=== PATIENT | female | born 1950 | race Caucasian/White ===

== ENCOUNTER → 2017-11-07 10:38 | Outpatient (CLI) | payer MEDICARE, OTHER, SELFPAY ==
--- NOTE | 2017-11-07 10:42 | BI_ITS ---
MAMMOGRAPHY - BILATERAL SCREENING REASON FOR EXAM: Female, 67 years old. Routine annual screening examination. PERTINENT HISTORY: Non-contributory. TECHNIQUE: Digital bilateral breast nikko (3D mammographic acquisition) in the CC and MLO projections. 2-D mediolateral oblique (MLO) and craniocaudad (CC) views of both breasts were obtained. CAD: Full Field Digital Mammography with Computer Added Detection was performed. COMPARISON: Comparison is made with prior study dated October 13, 2016 and November 01, 2016. FINDINGS: Breast Composition: There are scattered areas of fibroglandular density. There are no dominant masses or suspicious calcifications. No other significant abnormalities are identified. There has been no significant change since the prior study. BI/SCREENING MAMM (CAD), BILAT IMPRESSION: Stable bilateral screening mammogram. Yearly follow-up mammogram recommended. (A) ASSESSMENT CATEGORY: BIRADS Category 1: Negative. A letter regarding these results will be sent to the patient by the facility within 30 days. Approximately 10% of breast cancers are not detected by mammography. A normal mammogram should not delay biopsy of a clinically suspicious abnormality. [id number] Electronically Signed: Zay Allen MD at 9:36 EDT Tel [phone], Service support ,
--- NOTE | 2017-11-07 10:42 | BD_ITS ---
STUDY: DUAL ENERGY X-RAY ABSORPTIOMETRY / DXA REASON FOR EXAM: Female, 67 years old. The patient is postmenopausal. Loss of height. TECHNIQUE: Bone Mineral Density (BMD) measurements of forms were obtained. COMPARISON: None. FINDINGS: Right Forearm: g/cm2 (0.885) / T-score (0.0) / Z-score (1.6) Left Forearm: g/cm2 (0.839) / T-score (-0.4) / Z-score (1.1) The T-Scores on the most recent prior examination were: There has been improvement as compared to prior study. BD/Dexa Bone Density/Append Skel IMPRESSION: The patient is considered normal as outlined below according to World Phillip Organization (WHO) criteria with a low fracture risk. There has been improvement of bone density since the previous examination. Reference Information: The T-score is the number of standard deviations above or below the standard which is normal for young adults at their peak bone mineral density. The World Health Organization (WHO) interprets the T-scores as follows: Above -1 Normal bone density Between -1 and -2.5 Osteopenia Equal to / or below -2.5 Osteoporosis As a practical clinical guideline, osteopenia may be graded as follows: Mild -1 through -1.5 Moderate -1.6 through -2.0 Severe -2.1 through -2.4 The Z-score is the number of standard deviations above or below age-matched controls. A Z-score of less than -1.5 would be considered abnormal. References: 1. NIH Osteoporosis and Related Bone Diseases http://www.osteo.org 2. International Society for Clinical Densitometry http://www.iscd.org 3. National Osteoporosis Foundation http://www.nof.org Electronically Signed: Zay Allen MD at 15:47 EDT Tel [phone], Service support ,
== END ==
PROVIDERS: Family Provider Nurse Practitioner Family; PCP Nurse Practitioner Family; Visit Provider Nurse Practitioner Family
DX: Z12.31 Encounter for screening mammogram for malignant neoplasm of breast (principal); Z78.0 Asymptomatic menopausal state
CPT/HCPCS: 77063; 77067; 77081

== ENCOUNTER → 2018-11-09 | Outpatient (CLI) | payer MEDICARE, OTHER, SELFPAY ==
--- NOTE | 2018-11-09 10:54 | BI_ITS ---
MAMMOGRAPHY - BILATERAL SCREENING REASON FOR EXAM: Female, 68 years old. Routine annual screening examination. PERTINENT HISTORY: Sister with breast cancer. Prior right excisional breast biopsy. TECHNIQUE: Digital bilateral breast nikko (3D mammographic acquisition) in the CC and MLO projections. 2-D mediolateral oblique (MLO) and craniocaudad (CC) views of both breasts were obtained. CAD: Full Field Digital Mammography with Computer Added Detection was performed. COMPARISON: Comparison is made with prior study dated November 07, 2017 and November 01, 2016. FINDINGS: Breast Composition: There are scattered areas of fibroglandular density. There are no dominant masses or suspicious calcifications. No other significant abnormalities are identified. There has been no significant change since the prior study. BI/SCREENING MAMM (CAD), BILAT IMPRESSION: Stable bilateral screening mammogram. Yearly follow-up mammogram recommended. (A) ASSESSMENT CATEGORY: BIRADS Category 1: Negative. A letter regarding these results will be sent to the patient by the facility within 30 days. Approximately 10% of breast cancers are not detected by mammography. A normal mammogram should not delay biopsy of a clinically suspicious abnormality. [id number] Electronically Signed: Zay Allen, at 13:39 EDT , Service support ,
== END | disposition home or self-care (01) ==
LOC: OPBI 10:51
PROVIDERS: Family Provider Nurse Practitioner Family; PCP Nurse Practitioner Family; Referring Provider Nurse Practitioner Family; Visit Provider Nurse Practitioner Family
DX: Z12.31 Encounter for screening mammogram for malignant neoplasm of breast (principal)
CPT/HCPCS: 77063; 77067

== ENCOUNTER → 2020-04-06 10:33 | Outpatient (CLI) | payer MEDICARE, OTHER, SELFPAY ==
[2020-04-06 12:13] LABS: Hematocrit 38.8 % (37-47); Hemoglobin 12.2 g/dL (12.0-15.0); Mean Corp Hgb Conc 31.4 g/dL (32-36); Mean Corpuscular Hgb 29.1 pg (27.0-32.0); Mean Corpuscular Volume 92.6 fL (81-99); Mean Platelet Vol. 10.6 fl (6.2-12.0); Platelet Count 203 K/mm3 (150-450); RBC Distribution Width CV 13.9 % (11.6-14.6); RBC Distribution Width SD 47.1 fl (35.1-43.9); Red Blood Count 4.19 M/mm3 (4.2-5.4); White Blood Count 4.5 K/mm3 (4.4-11.0)
[2020-04-06 12:40] LABS: Vitamin D,25 Hydroxy 47.2 ng/mL
[2020-04-06 12:58] LABS: AST(SGOT) 15 U/L (15-37); Alanine Aminotransfer ALT/SGPT 18 U/L (13-56); Albumin, Serum 3.4 g/dL (3.2-5.0); Alkaline Phosphatase 79 U/L (45-117); Anion Gap 7 (5-15); BUN 25 mg/dL (7-18); BUN/Creat Ratio 40.5 RATIO (10-20); Calcium,Total 9.3 mg/dL (8.5-10.1); Chloride 108 mmol/L (98-107); Cholesterol 130 mg/dL (200); Creatinine, Serum 0.62 mg/dL (0.55-1.02); EST Glomerular Filtration Rate 102 mL/min (>60); Est Glom Filt Rate - Afr Amer 123 mL/min (>60); Globulin 3.3 g/dL (2.2-4.2); Glucose 104 mg/dL (74-106); High Density Lipoprotein 54 mg/dL; Potassium 3.6 mmol/L (3.5-5.1); Protein, Total 6.7 g/dL (6.4-8.2); Sodium Level 141 mmol/L (136-145); T4 Free Direct 1.53 ng/dL (0.76-1.46); Thyroid Stim Hormone (TSH) 0.85 uIU/mL (0.358-3.74); Triglycerides 78 mg/dL; Uric Acid 5.7 mg/dL (2.6-6.0); Very Low Density Lipoprotein 16 mg/dL (5-40)
== END ==
PROVIDERS: PCP Nurse Practitioner Family
DX: I10 Essential (primary) hypertension (principal); E78.5 Hyperlipidemia, unspecified; E03.9 Hypothyroidism, unspecified; R73.01 Impaired fasting glucose; M10.9 Gout, unspecified; E55.9 Vitamin D deficiency, unspecified
CPT/HCPCS: 36415; 80053; 80061; 82306; 83036; 84439; 84443; 84550; 85027

== ENCOUNTER → 2020-10-22 12:34 | Outpatient (CLI) | payer MEDICARE, OTHER, SELFPAY ==
--- NOTE | 2020-10-22 12:37 | BI_ITS ---
MAMMOGRAPHY - BILATERAL SCREENING REASON FOR EXAM: Female, 70 years old. Routine annual screening examination. PERTINENT HISTORY: Sister with breast cancer. Remote right stereotactic breast biopsy. TECHNIQUE: Digital bilateral breast christie (3D mammographic acquisition) in the CC and MLO projections. 2-D mediolateral oblique (MLO) and craniocaudad (CC) views of both breasts were obtained. CAD: Full Field Digital Mammography with Computer Added Detection was performed. COMPARISON: Comparison is made with prior study dated 11/09/2018 and 11/07/2017. FINDINGS: Breast Composition: There are scattered areas of fibroglandular density. There are no dominant masses or suspicious calcifications. Stable benign appearing bilateral axillary lymph nodes. No other significant abnormalities are identified. There has been no significant change since the prior study. BI/SCRN MAMM (CAD)W/CHRISTIE BILAT IMPRESSION: Stable bilateral screening mammogram. Yearly follow-up mammogram recommended. (A) ASSESSMENT CATEGORY: BIRADS Category 2: Benign. A letter regarding these results will be sent to the patient by the facility within 30 days. Approximately 10% of breast cancers are not detected by mammography. A normal mammogram should not delay biopsy of a clinically suspicious abnormality. [id number] Electronically Signed: Zay Allen MD at 14:04 EDT , Service support ,
--- NOTE | 2020-10-22 12:40 | BD_ITS ---
STUDY: DUAL ENERGY X-RAY ABSORPTIOMETRY / DXA REASON FOR EXAM: Female, 70 years old. Z780. Postmenopausal. Loss of height. TECHNIQUE: Bone Mineral Density (BMD) measurements of both forearms were obtained. COMPARISON: Comparison is made with prior study dated 11/07/2017. FINDINGS: Right Forearm: g/cm2 (0.874) / T-score (-0.2) / Z-score (1.8) Left Forearm: g/cm2 (0.821) / T-score (-0.7) / Z-score (1.2) BD/Dexa Bone Density/Append Skel IMPRESSION: The patient is considered normal as outlined below according to World Phillip Organization (WHO) criteria with a low fracture risk. Reference Information: The T-score is the number of standard deviations above or below the standard which is normal for young adults at their peak bone mineral density. The World Health Organization (WHO) interprets the T-scores as follows: Above -1 Normal bone density Between -1 and -2.5 Osteopenia Equal to / or below -2.5 Osteoporosis As a practical clinical guideline, osteopenia may be graded as follows: Mild -1 through -1.5 Moderate -1.6 through -2.0 Severe -2.1 through -2.4 The Z-score is the number of standard deviations above or below age-matched controls. A Z-score of less than -1.5 would be considered abnormal. References: 1. NIH Osteoporosis and Related Bone Diseases www osteo.org 2. International Society for Clinical Densitometry www iscd.org 3. National Osteoporosis Foundation www nof.org Electronically Signed: Zay Allen MD at 15:17 EDT , Service support ,
== END ==
PROVIDERS: PCP Nurse Practitioner Family; Referring Provider Nurse Practitioner Family; Visit Provider Nurse Practitioner Family
DX: Z12.31 Encounter for screening mammogram for malignant neoplasm of breast (principal); Z78.0 Asymptomatic menopausal state
CPT/HCPCS: 77063; 77067; 77080; 77081

== ENCOUNTER 2021-09-24 12:04 | Inpatient (IN) | payer MEDICARE, OTHER, SELFPAY ==
[2021-09-24] VITALS (13 sets, daily range): BP systolic 108–147; BP diastolic 69–102; PULSE 90–130; RESP 16–24; TEMP 36.3–36.8; O2SAT 91–95; BMI 59.9; BMI 66.2
--- NOTE | 2021-09-24 12:19 | EKG12_ITS ---
Test Reason : AFIB CHF Blood Pressure : / mmHG Vent. Rate : 118 BPM Atrial Rate : 095 BPM P-R Int : 000 ms QRS Dur : 088 ms QT Int : 322 ms P-R-T Axes : 000 001 013 degrees QTc Int : 451 ms Atrial fibrillation Abnormal ECG Confirmed by MELE LONG, LINDY ([id number]), make up editor PREETI VALVERDE ([id number]) on 09/27/2021 10:52:58 AM Referred By: Confirmed By:LINDY SHABAZZ MD
--- NOTE | 2021-09-24 12:24 | ED.RN ---
PRIOR TO PT ARRIVAL THERE WAS A GENTLEMAN THAT LET THE SCREENER KNOW SHE WAS COMING. PT ARRIVED VIA FAMILY VEHICLE AND THIS GENTLEMAN ASSIST GETTING HER OUT OF THE CAR AND BROUGHT HER IN. IT WAS THE GRANDSON DRIVING WHO THEN PARKED THE CAR AND CAME IN ALSO. THE SCREENER INFORMED BOTH MEN THAT ONLY 1 VISITOR WAS ALLOWED WITH THE PT IN THE ER. UPON BRING THE PT INTO THE TRIAGE ROOM TO GET HER CHECKED IN THIS NURSE ALSO INFORMED THEM THE RULE IS 1 VISITOR. THE OLDER GENTLEMAN EXPLAINED HE WAS CLERGY AND COULD GO BACK. EXPLAINED TO HIM THAT THAT IS NOT THE CASE UNLESS THE SITUATION DEEMS IT TO BE NECESSARY. HE CONTINUED TO ARGUE TO WHAT HE DOES ON THE FLOORS. EXPLAINED I WAS UNSURE WHAT THE FLOORS DO BUT I CAN ONLY KEEP THE ER RULES.
--- NOTE | 2021-09-24 12:35 | ED.RN ---
MAKENNA CONTINUED TO ARGUE AN STATED THAT HE SAW 2 PEOPLE WALK OUT OF THE ER SO THAT MEANS HE SHOULD BE ABLE TO GO IN WELL. AGAIN STATED THAT DEPENDS ON THE SITUATION AND I WAS NOT DISCUSSING ANOTHER PTS SITUATION WITH HIM. MEANWHILE WHILE TRIAGING THE PT SHE IS ALERT, ORIENTED, ABLE TO ANSWER ALL QUESTIONS WITH NO SIGNS OF DISTRESS AND VS WERE STABLE. EXPLAINED THOSE THING TO BOTH THE CLERGY AND THE PT. PT DID NOT SEEM TO BE BOTHERED BY THE FACT ONLY ONE OF THE MEN COULD STAY WITH HER. AT THE TIME OF TAKING THE PT BACK I TOLD BOTH MEN TO FIGURE OUT WHO WANTS TO GO BACK AND THAT THERE IS NO SWITCHING OF VISITORS ALLOWED. THE CLERGY THEN STATED HE WAS CALLING THE BOARD. HE THEN TRIED TO WALK BACK WITH THE PT AT WHICH TIME I TOLD HIM IF HE GOES BACK WITH THE PT THEN THE GRANDSON WILL NOT BE ALLOWED BACK. HE THEN STATED FINE AND TURNED TO MAKE A PHONE CALL. AFTER A FEW MINUTES THE MEN MUST HAVE DECIDED THAT THE GRANDSON WOULD BE THE ONE TO GO BACK. CHARGE NURSE AND PTS NURSE INFORMED OF THE SITUATION. SECURITY WAS ON HAND WELL AND TOLD THIS NURSE THAT HE RECOGNIZED THE GENTLEMAN CLAIMING TO BE CLERGY AND THEY HAVE HAD SIMILAR SITUATIONS WITH HIM IN OTHER AREAS OF THE HOSPITAL.
--- NOTE | 2021-09-24 13:05 | RAD_ITS ---
STUDY: X-RAY CHEST REASON FOR EXAM: Female, 71 years old. Dyspnea TECHNIQUE: Single AP portable view of the chest. COMPARISON: None. FINDINGS: EKG electrodes are seen. Patchy infiltrates in the lateral aspect of the left hemithorax with blunting of the left costophrenic angle suggestive of possible pneumonitis associated with Covid.Patchy right infrahilar infiltrate. Normal size heart. Normal mediastinum and kitty. Normal visualized pulmonary arteries. There is atherosclerotic calcification of the aortic arch with tortuosity. Normal visualized thoracic spine. Normal visualized ribs, clavicles, and shoulders. There is no demonstrated abnormality of the visualized soft tissue structures of the upper abdomen. RAD/Chest 1 View (Portable) IMPRESSION: Patchy infiltrates in the lateral aspect of the left lung as well as in the right infrahilar region. Covid pneumonitis should be Electronically Signed: Zay Allen MD at 14:17 EST ,
[2021-09-24 13:09] LABS: Absolute Lymphocyte Count 1.61 X10^3/uL (0.83-4.51); Absolute Neutrophil Count 6.4 X10^3/uL (2.0-7.7); Basophil# 0.01 X10^3/uL; Basophil% 0.1 % (0-1); Eosinophil# 0.02 X10^3/uL; Eosinophils% 0.2 % (0-5); Hemoglobin 11.8 g/dL (12.0-15.0); Lymphocyte # 1.61 X10^3/ul (0.83-4.51); Lymphocyte % 18.1 % (19-41); Mean Corp Hgb Conc 29.5 g/dL (32-36); Mean Corpuscular Hgb 29.2 pg (27.0-32.0); Mean Platelet Vol. 10.8 fl (6.2-12.0); NRBC Flagged by Analyzer 0 % (0-5); Neutrophil # 6.41 X10^3/uL (2.7-7.7); Neutrophil % 71.9 % (47-70); Platelet Count 141 K/mm3 (150-450); Red Blood Count 4.04 M/mm3 (4.2-5.4); White Blood Count 8.9 K/mm3 (4.4-11.0)
--- NOTE | 2021-09-24 13:23 | EDS_ITS ---
HPI History of Present Illness Chief Complaint: Shortness of Breath Narrative Narrative: 71-year-old female presenting with dyspnea and some chest tightness. This is worse with exertion. She states that in July she thought she had the flu and developed fevers and a cough. She tested negative for Covid twice. Since that time she has been short of breath. She was seen by her PCP who diagnosed her with atrial fibrillation and put her on carvedilol. Patient started developing leg swelling and he diagnosed her with congestive heart failure and put her on HCTZ 25 mg p.o. daily for the leg swelling. She states she is never had an echocardiogram. Patient also states that she is not anticoagulated patient denies history of DVT/PE. She does state her legs are more swollen and her abdomen feels bloated. She states that HCTZ is not getting the water off. She describes dyspnea on exertion but she does not describe orthopnea. She does however wear a CPAP mask at night and states that she sleeps pretty well with this on but when she is not wearing it during the day she has more shortness of breath [facility] Medical History Atrial fibrillation CPAP (continuous positive airway pressure) dependence High cholesterol HTN (hypertension) Hypothyroid Non-smoker Sleep apnea Home Medications hydrochlorothiazide 25 mg PO DAILY 09/17/14 [History Last Taken 09/24/21] multivitamin with folic acid [Thera] 1 tab PO DAILY 09/17/14 [History Last Taken 09/23/21] nabumetone 750 mg PO BID 09/17/14 [History Last Taken 09/24/21] simvastatin 10 mg PO QHS 09/17/14 [History Last Taken 09/23/21] allopurinol 300 mg PO DAILY 07/27/15 [History Last Taken 09/24/21] losartan 100 mg PO DAILY 07/27/15 [History Last Taken 09/24/21] Cbd Patches 1 ea TRANSDERMAL QODAY 09/24/21 [History Last Taken 09/20/21] [id number] [Excedrin Extra Strength] 1 tab PO DAILY 09/24/21 [History Last Taken 09/24/21] carvedilol phosphate 10 mg PO DAILY 09/24/21 [History Last Taken 09/24/21] cholecalciferol (vitamin D3) 1,250 mcg PO SWEET 09/24/21 [History Last Taken 09/19/21] levothyroxine 137 mcg PO DAILY 09/24/21 [History Last Taken 09/24/21] trospium 20 mg PO QHS 09/24/21 [History Last Taken 09/23/21] Allergy/AdvReac Type Severity Reaction Status Date / Time No Known Allergies Allergy Verified 07/27/15 16:55 Family History Mother CHF (congestive heart failure) Social History Smoking Status: Never smoker ROS ROS ED Constitutional Constitutional ED: Denies chills or fever(s) Eyes Eyes: Denies blurry vision or diplopia ENT ENT ED: Denies rhinorrhea or sore throat Cardiovascular Cardiovascular: Reports chest pain, palpitations and racing heartbeat Respiratory/Chest Respiratory/Chest: Reports dyspnea and dyspnea on exertion Gastrointestinal Gastrointestinal: Reports other Details: Abdominal bloating ; Denies nausea or vomiting Genitourinary Genitourinary ED: Denies dysuria or hematuria Musculoskeletal Musculoskeletal: Denies arthralgias or myalgias Integumentary Reports other Details: Lower extremity edema ; Denies rash Neurologic Neurologic: Denies headache(s) or weakness Psychiatric Psychiatric: Denies anxiety or depression EXAM Physical Exam Const Vital Signs: 09/24/21 12:05 09/24/21 12:27 09/24/21 12:40 Temperature 98.2 F 98.2 F Temperature Source Temporal Temporal Pulse Rate 100 100 Respiratory Rate 16 16 Respiratory Effort Respiratory Pattern Blood Pressure 147/84 H 147/84 H Blood Pressure Mean 105 105 Pulse Ox 95 95 94 Oxygen Delivery Method Room Air Room Air Room Air 09/24/21 13:03 09/24/21 13:23 09/24/21 13:57 Temperature 97.9 F Temperature Source Temporal Pulse Rate 118 H 101 H Respiratory Rate 22 H 23 H Respiratory Effort Short of Breath Respiratory Pattern Tachypnea Blood Pressure 123/102 H 134/101 H Blood Pressure Mean 109 112 Pulse Ox 94 94 Oxygen Delivery Method Room Air Room Air Positive obese General Appearance ED: NAD; Negative for pallor Nutritional Appearance: obese HEENT Reports moist mucous membranes atraumatic Eyes PERRL and EOMs intact bilaterally General Eye ED: Negative for pale conjunctiva or scleral icterus Resp normal respiratory effort and clear to auscultation bilaterally Cardio Rate: tachycardic Rhythm: abnormal rhythm irregularly irregular Extremity General Extremety ED: Yes edema; Negative for tenderness General Extremity: edema Neuro oriented x3, CN's II-XII intact bilaterally and no sensory deficits noted Sensorium / Orientation: alert Motor Exam: strength 5/5 throughout Psych mental status grossly normal Thought Process: normal thought process Skin General Skin Exam: Negative for jaundice or pallor MDM MDM MDM Narrative Medical decision making narrative: Patient presented with shortness of breath, chest tightness, lower extremity swelling. She is previously diagnosed with CHF without an echocardiogram. Her EKG on my interpretation shows atrial fibrillation at a rate of 118 bpm. Chest x-ray my interpretation shows bilateral infiltrates, radiologist agree. CBC shows no leukocytosis. Her hemoglobin is 11.8 which is stable. Platelets slightly low at 141. Renal function and electrolytes unremarkable. High-sensitivity troponin initially is 16. BNP is elevated at 182.1. Patient was given 10 mg of diltiazem because of heart rates only about 110-115. D-dimer came back elevated at 7.17 and I obtained a CTA of the chest which is positive for pleural effusions and PEs in the left lower lobe pulmonary artery are also infiltrates in the left lateral upper lobe abutting the major fissure of the left lung. I did order COVID test today because the radiologist had concern for COVID pneumonitis however the patient has not had a fever, chills, body aches since July. I do not believe she needs antibiotics currently. Patient was given Eliquis and 40 mg of Lasix IV. Discussed with hospitalist for admission. Impression: 1. CHF 2. A. fib with RVR 3. Left lower lobe PEs Lab Data Attestation: I reviewed the patient's lab results. Labs: Laboratory Results - last 24 hr 09/24/21 09/24/21 09/24/21 13:00 13:00 13:00 WBC 8.9 RBC 4.04 L Hgb 11.8 L Hct 40.0 MCV 99.0 MCH 29.2 MCHC 29.5 L RDW Std Deviation 59.0 H RDW Coeff of Yuri 16.0 H Plt Count 141 L MPV 10.8 Immature Gran % (Auto) 0.700 Neut % (Auto) 71.9 H Lymph % (Auto) 18.1 L [place] % (Auto) 9.0 Eos % (Auto) 0.2 Baso % (Auto) 0.1 Absolute Neuts (auto) 6.4 Absolute Lymphs (auto) 1.61 Nucleated RBC % 0 D-Dimer Quant (PE/DVT) 7.17 H* Sodium 138 Potassium 3.6 Chloride 109 H Carbon Dioxide 23.0 Anion Gap 6 BUN 17 Creatinine 0.93 Estim Creat Clear Calc 49.20 Est GFR (MDRD) Af Amer 76 Est GFR (MDRD) Non-Af 63 BUN/Creatinine Ratio 18.3 Glucose 141 H Calcium 9.7 Troponin I High Sens 16 B-Natriuretic Peptide 09/24/21 09/24/21 13:00 14:58 WBC RBC Hgb Hct MCV MCH MCHC RDW Std Deviation RDW Coeff of Yuri Plt Count MPV Immature Gran % (Auto) Neut % (Auto) Lymph % (Auto) [place] % (Auto) Eos % (Auto) Baso % (Auto) Absolute Neuts (auto) Absolute Lymphs (auto) Nucleated RBC % D-Dimer Quant (PE/DVT) Sodium Potassium Chloride Carbon Dioxide Anion Gap BUN Creatinine Estim Creat Clear Calc Est GFR (MDRD) Af Amer Est GFR (MDRD) Non-Af BUN/Creatinine Ratio Glucose Calcium Troponin I High Sens 19 B-Natriuretic Peptide 182.1 H Radiography Diagnostic Testing: Clinical Impression(s) from Imaging Studies Chest X-Ray 09/24/21 13:05 IMPRESSION: Patchy infiltrates in the lateral aspect of the left lung as well as in the right infrahilar region. Covid pneumonitis should be Electronically Signed: Zay Allen MD at 14:17 EST , Chest CTA 09/24/21 13:31 IMPRESSION: Pulmonary emboli in branches of the left lower lobe pulmonary artery. Small bilateral pleural effusions with bibasilar atelectasis. Airspace disease in the posterior aspect of the left upper lobe abutting the major fissure with infiltration along the lateral aspect of the left lung. Radiographic follow-up is recommended. Electronically Signed: Zay Allen MD at 14:38 EST , Discharge Plan Triage Chief Complaint: Shortness of Breath ED Provider: Timothy Lo Dx/Rx/DC Orders Prescriptions: No Action nabumetone 750 MG tablet 750 mg PO BID RF: 0 simvastatin 10 MG tablet 10 mg PO QHS RF: 0 hydrochlorothiazide 25 MG tablet 25 mg PO DAILY RF: 0 multivitamin with folic acid [Thera] 1 TABLET tablet 1 tab PO DAILY RF: 0 allopurinol 300 MG tablet 300 mg PO DAILY RF: 0 losartan 100 MG tablet 100 mg PO DAILY RF: 0 levothyroxine 137 mcg tablet 137 mcg PO DAILY RF: 0 Excedrin Extra Strength 250-250-65 mg Tablet 1 tab PO DAILY RF: 0 trospium 20 mg tablet 20 mg PO QHS RF: 0 carvedilol phosphate 10 mg capsule, ER multiphase 24 hr 10 mg PO DAILY RF: 0 cholecalciferol (vitamin D3) 1,250 mcg (50,000 unit) capsule 1,250 mcg PO SWEET RF: 0 Cbd Patches 1 ea transdermal QODAY RF: 0 Primary Care Provider: Gregg Plasencia NP
[2021-09-24 13:26] LABS: Anion Gap 6 (5-15); BUN 17 mg/dL (7-18); BUN/Creat Ratio 18.3 RATIO (10-20); Calcium,Total 9.7 mg/dL (8.5-10.1); Chloride 109 mmol/L (98-107); Creatinine, Serum 0.93 mg/dL (0.55-1.02); EST Glomerular Filtration Rate 63 mL/min (>60); Est Glom Filt Rate - Afr Amer 76 mL/min (>60); Glucose 141 mg/dL (74-106); Potassium 3.6 mmol/L (3.5-5.1); Sodium Level 138 mmol/L (136-145); Troponin-I HS 16 pg/mL (3.0-54.0)
[2021-09-24 13:27] LABS: BNP,B-Type NATRIURETIC PEPTIDE 182.1 pg/mL (0-100)
[2021-09-24 13:30] LABS: D-Dimer Quantitative (DVT/PE) 7.17 FEU/ug/m (0.27-0.49)
--- NOTE | 2021-09-24 13:31 | CT_ITS ---
STUDY: CTA CHEST REASON FOR EXAM: Female, 71 years old. Dyspnea. RADIATION DOSAGE (If Supplied By Facility): CTDIvol = ( 19.79 ) mGy, DLP = ( 574.29 ) mGycm TECHNIQUE: The examination was performed with the intravenous administration of IV 100mL Isovue-370. Post-processing of the angiographic images was performed, with multiplanar reformation and 3D reconstruction. Individualized dose optimization techniques were used for this CT. COMPARISON: Comparison is made with prior chest radiograph done earlier in the day. FINDINGS: Intraluminal filling defects in keeping with a pulmonary emboli are seen in branches of the left lower lobe pulmonary artery . Normal thoracic aorta and visualized great vessels. There is no demonstrated aortic dissection. Normal heart and pericardium. Normal mediastinum. Normal hilar regions. Normal visualized trachea and bronchi. The lungs are well expanded. Consolidation in the posterior aspect of the left upper lobe abutting the left major fissure. This extends into the pleural surface. Radiographic follow-up is recommended following treatment to make sure it is no underlying mass is present. Small bilateral pleural effusions. Normal chest wall structures. There are degenerative changes of thoracic spine. Normal visualized upper abdomen. CT/CTA Chest W/WO Contrast IMPRESSION: Pulmonary emboli in branches of the left lower lobe pulmonary artery. Small bilateral pleural effusions with bibasilar atelectasis. Airspace disease in the posterior aspect of the left upper lobe abutting the major fissure with infiltration along the lateral aspect of the left lung. Radiographic follow-up is recommended. Electronically Signed: Zay Allen MD at 14:38 EST ,
[2021-09-24] MEDS: dilTIAZem 25 MG/5 ML Vial 10 MG IV BOLUS (14:45)
[2021-09-24] MEDS: Furosemide 40 MG/4 ML Vial IV ×2 (15:19→17:57)
--- NOTE | 2021-09-24 15:25 | HP.PCM.HOS_ITS ---
HPI - General General Date of Admission: 09/24/21 Date of Service: 09/24/21 Chief Complaint: shortness of breath HPI Narrative CARMEN PYLE, is a 71 F who presents presents with shortness of breath. Patient was sick and July and was tested negative for Covid x2. She eventually got over that but then just started feeling short of breath and has not been able to keep up and her shortness of breath is steadily gotten worse. Because of this she presented to the emergency room today. In the emergency room, patient had a CAT scan that showed left lower lobe PE as well as bilateral pleural effusions. Patient does note that she has had an increased lower extremity edema as well as left-sided pannus wall edema. She denies any history of PE or heart failure previously. Patient thinks he may have had COVID-19 but was negative. She is unvaccinated for COVID-19. Patient did have a heart rate in the 100s 120s and did receive one-time dose of IV diltiazem 10 mg. [facility] Medical History Atrial fibrillation CPAP (continuous positive airway pressure) dependence High cholesterol HTN (hypertension) Hypothyroid Non-smoker Sleep apnea Home Medications hydrochlorothiazide 25 mg PO DAILY 09/17/14 [History Last Taken 09/24/21] multivitamin with folic acid [Thera] 1 tab PO DAILY 09/17/14 [History Last Taken 09/23/21] nabumetone 750 mg PO BID 09/17/14 [History Last Taken 09/24/21] simvastatin 10 mg PO QHS 09/17/14 [History Last Taken 09/23/21] allopurinol 300 mg PO DAILY 07/27/15 [History Last Taken 09/24/21] losartan 100 mg PO DAILY 07/27/15 [History Last Taken 09/24/21] Cbd Patches 1 ea TRANSDERMAL QODAY 09/24/21 [History Last Taken 09/20/21] vvkruea-wwdhdyqayaxwb-gomhflsi [Excedrin Extra Strength] 1 tab PO DAILY 09/24/21 [History Last Taken 09/24/21] carvedilol phosphate 10 mg PO DAILY 09/24/21 [History Last Taken 09/24/21] cholecalciferol (vitamin D3) 1,250 mcg PO SWEET 09/24/21 [History Last Taken 09/19/21] levothyroxine 137 mcg PO DAILY 09/24/21 [History Last Taken 09/24/21] trospium 20 mg PO QHS 09/24/21 [History Last Taken 09/23/21] Allergy/AdvReac Type Severity Reaction Status Date / Time No Known Allergies Allergy Verified 07/27/15 16:55 Family History Mother CHF (congestive heart failure) Social History Smoking Status: Never smoker YUKI MIRZA Narrative Said initially when she got sick in July she did not have any anosmia or nor dysgeusia but has had some alteration in taste as of late. All review of sy stems were negative except as mentioned above in the history of present illness and the other review of systems. Vital Signs Vital Signs Vital Signs: 09/24/21 12:05 09/24/21 12:27 09/24/21 12:40 Temperature 36.8 C 36.8 C Temperature Source Temporal Temporal Pulse Rate 100 100 Respiratory Rate 16 16 Respiratory Effort Respiratory Pattern Blood Pressure 147/84 H 147/84 H Blood Pressure Mean 105 105 Pulse Ox 95 95 94 Oxygen Delivery Method Room Air Room Air Room Air 09/24/21 13:03 09/24/21 13:23 09/24/21 13:57 Temperature 36.6 C Temperature Source Temporal Pulse Rate 118 H 101 H Respiratory Rate 22 H 23 H Respiratory Effort Short of Breath Respiratory Pattern Tachypnea Blood Pressure 123/102 H 134/101 H Blood Pressure Mean 109 112 Pulse Ox 94 94 Oxygen Delivery Method Room Air Room Air Weight Weight: 163.293 kg Body Mass Index (BMI) 59.9 Physical Exam Const alert and no apparent distress Constitutional Narrative: Morbidly obese General Appearance: cooperative HEENT normocephalic, head/scalp atraumatic, hearing grossly normal bilaterally and moist oral mucous membranes Neck no lymphadenopathy Neck Narrative: Positive JVD Resp normal respiratory effort, no retractions, no use of accessory muscles and clear to auscultation bilaterally Cardio regular rate, regular rhythm, S1 normal heart sound and S2 normal heart sound GI normal to inspection, nondistended, normoactive bowel sounds, soft to palpation, non-tender and non-distended GI Narrative: Abdomen was obese with very large pannus. Did not appreciate any fluid that she was describing. Extremity Extremity Narrative: Bilateral lower extremity edema Neuro oriented x3 Sensorium / Orientation: awake, alert and oriented to person Psych affect normal Results Lab / Micro Data Attestation: I reviewed the patient's lab results. Result Diagrams: 09/24/21 13:00 09/24/21 13:00 Labs: Laboratory Results - last 24 hr 09/24/21 13:00: WBC 8.9, RBC 4.04 L, Hgb 11.8 L, Hct 40.0, MCV 99.0, MCH 29.2, MCHC 29.5 L, RDW Std Deviation 59.0 H, RDW Coeff of Yuri 16.0 H, Plt Count 141 L, MPV 10.8, Immature Gran % (Auto) 0.700, Neut % (Auto) 71.9 H, Lymph % (Auto) 18.1 L, [place] % (Auto) 9.0, Eos % (Auto) 0.2, Baso % (Auto) 0.1, Absolute Neuts (auto) 6.4, Absolute Lymphs (auto) 1.61, Nucleated RBC % 0 09/24/21 13:00: D-Dimer Quant (PE/DVT) 7.17 H* 09/24/21 13:00: Sodium 138, Potassium 3.6, Chloride 109 H, Carbon Dioxide 23.0, Anion Gap 6, BUN 17, Creatinine 0.93, Estim Creat Clear Calc 49.20, Est GFR (MDRD) Af Amer 76, Est GFR (MDRD) Non-Af 63, BUN/Creatinine Ratio 18.3, Glucose 141 H, Calcium 9.7, Troponin I High Sens 16 09/24/21 13:00: B-Natriuretic Peptide 182.1 H EKG Initial EKG: Attestation: I personally reviewed and interpreted this EKG as follows: Prior EKG tracings: available for review EKG Rhythm Intrepretation: Atrial Fibrillation Radiology Impression Chest X-Ray 09/24/21 13:05 IMPRESSION: Patchy infiltrates in the lateral aspect of the left lung as well as in the right infrahilar region. Covid pneumonitis should be Electronically Signed: Zay Allen MD at 14:17 EST , Chest CTA 09/24/21 13:31 IMPRESSION: Pulmonary emboli in branches of the left lower lobe pulmonary artery. Small bilateral pleural effusions with bibasilar atelectasis. Airspace disease in the posterior aspect of the left upper lobe abutting the major fissure with infiltration along the lateral aspect of the left lung. Radiographic follow-up is recommended. Electronically Signed: Zay Allen MD at 14:38 EST , Assessment & Plan Assessment/Plan (1) Pulmonary emboli: QUALIFIERS: Pulmonary embolism type: multiple subsegmental (without acute cor pulmonale) Qualified Code(s): I26.94 - Multiple subsegmental pulmonary emboli without acute cor pulmonale (2) CHF exacerbation: QUALIFIERS: Heart failure type: unspecified Qualified Code(s): I50.9 - Heart failure, unspecified (3) Atrial fibrillation with RVR: PLAN: 1. Pulmonary emboli Patient will need to be anticoagulated and will initiate weight-based enoxaparin for now. Will check an echocardiogram given the patient's concomitant CHF It is unclear if the patient did have COVID-19 back in July but is highly concerning given that this was for the peak of the pandemic and she was sick for several weeks and she is unvaccinated. Therefore cannot determine if her pulmonary emboli or Covid related 2. Acute CHF exacerbation Unclear type at this time Check echocardiogram Continue with furosemide IV Patient does have some area in her left upper lobe. Concerned that is more likely related with CHF and fluid within her fissure. I do not feel that that is pneumonia so we will not treat that at this point in time 3. Atrial fibrillation with RVR Mild RVR Continue with her carvedilol the ER 4. Morbid obesity BMI 60 Complicates overall care and recovery 6. VTE prophylaxis: Not indicated as patient is already anticoagulated 7. COVID-19 vaccination status: Patient is unvaccinated for COVID-19. Though it is concerning the patient had COVID-19 back in July but still highly recommended that she get vaccinated given her multiple medical comorbidities. 8. CODE STATUS: Addressed with the patient. Patient has a living will and does have a DNR. She is DNR Comfort Care arrest. Charges/Coding Visit Charges Inpatient E&M: 47290 Init Hosp L3
[2021-09-24 15:34] LABS: Troponin-I HS 19 pg/mL (3.0-54.0)
[2021-09-24] MEDS: APIXABAN 5 MG TABLET 10 MG PO (16:26)
[2021-09-24] MEDS: 0.9% Saline Lock 10 ML Syringe IV (17:57)
[2021-09-24 18:49] LABS: Troponin-I HS 17 pg/mL (3.0-54.0)
[2021-09-24] MEDS: Carvedilol 3.125 MG TABLET PO (18:51)
[2021-09-24] MEDS: Etodolac 300 MG Capsule PO (21:45)
[2021-09-24] MEDS: Tolterodine Tartrate 2 MG CAP.SA PO (21:46)
[2021-09-24] MEDS: Atorvastatin Calcium 10 MG Tablet 5 MG PO (21:46)
[2021-09-24] MEDS: Enoxaparin 80 MG/0.8 ML Syringe 160 MG SC (21:48)
[2021-09-25] VITALS (34 sets, daily range): BP systolic 96–145; BP diastolic 43–89; PULSE 77–111; RESP 18–25; TEMP 36.3–36.9; O2SAT 90–95
--- NOTE | 2021-09-25 05:55 | ECHOD_ITS ---
Reason For Study: CHF Procedure This was a 2D Doppler, Color Flow transthoracic echocardiogram. Exam performed portable in patient room. Left Ventricle Normal LV size. Mild global left ventricular systolic dysfunction. The estimated ejection fraction is 45 %. There is mild global hypokinesis of the left ventricle. Right Ventricle Normal RV size. Mild global right ventricular systolic dysfunction. Atria The left atrium is mildly enlarged. Normal right atrium. Mitral Valve There is mild mitral annular calcification. Tricuspid Valve Normal tricuspid valve. Mild to moderate (1-2+) tricuspid valve insufficiency. Pulmonary artery systolic pressure is 36 mmHg. Aortic Valve Normal aortic valve. Trisinus/trileaflet aortic valve. Pulmonic Valve Normal pulmonic valve. Great Vessels Normal aortic root. The pulmonary artery is normal size. The inferior vena cava is dilated. Pericardium/Pleural No pericardial effusion. MMode/2D Measurements & Calculations LVIDd: 4.6 cm IVSd: 1.1 cm Ao root diam: 3.3 cm LVIDs: 3.5 cm LVPWd: 1.1 cm RVDd: 4.2 cm FS: 22.2 % LAV(MOD-bp): 76.2 ml LVAd ap4: 18.9 cm2 SV(MOD-sp4): 19.9 ml LAV(MOD-bp) Indexed: 28.7 ml/m2 LVLd ap4: 7.4 cm LAV(MOD-sp2): 77.8 ml EDV(MOD-sp4): 41.7 ml LAV(MOD-sp4): 65.6 ml EDV(sp4-el): 41.0 ml LVAs ap4: 12.2 cm2 LVLs ap4: 6.1 cm ESV(MOD-sp4): 21.8 ml ESV(sp4-el): 20.6 ml EF(MOD-sp4): 47.7 % EF(sp4-el): 49.7 % SV(sp4-el): 20.4 ml LA A4 area: 23.3 cm2 LA dimension(2D): 4.1 cm RA A4 area: 20.6 cm2 Doppler Measurements & Calculations MV E max stefan: 119.4 cm/sec Ao V2 max: 158.8 cm/sec LV V1 max: 112.1 cm/sec Ao max P.2 mmHg LV V1 max P.1 mmHg Ao V2 mean: 114.7 cm/sec Ao mean P.7 mmHg Ao V2 VTI: 28.5 cm PA V2 max: 95.2 cm/sec TR max stefan: 254.0 cm/sec TR max P.8 mmHg ECHO/Echo Complete Interpretation Summary Normal LV size. Mild global left ventricular systolic dysfunction. The estimated ejection fraction is 45 %. There is mild global hypokinesis of the left ventricle. The left atrium is mildly enlarged. There is mild mitral annular calcification. Pulmonary artery systolic pressure is 36 mmHg. Ordering Physician: Hector Traylor Referring Physician: Gregg Plasencia Performed By: Avelina See, JUSTIN, RVT
[2021-09-25] MEDS: Levothyroxine 137 MCG Tablet PO (05:56)
[2021-09-25 06:52] LABS: Anion Gap 6 (5-15); BUN 14 mg/dL (7-18); BUN/Creat Ratio 16.8 RATIO (10-20); Calcium,Total 9.1 mg/dL (8.5-10.1); Chloride 104 mmol/L (98-107); Creatinine, Serum 0.84 mg/dL (0.55-1.02); EST Glomerular Filtration Rate 71 mL/min (>60); Est Glom Filt Rate - Afr Amer 86 mL/min (>60); Estimated Creatinine Clearance 54.47 ml/min; Glucose 110 mg/dL (74-106); Potassium 2.9 mmol/L (3.5-5.1); Sodium Level 140 mmol/L (136-145); Thyroid Stim Hormone (TSH) 4.03 uIU/mL (0.358-3.74)
--- NOTE | 2021-09-25 09:32 | CASEMGMT ---
FAUZIA BAUER Assessment: Face to Face with pt for initial transition planning/care coordination assessment. RN JUANCARLOS introduced self and role at [facility], pt voices understanding and consents to assessment. Pt is A/O x4 and answers all questions appropriately at this time. Pt sitting up in bed on RA in no distress. Care providers, pharmacy, and demographics verified/updated. Admitting Dx: CHF, PE, Afib, RVR PCP: Maxim Plasencia [facility] Specialists: serena Gomez Preferred Pharmacy: [facility] Insurance: MCR, [employer] Prescription Benefit: yes LW/HPOA: Pt states she has a LW/DPOA and it is her dtr Yary Mueller. She is aware that it is not on file at [facility] and she may bring in to be scanned into the chart. LNOK: Yary Mueller, dtr Living Arrangements: Pt lives in the basement of her daughter and her daughter's family's home. Pt has no steps to enter. Pt reports she is I in ADL's and denies concerns at home. Transportation: Pt drives self and denies concerns with transportation. DME/HHC/SNF: Pt has a CPAP, cane, FWW and rollator at home. Pt denies hx of HHC or SNF stays. Pt states no concerns with going home at time of dc. Discussed HHC for her new diagnoses though pt reports she is not homebound. She reports she is a little weakn but states she will gain her strength back on her own. FAUZIA BAUER to follow for needs if this changes or if pt would qualify for HHC for being homebound with input from therapy notes. Discussed pt will likely be dc'on Eliquis after speaking with hospitalist. Provided eliquis card with explanation. Pt states no further concerns/needs. CM to follow. Advised pt to ask CM if any further question/concerns/needs arise, voices understanding. Pt Goal: Home Plan: Home, follow for need for HHC.
[2021-09-25] MEDS: Furosemide 40 MG/4 ML Vial IV ×2 (09:42→16:45)
[2021-09-25] MEDS: Enoxaparin 80 MG/0.8 ML Syringe 160 MG SC (09:42)
[2021-09-25] MEDS: Carvedilol 3.125 MG TABLET PO (09:43)
[2021-09-25] MEDS: Multivitamins,Ther W-Minerals Tablet 1 TABLET PO (09:43)
[2021-09-25] MEDS: Losartan Potassium 100 MG Tablet PO (09:43)
[2021-09-25] MEDS: Allopurinol 300 MG Tablet PO (09:43)
[2021-09-25] MEDS: 0.9% Saline Lock 10 ML Syringe IV ×3 (09:44→16:45)
[2021-09-25] MEDS: Etodolac 300 MG Capsule PO ×2 (09:44→21:39)
[2021-09-25] MEDS: Potassium Chloride Oral Tablet 20 MEQ 40 MEQ PO (11:07)
--- NOTE | 2021-09-25 12:19 | PN.HOSP_ITS ---
Subjective Subjective Breathing well. Objective Data Objective Data Vital Signs: Vital Signs Temp Pulse Resp BP Pulse Ox 36.8 C 103 H 20 H 106/57 L 91 09/25/21 10:00 09/25/21 11:21 09/25/21 10:00 09/25/21 10:00 09/25/21 10:00 Oxygen Flow Rate (L/min) 2 Oxygen Delivery Method Room Air Weight: 180.7 kg Body Mass Index (BMI) 66.2 Intake & Output: Intake and Output for Last 24 Hours 09/23/21 09/24/21 09/25/21 23:59 23:59 23:59 Intake Total 150 / 150.33 96.66 / 96.66 Output Total 1950 / 4000 2300 / 2300 Balance -1800 / -3849.67 -2203.34 / -2203.34 Lab / Micro Data Result Diagrams: 09/24/21 13:00 09/25/21 05:29 Labs: Laboratory Results - last 24 hr 09/24/21 13:00: WBC 8.9, RBC 4.04 L, Hgb 11.8 L, Hct 40.0, MCV 99.0, MCH 29.2, MCHC 29.5 L, RDW Std Deviation 59.0 H, RDW Coeff of Yuri 16.0 H, Plt Count 141 L, MPV 10.8, Immature Gran % (Auto) 0.700, Neut % (Auto) 71.9 H, Lymph % (Auto) 18.1 L, [place] % (Auto) 9.0, Eos % (Auto) 0.2, Baso % (Auto) 0.1, Absolute Neuts (auto) 6.4, Absolute Lymphs (auto) 1.61, Nucleated RBC % 0 09/24/21 13:00: D-Dimer Quant (PE/DVT) 7.17 H* 09/24/21 13:00: Sodium 138, Potassium 3.6, Chloride 109 H, Carbon Dioxide 23.0, Anion Gap 6, BUN 17, Creatinine 0.93, Estim Creat Clear Calc 49.20, Est GFR (M DRD) Af Amer 76, Est GFR (MDRD) Non-Af 63, BUN/Creatinine Ratio 18.3, Glucose 141 H, Calcium 9.7, Troponin I High Sens 16 09/24/21 13:00: B-Natriuretic Peptide 182.1 H 09/24/21 14:58: Troponin I High Sens 19 09/24/21 15:13: COVID-19 (MARLY) Not Detected 09/24/21 18:20: Troponin I High Sens 17 09/25/21 05:29: Sodium 140, Potassium 2.9 L, Chloride 104, Carbon Dioxide 30.0, Anion Gap 6, BUN 14, Creatinine 0.84, Estim Creat Clear Calc 54.47, Est GFR (MDRD) Af Amer 86, Est GFR (MDRD) Non-Af 71, BUN/Creatinine Ratio 16.8, Glucose 110 H, Calcium 9.1, TSH 4.03 H Radiography Diagnostic Testing: Radiology Impression Chest X-Ray 09/24/21 13:05 IMPRESSION: Patchy infiltrates in the lateral aspect of the left lung as well as in the right infrahilar region. Covid pneumonitis should be Electronically Signed: Zay Allen MD at 14:17 EST , Chest CTA 09/24/21 13:31 IMPRESSION: Pulmonary emboli in branches of the left lower lobe pulmonary artery. Small bilateral pleural effusions with bibasilar atelectasis. Airspace disease in the posterior aspect of the left upper lobe abutting the major fissure with infiltration along the lateral aspect of the left lung. Radiographic follow-up is recommended. Electronically Signed: Zay Allen MD at 14:38 EST , Physical Exam Const alert Resp normal respiratory effort, no retractions, no use of accessory muscles and clear to auscultation bilaterally Cardio regular rate, regular rhythm, S1 normal heart sound and S2 normal heart sound GI normal to inspection, nondistended, normoactive bowel sounds, soft to palpation, non-tender and non-distended Neuro oriented x3 Sensorium / Orientation: awake and alert Assessment & Plan Assessment/Plan (1) Pulmonary emboli: QUALIFIERS: Pulmonary embolism type: multiple subsegmental (without acute cor pulmonale) Qualified Code(s): I26.94 - Multiple subsegmental pulmonary emboli without acute cor pulmonale (2) CHF exacerbation: QUALIFIERS: Heart failure type: unspecified Qualified Code(s): I50.9 - Heart failure, unspecified (3) Atrial fibrillation with RVR: PLAN: 1. Pulmonary emboli Patient will need to be anticoagulated and will initiate weight-based enoxaparin for now. Will check an echocardiogram given the patient's concomitant CHF It is unclear if the patient did have COVID-19 back in July but is highly concerning given that this was for the peak of the pandemic and she was sick for several weeks and she is unvaccinated. Therefore cannot determine if her pulmonary emboli or Covid related change to apixaban 2. Acute CHF exacerbation Unclear type at this time Check echocardiogram Continue with furosemide IV Patient does have some area in her left upper lobe. Concerned that is more likely related with CHF and fluid within her fissure. I do not feel that that is pneumonia so we will not treat that at this point in time 3. Atrial fibrillation with RVR Mild RVR Change carvedilol to metoprolol. DC dilt gtt. 4. Morbid obesity BMI 60 Complicates overall care and recovery 6. VTE prophylaxis: Not indicated as patient is already anticoagulated 7. COVID-19 vaccination status: Patient is unvaccinated for COVID-19. Though it is concerning the patient had COVID-19 back in July but still highly recommended that she get vaccinated given her multiple medical comorbidities. 8. CODE STATUS: Addressed with the patient. Patient has a living will and does have a DNR. She is DNR Comfort Care arrest. Charges/Coding Visit Charges Inpatient E&M: 55047 Subs Hosp L2
[2021-09-25] MEDS: Metoprolol Tartrate 25 MG Tablet PO (13:01)
[2021-09-25] MEDS: Tolterodine Tartrate 2 MG CAP.SA PO (21:39)
[2021-09-25] MEDS: Atorvastatin Calcium 10 MG Tablet 5 MG PO (21:40)
[2021-09-25] MEDS: Metoprolol Tartrate 50 MG Tablet PO (21:40)
[2021-09-25] MEDS: APIXABAN 5 MG TABLET 10 MG PO (21:41)
[2021-09-26] VITALS (12 sets, daily range): BP systolic 106–119; BP diastolic 65–97; PULSE 79–107; RESP 16–20; TEMP 36.6–36.8; O2SAT 94–98
[2021-09-26 04:59] LABS: Absolute Lymphocyte Count 1.92 X10^3/uL (0.83-4.51); Absolute Neutrophil Count 3.9 X10^3/uL (2.0-7.7); Basophil# 0.01 X10^3/uL; Basophil% 0.1 % (0-1); Eosinophil# 0.03 X10^3/uL; Eosinophils% 0.4 % (0-5); Hematocrit 34.9 % (37-47); Hemoglobin 10.6 g/dL (12.0-15.0); Lymphocyte # 1.92 X10^3/ul (0.83-4.51); Lymphocyte % 28.7 % (19-41); Mean Corp Hgb Conc 30.4 g/dL (32-36); Mean Corpuscular Hgb 28.7 pg (27.0-32.0); Mean Corpuscular Volume 94.6 fL (81-99); Mean Platelet Vol. 10.6 fl (6.2-12.0); Monocyte# 0.84 X10^3/uL; Monocyte% 12.5 % (0-10); NRBC Flagged by Analyzer 0 % (0-5); Neutrophil # 3.86 X10^3/uL (2.7-7.7); Neutrophil % 57.7 % (47-70); Platelet Count 155 K/mm3 (150-450); RBC Distribution Width CV 16.1 % (11.6-14.6); RBC Distribution Width SD 55.5 fl (35.1-43.9); Red Blood Count 3.69 M/mm3 (4.2-5.4); White Blood Count 6.7 K/mm3 (4.4-11.0)
[2021-09-26] MEDS: Levothyroxine 137 MCG Tablet PO (05:10)
[2021-09-26 05:20] LABS: Anion Gap 7 (5-15); BUN 16 mg/dL (7-18); BUN/Creat Ratio 17.9 RATIO (10-20); Chloride 104 mmol/L (98-107); Creatinine, Serum 0.89 mg/dL (0.55-1.02); EST Glomerular Filtration Rate 66 mL/min (>60); Est Glom Filt Rate - Afr Amer 80 mL/min (>60); Estimated Creatinine Clearance 51.41 ml/min; Glucose 114 mg/dL (74-106); Potassium 2.9 mmol/L (3.5-5.1); Sodium Level 141 mmol/L (136-145)
[2021-09-26] MEDS: Potassium Chloride Oral Tablet 20 MEQ 60 MEQ PO (06:02)
[2021-09-26 06:29] LABS: Magnesium 1.4 mg/dL (1.6-2.6); Phosphorus 3.3 mg/dL (2.5-4.9)
[2021-09-26] MEDS: Losartan Potassium 100 MG Tablet PO (08:53)
[2021-09-26] MEDS: APIXABAN 5 MG TABLET 10 MG PO ×2 (08:53→21:07)
[2021-09-26] MEDS: Furosemide 40 MG/4 ML Vial IV ×2 (08:53→17:18)
[2021-09-26] MEDS: Multivitamins,Ther W-Minerals Tablet 1 TABLET PO (08:54)
[2021-09-26] MEDS: Metoprolol Tartrate 50 MG Tablet PO ×2 (08:54→21:06)
[2021-09-26] MEDS: Allopurinol 300 MG Tablet PO (08:54)
[2021-09-26] MEDS: Etodolac 300 MG Capsule PO ×2 (08:55→21:06)
[2021-09-26] MEDS: Magnesium Sulfate 4gm/100mL 4 GM/100 ML IV.SOLN. IV (09:30)
--- NOTE | 2021-09-26 10:25 | CON.PCM.CA_ITS ---
Assessment & Plan Assessment/Plan (1) Atrial fibrillation with RVR: PLAN: She does appear to have atrial fibrillation with a rapid ventricular response rate. Her ejection fraction demonstrates globally reduced left mckenna tricular systolic function estimated at 45%. * The plan will be for her to continue anticoagulation as well as the metoprolol 50 mg twice a day (2) CHF exacerbation: QUALIFIERS: Heart failure type: unspecified Qualified Code(s): I50.9 - Heart failure, unspecified PLAN: She does have evidence of global left ventricular systolic dysfunction. Her heart failure appears to be acute with reduced ejection fraction. Plan to be to continue the beta-vera Continue losartan Continue diuretics We will recommend replacing potassium and magnesium (3) Pulmonary emboli: QUALIFIERS: Pulmonary embolism type: multiple subsegmental (without acute cor pulmonale) Qualified Code(s): I26.94 - Multiple subsegmental pulmonary emboli without acute cor pulmonale PLAN: She does have evidence of pulmonary emboli. The etiology of which is unclear. It is likely secondary to her sedentary state as well as her obesity. We will continue to follow the above. Thank you for allowing me to participate in the care of your patient. Please don't hesitate to call if any issues arise. HPI Consult Data Date of Consult: 09/26/21 HPI Narrative HPI Narrative: CARMEN PYLE, is a 71 F who presents with progressive shortness of breath which has been going on for a few weeks. Patient does have a history of hypertension, obesity, and atrial fibrillation. On presentation as part of her evaluation it was thought that this may be Covid related but she was Covid negative. A CAT scan done of her chest demonstrated evidence of pulmonary embolism. She was also noted to be in atrial fibrillation and an echocardiogram performed demonstrated global left ventricular systolic dysfunction as well as mild right ventricular systolic dysfunction. [facility] Medical History Atrial fibrillation CPAP (continuous positive airway pressure) dependence High cholesterol HTN (hypertension) Hypothyroid Non-smoker Sleep apnea Home Medications hydrochlorothiazide 25 mg PO DAILY 09/17/14 [History Last Taken 09/24/21] multivitamin with folic acid [Thera] 1 tab PO DAILY 09/17/14 [History Last Taken 09/23/21] nabumetone 750 mg PO BID 09/17/14 [History Last Taken 09/24/21] simvastatin 10 mg PO QHS 09/17/14 [History Last Taken 09/23/21] allopurinol 300 mg PO DAILY 07/27/15 [History Last Taken 09/24/21] losartan 100 mg PO DAILY 07/27/15 [History Last Taken 09/24/21] Cbd Patches 1 ea TRANSDERMAL QODAY 09/24/21 [History Last Taken 09/20/21] [id number] [Excedrin Extra Strength] 1 tab PO DAILY 09/24/21 [History Last Taken 09/24/21] carvedilol phosphate 10 mg PO DAILY 09/24/21 [History Last Taken 09/24/21] cholecalciferol (vitamin D3) 1,250 mcg PO SWEET 09/24/21 [History Last Taken 09/19/21] levothyroxine 137 mcg PO DAILY 09/24/21 [History Last Taken 09/24/21] trospium 20 mg PO QHS 09/24/21 [History Last Taken 09/23/21] Allergy/AdvReac Type Severity Reaction Status Date / Time No Known Allergies Allergy Verified 07/27/15 16:55 Family History Mother CHF (congestive heart failure) Social History Smoking Status: Never smoker ROS Constitutional Constitutional: Denies fever(s) or weight loss Eyes Eyes: Reports systems reviewed and no addt'l complaints, except as documented ENT HEENT: Reports systems reviewed and no addt'l complaints, except as documented Cardiovascular Cardiovascular: Denies chest pain at rest, chest pain with activity, dyspnea at rest, dyspnea on exertion, edema, palpitations or paroxysmal nocturnal dyspnea Respiratory/Chest Respiratory/Chest: Reports dyspnea on exertion; Denies productive cough, shortness of breath at rest or shortness of breath with exertion Gastrointestinal Gastrointestinal: Denies change in bowel habits, nausea, vomiting or weight changes Genitourinary Genitourinary: Denies difficulty urinating Musculoskeletal Musculoskeletal: Denies joint stiffness or muscle weakness Integumentary Integumentary: Denies lesions Neurologic Neurologic: Denies dizziness or syncope Psychiatric Psychiatric: Denies anxiety Endocrine Endocrinology: Denies excessive sweating or fatigue Hematologic/Lymphatic Hematologic/Lymphatic: Denies anemia Allergic/Immunologic Allergic/Immunologic: Denies seasonal rhinorrhea Physical Exam Const alert, oriented x3 and no apparent distress General Appearance: cooperative HEENT hearing grossly normal bilaterally Head and Scalp: atraumatic Eyes EOMs intact bilaterally Neck General: normal visual inspection Chest inspection of chest normal and palpation of chest normal Resp normal respiratory effort Auscultation: clear to auscultation bilaterally Cardio regular rate, regular rhythm, S1 normal heart sound and S2 normal heart sound Jugular Venous Distention: JVD GI normal to inspection, nondistended, normoactive bowel sounds Extremity normal capillary refill and no pedal edema Peripheral Pulses: Yes pulses 2+ throughout and femoral pulses present Skin no rashes or lesions noted Neuro oriented x3 and CN's II-XII intact bilaterally Psych Appearance: grossly normal and appropriate Risk Stratification Risk Stratification Applicable: No Objective Data Vital Signs: Vital Signs Temp Pulse Resp BP Pulse Ox 98 F 100 17 113/72 97 09/26/21 08:50 09/26/21 08:54 09/26/21 08:50 09/26/21 08:54 09/26/21 08:50 Oxygen Flow Rate (L/min) 2 Oxygen Delivery Method Room Air Weight: 387 lb 2.107 oz Body Mass Index (BMI) 66.2 Intake & Output: Intake and Output for Last 24 Hours 09/24/21 09/25/21 09/26/21 23:59 23:59 23:59 Intake Total 150 / 150.33 1118.41 / 1118.41 Output Total 1950 / 4000 4275 / 4275 150 / 150 Balance -1800 / -3849.67 -3156.59 / -3156.59 -150 / -150 Lab / Micro Data Result Diagrams: 09/26/21 04:17 09/26/21 04:17 Labs: Laboratory Results - last 24 hr 09/26/21 04:17: WBC 6.7, RBC 3.69 L, Hgb 10.6 L, Hct 34.9 L, MCV 94.6, MCH 28.7, MCHC 30.4 L, RDW Std Deviation 55.5 H, RDW Coeff of Yuri 16.1 H, Plt Count 155, MPV 10.6, Immature Gran % (Auto) 0.600, Neut % (Auto) 57.7, Lymph % (Auto) 28.7, [place]ackelford % (Auto) 12.5 H, Eos % (Auto) 0.4, Baso % (Auto) 0.1, Absolute Neuts (auto) 3.9, Absolute Lymphs (auto) 1.92, Nucleated RBC % 0 09/26/21 04:17: Sodium 141, Potassium 2.9 L, Chloride 104, Carbon Dioxide 30.0, Anion Gap 7, BUN 16, Creatinine 0.89, Estim Creat Clear Calc 51.41, Est GFR (MDRD) Af Amer 80, Est GFR (MDRD) Non-Af 66, BUN/Creatinine Ratio 17.9, Glucose 114 H, Calcium 9.0 09/26/21 04:17: Phosphorus 3.3, Magnesium 1.4 L Cardiology Labs/Tests 09/26/21 04:17: WBC 6.7, RBC 3.69 L, Hgb 10.6 L, Hct 34.9 L, MCV 94.6, MCH 28.7, MCHC 30.4 L, Plt Count 155, MPV 10.6, Immature Gran % (Auto) 0.600, Neut % (Auto ) 57.7, Lymph % (Auto) 28.7, [place]ackelford % (Auto) 12.5 H, Eos % (Auto) 0.4, Baso % ( Auto) 0.1, Absolute Neuts (auto) 3.9, Nucleated RBC % 0 09/26/21 04:17: Sodium 141, Potassium 2.9 L, Chloride 104, Carbon Dioxide 30.0, Anion Gap 7, BUN 16, Creatinine 0.89, Est GFR (MDRD) Af Amer 80, Est GFR (MDRD) Non-Af 66, BUN/Creatinine Ratio 17.9, Glucose 114 H, Calcium 9.0 09/26/21 04:17: Phosphorus 3.3, Magnesium 1.4 L Rhythm: EKG: ECHO: Stress Test: Cardiac Cath: PCI: CT Surgery: Holter monitor: EPS: PPM: CXR: Chest CT Scan: Radiography Diagnostic Testing: Radiology Impression Echocardiogram 09/25/21 05:55 Interpretation Summary Normal LV size. Mild global left ventricular systolic dysfunction. The estimated ejection fraction is 45 %. There is mild global hypokinesis of the left ventricle. The left atrium is mildly enlarged. There is mild mitral annular calcification. Pulmonary artery systolic pressure is 36 mmHg. Ordering Physician: Hector Traylor Referring Physician: Gregg Plasencia Performed By: Avelina See RDCS, RVT
[2021-09-26] MEDS: Potassium Chloride 10mEq/100mL 10 MEQ/100 ML IV.SOLN. 100 MEQ IV BOLUS ×4 (11:55→16:01)
--- NOTE | 2021-09-26 12:23 | PN.HOSP_ITS ---
Subjective Subjective Feels better. Objective Data Objective Data Vital Signs: Vital Signs Temp Pulse Resp BP Pulse Ox 36.6 C 86 17 113/72 97 09/26/21 08:50 09/26/21 11:10 09/26/21 08:50 09/26/21 08:54 09/26/21 08:50 Oxygen Flow Rate (L/min) 2 Oxygen Delivery Method Room Air Weight: 175.6 kg Body Mass Index (BMI) 66.2 Intake & Output: Intake and Output for Last 24 Hours 09/24/21 09/25/21 09/26/21 23:59 23:59 23:59 Intake Total 150 / 150.33 1118.41 / 1118.41 550 / 550 Output Total 1950 / 4000 4275 / 4275 950 / 950 Balance -1800 / -3849.67 -3156.59 / -3156.59 -400 / -400 Lab / Micro Data Result Diagrams: 09/26/21 04:17 09/26/21 04:17 Labs: Laboratory Results - last 24 hr 09/26/21 04:17: WBC 6.7, RBC 3.69 L, Hgb 10.6 L, Hct 34.9 L, MCV 94.6, MCH 28.7, MCHC 30.4 L, RDW Std Deviation 55.5 H, RDW Coeff of Yuri 16.1 H, Plt Count 155, MPV 10.6, Immature Gran % (Auto) 0.600, Neut % (Auto) 57.7, Lymph % (Auto) 28.7, [place] % (Auto) 12.5 H, Eos % (Auto) 0.4, Baso % (Auto) 0.1, Absolute Neuts (auto) 3.9, Absolute Lymphs (auto) 1.92, Nucleated RBC % 0 09/26/21 04:17: Sodium 141, Potassium 2.9 L, Chloride 104, Carbon Dioxide 30.0, Anion Gap 7, BUN 16, Creatinine 0.89, Estim Creat Clear Calc 51.41, Est GFR (MDRD) Af Amer 80, Est GFR (MDRD) Non-Af 66, BUN/Creatinine Ratio 17.9, Glucose 114 H, Calcium 9.0 09/26/21 04:17: Phosphorus 3.3, Magnesium 1.4 L Radiography Diagnostic Testing: Radiology Impression Echocardiogram 09/25/21 05:55 Interpretation Summary Normal LV size. Mild global left ventricular systolic dysfunction. The estimated ejection fraction is 45 %. There is mild global hypokinesis of the left ventricle. The left atrium is mildly enlarged. There is mild mitral annular calcification. Pulmonary artery systolic pressure is 36 mmHg. Ordering Physician: Hector Traylor Referring Physician: Gregg Plasencia Performed By: Avelina See, JUSTIN, RVT Physical Exam Resp normal respiratory effort, no retractions, no use of accessory muscles and clear to auscultation bilaterally Cardio regular rate, regular rhythm, S1 normal heart sound and S2 normal heart sound GI normal to inspection, nondistended, normoactive bowel sounds, soft to palpation, non-tender and non-distended Extremity General Extremity: edema Skin no rashes or lesions noted Assessment & Plan Assessment/Plan (1) Pulmonary emboli: QUALIFIERS: Pulmonary embolism type: multiple subsegmental (without acute cor pulmonale) Qualified Code(s): I26.94 - Multiple subsegmental pulmonary emboli without acute cor pulmonale (2) CHF exacerbation: QUALIFIERS: Heart failure type: unspecified Qualified Code(s): I50.9 - Heart failure, unspecified (3) Atrial fibrillation with RVR: PLAN: 1. Pulmonary emboli Patient will need to be anticoagulated and will initiate weight-based enoxaparin for now. Will check an echocardiogram given the patient's concomitant CHF It is unclear if the patient did have COVID-19 back in July but is highly concerning given that this was for the peak of the pandemic and she was sick for several weeks and she is unvaccinated. Therefore cannot determine if her pulmonary emboli or Covid related change to apixaban 2. Acute CHF exacerbation Unclear type at this time Check echocardiogram Continue with furosemide IV Patient does have some area in her left upper lobe. Concerned that is more likely related with CHF and fluid within her fissure. I do not feel that that is pneumonia so we will not treat that at this point in time 3. Atrial fibrillation with RVR Mild RVR Change carvedilol to metoprolol. DC dilt gtt. 4. Morbid obesity BMI 60 Complicates overall care and recovery 6. VTE prophylaxis: Not indicated as patient is already anticoagulated 7. COVID-19 vaccination status: Patient is unvaccinated for COVID-19. Though it is concerning the patient had COVID-19 back in July but still highly recommended that she get vaccinated given her multiple medical comorbidities. 8. CODE STATUS: Addressed with the patient. Patient has a living will and does have a DNR. She is DNR Comfort Care arrest. 9. Disposition anticipate discharge next 1- 2 days. Charges/Coding Visit Charges Inpatient E&M: 96696 Subs Hosp L2
[2021-09-26] MEDS: 0.9% Saline Lock 10 ML Syringe IV (17:21)
[2021-09-26] MEDS: Potassium Chloride Oral Tablet 20 MEQ PO (17:21)
[2021-09-26] MEDS: Atorvastatin Calcium 10 MG Tablet 5 MG PO (21:04)
[2021-09-26] MEDS: Tolterodine Tartrate 2 MG CAP.SA PO (21:06)
[2021-09-27] VITALS (9 sets, daily range): BP systolic 111–120; BP diastolic 77–79; PULSE 82–98; RESP 16–20; TEMP 36.4–37.1; O2SAT 90–96
[2021-09-27] MEDS: Levothyroxine 137 MCG Tablet PO (05:14)
[2021-09-27 06:22] LABS: Anion Gap 5 (5-15); BUN 16 mg/dL (7-18); BUN/Creat Ratio 21.5 RATIO (10-20); Chloride 105 mmol/L (98-107); Creatinine, Serum 0.74 mg/dL (0.55-1.02); EST Glomerular Filtration Rate 82 mL/min (>60); Est Glom Filt Rate - Afr Amer 99 mL/min (>60); Estimated Creatinine Clearance 45.76 ml/min; Glucose 126 mg/dL (74-106); Potassium 3.8 mmol/L (3.5-5.1); Sodium Level 137 mmol/L (136-145)
--- NOTE | 2021-09-27 07:32 | PN.CARD_ITS ---
Subjective Subjective Patient seen and evaluated. Appears to be doing better at this time. Objective Data Vital Signs: Vital Signs Temp Pulse Resp BP Pulse Ox 97.6 F L 90 18 116/79 94 09/27/21 02:50 09/27/21 02:59 09/27/21 02:50 09/27/21 02:50 09/27/21 02:50 Oxygen Flow Rate (L/min) 2 Oxygen Delivery Method CPAP Weight: 386 lb 3.998 oz Body Mass Index (BMI) 66.2 Intake & Output: Intake and Output for Last 24 Hours 09/25/21 09/26/21 09/27/21 23:59 23:59 23:59 Intake Total 1118.41 / 1118.41 1290 / 1290 Output Total 4275 / 4275 1650 / 2350 700 / 700 Balance -3156.59 / -3156.59 -360 / -1060 -700 / -700 Lab / Micro Data Result Diagrams: 09/26/21 04:17 09/27/21 05:34 Labs: Laboratory Results - last 24 hr 09/27/21 05:34: Sodium 137, Potassium 3.8, Chloride 105, Carbon Dioxide 27.0, Anion Gap 5, BUN 16, Creatinine 0.74, Estim Creat Clear Calc 45.76, Est GFR (MDRD) Af Amer 99, Est GFR (MDRD) Non-Af 82, BUN/Creatinine Ratio 21.5 H, Glucose 126 H, Calcium 9.0, Magnesium 2.0 Cardiology Labs/Tests 09/27/21 05:34: Sodium 137, Potassium 3.8, Chloride 105, Carbon Dioxide 27.0, Anion Gap 5, BUN 16, Creatinine 0.74, Est GFR (MDRD) Af Amer 99, Est GFR (MDRD) Non-Af 82, BUN/Creatinine Ratio 21.5 H, Glucose 126 H, Calcium 9.0, Magnesium 2.0 Rhythm: EKG: ECHO: Stress Test: Cardiac Cath: PCI: CT Surgery: Holter monitor: EPS: PPM: CXR: Chest CT Scan: Assessment & Plan Assessment/Plan (1) Atrial fibrillation with RVR: PLAN: She does appear to have atrial fibrillation with a rapid ventricular response rate. Her ventricular response rate appears to be better at this particular time. Her ejection fraction demonstrates globally reduced left ventricular systolic function estimated at 45%. * The plan will be for her to continue anticoagulation as well as the metoprolol 50 mg twice a day (2) CHF exacerbation: QUALIFIERS: Heart failure type: unspecified Qualified Code(s): I50.9 - Heart failure, unspecified PLAN: She does have evidence of global left ventricular systolic dysfunction. Her heart failure appears to be acute with reduced ejection fraction. Plan to be to continue the beta-vera Continue losartan Continue diuretics (3) Pulmonary emboli: QUALIFIERS: Pulmonary embolism type: multiple subsegmental (without acute cor pulmonale) Qualified Code(s): I26.94 - Multiple subsegmental pulmonary emboli without acute cor pulmonale PLAN: She does have evidence of pulmonary emboli. The etiology of which is unclear. It is likely secondary to her sedentary state as well as her obesity. We will continue to follow the above. From the cardiovascular standpoint appears to be stable for outpatient care. Can follow-up in my office in 4 to 6 weeks. Thank you for allowing me to participate in the care of your patient. Please don't hesitate to call if any issues arise.
--- NOTE | 2021-09-27 07:35 | PCM.PN.HOSP ---
Objective Data Objective Data Vital Signs: Vital Signs Temp Pulse Resp BP Pulse Ox 97.6 F L 90 18 116/79 94 09/27/21 02:50 09/27/21 02:59 09/27/21 02:50 09/27/21 02:50 09/27/21 02:50 Oxygen Flow Rate (L/min) 2 Oxygen Delivery Method CPAP Weight: 175.2 kg Body Mass Index (BMI) 66.2 Intake & Output: Intake and Output for Last 24 Hours 09/25/21 09/26/21 09/27/21 23:59 23:59 23:59 Intake Total 1118.41 / 1118.41 1290 / 1290 Output Total 4275 / 4275 1650 / 2350 700 / 700 Balance -3156.59 / -3156.59 -360 / -1060 -700 / -700 Lab / Micro Data Result Diagrams: 09/26/21 04:17 09/27/21 05:34 Labs: Laboratory Results - last 24 hr 09/27/21 05:34: Sodium 137, Potassium 3.8, Chloride 105, Carbon Dioxide 27.0, Anion Gap 5, BUN 16, Creatinine 0.74, Estim Creat Clear Calc 45.76, Est GFR (MDRD) Af Amer 99, Est GFR (MDRD) Non-Af 82, BUN/Creatinine Ratio 21.5 H, Glucose 126 H, Calcium 9.0, Magnesium 2.0 Assessment & Plan Assessment/Plan (1) Pulmonary emboli: QUALIFIERS: Pulmonary embolism type: multiple subsegmental (without acute cor pulmonale) Qualified Code(s): I26.94 - Multiple subsegmental pulmonary emboli without acute cor pulmonale (2) CHF exacerbation: QUALIFIERS: Heart failure type: unspecified Qualified Code(s): I50.9 - Heart failure, unspecified (3) Atrial fibrillation with RVR: PLAN: 1. Pulmonary emboli Patient will need to be anticoagulated and will initiate weight-based enoxaparin for now. Will check an echocardiogram given the patient's concomitant CHF It is unclear if the patient did have COVID-19 back in July but is highly concerning given that this was for the peak of the pandemic and she was sick for several weeks and she is unvaccinated. Therefore cannot determine if her pulmonary emboli or Covid related change to apixaban 2. Acute CHF exacerbation Unclear type at this time Check echocardiogram Continue with furosemide IV Patient does have some area in her left upper lobe. Concerned that is more likely related with CHF and fluid within her fissure. I do not feel that that is pneumonia so we will not treat that at this point in time 3. Atrial fibrillation with RVR Mild RVR Change carvedilol to metoprolol. DC dilt gtt. 4. Morbid obesity BMI 60 Complicates overall care and recovery 6. VTE prophylaxis: Not indicated as patient is already anticoagulated 7. COVID-19 vaccination status: Patient is unvaccinated for COVID-19. Though it is concerning the patient had COVID-19 back in July but still highly recommended that she get vaccinated given her multiple medical comorbidities. 8. CODE STATUS: Addressed with the patient. Patient has a living will and does have a DNR. She is DNR Comfort Care arrest. 9. Disposition anticipate discharge next 1- 2 days.
[2021-09-27] MEDS: Allopurinol 300 MG Tablet PO (08:23)
[2021-09-27] MEDS: Metoprolol Tartrate 50 MG Tablet PO (08:23)
[2021-09-27] MEDS: Etodolac 300 MG Capsule PO (08:23)
[2021-09-27] MEDS: Multivitamins,Ther W-Minerals Tablet 1 TABLET PO (08:23)
[2021-09-27] MEDS: APIXABAN 5 MG TABLET 10 MG PO (08:24)
[2021-09-27] MEDS: Furosemide 40 MG/4 ML Vial IV (08:24)
[2021-09-27] MEDS: Potassium Chloride Oral Tablet 20 MEQ PO (08:24)
[2021-09-27] MEDS: Losartan Potassium 100 MG Tablet PO (08:24)
--- NOTE | 2021-09-27 10:38 | TREXTCAR_ITS ---
Diet 09/24/21 17:27 Diet: Cardiac - Heart Healthy Is pt able to select menu?: Yes Fluid restriction:: 1500 mL Therapies Physical Therapy: Eval and Treat Occupational Therapy: Eval and Treat Problem/Diagnosis (1) Pulmonary emboli: Status: Acute (2) CHF exacerbation: Status: Chronic (3) Atrial fibrillation with RVR: Status: Acute Allergies/Procedures Done in Hospital Allergies No Known Allergies Allergy (Verified 07/27/15 16:55) Type of Care/Length of Stay Estimated LOS: Convalescent Care Less Than 30 days Type of Care Needed: Skilled Rehab Potential: Good Prognosis: Good Additional Orders/Day of Discharge Day of Discharge: 09/27/21 Dietary and Speech Recommendations Dietitian Recommendations/Changes: Will provide Cardiac diet w/ addition of 1500 ml FR/day Available if further diet education desired Discharge Plan Admission Admit Date/Time: 09/24/21 15:17 Attending Provider: Clem Santos Primary Care Provider: Gregg Plasencia [employer]URSING Consulting Providers: Kervin Connolly Discharge Orders/Prescriptions Prescriptions: New furosemide 40 mg Tablet 40 mg PO BIDLX Qty: 0 RF: 0 potassium chloride [Klor-Con M20] 20 mEq Tablet,Er Particles/Crystals 20 meq PO BIDCM Qty: 0 RF: 0 metoprolol tartrate 50 mg Tablet 50 mg PO BID Qty: 0 RF: 0 Eliquis 5 mg Tablet 5 mg PO BID Qty: 0 RF: 0 acetaminophen [Tylenol] 325 mg Tablet 650 mg PO Q6H PRN PRN (Reason: Pain Score 1-10/Temp > 100.7 F) Qty: 0 RF: 0 Continued nabumetone 750 MG tablet 750 mg PO BID RF: 0 simvastatin 10 MG tablet 10 mg PO QHS RF: 0 multivitamin with folic acid [Thera] 1 TABLET tablet 1 tab PO DAILY RF: 0 allopurinol 300 MG tablet 300 mg PO DAILY RF: 0 losartan 100 MG tablet 100 mg PO DAILY RF: 0 levothyroxine 137 mcg tablet 137 mcg PO DAILY RF: 0 trospium 20 mg tablet 20 mg PO QHS RF: 0 cholecalciferol (vitamin D3) 1,250 mcg (50,000 unit) capsule 1,250 mcg PO SWEET RF: 0 Discontinued hydrochlorothiazide 25 MG tablet 25 mg PO DAILY RF: 0 Excedrin Extra Strength 250-250-65 mg Tablet 1 tab PO DAILY RF: 0 carvedilol phosphate 10 mg capsule, ER multiphase 24 hr 10 mg PO DAILY RF: 0 Cbd Patches 1 ea transdermal QODAY RF: 0 Referrals / Follow Up: Gregg Plasencia [employer] IN NURSING, [employer] [facility] [Primary Care Provider] - Within 2 Weeks Disposition Disposition (needs filled in before D/C Order can be placed): [facility]
--- NOTE | 2021-09-27 10:49 | CASEMGMT ---
SW was informed by therapy that patient should go to a detention facility for rehab. Patient told therapist that she wants her daughter to help with these decisions. Patient's daughter will not be in until around 330p. SW met with patient and she confirmed this information. She wants SW to come back at 330. SW did call patient's daughter Yary as patient is ready for discharge. Yary did not understand how [facility] was never mentioned before, but now it is being recommended. MADISON went over a therapy note with Yary, but she still wants to talk to someone else about how it got to this point. MADISON asked if she would like to talk with the nurse and she would. She is in a meeting and will call in and talk with the nurse. MADISON gave Yary the nurse's name and the number to [facility]. MADISON updated RN. Regina Pereira ARMORER TECHNICIAN REGINALDO
--- NOTE | 2021-09-27 10:53 | PCM.DC.SUM ---
Providers Date of Admission: 09/24/21 Primary Care Physician: Gregg Plasencia, CANDIEC Consultations 09/26/21 08:08 Consult: Cardiology Routine Consulting Provider: Kervin Connolly Reason for Consult: CHF EMERGENT Consult: No MD Notified: Yes Date Notified: 09/26/21 Time Notified: 08:09 Method of Notification: Text Reason For Visit: CHF, PE, AFIB RVR Diagnosis Discharge Diagnosis (1) Pulmonary emboli: Status: Acute Code(s): I26.99 - Other pulmonary embolism without acute cor pulmonale Qualifiers: Pulmonary embolism type: multiple subsegmental (without acute cor pulmonale) Qualified Code(s): I26.94 - Multiple subsegmental pulmonary emboli without acute cor pulmonale (2) CHF exacerbation: Status: Chronic Code(s): I50.9 - Heart failure, unspecified Qualifiers: Heart failure type: unspecified Qualified Code(s): I50.9 - Heart failure, unspecified (3) Atrial fibrillation with RVR: Status: Acute Code(s): I48.91 - Unspecified atrial fibrillation Medications at Discharge Home Medications multivitamin with folic acid [Thera] 1 tab PO DAILY 09/17/14 nabumetone 750 mg PO BID 09/17/14 simvastatin 10 mg PO QHS 09/17/14 allopurinol 300 mg PO DAILY 07/27/15 losartan 100 mg PO DAILY 07/27/15 cholecalciferol (vitamin D3) 1,250 mcg PO SWEET 09/24/21 levothyroxine 137 mcg PO DAILY 09/24/21 trospium 20 mg PO QHS 09/24/21 acetaminophen [Tylenol] 650 mg PO Q6H PRN PRN #0 tab 09/27/21 apixaban [Eliquis] 5 mg PO BID #0 tab 09/27/21 furosemide 40 mg PO BIDLX #0 tab 09/27/21 metoprolol tartrate 50 mg PO BID #0 tab 09/27/21 potassium chloride [Klor-Con M20] 20 meq PO BIDCM #0 tab 09/27/21 Hospital Course Summary of Care Provided Minutes Spent on Discharge: 35 Hospital Course: Patient is a 71-year-old lady who presented with increasing shortness of breath since August 07. CT obtained demonstrated pulmonary emboli in branches of the left lower lobe pulmonary artery 1. Acute pulmonary emboli ?Etiology not readily discernible. Patient was started on enoxaparin later switched to Eliquis. 2. Acute congestive heart failure with reduced ejection fraction ?Echo obtained demonstrated EF of 45% patient was on furosemide was also seen in consultation by cardiology 3. A. fib with RVR ?Patient was on carvedilol this was discontinued placed on Cardizem drip later started on metoprolol 4. Hypertension - Blood pressure controlled, home medications continued with dose adjustment as needed 5. Class III obesity with BMI of 64 ?Weight loss advised 6. Physical deconditioning - Requested for PT OT eval and social media assistant to assist with discharge planning 7. Hypothyroidism - Patient is on levothyroxine home dose continued 8. Gout ?Patient is on allopurinol did continue Physical Exam Narrative GENERAL: cooperative HEENT: Atraumatic; EYES; Anicteric, Normal Conjunctiva NECK; supple, normal thyroid, RESPIRATORY: Diminished to auscultation CARDIOVASCULAR: Regular S1 S2, GI: soft, normoactive bowel sounds, NEURO: Awake; no lateralizing signs. SKIN: No Rash PSYCH; Flat affect Weight / BMI Weight Weight: 175.2 kg Body Mass Index (BMI) 66.2 ABG / Lab / Microbiology Data Result Diagrams: 09/26/21 04:17 09/27/21 05:34 Laboratory: Laboratory Results - last 24 hr 09/27/21 05:34: Sodium 137, Potassium 3.8, Chloride 105, Carbon Dioxide 27.0, Anion Gap 5, BUN 16, Creatinine 0.74, Estim Creat Clear Calc 45.76, Est GFR (MDRD) Af Amer 99, Est GFR (MDRD) Non-Af 82, BUN/Creatinine Ratio 21.5 H, Glucose 126 H, Calcium 9.0, Magnesium 2.0 D/C Instructions Discharge Diet: 8 Cup Fluid Restriction and 2000 mg Sodium Diet Discharge Activity: Return to Normal Activity Call your doctor if you observe: Fever of 101 or Higher, Shortness of breath, Fainting spells and Chest pain Meaningful Use Info Meaningful Use Diagnoses (Choose all that apply): CHF CHF ARSALAN/ARB ordered at discharge?: Yes Documented LVEF (%): 45 Discharge Plan Admission Admit Date/Time: 09/24/21 15:17 Attending Provider: Clem Santos Primary Care Provider: Gregg Plasencia CRIMPING MACHINE OPERATOR [employer] Consulting Providers: Kervin Connolly Discharge Orders/Prescriptions Prescriptions: New furosemide 40 mg Tablet 40 mg PO BIDLX Qty: 0 RF: 0 potassium chloride [Klor-Con M20] 20 mEq Tablet,Er Particles/Crystals 20 meq PO BIDCM Qty: 0 RF: 0 metoprolol tartrate 50 mg Tablet 50 mg PO BID Qty: 0 RF: 0 Eliquis 5 mg Tablet 5 mg PO BID Qty: 0 RF: 0 acetaminophen [Tylenol] 325 mg Tablet 650 mg PO Q6H PRN PRN (Reason: Pain Score 1-10/Temp > 100.7 F) Qty: 0 RF: 0 Continued nabumetone 750 MG tablet 750 mg PO BID RF: 0 simvastatin 10 MG tablet 10 mg PO QHS RF: 0 multivitamin with folic acid [Thera] 1 TABLET tablet 1 tab PO DAILY RF: 0 allopurinol 300 MG tablet 300 mg PO DAILY RF: 0 losartan 100 MG tablet 100 mg PO DAILY RF: 0 levothyroxine 137 mcg tablet 137 mcg PO DAILY RF: 0 trospium 20 mg tablet 20 mg PO QHS RF: 0 cholecalciferol (vitamin D3) 1,250 mcg (50,000 unit) capsule 1,250 mcg PO SWEET RF: 0 Discontinued hydrochlorothiazide 25 MG tablet 25 mg PO DAILY RF: 0 Excedrin Extra Strength 250-250-65 mg Tablet 1 tab PO DAILY RF: 0 carvedilol phosphate 10 mg capsule, ER multiphase 24 hr 10 mg PO DAILY RF: 0 Cbd Patches 1 ea transdermal QODAY RF: 0 Referrals / Follow Up: Gregg Plasencia NP, CRIMPING MACHINE OPERATOR [employer]-C [Primary Care Provider] - Within 2 Weeks Disposition Disposition (needs filled in before D/C Order can be placed): Shelter Facility Charges/Coding Visit Charges Inpatient E&M: 60019 Disch Hosp
--- NOTE | 2021-09-27 14:00 | CASEMGMT ---
Addendum entered by Mally Santiago 09/27/21 15:36: Adrian Becerra RN, pt's daughter is here and wants pt d/c'd and declines for this RN CM to speak with her at this time. Daughter states she will just set everything up with pt's PCP, if needed. Perry CAGE CM Original Note: Per Mariam CAGE, daughter states they may consider HHC vs OP therapy for pt at discharge but daughter states no SNF. This RN CM to room and pt declines HHC or OP therapy at this time, stating I will discuss with my daughter once and we will make a decision together at another time.' Advised pt that if she changes her mind on HHC or OP therapy once home, then she can contact PCP, voices understanding. Pt does not qualify for home oxygen at this time per Mariam CAGE. Pt voices no further questions/concerns/needs. Perry CAGE CM
--- NOTE | 2021-09-27 16:00 | CASEMGMT ---
Pt to be sent home on [employer] and pt already provided with Eliquis 30 day free trial card. Call to [employer] [employer] to check coverage/co-pay and per rep, pt's co-pay is $94. Perry CAGE CM
--- NOTE | 2021-09-27 16:17 | CASEMGMT ---
Per Mariam CAGE, it took 3 staff members to assist pt into car at discharge. Perry CAGE CM
== END 2021-09-27 16:02 | disposition home health service (06) | DRG 291 ==
LOC: ED 15:35 → PCU 16:20
PROVIDERS: Family Medicine; Emergency Provider Student in an Organized Health Care Education/Training Program; PCP Nurse Practitioner Family; Visit Provider Internal Medicine
DX: I11.0 Hypertensive heart disease with heart failure (principal); I26.94 Multiple subsegmental thrombotic pulmonary emboli without acute cor pulmonale; I50.21 Acute systolic (congestive) heart failure; Z68.44 Body mass index [BMI] 60.0-69.9, adult; I48.91 Unspecified atrial fibrillation; E66.01 Morbid (severe) obesity due to excess calories; E78.00 Pure hypercholesterolemia, unspecified; M10.9 Gout, unspecified; E03.9 Hypothyroidism, unspecified; G47.30 Sleep apnea, unspecified; Z66 Do not resuscitate; Z79.82 Long term (current) use of aspirin; Z79.01 Long term (current) use of anticoagulants; Z79.899 Other long term (current) drug therapy
CPT/HCPCS: 36415; 71045; 71275; 80048; 83735; 83880; 84100; 84443; 84484; 85025; 85379; 87635; 93005; 93306; 97116; 97163; 97166; 97530; 97802; 99285; Q9957; Q9967; A4216; J1940; U0003; U0005

== ENCOUNTER 2021-11-10 04:45 | Inpatient (IN) | payer MEDICARE, OTHER, SELFPAY ==
[2021-11-10] VITALS (14 sets, daily range): BP systolic 96–132; BP diastolic 68–96; PULSE 59–127; RESP 16–34; TEMP 36.6–37.5; O2SAT 89–98; BMI 56.5; BMI 57.2
--- NOTE | 2021-11-10 04:52 | EKG12_ITS ---
Test Reason : DYSRHYTHMIA Blood Pressure : / mmHG Vent. Rate : 121 BPM Atrial Rate : 108 BPM P-R Int : 000 ms QRS Dur : 086 ms QT Int : 320 ms P-R-T Axes : 000 -10 251 degrees QTc Int : 454 ms Atrial fibrillation Nonspecific ST and T wave abnormality Abnormal ECG Confirmed by PORFIRIO LONG, ALLI ([id number]), editor continuity and script PREETI VALVERDE ([id number]) on 11/11/2021 12:48:20 P M Referred By: KATE Confirmed By:OMAR MONROY MD
--- NOTE | 2021-11-10 04:52 | RAD_ITS ---
STUDY: X-RAY CHEST REASON FOR EXAM: Female, 71 years old. Cough and shortness of breath TECHNIQUE: AP portable. 5:10 AM. COMPARISON: Chest x-ray and CT chest 09/24/2021. FINDINGS: LUNGS: Infiltrates in the left upper to mid lung laterally not significantly changed compared to the prior chest x-ray. Minimal opacities in both lung bases may be atelectasis or infiltrates. No pneumothorax. MEDIASTINUM: Aorta atherosclerotic. CARDIAC SILHOUETTE: Not enlarged. BONES AND SOFT TISSUES: No acute abnormalities. RAD/Chest 1 View (Portable) IMPRESSION: Infiltrates in the left lung and bibasilar infiltrate or atelectasis similar to prior study. Findings may represent residual or recurrent pneumonia, or other process. Electronically Signed: Hannah Sim MD at 5:34 EDT ,
--- NOTE | 2021-11-10 04:55 | ED.VIS.DYS ---
HPI History of Present Illness Chief Complaint: Shortness of Breath Informant: patient Onset/Context/Timing Onset: Yesterday Context: sudden Timing: Continuous Quality: Negative for Orthopnea, PND and Wheezing Current Severity: Mild Maximum Severity: Moderate Worsened by: Exertion and Coughing Relieved by: Nothing Associated Symptoms cough, post nasal drip, clear sputum and white sputum; Negative for rhinorrhea, ear pain, fever, sore throat, subjective, chills or sweats Chest Pain: Positive for None Narrative Narrative: Pain patient is a 72-year-old woman who arrived by ambulance from nursing facility because of shortness of breath that started yesterday. She states she has a cough of white clear thick sputum. She denies fever or chills. She denies ocular, visual or auditory symptoms. She does endorse postnasal drainage. She denies sore throat. She does have a cough. She denies chest discomfort. She reports compliance with her meds. She denies black or maroon-colored stool. She denies leg pain, swelling discoloration. She does have history of congestive heart failure, hypertension, hyperlipidemia, atrial fibrillation and obstructive sleep apnea. On 24 September she was diagnosed with pulmonary embolus. PE Risk Factors: Positive for Prior DVT or PE and Recent immobilization; Negative for Cancer, OCP + Smoking + > 35, Recent surgery and Recent travel Prior similar symptoms: Yes Recent Illness/Hospitalization: Yes (Proximally 1 month ago patient was diagnosed with pulmonary embolus) [facility] Medical History Chronic combined systolic and diastolic CHF (congestive heart failure) CPAP (continuous positive airway pressure) dependence Essential hypertension Hyperlipidemia Hypothyroid Non-smoker Persistent atrial fibrillation Sleep apnea Home Medications multivitamin with folic acid [Thera] 1 tab PO DAILY 09/17/14 [History Last Taken 09/23/21] allopurinol 300 mg PO DAILY 07/27/15 [History Last Taken 09/24/21] losartan 100 mg PO DAILY 07/27/15 [History Last Taken 09/24/21] cholecalciferol (vitamin D3) 1,250 mcg PO SWEET 09/24/21 [History Last Taken 09/19/21] levothyroxine 137 mcg PO DAILY 09/24/21 [History Last Taken 09/24/21] trospium 20 mg PO QHS 09/24/21 [History Last Taken 09/23/21] potassium chloride [Klor-Con M20] 20 meq PO BIDCM #0 tab 09/27/21 [Rx Last Taken Unknown] apixaban 5 mg tablet 5 mg PO BID #180 tab 11/08/21 [Rx Last Taken Unknown] metoprolol tartrate 50 mg tablet 50 mg PO BID #180 tab 11/08/21 [Rx Last Taken Unknown] acetaminophen [Tylenol Ex Str Arthritis Pain] 1,000 mg PO TID 11/10/21 [History Last Taken Unknown] albuterol sulfate 2 puff INHALATION Q6H PRN 11/10/21 [History Last Taken Unknown] doxycycline monohydrate 100 mg PO BID #10 capsule 11/10/21 [Rx Last Taken Unknown] furosemide [Lasix] 40 mg PO DAILY 11/10/21 [History Last Taken Unknown] tramadol 50 mg PO Q6H PRN 11/10/21 [History Last Taken Unknown] Allergy/AdvReac Type Severity Reaction Status Date / Time No Known Allergies Allergy Verified 11/10/21 04:50 Family History Mother CHF (congestive heart failure) Social History (Updated 11/10/21 @ 04:[address] Luca Scott MD) housing: custodial Smoking Status: Never smoker substance use type: does not use ROS ROS ED Constitutional Constitutional ED: Denies chills, fever(s), sweats or weight loss Eyes Eyes: Denies blurry vision, change in vision or diplopia ENT ENT ED: Denies ear pain, rhinorrhea or sore throat Cardiovascular Cardiovascular: Denies chest pain, orthopnea, palpitations, paroxysmal nocturnal dyspnea or racing heartbeat Respiratory/Chest Respiratory/Chest: Reports cough, dyspnea, dyspnea on exertion and sputum; Denies orthopnea or paroxysmal nocturnal dyspnea Gastrointestinal Gastrointestinal: Denies abdominal pain, diarrhea, melena, nausea or vomiting Genitourinary Genitourinary ED: Denies dysuria, hematuria or urinary frequency Musculoskeletal Musculoskeletal: Denies arthralgias, back pain or myalgias Neurologic Neurologic: Reports weakness; Denies headache(s) or paresthesias Endocrine Endocrinology: Denies polydipsia, polyphagia or polyuria Hematologic/Lymphatic Hematologic/Lymphatic: Denies anemia, easy bleeding or easy bruising EXAM Physical Exam Const Vital Signs: 11/10/21 04:46 11/10/21 05:05 11/10/21 05:09 Temperature 98.7 F Temperature Source Oral Pulse Rate 110 H 127 H Respiratory Rate 23 H 23 H Respiratory Effort Short of Breath Respiratory Depth Shallow Respiratory Pattern Tachypnea Blood Pressure 119/85 H 119/85 H Blood Pressure Mean 96 96 Pulse Ox 97 97 Oxygen Delivery Method Room Air Room Air Room Air 11/10/21 05:49 Temperature Temperature Source Pulse Rate 118 H Respiratory Rate 21 H Respiratory Effort Respiratory Depth Respiratory Pattern Blood Pressure 119/85 H Blood Pressure Mean 96 Pulse Ox 89 Oxygen Delivery Method Room Air Positive well nourished, well developed and obese General Appearance ED: well developed and other Patient does appear slightly tachypneic and monitor reveals a sinus tachycardia. ; Negative for NAD or pallor Nutritional Appearance: obese HEENT Reports TM's clear and moist mucous membranes HEENT Narrative: Uvula midline. atraumatic; Negative for trauma or tenderness Tympanic Membrane ED: Yes TM's clear Eyes PERRL and EOMs intact bilaterally General Eye ED: Negative for pale conjunctiva or scleral icterus Neck no lymphadenopathy, supple, no meningeal signs and no JVD Resp normal respiratory effort and clear to auscultation bilaterally Resp Narrative: Breath sounds are diminished most likely due to body habitus. Cardio regular rhythm, S1 normal heart sound, S2 normal heart sound and no murmurs Rate: bradycardia GI non-tender, non-distended and no masses Auscultation: normoactive bowel sounds Palpation: soft Back/Spine no CVA tenderness and normal to inspection Extremity Extremity Narrative: There is no asymmetry, swelling, discoloration, leg vein distention, palpable cords or tenderness along the distribution of the deep venous system. Patient has varicosities noted. General Extremety ED: Negative for tenderness Neuro oriented x3 and CN's II-XII intact bilaterally Sensorium / Orientation: alert Psych mental status grossly normal Thought Process: normal thought process Skin no wounds General Skin Exam: Negative for jaundice or pallor Lesions: no lesions Rashes: no rashes MDM MDM MDM Narrative Medical decision making narrative: Differential diagnosis would include pneumonia due to, congestive heart failure, cardiac ischemia and anemia. Will obtain EKG to rule out acute ST elevation VT. Chest x-ray to rule out pneumonia and congestive heart failure. Basic metabolic panel was obtained to assess renal function.. Troponin to evaluate for cardiac ischemia Patient's heart rate did improve with metoprolol. Since she has a productive cough elevated white count will place on short course of antibiotics. Since she is not hemodynamically unstable or she hypoxic or febrile will discharge to nursing facility Lab Data Attestation: I reviewed the patient's lab results. Lab results narrative: White count is elevated with slight shift. Electrolyte panel is unremarkable. Troponin is normal with 24 hours of symptoms. BNP is slightly elevated. This may represent mild heart failure or heart strain due to recent pulmonary embolus. Labs: Laboratory Results - last 24 hr 11/10/21 11/10/21 11/10/21 05:10 05:10 05:10 WBC 15.5 H RBC 4.79 Hgb 13.7 Hct 44.3 MCV 92.5 MCH 28.6 MCHC 30.9 L RDW Std Deviation 50.5 H RDW Coeff of Yuri 14.9 H Plt Count 259 MPV 10.1 Immature Gran % (Auto) 0.800 Neut % (Auto) 85.2 H Lymph % (Auto) 6.6 L Gem % (Auto) 7.3 Eos % (Auto) 0.0 Baso % (Auto) 0.1 Absolute Neuts (auto) 13.2 H Absolute Lymphs (auto) 1.02 Nucleated RBC % 0 Sodium 137 Potassium 4.3 Chloride 105 Carbon Dioxide 25.0 Anion Gap 7 BUN 18 Creatinine 0.92 Estim Creat Clear Calc 51.74 Est GFR (MDRD) Af Amer 77 Est GFR (MDRD) Non-Af 64 BUN/Creatinine Ratio 19.5 Glucose 152 H Calcium 10.0 Troponin I High Sens 15 B-Natriuretic Peptide 382.2 H Radiography Chest X-Ray - ED: 1 View (The x-ray is unchanged from September 24.) and Read by ED Physician (Interpreted by me at 0522. Cardiac silhouette size unremarkable. Perihilar region is slightly prominent. Osseous structures unremarkable. There is increased interstitial markings right lower lobe. There is evidence of atelectasis left base. Attempt to compare to x-ray obtained September 24 was unsu) Diagnostic Testing: Clinical Impression(s) from Imaging Studies Chest X-Ray 11/10/21 04:52 IMPRESSION: Infiltrates in the left lung and bibasilar infiltrate or atelectasis similar to prior study. Findings may represent residual or recurrent pneumonia, or other process. Electronically Signed: Hannah Sim MD at 5:34 EDT , EKG Initial EKG: Attestation: I personally reviewed and interpreted this EKG as follows: Interpretation: Atrial Fibrillation (Rate is 121. QRS duration 86 ms. QT duration 320 ms. [place] is normal. There is nonseptic changes noted. The EKG is unchanged from September 24, 2021) Prior: Unchanged (September 24, 2021. Rate at that time was 118.) Discharge Plan Triage Chief Complaint: Shortness of Breath ED Provider: Luca Scott Dx/Rx/DC Orders Clinical Impression: Acute dyspnea, Chronic combined systolic and diastolic CHF (congestive heart failure), Persistent atrial fibrillation, Essential hypertension Instructions: ED AFIB, ED Heart Failure, Congestive (CHF), ED Dyspnea Prescriptions: New doxycycline monohydrate 100 MG capsule 100 mg PO BID Qty: 10 RF: 0 No Action metoprolol tartrate 50 mg tablet 50 mg PO BID Qty: 180 RF: 3 Eliquis 5 mg tablet 5 mg PO BID Qty: 180 RF: 3 multivitamin with folic acid [Thera] 1 TABLET tablet 1 tab PO DAILY RF: 0 allopurinol 300 MG tablet 300 mg PO DAILY RF: 0 losartan 100 MG tablet 100 mg PO DAILY RF: 0 levothyroxine 137 mcg tablet 137 mcg PO DAILY RF: 0 trospium 20 mg tablet 20 mg PO QHS RF: 0 cholecalciferol (vitamin D3) 1,250 mcg (50,000 unit) capsule 1,250 mcg PO SWEET RF: 0 potassium chloride [Klor-Con M20] 20 mEq Tablet,Er Particles/Crystals 20 meq PO BIDCM Qty: 0 RF: 0 furosemide [Lasix] 40 mg tablet 40 mg PO DAILY RF: 0 tramadol 50 mg Tablet 50 mg PO Q6H PRN (Reason: Pain) RF: 0 albuterol sulfate 90 mcg/actuation Hfa Aerosol Inhaler 2 puff INHALATION Q6H PRN (Reason: Wheezing) RF: 0 acetaminophen [Tylenol Ex Str Arthritis Pain] 500 mg Tablet 1,000 mg PO TID RF: 0 Primary Care Provider: Gregg Plasencia NP Referrals: Gregg Plasencia SCIENTIFIC PROGRAMMER, SCIENTIFIC PROGRAMMER-C [Primary Care Provider] - 3-5 Days Disposition Disposition: Home, Self Care
[2021-11-10] MEDS: Ondansetron 4 MG/2 ML Vial IV ×2 (05:18→19:26)
[2021-11-10 05:19] LABS: Absolute Lymphocyte Count 1.02 X10^3/uL (0.83-4.51); Absolute Neutrophil Count 13.2 X10^3/uL (2.0-7.7); Basophil# 0.01 X10^3/uL; Basophil% 0.1 % (0-1); Hematocrit 44.3 % (37-47); Hemoglobin 13.7 g/dL (12.0-15.0); Lymphocyte # 1.02 X10^3/ul (0.83-4.51); Lymphocyte % 6.6 % (19-41); Mean Corp Hgb Conc 30.9 g/dL (32-36); Mean Corpuscular Hgb 28.6 pg (27.0-32.0); Mean Corpuscular Volume 92.5 fL (81-99); Mean Platelet Vol. 10.1 fl (6.2-12.0); Monocyte# 1.14 X10^3/uL; Monocyte% 7.3 % (0-10); NRBC Flagged by Analyzer 0 % (0-5); Neutrophil # 13.22 X10^3/uL (2.7-7.7); Neutrophil % 85.2 % (47-70); Platelet Count 259 K/mm3 (150-450); RBC Distribution Width CV 14.9 % (11.6-14.6); RBC Distribution Width SD 50.5 fl (35.1-43.9); Red Blood Count 4.79 M/mm3 (4.2-5.4); White Blood Count 15.5 K/mm3 (4.4-11.0)
[2021-11-10 05:39] LABS: Anion Gap 7 (5-15); BUN 18 mg/dL (7-18); BUN/Creat Ratio 19.5 RATIO (10-20); Chloride 105 mmol/L (98-107); Creatinine, Serum 0.92 mg/dL (0.55-1.02); EST Glomerular Filtration Rate 64 mL/min (>60); Est Glom Filt Rate - Afr Amer 77 mL/min (>60); Estimated Creatinine Clearance 51.74 ml/min; Glucose 152 mg/dL (74-106); Potassium 4.3 mmol/L (3.5-5.1); Sodium Level 137 mmol/L (136-145); Troponin-I HS 15 pg/mL (3.0-54.0)
[2021-11-10] MEDS: Metoprolol Tartrate 5 MG/5 ML Vial IV (05:41)
[2021-11-10 05:52] LABS: BNP,B-Type NATRIURETIC PEPTIDE 382.2 pg/mL (0-100)
[2021-11-10] MEDS: Doxycycline 100 MG CAPSULE PO (06:34)
[2021-11-10] MEDS: Furosemide 40 MG/4 ML Vial IV (06:34)
--- NOTE | 2021-11-10 06:43 | HP.PCM.HOS_ITS ---
HPI - General HPI Narrative CARMEN PYLE, is a 71 F who presents to the hospital with shortness of breath for the last 24 to 36 hours. She states that she has had some difficulty wearing her CPAP at night secondary to stuffed up nose and she is also been having a cough with thick white sputum that has occasionally caused her to have a gag reflex and vomit. She did recently discover that she had a PE and was also had new onset A. fib so she was started on Eliquis which she has been taking religiously at home. She also has a history of heart failure and has been taking her Lasix at home and states that her swelling is much improved than it has been despite the fact that her BNP is a little bit elevated compared to last month. She has been feeling a little bit more chilled at home but denies any fevers or sick contacts [facility] Medical History (Updated 11/10/21 @ 06:[address] Jacky Hardy MD) Chronic combined systolic and diastolic CHF (congestive heart failure) CPAP (continuous positive airway pressure) dependence Essential hypertension Hyperlipidemia Hypothyroid Non-smoker Persistent atrial fibrillation Sleep apnea Home Medications multivitamin with folic acid [Thera] 1 tab PO DAILY 09/17/14 [History Last Taken 09/23/21] allopurinol 300 mg PO DAILY 07/27/15 [History Last Taken 09/24/21] losartan 100 mg PO DAILY 07/27/15 [History Last Taken 09/24/21] cholecalciferol (vitamin D3) 1,250 mcg PO SWEET 09/24/21 [History Last Taken 09/19/21] levothyroxine 137 mcg PO DAILY 09/24/21 [History Last Taken 09/24/21] trospium 20 mg PO QHS 09/24/21 [History Last Taken 09/23/21] potassium chloride [Klor-Con M20] 20 meq PO BIDCM #0 tab 09/27/21 [Rx Last Taken Unknown] apixaban 5 mg tablet 5 mg PO BID #180 tab 11/08/21 [Rx Last Taken Unknown] metoprolol tartrate 50 mg tablet 50 mg PO BID #180 tab 11/08/21 [Rx Last Taken Unknown] acetaminophen [Tylenol Ex Str Arthritis Pain] 1,000 mg PO TID 11/10/21 [History Last Taken Unknown] albuterol sulfate 2 puff INHALATION Q6H PRN 11/10/21 [History Last Taken Unknown] doxycycline monohydrate 100 mg PO BID #10 capsule 11/10/21 [Rx Last Taken Unknown] furosemide [Lasix] 40 mg PO DAILY 11/10/21 [History Last Taken Unknown] tramadol 50 mg PO Q6H PRN 11/10/21 [History Last Taken Unknown] Allergy/AdvReac Type Severity Reaction Status Date / Time No Known Allergies Allergy Verified 11/10/21 04:50 Family History (Updated 11/10/21 @ 06:[address] Jacky Hardy MD) Mother CHF (congestive heart failure) Other Diabetes Hypertension Surgical History (Updated 11/10/21 @ 06:[address] Jacky Hardy MD) Status post total right knee replacement Social History (Updated 11/10/21 @ 04:[address] Luca Scott MD) housing: shelter Smoking Status: Never smoker substance use type: does not use ROS Constitutional Constitutional: Reports chills; Denies fatigue, fever(s) or malaise Eyes Eyes: Denies blurry vision ENT HEENT: Denies headache(s) or nasal discharge Cardiovascular Cardiovascular: Denies chest pain, dyspnea on exertion or syncope Respiratory/Chest Respiratory/Chest: Reports cough and shortness of breath at rest; Denies shortness of breath with exertion Gastrointestinal Gastrointestinal: Reports vomiting; Denies constipation, diarrhea or nausea Genitourinary Genitourinary: Denies dysuria Neurologic Neurologic: Denies focal weakness, numbness or tremor(s) Psychiatric Psychiatric: Denies anxiety or depression Vital Signs Vital Signs Vital Signs: 11/10/21 04:46 11/10/21 05:05 11/10/21 05:09 Temperature 98.7 F Temperature Source Oral Pulse Rate 110 H 127 H Respiratory Rate 23 H 23 H Respiratory Effort Short of Breath Respiratory Depth Shallow Respiratory Pattern Tachypnea Blood Pressure 119/85 H 119/85 H Blood Pressure Mean 96 96 Pulse Ox 97 97 Oxygen Delivery Method Room Air Room Air Room Air 11/10/21 05:49 11/10/21 06:31 Temperature Temperature Source Pulse Rate 118 H 108 H Respiratory Rate 21 H 24 H Respiratory Effort Respiratory Depth Respiratory Pattern Blood Pressure 119/85 H 132/96 H Blood Pressure Mean 96 108 Pulse Ox 89 92 Oxygen Delivery Method Room Air Room Air Weight Weight: 350 lb 1.505 oz Body Mass Index (BMI) 56.5 Physical Exam Const alert, oriented x3 and no apparent distress General Appearance: cooperative HEENT normocephalic Mouth: dry mucous membranes Eyes PERRL, EOMs intact bilaterally and conjunctivae normal Neck supple and no JVD Resp normal respiratory effort, no retractions and no use of accessory muscles Auscultation: diminished lung sounds; Negative for crackles, rales, rhonchi or wheezes Cardio S1 normal heart sound, S2 normal heart sound and no murmurs Rate: tachycardic Rhythm: abnormal rhythm GI soft to palpation, non-tender and non-distended; Negative for hepatosplenomegaly Extremity no clubbing, cyanosis or edema Skin no rashes or lesions noted Neuro no focal motor deficits and no sensory deficits noted Psych affect normal Appearance: appropriate Results Lab / Micro Data Result Diagrams: 11/10/21 05:10 11/10/21 05:10 Labs: Laboratory Results - last 24 hr 11/10/21 05:10: WBC 15.5 H, RBC 4.79, Hgb 13.7, Hct 44.3, MCV 92.5, MCH 28.6, MCHC 30.9 L, RDW Std Deviation 50.5 H, RDW Coeff of Yuri 14.9 H, Plt Count 259, MPV 10.1, Immature Gran % (Auto) 0.800, Neut % (Auto) 85.2 H, Lymph % (Auto) 6.6 L, [place] % (Auto) 7.3, Eos % (Auto) 0.0, Baso % (Auto) 0.1, Absolute Neuts (auto) 13.2 H, Absolute Lymphs (auto) 1.02, Nucleated RBC % 0 11/10/21 05:10: Sodium 137, Potassium 4.3, Chloride 105, Carbon Dioxide 25.0, Anion Gap 7, BUN 18, Creatinine 0.92, Estim Creat Clear Calc 51.74, Est GFR (MDRD) Af Amer 77, Est GFR (MDRD) Non-Af 64, BUN/Creatinine Ratio 19.5, Glucose 152 H, Calcium 10.0, Troponin I High Sens 15 11/10/21 05:10: B-Natriuretic Peptide 382.2 H Radiology Impression Chest X-Ray 11/10/21 04:52 IMPRESSION: Infiltrates in the left lung and bibasilar infiltrate or atelectasis similar to prior study. Findings may represent residual or recurrent pneumonia, or other process. Electronically Signed: Hannah Sim MD at 5:34 EDT , Assessment & Plan Assessment/Plan (1) Acute respiratory failure with hypoxia: (2) Pneumonia: PLAN: 1. Acute hypoxic respiratory failure secondary to pneumonia ? She does have a leukocytosis to 15 and chest x-ray demonstrates infiltrate in the left lung but this is similar to the findings on her previous imaging about a month ago when she discovered to have a PE ? Continue with Eliquis and antibiotics ? Continue with incentive spirometry ? Can use oxygen when necessary however she is also supposed be wearing CPAP which she has not been wearing because of a stuffed nose ? She did drop to 87-88% on room air during my interview ? We will continue with the CPAP when she sleeps and will have to have her bring it in from home 2. Combined systolic and diastolic CHF/pulmonary hypertension/A. fib/HTN/HLD/morbid obesity ? Continue with her home blood pressure medications ? Blood pressure does appear to be stable heart rate though does intermittently climb into the low 100s ? Continue with Eliquis ? BMI is 56.5, displaced, patient 3. Hypothyroidism ? Stable ? Continue with Synthroid 4. THOMAS ? Stable ? Continue with CPAP when she sleeps at night. DVT: Eliquis Charges/Coding Visit Charges Inpatient E&M: 86514 Init Hosp L2
--- NOTE | 2021-11-10 07:21 | PCM.PN.HOSP ---
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 She usually wears CPAP at night. Cystopathy. She recently had discography with new onset A. fib was seen on [facility]. She has intermittent feeling of chest heaviness/tightness since July after she was diagnosed with heart failure and takes Lasix. Not related with activity. Troponin normal. Objective Data Objective Data Vital Signs: Vital Signs Temp Pulse Resp BP Pulse Ox 98.9 F 109 H 22 H 132/96 H 92 11/10/21 06:59 11/10/21 06:59 11/10/21 06:59 11/10/21 06:59 11/10/21 06:59 Oxygen Delivery Method Room Air Weight: 350 lb 1.505 oz Body Mass Index (BMI) 56.5 Lab / Micro Data Result Diagrams: 11/10/21 05:10 11/10/21 05:10 Labs: Laboratory Results - last 24 hr 11/10/21 05:10: WBC 15.5 H, RBC 4.79, Hgb 13.7, Hct 44.3, MCV 92.5, MCH 28.6, MCHC 30.9 L, RDW Std Deviation 50.5 H, RDW Coeff of Yuri 14.9 H, Plt Count 259, MPV 10.1, Immature Gran % (Auto) 0.800, Neut % (Auto) 85.2 H, Lymph % (Auto) 6.6 L, [place] % (Auto) 7.3, Eos % (Auto) 0.0, Baso % (Auto) 0.1, Absolute Neuts (auto) 13.2 H, Absolute Lymphs (auto) 1.02, Nucleated RBC % 0 11/10/21 05:10: Sodium 137, Potassium 4.3, Chloride 105, Carbon Dioxide 25.0, Anion Gap 7, BUN 18, Creatinine 0.92, Estim Creat Clear Calc 51.74, Est GFR (MDRD) Af Amer 77, Est GFR (MDRD) Non-Af 64, BUN/Creatinine Ratio 19.5, Glucose 152 H, Calcium 10.0, Troponin I High Sens 15 11/10/21 05:10: B-Natriuretic Peptide 382.2 H Radiography Diagnostic Testing: Radiology Impression Chest X-Ray 11/10/21 04:52 IMPRESSION: Infiltrates in the left lung and bibasilar infiltrate or atelectasis similar to prior study. Findings may represent residual or recurrent pneumonia, or other process. Physical Exam Narrative General: Alert, Oriented x3, Cooperative, morbid obesity 47.3 kg/min risk HEENT: Atraumatic, PERRLA, EOMI, Normocephalic Oral: No Gingival or Mucosal Lesions/ Ulcerations Neck: Supple, No JVD, Negative Carotid Bruits Lungs: Air entry diminished in bilateral lung bases. No crepitation/rhonchi Cardiovascular: Regular rate, Regular Rhythm, Normal S1, Normal S2, No murmurs Abdomen: Bowel Sounds Present, Soft, Non Tender, Non-Distended : No renal angle tenderness. No suprapubic tenderness. Extremities: Mild bilateral ankle edema, Capillary Refill Less than 3 Seconds Skin: No rashes, No breakdown Musculoskeletal: No Tenderness to Palpation of Joints or Extremities Neurological: Cranial nerves II-XII grossly intact, DTR 2+/4 and Symmetrical, Neuro grossly intact Psych/Mental Status: Normal Affect, Appropriate Assessment & Plan Assessment/Plan (1) Acute respiratory failure with hypoxia: (2) Pneumonia: PLAN: 71-year-old female admitted with shortness of breath for 24 to 36 hours along with cough, thick whitish sputum with occasional gagging and vomiting. Nonweightbearing to CPAP. 1. Left-sided pneumonia : She has mild symptoms of shortness of breath for last 36 hours prior to admission along with productive cough. Leukocytosis and chest x-ray shows left lung pneumonia. Continue IV antibiotic. Bronchopulmonary hygiene and incentive decerebrate repair. She has transient hypoxia, 89% on room while conversation which she recovered. Throughout her pulse ox 96 to 97% on room air. 2. Recent segmental PE: On Eliquis continued. She had transient drop of pulse ox 87 to 88% on room air but she recovered. 3. Chronic systolic and diastolic heart failure, pulmonary hypertension, A. fib on Eliquis, obstructive sleep apnea: Home medications continued. BNP 382. Continue CPAP. 4. Hypertension, dyslipidemia and morbid obesity continue home medications ? BMI 57.3 kg/m?. 5 hypothyroidism ? Continue with Synthroid
[2021-11-10] MEDS: Potassium Chloride Oral Tablet 20 MEQ PO ×2 (09:07→17:39)
--- NOTE | 2021-11-10 10:41 | CASEMGMT ---
Addendum entered by Lourdes Dinero 11/10/21 10:55: Received tc back from Maryann at [facility], they dc'd on 11/05/21. They are able to accept pt back for services. Original Note: FAUZIA BAUER Assessment: Face to Face with pt for initial transition planning/care coordination assessment. FAUZIA BAUER introduced self and role at [facility], pt voices understanding and consents to assessment. Pt is A/O x4 and answers all questions appropriately at this time. Pt sitting up in bed on RA in no distress. Care providers, pharmacy, and demographics verified/updated. Admitting Dx: hypoxia with pna PCP: Maxim Plasencia BRUSH MACHINE SETTER Specialists: Jason, serena, AMADA Preferred Pharmacy: [facility] Insurance: [employer] Prescription Benefit: yes LW/HPOA: Pt states she has a LW/DPOA. Her DPOA is Yarypaddy Williamser and it is on file at [facility]. LNOK: Yary Mueller, dtr Living Arrangements: Pt lives in the basement of her daughter and her daughter's family's home. Pt has no steps to enter. Pt reports she is I in ADL's and denies concerns at home. Transportation: Pt drives self and denies concerns with transportation. DME/HHC/SNF: Pt has a CPAP, cane, FWW and rollator at home. Pt has had [facility] recently, states she was just dc'd from them. Pt denies SNF stays. Pt states no concerns with going home at time of dc. Discussed [facility] restarting for her for resp assessment and education. Pt agreeable to this and would like [facility] again. She does not feel at this time that she needs therapy as she has the exercise handouts already. Pt states no further concerns/needs. CM to follow. Advised pt to ask CM if any further question/concerns/needs arise, voices understanding. Pt Goal: Home with [facility] SN Plan: Home with [facility] SN, will follow for therapy and O2 needs. TC to Maryann at [facility], left message with referral, awaiting acceptance.
[2021-11-10] MEDS: Ceftriaxone 1 GM/50 ML BAG IV (10:54)
[2021-11-10] MEDS: Losartan Potassium 100 MG Tablet PO (10:55)
[2021-11-10] MEDS: Levothyroxine 137 MCG Tablet PO (10:56)
[2021-11-10] MEDS: Furosemide 40 MG Tablet PO (10:56)
[2021-11-10] MEDS: Metoprolol Tartrate 50 MG Tablet PO ×2 (10:56→20:22)
[2021-11-10] MEDS: APIXABAN 5 MG TABLET PO ×2 (10:56→20:23)
[2021-11-10] MEDS: Allopurinol 300 MG Tablet PO (10:57)
--- NOTE | 2021-11-10 11:47 | CASEMGMT ---
Social Work Note Per director health questions, pt has completed HCPOA and LW and provided documents to [facility]. SW reviewed chart. Both HCPOA and LW are on file. SW printed off documents and placed on pt's chart. Mally Rivers DIRECTOR OF MARKETING, RAILROAD TRACK INSPECTOR
--- NOTE | 2021-11-10 13:30 | PN.HOSP_ITS ---
Objective Data Objective Data Vital Signs: Vital Signs Temp Pulse Resp BP Pulse Ox 97.8 F 59 L 20 H 108/78 98 11/10/21 07:40 11/10/21 10:56 11/10/21 07:40 11/10/21 07:40 11/10/21 10:54 Oxygen Flow Rate (L/min) 2 Oxygen Delivery Method Nasal Cannula Weight: 344 lb 2.265 oz Body Mass Index (BMI) 57.2 Intake & Output: Intake and Output for Last 24 Hours 11/08/21 11/09/21 11/10/21 23:59 23:59 23:59 Intake Total 305 / 305 Output Total 750 / 750 Balance -445 / -445 Lab / Micro Data Result Diagrams: 11/10/21 05:10 11/10/21 05:10 Labs: Laboratory Results - last 24 hr 11/10/21 05:10: WBC 15.5 H, RBC 4.79, Hgb 13.7, Hct 44.3, MCV 92.5, MCH 28.6, MCHC 30.9 L, RDW Std Deviation 50.5 H, RDW Coeff of Yuri 14.9 H, Plt Count 259, MPV 10.1, Immature Gran % (Auto) 0.800, Neut % (Auto) 85.2 H, Lymph % (Auto) 6.6 L, [place] % (Auto) 7.3, Eos % (Auto) 0.0, Baso % (Auto) 0.1, Absolute Neuts (auto) 13.2 H, Absolute Lymphs (auto) 1.02, Nucleated RBC % 0 11/10/21 05:10: Sodium 137, Potassium 4.3, Chloride 105, Carbon Dioxide 25.0, Anion Gap 7, BUN 18, Creatinine 0.92, Estim Creat Clear Calc 51.74, Est GFR (MDRD) Af Amer 77, Est GFR (MDRD) Non-Af 64, BUN/Creatinine Ratio 19.5, Glucose 152 H, Calcium 10.0, Troponin I High Sens 15 11/10/21 05:10: B-Natriuretic Peptide 382.2 H Radiography Diagnostic Testing: Radiology Impression Chest X-Ray 11/10/21 04:52 IMPRESSION: Infiltrates in the left lung and bibasilar infiltrate or atelectasis similar to prior study. Findings may represent residual or recurrent pneumonia, or other process. Electronically Signed: Hannah Sim MD at 5:34 EDT , Assessment & Plan Assessment/Plan (1) Pneumonia: PLAN: 71-year-old female admitted with shortness of breath for 24 to 36 hours along with cough, thick whitish sputum with occasional gagging and vomiting. Nonweightbearing to CPAP. 1. Left-sided pneumonia : She has mild symptoms of shortness of breath for last 36 hours prior to admission along with productive cough. Leukocytosis and chest x-ray shows left lung pneumonia. Continue IV antibiotic. Bronchopulmonary hygiene and incentive decerebrate repair. She has transient hypoxia, 89% on room while conversation which she recovered. Throughout her pulse ox 96 to 97% on room air. 2. Recent segmental PE: On Eliquis continued. She had transient drop of pulse ox 87 to 88% on room air but she recovered. 3. Chronic systolic and diastolic heart failure, pulmonary hypertension, A. fib on Eliquis, obstructive sleep apnea: Home medications continued. BNP 382. Continue CPAP. 4. Hypertension, dyslipidemia and morbid obesity continue home medications ? BMI 57.3 kg/m?. 5 hypothyroidism ? Continue with Synthroid
[2021-11-10] MEDS: Acetaminophen 500 MG Tablet 1000 MG PO ×2 (14:03→20:23)
[2021-11-10] MEDS: 0.9% Saline Lock 10 ML Syringe IV (19:26)
[2021-11-11] VITALS (13 sets, daily range): BP systolic 94–121; BP diastolic 55–84; PULSE 76–105; RESP 18–25; TEMP 36.6–37.3; O2SAT 89–98
[2021-11-11 05:22] LABS: Absolute Lymphocyte Count 1.39 X10^3/uL (0.83-4.51); Basophil# 0.02 X10^3/uL; Basophil% 0.1 % (0-1); Hematocrit 41.6 % (37-47); Hemoglobin 12.5 g/dL (12.0-15.0); Lymphocyte # 1.39 X10^3/ul (0.83-4.51); Lymphocyte % 9.4 % (19-41); Mean Corpuscular Hgb 28.2 pg (27.0-32.0); Mean Corpuscular Volume 93.9 fL (81-99); Mean Platelet Vol. 10.5 fl (6.2-12.0); Monocyte# 1.29 X10^3/uL; Monocyte% 8.7 % (0-10); NRBC Flagged by Analyzer 0 % (0-5); Neutrophil # 11.96 X10^3/uL (2.7-7.7); Neutrophil % 81.2 % (47-70); Platelet Count 197 K/mm3 (150-450); RBC Distribution Width SD 52.6 fl (35.1-43.9); Red Blood Count 4.43 M/mm3 (4.2-5.4); White Blood Count 14.8 K/mm3 (4.4-11.0)
[2021-11-11 05:35] LABS: Anion Gap 5 (5-15); BUN 21 mg/dL (7-18); BUN/Creat Ratio 25.7 RATIO (10-20); Calcium,Total 9.5 mg/dL (8.5-10.1); Chloride 106 mmol/L (98-107); Creatinine, Serum 0.82 mg/dL (0.55-1.02); EST Glomerular Filtration Rate 73 mL/min (>60); Est Glom Filt Rate - Afr Amer 88 mL/min (>60); Glucose 134 mg/dL (74-106); Potassium 3.7 mmol/L (3.5-5.1); Sodium Level 140 mmol/L (136-145)
[2021-11-11] MEDS: Acetaminophen 500 MG Tablet 1000 MG PO ×2 (05:55→14:19)
[2021-11-11] MEDS: Levothyroxine 137 MCG Tablet PO (05:55)
--- NOTE | 2021-11-11 08:36 | PCM.PN.HOSP ---
Objective Data Objective Data Vital Signs: Vital Signs Temp Pulse Resp BP Pulse Ox 97.9 F 105 H 20 H 107/64 95 11/11/21 07:59 11/11/21 07:59 11/11/21 07:59 11/11/21 07:59 11/11/21 07:59 Oxygen Flow Rate (L/min) 2 Oxygen Delivery Method Room Air Weight: 344 lb 2.265 oz Body Mass Index (BMI) 57.2 Intake & Output: Intake and Output for Last 24 Hours 11/09/21 11/10/21 11/11/21 23:59 23:59 23:59 Intake Total 305 / 430 425 / 425 Output Total 3650 / 3850 450 / 450 Balance -3345 / -3420 -25 / -25 Lab / Micro Data Result Diagrams: 11/11/21 04:50 11/11/21 04:50 Labs: Laboratory Results - last 24 hr 11/11/21 04:50: WBC 14.8 H, RBC 4.43, Hgb 12.5, Hct 41.6, MCV 93.9, MCH 28.2, MCHC 30.0 L, RDW Std Deviation 52.6 H, RDW Coeff of Yuri 15.0 H, Plt Count 197, MPV 10.5, Immature Gran % (Auto) 0.600, Neut % (Auto) 81.2 H, Lymph % (Auto) 9.4 L, [place] % (Auto) 8.7, Eos % (Auto) 0.0, Baso % (Auto) 0.1, Absolute Neuts (auto) 12.0 H, Absolute Lymphs (auto) 1.39, Nucleated RBC % 0 11/11/21 04:50: Sodium 140, Potassium 3.7, Chloride 106, Carbon Dioxide 29.0, Anion Gap 5, BUN 21 H, Creatinine 0.82, Estim Creat Clear Calc 55.80, Est GFR (MDRD) Af Amer 88, Est GFR (MDRD) Non-Af 73, BUN/Creatinine Ratio 25.7 H, Glucose 134 H, Calcium 9.5 Physical Exam Narrative General: Alert, Oriented x3, Cooperative, morbid obesity 47.3 kg/min risk HEENT: Atraumatic, PERRLA, EOMI, Normocephalic Oral: No Gingival or Mucosal Lesions/ Ulcerations Neck: Supple, No JVD, Negative Carotid Bruits Lungs: Air entry diminished in bilateral lung bases. No crepitation/rhonchi Cardiovascular: Regular rate, Regular Rhythm, Normal S1, Normal S2, No murmurs Abdomen: Bowel Sounds Present, Soft, Non Tender, Non-Distended : No renal angle tenderness. No suprapubic tenderness. Extremities: Mild bilateral ankle edema, Capillary Refill Less than 3 Seconds Skin: No rashes, No breakdown Musculoskeletal: No Tenderness to Palpation of Joints or Extremities Neurological: Cranial nerves II-XII grossly intact, DTR 2+/4 and Symmetrical, Neuro grossly intact Psych/Mental Status: Normal Affect, Appropriate Assessment & Plan Assessment/Plan (1) Pneumonia: PLAN: 71-year-old female admitted with shortness of breath for 24 to 36 hours along with cough, thick whitish sputum with occasional gagging and vomiting. Nonweightbearing to CPAP. 1. Left-sided pneumonia : She has mild symptoms of shortness of breath for last 36 hours prior to admission along with productive cough. Leukocytosis and chest x-ray shows left lung pneumonia. Continue IV antibiotic. Bronchopulmonary hygiene and incentive decerebrate repair. She has transient hypoxia, 89% on room while conversation which she recovered. Throughout her pulse ox 96 to 97% on room air. Acute hypoxic respiratory failure ruled out 2. Recent segmental PE: On Eliquis continued. She had transient drop of pulse ox 87 to 88% on room air but she recovered. 3. Chronic systolic and diastolic heart failure, pulmonary hypertension, A. fib on Eliquis, obstructive sleep apnea: Home medications continued. BNP 382. Continue CPAP. 4. Hypertension, dyslipidemia and morbid obesity continue home medications ? BMI 57.3 kg/m?. 5 hypothyroidism ? Continue with Synthroid
[2021-11-11] MEDS: Ceftriaxone 1 GM/50 ML BAG IV (09:14)
[2021-11-11] MEDS: Furosemide 40 MG Tablet PO (09:22)
[2021-11-11] MEDS: Metoprolol Tartrate 50 MG Tablet PO (09:22)
[2021-11-11] MEDS: Losartan Potassium 100 MG Tablet PO (09:23)
[2021-11-11] MEDS: Potassium Chloride Oral Tablet 20 MEQ PO (09:23)
[2021-11-11] MEDS: APIXABAN 5 MG TABLET PO (09:23)
[2021-11-11] MEDS: Allopurinol 300 MG Tablet PO (09:23)
--- NOTE | 2021-11-11 10:20 | DCINST_ITS ---
Discharge Instructions Diet Discharge Diet: Low fat / Low cholesterol and 2000 mg Sodium Diet Activity Discharge Activity: May Not Drive Dressing / Incision Call your doctor if you observe: Fever of 101 or Higher, Coldness, Increased Pain, Numbness or Tingling, Change in Color, Inability to urinate, Inability to have a bowel movement, Using more than 1 pad per hour, Shortness of breath, Dizziness, Fainting spells, Swelling in the ankles, Chest pain, Prolonged hiccupping, Increased palpitations (irregular heartbeat), Calf discomfort and Uncontrolled pain Follow Up Care Test Results: Test results from this visit will be discussed in further detail at your follow-up appointment, if applicable. Discharge Plan Admission Admit Date/Time: 11/10/21 06:37 Primary Reason for Your Visit: Left lower lobe pneumonia Attending Provider: Ghulam Raymond Primary Care Provider: Gregg Plasencia INTENSIVE CARE ANAESTHETIST Instructions Patient Instructions: ED AFIB, ED Heart Failure, Congestive (CHF), ED Dyspnea Discharge Orders/Prescriptions Prescriptions: New cefdinir 300 mg capsule 300 mg PO BID Qty: 5 RF: 0 azithromycin [Zithromax] 500 mg tablet 500 mg PO DAILY Qty: 3 RF: 0 Continued metoprolol tartrate 50 mg tablet 50 mg PO BID Qty: 180 RF: 3 Eliquis 5 mg tablet 5 mg PO BID Qty: 180 RF: 3 multivitamin with folic acid [Thera] 1 TABLET tablet 1 tab PO DAILY RF: 0 allopurinol 300 MG tablet 300 mg PO DAILY RF: 0 losartan 100 MG tablet 100 mg PO DAILY RF: 0 levothyroxine 137 mcg tablet 137 mcg PO DAILY RF: 0 trospium 20 mg tablet 20 mg PO QHS RF: 0 cholecalciferol (vitamin D3) 1,250 mcg (50,000 unit) capsule 1,250 mcg PO SWEET RF: 0 potassium chloride [Klor-Con M20] 20 mEq Tablet,Er Particles/Crystals 20 meq PO BIDCM Qty: 0 RF: 0 furosemide [Lasix] 40 mg tablet 40 mg PO DAILY RF: 0 tramadol 50 mg Tablet 50 mg PO Q6H PRN (Reason: Pain) RF: 0 albuterol sulfate 90 mcg/actuation Hfa Aerosol Inhaler 2 puff INHALATION Q6H PRN (Reason: Wheezing) RF: 0 acetaminophen 500 mg Tablet 1,000 mg PO TID RF: 0 Referrals / Follow Up: Gregg Plasencia INTENSIVE CARE ANAESTHETIST, INTENSIVE CARE ANAESTHETIST-C [Primary Care Provider] - In 1 Week Scott Menard DO [STAFF PHYSICIAN] - Within 1 Month (For PFT. THOMAS on CPAP. Morbidly obese possible CPAP titration.) Disposition Disposition (needs filled in before D/C Order can be placed): Home Health Service
--- NOTE | 2021-11-11 10:27 | DS.PCM_ITS ---
Providers Date of Admission: 11/10/21 Date of Discharge: 11/11/21 Primary Care Physician: Gregg Plasencia, ACCOUNT SERVICES REPRESENTATIVE-C Reason For Visit: HYPOXIA WITH PNEUMONIA Diagnosis Discharge Diagnosis (1) Pneumonia: Status: Acute Code(s): J18.9 - Pneumonia, unspecified organism Medications at Discharge Home Medications multivitamin with folic acid [Thera] 1 tab PO DAILY 09/17/14 allopurinol 300 mg PO DAILY 07/27/15 losartan 100 mg PO DAILY 07/27/15 cholecalciferol (vitamin D3) 1,250 mcg PO SWEET 09/24/21 levothyroxine 137 mcg PO DAILY 09/24/21 trospium 20 mg PO QHS 09/24/21 potassium chloride [Klor-Con M20] 20 meq PO BIDCM #0 tab 09/27/21 apixaban 5 mg tablet 5 mg PO BID #180 tab 11/08/21 metoprolol tartrate 50 mg tablet 50 mg PO BID #180 tab 11/08/21 acetaminophen 1,000 mg PO TID 11/10/21 albuterol sulfate 2 puff INHALATION Q6H PRN 11/10/21 furosemide [Lasix] 40 mg PO DAILY 11/10/21 tramadol 50 mg PO Q6H PRN 11/10/21 azithromycin [Zithromax] 500 mg PO DAILY #3 tab 11/11/21 cefdinir 300 mg PO BID #5 cap 11/11/21 Hospital Course Summary of Care Provided Hospital Course: This is 71-year-old female admitted with shortness of breath for 24 to 36 hours along with cough, thick whitish sputum with occasional gagging and vomiting. Nonweightbearing to CPAP. 1. Left-sided pneumonia : She has mild symptoms of shortness of breath for last 36 hours prior to admission along with productive cough. Leukocytosis and chest x-ray shows left lung pneumonia. Continue IV antibiotic. Bronch opulmonary hygiene and incentive decerebrate repair. She has transient hypoxia, 89% on room while conversation which she recovered. Throughout her pulse ox 96 to 97% on room air. Acute hypoxic respiratory failure ruled out Patient is discharged on cefdinir and Zithromax to complete a total of 7 days of antibiotic. 2. Recent segmental PE: On Eliquis continued. She had transient drop of pulse ox 87 to 88% on room air but she recovered. 3. Chronic systolic and diastolic heart failure, pulmonary hypertension, A. fib on Eliquis, obstructive sleep apnea: Home medications continued. BNP 382. Continue CPAP. Continue Lasix 40 mg daily 4. Hypertension, dyslipidemia and morbid obesity continue home medications ? BMI 57.3 kg/m?. 5 hypothyroidism Continue with Synthroid Discharge medication reconciliation done. Discharge follow-up instructions completed. Discharge process discussed with the patient and all questions were answered to patient's satisfaction. Follow-up in pulmonary clinic in 1 week for sleep titration study and PFT. Total time spent, exact 35 minutes on discharge meds reconciliation, examination, coordination of care with nurses and ancillary staff, review of imaging and blood test and discussion with the patient on follow-up instructions. Physical Exam Narrative Seen and examined. Patient feels good. Shortness of breath resolved. She has walked in the hallway without dyspnea. Mild cough getting better. Obstructive sleep apnea on CPAP. General: Alert, Oriented x3, Cooperative, morbid obesity 47.3 kg/min risk HEENT: Atraumatic, PERRLA, EOMI, Normocephalic Oral: No Gingival or Mucosal Lesions/ Ulcerations Neck: Supple, No JVD, Negative Carotid Bruits Lungs: Air entry diminished in bilateral lung bases. No crepitation/rhonchi Cardiovascular: Regular rate, Regular Rhythm, Normal S1, Normal S2, No murmurs Abdomen: Bowel Sounds Present, Soft, Non Tender, Non-Distended : No renal angle tenderness. No suprapubic tenderness. Extremities: Mild bilateral ankle edema, improved. capillary Refill Less than 3 Seconds Skin: No rashes, No breakdown Musculoskeletal: No Tenderness to Palpation of Joints or Extremities Neurological: Cranial nerves II-XII grossly intact, DTR 2+/4 and Symmetrical, Neuro grossly intact Psych/Mental Status: Normal Affect, Appropriate Weight / BMI Weight Weight: 344 lb 2.265 oz Body Mass Index (BMI) 57.2 ABG / Lab / Microbiology Data Result Diagrams: 11/11/21 04:50 11/11/21 04:50 Laboratory: Laboratory Results - last 24 hr 11/11/21 04:50: WBC 14.8 H, RBC 4.43, Hgb 12.5, Hct 41.6, MCV 93.9, MCH 28.2, MCHC 30.0 L, RDW Std Deviation 52.6 H, RDW Coeff of Yuri 15.0 H, Plt Count 197, MPV 10.5, Immature Gran % (Auto) 0.600, Neut % (Auto) 81.2 H, Lymph % (Auto) 9.4 L, Hyde % (Auto) 8.7, Eos % (Auto) 0.0, Baso % (Auto) 0.1, Absolute Neuts (auto) 12.0 H, Absolute Lymphs (auto) 1.39, Nucleated RBC % 0 11/11/21 04:50: Sodium 140, Potassium 3.7, Chloride 106, Carbon Dioxide 29.0, Anion Gap 5, BUN 21 H, Creatinine 0.82, Estim Creat Clear Calc 55.80, Est GFR (MDRD) Af Amer 88, Est GFR (MDRD) Non-Af 73, BUN/Creatinine Ratio 25.7 H, Glucose 134 H, Calcium 9.5 D/C Instructions Discharge Diet: Low fat / Low cholesterol and 2000 mg Sodium Diet Call your doctor if you observe: Fever of 101 or Higher, Coldness, Increased Pain, Numbness or Tingling, Change in Color, Inability to urinate, Inability to have a bowel movement, Using more than 1 pad per hour, Shortness of breath, Dizziness, Fainting spells, Swelling in the ankles, Chest pain, Prolonged hiccupping, Increased palpitations (irregular heartbeat), Calf discomfort and Uncontrolled pain Meaningful Use Info Meaningful Use Diagnoses (Choose all that apply): None applicable Discharge Plan Admission Admit Date/Time: 11/10/21 06:37 Primary Reason for Your Visit: Left lower lobe pneumonia Attending Provider: Ghulam Raymond Primary Care Provider: Gregg Plasencia ACCOUNT SERVICES REPRESENTATIVE Instructions Patient Instructions: ED AFIB, ED Heart Failure, Congestive (CHF), ED Dyspnea Discharge Orders/Prescriptions Prescriptions: New cefdinir 300 mg capsule 300 mg PO BID Qty: 5 RF: 0 azithromycin [Zithromax] 500 mg tablet 500 mg PO DAILY Qty: 3 RF: 0 Continued metoprolol tartrate 50 mg tablet 50 mg PO BID Qty: 180 RF: 3 Eliquis 5 mg tablet 5 mg PO BID Qty: 180 RF: 3 multivitamin with folic acid [Thera] 1 TABLET tablet 1 tab PO DAILY RF: 0 allopurinol 300 MG tablet 300 mg PO DAILY RF: 0 losartan 100 MG tablet 100 mg PO DAILY RF: 0 levothyroxine 137 mcg tablet 137 mcg PO DAILY RF: 0 trospium 20 mg tablet 20 mg PO QHS RF: 0 cholecalciferol (vitamin D3) 1,250 mcg (50,000 unit) capsule 1,250 mcg PO SWEET RF: 0 potassium chloride [Klor-Con M20] 20 mEq Tablet,Er Particles/Crystals 20 meq PO BIDCM Qty: 0 RF: 0 furosemide [Lasix] 40 mg tablet 40 mg PO DAILY RF: 0 tramadol 50 mg Tablet 50 mg PO Q6H PRN (Reason: Pain) RF: 0 albuterol sulfate 90 mcg/actuation Hfa Aerosol Inhaler 2 puff INHALATION Q6H PRN (Reason: Wheezing) RF: 0 acetaminophen 500 mg Tablet 1,000 mg PO TID RF: 0 Referrals / Follow Up: Scott Menard DO [STAFF PHYSICIAN] - Within 1 Month (For PFT. THOMAS on CPAP. Morbidly obese possible CPAP titration.) Gregg Plasencia ACCOUNT SERVICES REPRESENTATIVE, ACCOUNT SERVICES REPRESENTATIVE-C [Primary Care Provider] - In 1 Week Disposition Disposition (needs filled in before D/C Order can be placed): Home Health Service Charges/Coding Visit Charges Inpatient E&M: 89577 Disch Hosp
== END 2021-11-11 15:20 | disposition home health service (06) | DRG 194 ==
LOC: ED 06:36 → MS3 06:56
PROVIDERS: Admitting Provider Family Medicine; Emergency Provider Emergency Medicine; PCP Nurse Practitioner Family; Visit Provider Internal Medicine
DX: J18.9 Pneumonia, unspecified organism (principal); I50.42 Chronic combined systolic (congestive) and diastolic (congestive) heart failure; I48.19 Other persistent atrial fibrillation; Z68.43 Body mass index [BMI] 50.0-59.9, adult; I11.0 Hypertensive heart disease with heart failure; E66.01 Morbid (severe) obesity due to excess calories; E78.5 Hyperlipidemia, unspecified; E03.9 Hypothyroidism, unspecified; G47.33 Obstructive sleep apnea (adult) (pediatric); Z86.711 Personal history of pulmonary embolism; Z79.899 Other long term (current) drug therapy; Z79.01 Long term (current) use of anticoagulants; R09.02 Hypoxemia
CPT/HCPCS: 36415; 71045; 80048; 83880; 84484; 85025; 93005; 94002; 97162; 97166; 97530; 97535; 99285; A4216; J1940; J2405

== ENCOUNTER → 2021-12-07 | Outpatient (CLI) | payer MEDICARE, OTHER, SELFPAY ==
--- NOTE | 2021-12-07 14:20 | RAD_ITS ---
STUDY: X-RAY CHEST REASON FOR EXAM: Female, 71 years old. LFT SIDED PNEUMONIA WITH PREVIOUS PE TECHNIQUE: PA and lateral views of the chest. COMPARISON: 11/10/2021 FINDINGS: The lungs are clear and expanded. There is no demonstrated pleural abnormality. Normal size heart. Normal mediastinum and kitty. Normal visualized pulmonary arteries. Normal visualized aortic arch and descending thoracic aorta. Normal visualized thoracic spine. Normal visualized ribs, clavicles, and shoulders. There is no demonstrated abnormality of the visualized soft tissue structures of the upper abdomen. RAD/Chest PA and Lateral IMPRESSION: Normal x-ray examination of the chest. Electronically Signed: Gregg Langston MD at 17:18 EDT ,
[2021-12-07 14:39] LABS: Hemoglobin 12.2 g/dL (12.0-15.0); Mean Corp Hgb Conc 31.3 g/dL (32-36); Mean Corpuscular Hgb 28.5 pg (27.0-32.0); Mean Corpuscular Volume 91.1 fL (81-99); Mean Platelet Vol. 10.3 fl (6.2-12.0); Platelet Count 204 K/mm3 (150-450); RBC Distribution Width CV 15.9 % (11.6-14.6); RBC Distribution Width SD 52.2 fl (35.1-43.9); Red Blood Count 4.28 M/mm3 (4.2-5.4); White Blood Count 5.7 K/mm3 (4.4-11.0)
[2021-12-07 15:05] LABS: ALB/GLOB Ratio 0.8 RATIO (0.9-2.4); AST(SGOT) 13 U/L (15-37); Alanine Aminotransfer ALT/SGPT 16 U/L (13-56); Albumin, Serum 3.1 g/dL (3.2-5.0); Alkaline Phosphatase 78 U/L (45-117); Anion Gap 7 (5-15); BUN 21 mg/dL (7-18); BUN/Creat Ratio 26.8 RATIO (10-20); Chloride 109 mmol/L (98-107); Creatinine, Serum 0.78 mg/dL (0.55-1.02); EST Glomerular Filtration Rate 77 mL/min (>60); Est Glom Filt Rate - Afr Amer 93 mL/min (>60); Globulin 3.8 g/dL (2.2-4.2); Glucose 109 mg/dL (74-106); Potassium 3.4 mmol/L (3.5-5.1); Protein, Total 6.9 g/dL (6.4-8.2); Sodium Level 142 mmol/L (136-145)
[2021-12-07 15:11] LABS: BNP,B-Type NATRIURETIC PEPTIDE 266.5 pg/mL (0-100)
== END | disposition home or self-care (01) ==
LOC: LAB 13:37
PROVIDERS: PCP Nurse Practitioner Family; Referring Provider Nurse Practitioner Family; Visit Provider Nurse Practitioner Family
DX: I11.0 Hypertensive heart disease with heart failure (principal); I50.9 Heart failure, unspecified; D72.829 Elevated white blood cell count, unspecified; J18.9 Pneumonia, unspecified organism
CPT/HCPCS: 36415; 71046; 80053; 83880; 85027

== ENCOUNTER → 2021-12-25 | Outpatient (CLI) | payer MEDICARE, OTHER, SELFPAY ==
[2021-12-25 08:56] LABS: Hematocrit 38.8 % (37-47); Hemoglobin 11.7 g/dL (12.0-15.0); Mean Corp Hgb Conc 30.2 g/dL (32-36); Mean Corpuscular Hgb 27.9 pg (27.0-32.0); Mean Corpuscular Volume 92.4 fL (81-99); Platelet Count 160 K/mm3 (150-450); RBC Distribution Width CV 16.7 % (11.6-14.6); RBC Distribution Width SD 56.4 fl (35.1-43.9); White Blood Count 6.9 K/mm3 (4.4-11.0)
[2021-12-25 09:08] LABS: BNP,B-Type NATRIURETIC PEPTIDE 262.5 pg/mL (0-100)
--- NOTE | 2021-12-25 09:08 | RAD_ITS ---
STUDY: X-RAY - LEFT KNEE REASON FOR EXAM: Female, 71 years old. Nonweightbearing TECHNIQUE: 6 view(s) of the knee. COMPARISON: None. FINDINGS: There is demineralization of the visualized distal femur. There is demineralization of the tibia and fibula. Normal proximal tibiofibular articulation. Medial tibial plateau has been replaced with a synthetic device. There is severe degenerative arthrosis of the medial femorotibial compartment with severe joint space narrowing. There is severe degenerative arthrosis of the lateral femorotibial compartment with severe joint space narrowing. There is severe degenerative arthrosis of the patellofemoral articulation. The soft tissue structures are unremarkable. RAD/Knee 4 or More Views IMPRESSION: Postsurgical changes in the medial tibial plateau, hardware is free of abnormality Severe tricompartmental arthrosis Osteopenia Electronically Signed: Darius Poon MD at 9:40 EDT ,
--- NOTE | 2021-12-25 09:10 | RAD_ITS ---
STUDY: X-RAY CHEST REASON FOR EXAM: Female, 71 years old. Chest pain and cough TECHNIQUE: PA and lateral views of the chest. COMPARISON: 12/07/2021 FINDINGS: The lungs are hyperexpanded with chronic interstitial changes, no superimposed acute pulmonary process. There is no demonstrated pleural abnormality. Normal size heart. Normal mediastinum and kitty. Normal visualized pulmonary arteries. There is atherosclerotic calcification of the aortic arch with tortuosity. There are diffuse degenerative changes of the visualized thoracic spine. Normal visualized ribs, clavicles, and shoulders. There is no demonstrated abnormality of the visualized soft tissue structures of the upper abdomen. RAD/Chest PA and Lateral IMPRESSION: Hyperexpanded lungs with chronic interstitial changes, no superimposed acute pulmonary process Electronically Signed: Darius Poon MD at 9:40 EDT ,
[2021-12-25 09:11] LABS: ALB/GLOB Ratio 0.8 RATIO (0.9-2.4); AST(SGOT) 11 U/L (15-37); Alanine Aminotransfer ALT/SGPT 13 U/L (13-56); Alkaline Phosphatase 72 U/L (45-117); Anion Gap 5 (5-15); BUN 16 mg/dL (7-18); BUN/Creat Ratio 20.3 RATIO (10-20); Calcium,Total 9.6 mg/dL (8.5-10.1); Chloride 110 mmol/L (98-107); Creatinine, Serum 0.79 mg/dL (0.55-1.02); EST Glomerular Filtration Rate 76 mL/min (>60); Est Glom Filt Rate - Afr Amer 92 mL/min (>60); Globulin 3.8 g/dL (2.2-4.2); Glucose 150 mg/dL (74-106); Potassium 3.4 mmol/L (3.5-5.1); Protein, Total 6.8 g/dL (6.4-8.2); Sodium Level 139 mmol/L (136-145)
== END | disposition home or self-care (01) ==
LOC: RAD 08:36
PROVIDERS: PCP Nurse Practitioner Family; Referring Provider Nurse Practitioner Family; Visit Provider Nurse Practitioner Family
DX: I50.9 Heart failure, unspecified (principal); M25.562 Pain in left knee
CPT/HCPCS: 36415; 71046; 73564; 80053; 83880; 85027

== ENCOUNTER 2022-02-22 02:55 | Inpatient (IN) | payer MEDICARE, OTHER, SELFPAY ==
[2022-02-22] VITALS (17 sets, daily range): BP systolic 111–129; BP diastolic 70–108; PULSE 62–111; RESP 16–22; TEMP 36.4–36.7; O2SAT 95–98; BMI 56.9; BMI 53.7
--- NOTE | 2022-02-22 03:01 | EKG12_ITS ---
Test Reason : DYSRHYTHMIA Blood Pressure : / mmHG Vent. Rate : 091 BPM Atrial Rate : 097 BPM P-R Int : 000 ms QRS Dur : 090 ms QT Int : 362 ms P-R-T Axes : 000 -21 -18 degrees QTc Int : 445 ms Atrial fibrillation Abnormal ECG Confirmed by MELE LONG, LINDY ([id number]), video news editor PREETI VALVERDE ([id number]) on 02/22/2022 1:14:29 PM Referred By: AYDIN Confirmed By:LINDY SHABAZZ MD
--- NOTE | 2022-02-22 03:01 | CT_ITS ---
STUDY: CT HEAD STROKE PROTOCOL W/O CONTRAST INJECTION REASON FOR EXAM: Female, 71 years old. Neuro deficit, acute, stroke suspected RADIATION DOSAGE (If Supplied By Facility): CTDIvol = ( 44.99 ) mGy, DLP = ( 829.85 ) mGycm TECHNIQUE: Transaxial CT imaging of the brain was performed without administration of intravenous contrast material. Individualized dose optimization techniques were used for this CT. COMPARISON: No relevant priors. FINDINGS: Normal soft tissue structures. Normal calvarium. There is mild cerebral atrophy with widening of the extra-axial spaces and ventricular dilatation. There are areas of decreased attenuation within the white matter tracts of the supratentorial brain, consistent with microvascular disease changes. Normal basal ganglia and thalami. Normal brainstem. There is mild cerebellar atrophy. There is no intracranial hemorrhage. There are no findings of an acute ischemic infarction. Normal visualized paranasal sinuses. CT/STROKE Brain/Head without Cont IMPRESSION: Chronic involutional changes of the brain. N.B. : The above Results were Read Back by Siddharth Cutler DO to Dr. David MD, and understanding confirmed on 02/22/2022 03:19:23 (ET). Electronically Signed: Siddharth Cutler DO at 3:20 EDT ,
--- NOTE | 2022-02-22 03:01 | RAD_ITS ---
STUDY: X-RAY CHEST REASON FOR EXAM: Female, 71 years old. Neuro deficit, acute, stroke suspected TECHNIQUE: Single AP portable view of the chest. COMPARISON: 11/10/2021 FINDINGS: There is hyperinflation of the lungs consistent with chronic obstructive lung disease (COPD). Lungs are clear. There is no demonstrated pleural abnormality. There is mild cardiac enlargement. Normal mediastinum and kitty. Normal visualized pulmonary arteries. Normal visualized aortic arch and descending thoracic aorta. Normal visualized thoracic spine. Normal visualized ribs, clavicles, and shoulders. There is no demonstrated abnormality of the visualized soft tissue structures of the upper abdomen. RAD/Chest 1 View IMPRESSION: COPD. Lungs are clear. Electronically Signed: Siddharth Cutler DO at 4:32 EDT ,
--- NOTE | 2022-02-22 03:03 | CT_ITS ---
STUDY: CTA HEAD AND NECK WITH CONTRAST REASON FOR EXAM: Female, 71 years old. Neuro deficit, acute, stroke suspected RADIATION DOSAGE (If Supplied By Facility): CTDIvol = ( 35.61 ) mGy, DLP = ( 854.37 ) mGycm TECHNIQUE: CT angiography was performed with a multi-detector CT scanner. Data acquisition was obtained from the skull base through the vertex following intravenous administration of IV 100mL [id number]. MIP images were reconstructed from the axial data set. Post-processing of the angiographic images was performed, with multiplanar reformation and 3D reconstruction. Individualized dose optimization techniques were used for this CT. COMPARISON: No relevant priors. FINDINGS: Mild thyromegaly. Normal bilateral petrous carotid arteries. There is calcified plaque formation of the right cavernous carotid artery, without a cross-sectional luminal stenosis. There is calcified plaque formation of the left cavernous carotid artery, without a cross-sectional luminal stenosis. Normal right A1 segments of the anterior cerebral artery. Normal left A1 segments of the anterior cerebral artery. Normal intact anterior communicating artery (ACOM). Normal bilateral A2 segments of the anterior cerebral arteries. Normal right M1 and M2 segments of the middle cerebral arteries, with a normal M1 bifurcation. Normal left M1 and M2 segments of the middle cerebral arteries, with a normal M1 bifurcation. Normal right posterior communicating artery (PCOM). Normal left posterior communicating artery (PCOM). Normal bilateral vertebral arteries. Normal basilar artery with a normal basilar bifurcation. The visualized bilateral superior cerebellar (SCA) arteries are normal. Normal bilateral P1, P2 and visualized P3 segments of the posterior cerebral arteries. There is no demonstrated aneurysm of the [place]. There is no demonstrated abnormality of the visualized brain. AORTIC ARCH: Normal visualized aortic arch. Normal origins of the brachiocephalic, left common carotid, and left subclavian arteries. RIGHT CAROTID ARTERIES: Normal right common carotid artery (CCA). Normal right common carotid bulb. Normal origin of the right internal carotid (ICA) artery without a hemodynamically significant stenosis. Normal visualized cervical portion of the right internal carotid artery. Normal origin of the right external carotid artery (ECA). LEFT CAROTID ARTERIES: Normal left common carotid artery (CCA). There is mild atherosclerotic plaque formation with minimal narrowing of the left carotid bulb. Normal origin of the left internal carotid (ICA) artery without a hemodynamically significant stenosis. Normal visualized cervical portion of the left internal carotid artery. Normal origin of the left external carotid artery (ECA). VERTEBRAL ARTERIES: Normal bilateral vertebral arteries. CT/STROKE CTA Head AND Neck W/Con IMPRESSION: Normal CTA Head and neck with contrast. N.B. : The above Results were Read Back by Siddharth Cutler DO to Kyle Hernandez MD, and understanding confirmed on 02/22/2022 03:39:51 (ET). Electronically Signed: Siddharth Cutler DO at 3:41 EDT ,
--- NOTE | 2022-02-22 03:04 | EDS_ITS ---
HPI History of Present Illness Chief Complaint: Neuro S/Sx Informant: patient Onset/Context/Timing Onset: Today Context: - (Unknown because she woke up with the symptoms. Last known well was 11:30 PM. She woke up around 1 AM with the symptoms.) Timing: Intermittent Quality and Location: Positive for Right Face Paresthesia and Slurred Speech Current Severity: Gone Maximum Severity: Mild Associated Symptoms Associated Symptoms: Negative for Headache, Nausea, Vomiting or Chest Pain Narrative Narrative: 71-year-old female history of A. fib on Eliquis and CHF and uses CPAP at night. She went to bed around 1130 said she was feeling fine. She woke up around 1 AM because she thought her CPAP felt funny on her face. She noticed she had right sided facial numbness and trouble with her speech when she called her daughter. Alesha was called and they brought her in and initiated stroke protocol prior to arrival. Patient's symptoms have continued to improve and now are currently resolved. Prior similar symptoms: No Recent Illness/Hospitalization: No PFSH PFSH Medical History Chronic combined systolic and diastolic CHF (congestive heart failure) CPAP (continuous positive airway pressure) dependence Essential hypertension Hyperlipidemia Hypothyroid Non-smoker Persistent atrial fibrillation Pneumonia Sleep apnea Home Medications multivitamin with folic acid 400 mcg tablet (Thera) 1 tab PO DAILY SUPPLEMENT 09/17/14 [History Last Taken 09/23/21] allopurinol 300 mg tablet 300 mg PO DAILY 07/27/15 [History Last Taken 09/24/21] cholecalciferol (vitamin D3) 1,250 mcg (50,000 unit) capsule 1,250 mcg PO SWEET S UPPLEMENT 09/24/21 [History Last Taken 09/19/21] levothyroxine 137 mcg tablet 137 mcg PO DAILY THYROID 09/24/21 [History Last Taken 09/24/21] trospium 20 mg tablet 20 mg PO QHS BLADDER 09/24/21 [History Last Taken 09/23/21] potassium chloride 20 mEq tablet,extended release(part/cryst) (Klor-Con M) 20 meq PO BIDCM #0 tabs 09/27/21 [Rx Last Taken Unknown] apixaban 5 mg tablet (Eliquis) 5 mg PO BID #180 tabs 11/08/21 [Rx Last Taken Unknown] metoprolol tartrate 50 mg tablet 50 mg PO BID #180 tabs 11/08/21 [Rx Last Taken Unknown] acetaminophen 500 mg tablet 1,000 mg PO TID 11/10/21 [History Last Taken Unknown] albuterol sulfate 90 mcg/actuation aerosol inhaler 2 puff inhalation Q6H PRN Wheezing 11/10/21 [History Last Taken Unknown] tramadol 50 mg tablet 50 mg PO Q6H PRN Pain 11/10/21 [History Last Taken Unknown] spironolactone 25 mg-hydrochlorothiazide 25 mg tablet 1 tab PO DAILY 02/15/22 [History Last Taken Unknown] Allergy/AdvReac Type Severity Reaction Status Date / Time No Known Allergies Allergy Verified 02/22/22 03:28 Family History Mother CHF (congestive heart failure) Other Diabetes Hypertension Surgical History Status post total right knee replacement Social History housing: correction Smoking Status: Never smoker substance use type: does not use ROS ROS ED ROS Narrative Denies recent illness. Review of Systems ROS Unobtainable: Denies due to encephalopathy Constitutional Constitutional ED: Denies chills Eyes Eyes: Denies blurry vision or change in vision ENT ENT ED: Denies ear pain Cardiovascular Cardiovascular: Denies chest pain Respiratory/Chest Respiratory/Chest: Denies cough Gastrointestinal Gastrointestinal: Denies abdominal pain, nausea or vomiting Genitourinary Genitourinary ED: Denies dysuria Musculoskeletal Musculoskeletal: Denies arthralgias Integumentary Denies abscess Neurologic Neurologic: Reports paresthesias and other Details: Right facial numbness resolved. ; Denies headache(s) Psychiatric Psychiatric: Denies anxiety Endocrine Endocrinology: Denies polydipsia Hematologic/Lymphatic Hematologic/Lymphatic: Denies easy bleeding Allergic/Immunologic Allergic/Immunologic ED: Denies mouth swelling or urticaria EXAM Physical Exam Narrative Exam Narrative: 69-year-old female vital signs stable afebrile. H EENT exam unremarkable. Pupils are reactive light. No facial droop. Normal speech. Neck nontender. Lungs clear to auscultation. Heart A. fib with regular rate about 70 no murmur. Abdomen soft and nontender. No peritoneal signs. Moving all 4 extremities. Neurologically she is awake and alert. Answering questions and following commands. NIH score is 0. No facial droop. Normal speech. Speech is not slurred. He easily understood. No dysarthria. 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 Dorsi plantarflexion are intact. No drift. Const Vital Signs: 02/22/22 02:56 02/22/22 02:55 02/22/22 03:31 Temperature 97.8 F Temperature Source Temporal Pulse Rate 69 62 90 Respiratory Rate 18 18 20 H Blood Pressure 125/105 H 115/105 H 122/87 H Blood Pressure Mean 111 108 98 Pulse Ox 96 96 95 Oxygen Delivery Method Room Air Room Air Room Air 02/22/22 04:01 Temperature Temperature Source Pulse Rate 83 Respiratory Rate 22 H Blood Pressure 126/87 H Blood Pressure Mean 100 Pulse Ox 98 Oxygen Delivery Method Room Air Positive well nourished, well developed and obese; Negative for cachectic, contractures or unkempt General Appearance ED: well developed and NAD; Negative for unkempt, cachectic or contractures Nutritional Appearance: obese; Negative for cachectic HEENT Reports moist mucous membranes atraumatic; Negative for trauma Eyes PERRL and EOMs intact bilaterally General Eye ED: Negative for pale conjunctiva or scleral icterus Neck no lymphadenopathy, supple and no JVD General: Negative for tenderness Thyroid: Negative for other Chest Wall inspection of chest normal and palpation of chest normal Chest: Negative for other Resp normal respiratory effort and clear to auscultation bilaterally Effort and Inspection: Negative for retractions Auscultation: Negative for rales, rhonchi or wheezes Cardio no murmurs Rate: regular rate Rhythm: abnormal rhythm irregularly irregular GI normal to inspection, nondistended, normoactive bowel sounds, soft to palpation, non-tender, non-distended and no masses Inspection: Negative for abdominal distention Auscultation: normoactive bowel sounds Palpation: Negative for tender Extremity normal to inspection General Extremety ED: Negative for deformity or edema General Extremity: Negative for deformity or edema Neuro oriented x3 and CN's II-XII intact bilaterally Sensorium / Orientation: alert, oriented to person, oriented to place and oriented to time; Negative for orientation impaired, confused, lethargic or stuporous Speech: speech normal Motor Exam: strength 5/5 throughout Psych mental status grossly normal Appearance: Negative for unkempt Attitude: No agitated Mood & Affect: Negative for depressed, anxious or tearful Skin no wounds General Skin Exam: Negative for jaundice Lesions: no lesions Rashes: no rashes Trauma: Negative for abrasion STROKE Vital Signs/Narrative: Vital Signs Temp Pulse Resp BP Pulse Ox O2 Del Method 02/22/22 04:01 83 22 H 126/87 H 98 Room Air 02/22/22 03:31 90 20 H 122/87 H 95 Room Air 02/22/22 02:55 97.8 F 62 18 115/105 H 96 Room Air 02/22/22 02:56 69 18 125/105 H 96 Room Air Inital Vital Signs reviewed: Yes NIHSS Initial: 1a Level of Consciousness: 0 1b LOC Questions (Score 2 if aphasic/stupor): 0 1c LOC Commands (Only score 1st attempt): 0 2 Best Gaze (If aphasic, use reflexive mvmts.): 0 3 Visual: 0 4 Facial Palsy: 0 5 Motor Arm Right (UN = amputation/fusion): 0 5 Motor Arm Left: 0 6 Motor Leg Right: 0 6 Motor Leg Left: 0 7 Limb ataxia (Only + if out of proportion): 0 8 Sensory (Aphasia/stupor=0 or 1, coma=2): 0 9 Best Language: 0 10 Dysarthria (mute, coma=2, intubated=UN): 0 11 Extinction and Inattention (only scored if +): 0 Total Score: 0 MDM MDM MDM Narrative Medical decision making narrative: 71-year-old female wake up strokelike symptoms with slurred speech and right facial numbness. Symptoms have since resolved. Currently she has a normal neurologic exam. She has an NIH score of 0. She be placed in the stroke prot ocol including a CTA of her head and neck. Treated with IV fluids. Plan will be admit for further evaluation and work-up. Repeat exam patient is doing well at 3:30 AM. Discussed initial test results with her and her daughter at bedside. Patient's NIH score remains 0. She has subjective right facial numbness. Repeat exam patient is doing well at 4:15 AM. The only thing she has at this time is subjective right cheek numbness. She has no facial droop. Normal speech. Normal motor strength in both upper and lower extremities. She will be admitted. I have the hospitalist on page. Lab Data Attestation: I reviewed the patient's lab results. Lab results narrative: CBC normal. White count of 7. H&H of 13 and 45. CAT scan of the brain and CTA of her head neck showed no acute process per the radiologist. Electrolytes unremarkable. Troponin normal. Labs: Laboratory Results - last 24 hr 02/22/22 02/22/22 03:25 03:40 WBC 7.3 RBC 4.64 Hgb 13.6 Hct 45.1 MCV 97.2 MCH 29.3 MCHC 30.2 L RDW Std Deviation 54.9 H RDW Coeff of Yuri 15.5 H Plt Count 189 MPV 11.3 Immature Gran % (Auto) 0.800 Neut % (Auto) 61.5 Lymph % (Auto) 25.0 Ralls % (Auto) 11.0 H Eos % (Auto) 1.4 Baso % (Auto) 0.3 Absolute Neuts (auto) 4.5 Absolute Lymphs (auto) 1.82 Nucleated RBC % 0 Differential Comment SCANNED Platelet Estimate ADEQUATE PT 16.2 H INR 1.3 APTT 33.8 Radiography Diagnostic Testing: Clinical Impression(s) from Imaging Studies Brain CT 02/22/22 03:01 IMPRESSION: Chronic involutional changes of the brain. N.B. : The above Results were Read Back by Siddharth Cutler DO to Dr. David MD, and understanding confirmed on 02/22/2022 03:19:23 (ET). Electronically Signed: Siddharth Cutler DO at 3:20 EDT Reading Location ID and State: [address] [place] [address] Tel , Service support , ADDENDUM: 02/22/22 0327 IMPRESSION: Chronic involutional changes of the brain. N.B. : The above Results were Read Back by Siddharth Cutler DO to Dr. David MD, and understanding confirmed on 02/22/2022 03:19:23 (ET). Electronically Signed: Siddharth Cutler DO at 3:20 EDT Reading Location ID and State: [address] [place] [address] Tel , Service support , Head/Neck CTA 02/22/22 03:03 IMPRESSION: Normal CTA Head and neck with contrast. N.B. : The above Results were Read Back by Siddharth Cutler DO to Kyle Hernandez MD, and understanding confirmed on 02/22/2022 03:39:51 (ET). Electronically Signed: Siddharth Cutler DO at 3:41 EDT Reading Location ID and State: [facility] / [place] Tel , Service support , ADDENDUM: 02/22/22 0348 IMPRESSION: Normal CTA Head and neck with contrast. N.B. : The above Results were Read Back by Siddharth Cutler DO to Kyle Hernandez MD, and understanding confirmed on 02/22/2022 03:39:51 (ET). Electronically Signed: Siddharth Cutler DO at 3:41 EDT , Discharge Plan Dx/Rx/DC Orders Clinical Impression: Transient ischemic attack, History of atrial fibrillation, Chronic anticoagulation Disposition Disposition: Acute Care Hospital [facility]
--- NOTE | 2022-02-22 03:05 | ED.RN ---
Call made to [facility] stroke transfer line. Explained to them that pt had stroke like symptoms however NIH now is zero. I asked if they needed to still give them the information, they said that was up to our doctor. Per Dr. Hernandez, he did not need to speak with neurologist at this time.
[2022-02-22 03:32] LABS: Absolute Lymphocyte Count 1.82 X10^3/uL (0.83-4.51); Absolute Neutrophil Count 4.5 X10^3/uL (2.0-7.7); Basophil# 0.02 X10^3/uL; Basophil% 0.3 % (0-1); Eosinophils% 1.4 % (0-5); Hematocrit 45.1 % (37-47); Hemoglobin 13.6 g/dL (12.0-15.0); Lymphocyte # 1.82 X10^3/ul (0.83-4.51); Mean Corp Hgb Conc 30.2 g/dL (32-36); Mean Corpuscular Hgb 29.3 pg (27.0-32.0); Mean Corpuscular Volume 97.2 fL (81-99); Mean Platelet Vol. 11.3 fl (6.2-12.0); NRBC Flagged by Analyzer 0 % (0-5); Neutrophil # 4.48 X10^3/uL (2.7-7.7); Neutrophil % 61.5 % (47-70); POSITIVE COUNT YES; Platelet Count 189 K/mm3 (150-450); RBC Distribution Width CV 15.5 % (11.6-14.6); RBC Distribution Width SD 54.9 fl (35.1-43.9); Red Blood Count 4.64 M/mm3 (4.2-5.4); White Blood Count 7.3 K/mm3 (4.4-11.0)
[2022-02-22 03:34] LABS: Differential Indicated SCAN CRITERIA MET
[2022-02-22 03:50] LABS: Differential Comment SCANNED; Platelet Estimate ADEQUATE (ADEQ)
[2022-02-22 03:57] LABS: International Normalized Ratio 1.3; Prothrombin Time (Protime)PT. 16.2 SECONDS (11.7-14.9)
[2022-02-22 03:58] LABS: Partial Thromboplast Time 33.8 Seconds (24.1-36.2)
[2022-02-22 04:08] LABS: Anion Gap 5 (5-15); BUN 29 mg/dL (7-18); BUN/Creat Ratio 35.7 RATIO (10-20); Calcium,Total 10.2 mg/dL (8.5-10.1); Chloride 105 mmol/L (98-107); Creatinine, Serum 0.81 mg/dL (0.55-1.02); EST Glomerular Filtration Rate 73 mL/min (>60); Est Glom Filt Rate - Afr Amer 89 mL/min (>60); Estimated Creatinine Clearance 54.21 ml/min; Glucose 123 mg/dL (74-106); Potassium 4.7 mmol/L (3.5-5.1); Sodium Level 135 mmol/L (136-145); Troponin-I HS 10 pg/mL (3.0-54.0)
--- NOTE | 2022-02-22 04:15 | ED.RN ---
per stacy de la cruz to [facility]
--- NOTE | 2022-02-22 04:44 | PCM.HP.STD ---
[facility] - General General Date of Admission: 02/22/22 Date of Service: 02/22/22 Chief Complaint: right facial numbness and right facial droop HPI Narrative CARMEN PYLE, is a 71 F who presents to the emergency room after waking up at approximately 1:00 this morning with right-sided facial numbness and droop. Patient has been recently diagnosed with atrial fibrillation for the past months and has been anticoagulated on Eliquis and rate controlled with metoprolol. She has been discussing with cardioversion with her interventional physician but has not had that performed as of yet. Patient has no history of stroke prior to this. She denies any chest pain, shortness of breath, fever or chills, and/or nausea and vomiting. Since her arrival sees had a CT scan of the head and CT angiogram of the head and neck which were both negative for acute findings. Laboratory studies are unremarkable and symptoms have nearly completely resolved with only of some residual right facial numbness. She does states she wears CPAP and she did have her mask on tightly as her seal was leaking and this may well have contributed to some of her facial symptoms. [facility] Medical History Chronic combined systolic and diastolic CHF (congestive heart failure) CPAP (continuous positive airway pressure) dependence Essential hypertension Hyperlipidemia Hypothyroid Non-smoker Persistent atrial fibrillation Pneumonia Sleep apnea Home Medications multivitamin with folic acid 400 mcg tablet (Thera) 1 tab PO DAILY SUPPLEMENT 09/17/14 [History Last Taken 09/23/21] allopurinol 300 mg tablet 300 mg PO DAILY 07/27/15 [History Last Taken 09/24/21] cholecalciferol (vitamin D3) 1,250 mcg (50,000 unit) capsule 1,250 mcg PO SWEET SUPPLEMENT 09/24/21 [History Last Taken 09/19/21] levothyroxine 137 mcg tablet 137 mcg PO DAILY THYROID 09/24/21 [History Last Taken 09/24/21] trospium 20 mg tablet 20 mg PO QHS BLADDER 09/24/21 [History Last Taken 09/23/21] potassium chloride 20 mEq tablet,extended release(part/cryst) (Klor-Con M) 20 meq PO BIDCM #0 tabs 09/27/21 [Rx Last Taken Unknown] apixaban 5 mg tablet (Eliquis) 5 mg PO BID #180 tabs 11/08/21 [Rx Last Taken Unknown] metoprolol tartrate 50 mg tablet 50 mg PO BID #180 tabs 11/08/21 [Rx Last Taken Unknown] acetaminophen 500 mg tablet 1,000 mg PO TID 11/10/21 [History Last Taken Unknown] albuterol sulfate 90 mcg/actuation aerosol inhaler 2 puff inhalation Q6H PRN Wheezing 11/10/21 [History Last Taken Unknown] tramadol 50 mg tablet 50 mg PO Q6H PRN Pain 11/10/21 [History Last Taken Unknown] spironolactone 25 mg-hydrochlorothiazide 25 mg tablet 1 tab PO DAILY 02/15/22 [History Last Taken Unknown] Allergy/AdvReac Type Severity Reaction Status Date / Time No Known Allergies Allergy Verified 02/22/22 03:28 Family History Mother CHF (congestive heart failure) Other Diabetes Hypertension Surgical History Status post total right knee replacement Social History housing: [facility] Smoking Status: Never smoker substance use type: does not use ROS Constitutional Constitutional: Denies chills or fever(s) Eyes Eyes: Denies blurry vision ENT HEENT: Denies abnormal hearing Cardiovascular Cardiovascular: Reports palpitations; Denies chest pain Respiratory/Chest Respiratory/Chest: Denies shortness of breath at rest Gastrointestinal Gastrointestinal: Denies abdominal pain Genitourinary Genitourinary: Denies dysuria Musculoskeletal Musculoskeletal: Denies back pain Integumentary Integumentary: Denies dry skin Neurologic Neurologic: Denies abnormal gait Psychiatric Psychiatric: Denies anxiety Endocrine Endocrinology: Denies change in body appearance Vital Signs Vital Signs Vital Signs: 02/22/22 02:56 02/22/22 02:55 02/22/22 03:31 Temperature 97.8 F Temperature Source Temporal Pulse Rate 69 62 90 Respiratory Rate 18 18 20 H Blood Pressure 125/105 H 115/105 H 122/87 H Blood Pressure Mean 111 108 98 Pulse Ox 96 96 95 Oxygen Delivery Method Room Air Room Air Room Air 02/22/22 04:01 02/22/22 04:17 Temperature 97.8 F Temperature Source Temporal Pulse Rate 83 83 Respiratory Rate 22 H 22 H Blood Pressure 126/87 H 126/87 H Blood Pressure Mean 100 Pulse Ox 98 98 Oxygen Delivery Method Room Air Room Air Weight Weight: 332 lb 0.258 oz Body Mass Index (BMI) 56.9 Physical Exam Const oriented x3 General Appearance: cooperative HEENT normocephalic and head/scalp atraumatic Eyes PERRL and EOMs intact bilaterally Neck no lymphadenopathy Lymph Lymphatic: no lymphadenopathy noted Resp normal respiratory effort, normal air movement and clear to auscultation bilaterally Cardio S1 normal heart sound, S2 normal heart sound, no murmurs, no rub and no gallops Rhythm: abnormal rhythm irregularly irregular GI normal to inspection, nondistended, normoactive bowel sounds Extremity normal capillary refill Skin General Skin Exam: no breakdown Neuro CN's II-XII intact bilaterally, no focal motor deficits and no sensory deficits noted Coordination / Balance: [id number] test normal Speech: speech normal Motor Exam: strength 5/5 throughout Psych thought process normal, cooperative and affect normal Appearance: appropriate Results Lab / Micro Data Result Diagrams: 02/22/22 03:25 02/22/22 03:25 Labs: Laboratory Results - last 24 hr 02/22/22 03:25: WBC 7.3, RBC 4.64, Hgb 13.6, Hct 45.1, MCV 97.2, MCH 29.3, MCHC 30.2 L, RDW Std Deviation 54.9 H, RDW Coeff of Yuri 15.5 H, Plt Count 189, MPV 11.3, Immature Gran % (Auto) 0.800, Neut % (Auto) 61.5, Lymph % (Auto) 25.0, [place] % (Auto) 11.0 H, Eos % (Auto) 1.4, Baso % (Auto) 0.3, Absolute Neuts (auto) 4.5, Absolute Lymphs (auto) 1.82, Nucleated RBC % 0, Differential Comment SCANNED, Platelet Estimate ADEQUATE 02/22/22 03:25: Sodium 135 L, Potassium 4.7, Chloride 105, Carbon Dioxide 25.0, Anion Gap 5, BUN 29 H, Creatinine 0.81, Estim Creat Clear Calc 54.21, Est GFR (MDRD) Af Amer 89, Est GFR (MDRD) Non-Af 73, BUN/Creatinine Ratio 35.7 H, Glucose 123 H, Calcium 10.2 H, Troponin I High Sens 10 02/22/22 03:40: PT 16.2 H, INR 1.3, APTT 33.[address] 02/22/22 03:01 IMPRESSION: Chronic involutional changes of the brain. N.B. : The above Results were Read Back by Siddharth Cutler DO to Dr. David MD, and understanding confirmed on 02/22/2022 03:19:23 (ET). Electronically Signed: Siddharth Cutler DO at 3:20 EDT , ADDENDUM: 02/22/22 0327 IMPRESSION: Chronic involutional changes of the brain. N.B. : The above Results were Read Back by Siddharth Cutler DO to Dr. David MD, and understanding confirmed on 02/22/2022 03:19:23 (ET). Electronically Signed: Siddharth Cutler DO at 3:20 EDT , Chest X-Ray 02/22/22 03:01 IMPRESSION: COPD. Lungs are clear. Electronically Signed: Siddharth Cutler DO at 4:32 EDT Reading Location ID and State: [facility] / [place] Tel , Service support , Head/Neck CTA 02/22/22 03:03 IMPRESSION: Normal CTA Head and neck with contrast. N.B. : The above Results were Read Back by Siddharth Cutler DO to Kyle Hernandez MD, and understanding confirmed on 02/22/2022 03:39:51 (ET). Electronically Signed: Siddharth Cutler DO at 3:41 EDT Reading Location ID and State: [facility] / [place] Tel , Service support , ADDENDUM: 02/22/22 0348 IMPRESSION: Normal CTA Head and neck with contrast. N.B. : The above Results were Read Back by Siddharth Culter DO to Kyle Hernandez MD, and understanding confirmed on 02/22/2022 03:39:51 (ET). Electronically Signed: Siddharth uCtler DO at 3:41 EDT , Assessment & Plan Assessment/Plan (1) Transient ischemic attack: (2) History of atrial fibrillation: (3) Chronic anticoagulation: (4) THOMAS (obstructive sleep apnea): (5) Hyperlipidemia: PLAN: Plan 1 transient ischemic attack?admit patient to progressive care unit for observation?start neurochecks every 4 hours, order MRI of brain to rule out CVA. Patient is on anticoagulation therapy and will therefore not add aspirin. 2. Atrial fibrillation?rate is controlled on beta-vera and patient is anticoagulated on Eliquis. She would prefer to have the cardioversion in the near future but I explained that this would be done as an outpatient after her discharge for work-up of TIA as above. 3. Obstructive sleep apnea?continue CPAP machine 4. Hyperlipidemia?continue statin therapy 5. DVT prophylaxis?patient is already anticoagulated Charges/Coding Visit Charges OBSV E&M: 74259 Initial observation care L2
--- NOTE | 2022-02-22 04:54 | MRI_ITS ---
We are attempting to reach an attending provider to discuss findings. An addendum with communication details will be sent when the communication is complete. EXAM: MR HEAD WITHOUT INTRAVENOUS CONTRAST CLINICAL INDICATION: tia -- had metal (unknown type) in knee from trauma related reconstruction remote TECHNIQUE: Multiplanar and multisequence MR images of the brain were obtained without intravenous contrast. This report was created using [employer] report generation technology. COMPARISON: CT brain 02/22/2022 FINDINGS: BRAIN AND EXTRA-AXIAL SPACES: Small foci of restricted diffusion noted along the right operculum and along the posterior portion of the left sylvian cistern and jansen radiata consistent with acute ischemic change. Increased T2 signal intensity within the cerebral white matter suggestive of chronic microvascular change. No intra- or extra-axial hemorrhage. No intracranial mass or mass effect. Posterior fossa structures are unremarkable. Ventricles are appropriate for age. No hydrocephalus. SELLA: Normal. Normal sella turcica, pituitary gland, infundibular stalk, optic chiasm and hypothalamus. AUDITORY SYSTEM: Normal. The internal auditory canals are patent. BONES/JOINTS: Intact calvarium. SINUSES: Unremarkable as visualized. Clear. MASTOID AIR CELLS: Unremarkable as visualized. Clear. ORBITS: Unremarkable as visualized. Both globes, extraocular muscles, optic nerves and retrobulbar fat appear unremarkable. VASCULATURE: Unremarkable as visualized. Normal flow voids in the major intracranial circulation. MRI/Brain without Contrast IMPRESSION: 1. Small foci of acute ischemia involving the right operculum and posterior portion of the left sylvian cistern and jansen radiata. 2. Bilateral chronic microvascular changes. Electronically Signed: Michael Lopez MD at 8:00 EDT ,
[2022-02-22 05:27] LABS: Thyroid Stim Hormone (TSH) 1.48 uIU/mL (0.358-3.74)
[2022-02-22 05:29] LABS: Cholesterol 122 mg/dL (200); High Density Lipoprotein 38 mg/dL; Triglycerides 148 mg/dL; Very Low Density Lipoprotein 30 mg/dL (5-40)
[2022-02-22] MEDS: Acetaminophen 500 MG Tablet 1000 MG PO ×3 (05:29→21:40)
--- NOTE | 2022-02-22 08:22 | PCM.PN.HOSP ---
Subjective Subjective Still with numbness on right side of face and arm. Objective Data Objective Data Vital Signs: Vital Signs Temp Pulse Resp BP Pulse Ox O2 Del Method 36.4 C L 96 18 129/108 H 98 Room Air 02/22/22 05:20 02/22/22 06:49 02/22/22 05:20 02/22/22 05:20 02/22/22 05:20 02/22/22 05:30 Oxygen Delivery Method Room Air Weight: 146.5 kg Body Mass Index (BMI) 53.7 Intake & Output: Intake and Output for Last 24 Hours 02/20/22 02/21/22 02/22/22 23:59 23:59 23:59 Intake Total 500 / 500 Output Total 200 / 200 Balance 300 / 300 Lab / Micro Data Result Diagrams: 02/22/22 03:25 02/22/22 03:25 Labs: Laboratory Results - last 24 hr 02/22/22 03:25: WBC 7.3, RBC 4.64, Hgb 13.6, Hct 45.1, MCV 97.2, MCH 29.3, MCHC 30.2 L, RDW Std Deviation 54.9 H, RDW Coeff of Yuri 15.5 H, Plt Count 189, MPV 11.3, Immature Gran % (Auto) 0.800, Neut % (Auto) 61.5, Lymph % (Auto) 25.0, [place]yth % (Auto) 11.0 H, Eos % (Auto) 1.4, Baso % (Auto) 0.3, Absolute Neuts (auto) 4.5, Absolute Lymphs (auto) 1.82, Nucleated RBC % 0, Differential Comment SCANNED, Platelet Estimate ADEQUATE 02/22/22 03:25: Sodium 135 L, Potassium 4.7, Chloride 105, Carbon Dioxide 25.0, Anion Gap 5, BUN 29 H, Creatinine 0.81, Estim Creat Clear Calc 54.21, Est GFR (MDRD) Af Amer 89, Est GFR (MDRD) Non-Af 73, BUN/Creatinine Ratio 35.7 H, Glucose 123 H, Calcium 10.2 H, Troponin I High Sens 10 02/22/22 03:25: TSH 1.48 02/22/22 03:25: Triglycerides 148, Cholesterol 122, LDL Cholesterol 54, VLDL Cholesterol 30, HDL Cholesterol 38 L 02/22/22 03:40: PT 16.2 H, INR 1.3, APTT 33.8 Radiography Diagnostic Testing: Radiology Impression Brain CT 02/22/22 03:01 IMPRESSION: Chronic involutional changes of the brain. N.B. : The above Results were Read Back by Siddharth Cutler DO to Dr. David MD, and understanding confirmed on 02/22/2022 03:19:23 (ET). Electronically Signed: Siddharth Cutler DO at 3:20 EDT Reading Location ID and State: [address] [place] [address] Tel , Service support , ADDENDUM: 02/22/22 0327 IMPRESSION: Chronic involutional changes of the brain. N.B. : The above Results were Read Back by Siddharth Cutler DO to Dr. David MD, and understanding confirmed on 02/22/2022 03:19:23 (ET). Electronically Signed: Siddharth Cutler DO at 3:20 EDT Reading Location ID and State: [address] [place] [address] Tel , Service support , Chest X-Ray 02/22/22 03:01 IMPRESSION: COPD. Lungs are clear. Electronically Signed: Siddharth Cutler DO at 4:32 EDT Reading Location ID and State: [address] [place] [address] Tel , Service support , Head/Neck CTA 02/22/22 03:03 IMPRESSION: Normal CTA Head and neck with contrast. N.B. : The above Results were Read Back by Siddharth Cutler DO to Kyle Hernandez MD, and understanding confirmed on 02/22/2022 03:39:51 (ET). Electronically Signed: Siddharth Cutler DO at 3:41 EDT Reading Location ID and State: [address] [place] [address] Tel , Service support , ADDENDUM: 02/22/22 0348 IMPRESSION: Normal CTA Head and neck with contrast. N.B. : The above Results were Read Back by Siddharth Cutler DO to Kyle Hernandez MD, and understanding confirmed on 02/22/2022 03:39:51 (ET). Electronically Signed: Siddharth Cutler DO at 3:41 EDT , Brain MRI 02/22/22 04:54 IMPRESSION: 1. Small foci of acute ischemia involving the right operculum and posterior portion of the left sylvian cistern and jansen radiata. 2. Bilateral chronic microvascular changes. Electronically Signed: Michael Lopez MD at 8:00 EDT , ADDENDUM: 02/22/22 0813 IMPRESSION: 1. Small foci of acute ischemia involving the right operculum and posterior portion of the left sylvian cistern and jansen radiata. 2. Bilateral chronic microvascular changes. N.B. : The above Results were Read Back by Michael Lopez MD to Shilo Abbott RN, and understanding confirmed on 02/22/2022 08:06:40 (ET). Electronically Signed: Michael Lopez MD at 8:00 EDT , Physical Exam Const alert and no apparent distress Resp normal respiratory effort, no retractions, no use of accessory muscles and clear to auscultation bilaterally Cardio regular rate, regular rhythm, S1 normal heart sound and S2 normal heart sound GI normal to inspection, nondistended, normoactive bowel sounds Neuro Neuro Narrative: diminished sensation on right face and arm. Assessment & Plan Assessment/Plan (1) CVA (cerebral vascular accident): PLAN: MRI brain showed small foci of acute ischemia of right operculum and posterior portion of the left sylvian cistern and jansen radiata Head/Neck CTA was unremarkable. Echo shows EF 45% consult SOC neurology suspect due to her known afib despite being anticoagulated. Patient insists that she has been compliant with her apixaban. (2) History of atrial fibrillation: PLAN: anticoagulated on apixaban continue metoprolol Charges/Coding Procedures Hospitalists Procedures: Other Procedure - See Report (Nonbillable rounding as patient was admitted after midnight.)
--- NOTE | 2022-02-22 08:27 | TELEMED_ITS ---
SOC Telemed has confirmed receipt of a request for visit. This document confirms receipt of the order initiating the consult. To find the results of the consultation, please view the patient's reports for the scanned Telemed Consult.
--- NOTE | 2022-02-22 08:27 | ECHOD_ITS ---
Reason For Study: CVA Procedure This was a 2D Doppler, Color Flow transthoracic echocardiogram. Exam performed portable in patient room. Left Ventricle Normal LV size. The estimated ejection fraction is 45 %. There is mild global hypokinesis of the left ventricle. Right Ventricle Normal RV size. Normal systolic function. Atria The left atrium is mildly enlarged. Normal right atrium. Mitral Valve Normal mitral valve. Mild (1+) eccentric mitral valve insufficiency. Tricuspid Valve Normal tricuspid valve. Mild (1+) tricuspid valve insufficiency. Pulmonary artery systolic pressure is 30 mmHg. Aortic Valve Normal aortic valve. Trisinus/trileaflet aortic valve. Pulmonic Valve Normal pulmonic valve. Great Vessels Normal aortic root. The pulmonary artery is normal size. Inferior vena cava collapse with respiration. Pericardium/Pleural No pericardial effusion. MMode/2D Measurements & Calculations LVIDd: 5.6 cm IVSd: 0.93 cm Ao root diam: 3.1 cm LVIDs: 3.8 cm LVPWd: 0.98 cm RVDd: 3.7 cm FS: 32.0 % LAV(MOD-bp): 88.8 ml LA A4 area: 27.9 cm2 LA dimension(2D): 4.5 cm LAV(MOD-bp) Indexed: 36.7 ml/m2 LAV(MOD-sp2): 86.0 ml LAV(MOD-sp4): 88.9 ml RA A4 area: 21.0 cm2 Doppler Measurements & Calculations MV E max lei: 114.7 cm/sec Lat Peak E' Lei: 8.0 cm/sec Med Peak E' Lei: 6.4 cm/sec E/E' lat: 14.3 E/E' med: 17.9 Ao V2 max: 111.0 cm/sec LV V1 max: 99.6 cm/sec MR max lei: 441.0 cm/sec Ao max P.0 mmHg LV V1 max P.0 mmHg MR max P.8 mmHg Ao V2 mean: 84.2 cm/sec LV V1 mean P.1 mmHg Ao mean P.2 mmHg LV V1 mean: 66.6 cm/sec Ao V2 VTI: 21.2 cm LV V1 VTI: 20.9 cm PA V2 max: 76.0 cm/sec TR max lei: 259.1 cm/sec TR max P.0 mmHg ECHO/Echo Complete Interpretation Summary Normal LV size. The estimated ejection fraction is 45 %. There is mild global hypokinesis of the left ventricle. The left atrium is mildly enlarged. Mild (1+) eccentric mitral valve insufficiency. Pulmonary artery systolic pressure is 30 mmHg. Compared to previous study, the left ventricular systolic function is the same. . Ordering Physician: Hector Traylor Referring Physician: Clem Plasencia Performed By: Carmenza Catalan, JUSTIN, RVT
[2022-02-22] MEDS: Multivitamins,Therapeutic Tablet 1 TABLET PO (09:04)
[2022-02-22] MEDS: Allopurinol 300 MG Tablet PO (09:04)
[2022-02-22] MEDS: APIXABAN 5 MG TABLET PO ×2 (09:04→21:40)
[2022-02-22] MEDS: Levothyroxine 137 MCG Tablet PO (09:04)
[2022-02-22] MEDS: Potassium Chloride Oral Tablet 20 MEQ PO (09:05)
--- NOTE | 2022-02-22 10:05 | CASEMGMT ---
RN CM Face to Face with patient for initial transition planning/care coordination assessment. RN CM introduced self and role at [facility]. Patient lying in bed, alert and oriented, son and DIL at bedside. Patient willing to participate in assessment and is able to answer all questions appropriately. Care providers, pharmacy, and demographics verified. Patient wishes to discharge home. Will monitor progress with therapy for possible HHC at discharge. Patient states she has no further needs or concerns at this time. CM to follow for discharge planning needs that may arise. PCP: SAMARA Plasencia Specialists: Mohsen, helicopter dispatcher; Jason international manager Preferred Pharmacy: [facility] Insurance: [employer] [facility] Prescription Benefit: yes Living Will/HPOA: yes, daughter Yary Baker, HPOA LNOK: son, daughter Living Arrangements: Patient lives with daughter in a basement apartment with no steps to enter. Patient states he is independent at home. Transportation: self, daughter DME/HHC: Patient states she has shower chair, raised toilet, cane, walker, rollator, wheelchair, grab bars, lift chair, cpap, and bed railing. Patient states she has had [facility] HHC in the past. Patient denies previous SNF. Disposition Plan: Patient to discharge home with family support and follow-up plans in place. Will monitor therapy for possible HHC. Mally AGUILAR, RN, CM
--- NOTE | 2022-02-22 13:05 | CASEMGMT ---
MADISON Note SW met with patient to complete the PHQ9. Present in the room was patient's son and daughter in law. Patient gave verbal consent to meet with patient while her visitors were present. 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 Patient said that she feels that God is on my side. Patient said that she does not want to be a bother to her family and voiced that her family does not make her feel that she is a bother. Patient denied any SI. Patient's in 2019 and patient said that he had some depression however, their daughter who is a high school social studies tutor declined medication for the depression. Patient said that her daughter will let her know if she needs medication for depression. Patient talked about the information that she had a stroke was difficult this morning and she is going to need a few days to wrap my mind about that. Patient said that her daughter fixes her healthy foods that are low in sodium and watches the water restrictions so patient is eating healthy. Patient voiced her daughter fixed her the best meal of my life recently. Patient's grandson has been watching a tv series with patient (grandson is 13) and that makes her feel good. Patient said that her alex is a very important part of her life. SW provided handout on counseling agencies. No SI voiced. MADISON updated Mally Rhoades high school social studies tutor coverage for PCU Plan: Resources Provided Acacia LACEY
--- NOTE | 2022-02-22 15:46 | CASEMGMT ---
Pt is unsure of plan for discharge, awaiting therapy evals. CM to follow. Perry CAGE CM
[2022-02-22] MEDS: Atorvastatin Calcium 40 MG Tablet PO (21:40)
[2022-02-22] MEDS: Metoprolol Tartrate 50 MG Tablet PO (21:40)
[2022-02-22] MEDS: Tolterodine Tartrate 2 MG CAP.SA PO (21:40)
[2022-02-23] VITALS (16 sets, daily range): BP systolic 97–129; BP diastolic 72–92; PULSE 69–107; RESP 12–22; TEMP 36.6–37; O2SAT 95–98; BMI 53.7
[2022-02-23] MEDS: Levothyroxine 137 MCG Tablet PO (06:14)
[2022-02-23] MEDS: Acetaminophen 500 MG Tablet 1000 MG PO ×3 (06:14→22:08)
--- NOTE | 2022-02-23 07:58 | PN.HOSP_ITS ---
Subjective Subjective Partesthesias resolved. Objective Data Objective Data Vital Signs: Vital Signs Temp Pulse Resp BP Pulse Ox O2 Del Method FiO2 36.8 C 99 16 106/73 97 Room Air 21 02/23/22 06:00 02/23/22 06:42 02/23/22 06:00 02/23/22 06:00 02/23/22 06:00 02/23/22 07:43 02/23/22 02:32 Oxygen Delivery Method Room Air Weight: 146.5 kg Body Mass Index (BMI) 53.7 Intake & Output: Intake and Output for Last 24 Hours 02/21/22 02/22/22 02/23/22 23:59 23:59 23:59 Intake Total 1430 / 1430 Output Total 875 / 1175 550 / 550 Balance 555 / 255 -550 / -550 Lab / Micro Data Result Diagrams: 02/22/22 03:25 02/22/22 03:25 Radiography Diagnostic Testing: Radiology Impression Brain MRI 02/22/22 04:54 IMPRESSION: 1. Small foci of acute ischemia involving the right operculum and posterior portion of the left sylvian cistern and jansen radiata. 2. Bilateral chronic microvascular changes. Electronically Signed: Michael Lopez MD at 8:00 EDT , ADDENDUM: 02/22/22 0813 IMPRESSION: 1. Small foci of acute ischemia involving the right operculum and posterior portion of the left sylvian cistern and jansen radiata. 2. Bilateral chronic microvascular changes. N.B. : The above Results were Read Back by Michael Lopez MD to Shilo Abbott RN, and understanding confirmed on 02/22/2022 08:06:40 (ET). Electronically Signed: Michael Lopez MD at 8:00 EDT , Echocardiogram 02/22/22 08:27 Interpretation Summary Normal LV size. The estimated ejection fraction is 45 %. There is mild global hypokinesis of the left ventricle. The left atrium is mildly enlarged. Mild (1+) eccentric mitral valve insufficiency. Pulmonary artery systolic pressure is 30 mmHg. Compared to previous study, the left ventricular systolic function is the same.. Ordering Physician: Hector Traylor Referring Physician: Clem Plasencia Performed By: Carmenza Catalan, JUSTIN, RVT Physical Exam Const alert and no apparent distress Resp normal respiratory effort, no retractions, no use of accessory muscles and clear to auscultation bilaterally Cardio regular rate, regular rhythm, S1 normal heart sound and S2 normal heart sound GI normal to inspection, nondistended, normoactive bowel sounds, soft to palpation and non-tender Neuro no sensory deficits noted Assessment & Plan Assessment/Plan (1) CVA (cerebral vascular accident): PLAN: MRI brain showed small foci of acute ischemia of right operculum and posterior portion of the left sylvian cistern and jansen radiata Head/Neck CTA was unremarkable. Echo shows EF 45% suspect due to her known afib despite being anticoagulated. Patient insists that she has been compliant with her apixaban. SOC consult: recommends continuing apixaban, no change to other OAC at this time. Risk factor modification. Continue atorvastatin. (2) History of atrial fibrillation: PLAN: anticoagulated on apixaban continue metoprolol (3) Debility: PLAN: Seen by therapy and requires 2 assists w walker to ambulate 12 feet. Further therapy recommended. Plan for TCU on the fourth PLAN: Plan VTE prophylaxis: not indicated as she is anticoagulated. Charges/Coding Visit Charges Inpatient E&M: 34343 Subs Hosp L2
[2022-02-23] MEDS: Potassium Chloride Oral Tablet 20 MEQ PO ×2 (09:12→17:03)
[2022-02-23] MEDS: Multivitamins,Therapeutic Tablet 1 TABLET PO (09:12)
[2022-02-23] MEDS: APIXABAN 5 MG TABLET PO ×2 (09:12→22:04)
[2022-02-23] MEDS: Allopurinol 300 MG Tablet PO (09:12)
--- NOTE | 2022-02-23 10:03 | CASEMGMT ---
Addendum entered by Mally Santiago 02/23/22 11:47: Per Ruby in TCU, they can accept pt tomorrow in TCU. Dr. Traylor aware and agreeable to d/c tomorrow. Pt updated, voices understanding. Perry CAGE CM Original Note: Per therapy notes, pt would benefit from rehab at discharge and pt is agreeable. Pt provided a list of SNF providers including quality and resource use data and consistent w/ the pt's preferred geographic region, medical needs, and insurance network. Pt states 1st preference would be TCU and she will look at rest of list. Ruby in TCU aware of pt request and will let CM know if any beds available. CM to follow. Perry CAGE CM
--- NOTE | 2022-02-23 10:08 | CASEMGMT ---
Social Work Note Per paper inserter questions, pt has completed HCPOA and LW and provided documents to [facility]. SW reviewed chart, both HCPOA and LW are on file. Pt's daughter Yary is HCPOA. Mally Rivers WELLNESS PROGRAM MANAGER, MANAGER MARKETING SALES
[2022-02-23] MEDS: hydroCHLOROthiazide 25 MG Tablet PO (13:11)
[2022-02-23] MEDS: Metoprolol Tartrate 50 MG Tablet PO ×2 (13:11→22:07)
[2022-02-23] MEDS: Spironolactone 25 MG Tablet PO (13:12)
[2022-02-23] MEDS: Tolterodine Tartrate 2 MG CAP.SA PO (22:04)
[2022-02-23] MEDS: Atorvastatin Calcium 40 MG Tablet PO (22:05)
[2022-02-24] VITALS (11 sets, daily range): BP systolic 100–120; BP diastolic 61–89; PULSE 72–92; RESP 12–21; TEMP 36.2–36.6; O2SAT 94–98
[2022-02-24] MEDS: Levothyroxine 137 MCG Tablet PO (05:59)
[2022-02-24] MEDS: Acetaminophen 500 MG Tablet 1000 MG PO ×2 (05:59→13:44)
--- NOTE | 2022-02-24 07:27 | PCM.PN.HOSP ---
Subjective Subjective No further events. Objective Data Objective Data Vital Signs: Vital Signs Temp Pulse Resp BP Pulse Ox O2 Del Method FiO2 36.2 C L 84 16 120/89 H 94 Room Air 21 02/24/22 06:10 02/24/22 06:10 02/24/22 06:10 02/24/22 06:10 02/24/22 06:10 02/24/22 06:10 02/24/22 03:09 Oxygen Delivery Method Room Air Weight: 146.5 kg Body Mass Index (BMI) 53.7 Intake & Output: Intake and Output for Last 24 Hours 02/22/22 02/23/22 02/24/22 23:59 23:59 23:59 Intake Total 1430 / 1430 580 / 580 Output Total 875 / 1175 1500 / 1500 500 / 500 Balance 555 / 255 -920 / -920 -500 / -500 Lab / Micro Data Result Diagrams: 02/22/22 03:25 02/22/22 03:25 Physical Exam Const alert and no apparent distress Eyes EOMs intact bilaterally Cardio regular rate, regular rhythm, S1 normal heart sound and S2 normal heart sound GI normal to inspection, nondistended, normoactive bowel sounds, soft to palpation, non-tender and non-distended Neuro oriented x3, CN's II-XII intact bilaterally and no sensory deficits noted Assessment & Plan Assessment/Plan (1) CVA (cerebral vascular accident): PLAN: MRI brain showed small foci of acute ischemia of right operculum and posterior portion of the left sylvian cistern and jansen radiata Head/Neck CTA was unremarkable. Echo shows EF 45% suspect due to her known afib despite being anticoagulated. Patient insists that she has been compliant with her apixaban. SOC consult: recommends continuing apixaban, no change to other OAC at this time. Risk factor modification. Continue atorvastatin. (2) History of atrial fibrillation: PLAN: anticoagulated on apixaban continue metoprolol (3) Debility: PLAN: Seen by therapy and requires 2 assists w walker to ambulate 12 feet. Further therapy recommended. Plan for TCU on the fourth PLAN: Plan VTE prophylaxis: not indicated as she is anticoagulated. Disposition: plan for TCU today. DW patient's dtr at bedside.
[2022-02-24] MEDS: Metoprolol Tartrate 50 MG Tablet PO (09:53)
[2022-02-24] MEDS: Potassium Chloride Oral Tablet 20 MEQ PO (09:53)
[2022-02-24] MEDS: hydroCHLOROthiazide 25 MG Tablet PO (09:53)
[2022-02-24] MEDS: Multivitamins,Therapeutic Tablet 1 TABLET PO (09:53)
[2022-02-24] MEDS: Allopurinol 300 MG Tablet PO (09:54)
[2022-02-24] MEDS: APIXABAN 5 MG TABLET PO (09:54)
[2022-02-24] MEDS: Spironolactone 25 MG Tablet PO (09:54)
--- NOTE | 2022-02-24 10:45 | CASEMGMT ---
Addendum entered by Mally Rivers 02/24/22 12:13: SW in to speak with pt. Pt's son on the phone. Son states he is aware pt will discharge to TCU today. SW confirmed with pt that she will discharge to TCU today. Pt states understanding. Plan: TCU skilled today Original Note: Social Work Note Pt to discharge to TCU today. SW updated Ruby with TCU. Plan: TCU today Mally Rivers SUBSTANCE ABUSE PREVENTION COORDINATOR, DUCK OPERATOR
--- NOTE | 2022-02-24 10:54 | TREXTCAR_ITS ---
Diet Diet Order/Speech Therapy: 02/22/22 15:01 Diet: Cardiac - Heart Healthy Is pt able to select menu?: No Routine Orders/Code Status Code Status: Full Code Therapies Weight Bearing: Full weight bearing Physical Therapy: Eval and Treat Occupational Therapy: Eval and Treat Problem/Diagnosis (1) CVA (cerebral vascular accident): Status: Acute Code(s): I63.9 - Cerebral infarction, unspecified Plan: MRI brain showed small foci of acute ischemia of right operculum and posterior portion of the left sylvian cistern and jansen radiata Head/Neck CTA was unremarkable. Echo shows EF 45% suspect due to her known afib despite being anticoagulated. Patient insists that she has been compliant with her apixaban. SOC consult: recommends continuing apixaban, no change to other OAC at this time. Risk factor modification. Continue atorvastatin. (2) History of atrial fibrillation: Status: Acute Code(s): Z86.79 - Personal history of other diseases of the circulatory system Plan: anticoagulated on apixaban continue metoprolol (3) Debility: Status: Acute Code(s): R53.81 - Other malaise Plan: Seen by therapy and requires 2 assists w walker to ambulate 12 feet. Further therapy recommended. Plan for TCU on the fourth Plan VTE prophylaxis: not indicated as she is anticoagulated. Disposition: plan for TCU today. DW patient's dtr at bedside. Allergies/Procedures Done in Hospital Allergies No Known Allergies Allergy (Verified 02/22/22 03:28) Procedures: 2-D Echocardiogram Type of Care/Length of Stay Estimated LOS: Convalescent Care Less Than 30 days Type of Care Needed: Skilled Rehab Potential: Good Prognosis: Good Additional Orders/Day of Discharge Day of Discharge: 02/24/22 Dietary and Speech Recommendations Dietitian Recommendations/Changes: will adjust diet to cardiac Discharge Plan Admission Admit Date/Time: 02/22/22 04:50 Primary Reason for Your Visit: CVA Attending Provider: Hector Traylor Primary Care Provider: Gregg Plasencia DIGITAL MARKETING PROGRAM MANAGER Consulting Providers: Damián Harrell Discharge Orders/Prescriptions Prescriptions: New atorvastatin 40 mg Tablet 40 mg PO QHS Qty: 0 0RF Continued metoprolol tartrate 50 mg tablet 50 mg PO BID Qty: 180 3RF Eliquis 5 mg tablet 5 mg PO BID Qty: 180 3RF spironolacton-hydrochlorothiaz 25-25 mg tablet 1 tab PO DAILY multivitamin with folic acid [Thera] 1 TABLET tablet 1 tab PO DAILY allopurinol 300 MG tablet 300 mg PO DAILY levothyroxine 137 mcg tablet 137 mcg PO DAILY Label Comments: TAKE 1 TABLET DAILY trospium 20 mg tablet 20 mg PO QHS Label Comments: TAKE 1 TABLET BY MOUTH EVERY DAY cholecalciferol (vitamin D3) 1,250 mcg (50,000 unit) capsule 1,250 mcg PO SWEET Label Comments: TAKE 1 CAPSULE BY MOUTH EVERY WEEK potassium chloride [Klor-Con M20] 20 mEq Tablet,Er Particles/Crystals 20 meq PO BIDCM Qty: 0 0RF albuterol sulfate 90 mcg/actuation Hfa Aerosol Inhaler 2 puff INHALATION Q6H PRN (Reason: Wheezing) acetaminophen 500 mg Tablet 1,000 mg PO TID tramadol 50 mg Tablet 50 mg PO Q6H PRN (Reason: Pain) 3 Days Qty: 12 0RF Referrals / Follow Up: Luke Meier MD [NON-STAFF] - Within 1 Month Gregg Plasencia NP, DIGITAL MARKETING PROGRAM MANAGER-C [Primary Care Provider] - Within 2 Weeks Disposition Disposition (needs filled in before D/C Order can be placed): Nursing Home Facility
--- NOTE | 2022-02-24 10:58 | PCM.DC.SUM ---
Providers Date of Admission: 02/22/22 Primary Care Physician: Gregg Plasencia, AUTOMOTIVE HARDWARE ENGINEER-C Reason For Visit: TRANSIENT ISCHEMIC ATTACK Diagnosis Discharge Diagnosis (1) CVA (cerebral vascular accident): Status: Acute Code(s): I63.9 - Cerebral infarction, unspecified Plan: MRI brain showed small foci of acute ischemia of right operculum and posterior portion of the left sylvian cistern and jansen radiata Head/Neck CTA was unremarkable. Echo shows EF 45% suspect due to her known afib despite being anticoagulated. Patient insists that she has been compliant with her apixaban. SOC consult: recommends continuing apixaban, no change to other OAC at this time. Risk factor modification. Continue atorvastatin. (2) History of atrial fibrillation: Status: Acute Code(s): Z86.79 - Personal history of other diseases of the circulatory system Plan: anticoagulated on apixaban continue metoprolol (3) Debility: Status: Acute Code(s): R53.81 - Other malaise Plan: Seen by therapy and requires 2 assists w walker to ambulate 12 feet. Further therapy recommended. Plan for TCU on the fourth Plan VTE prophylaxis: not indicated as she is anticoagulated. Disposition: plan for TCU today. DW patient's dtr at bedside. Medications at Discharge Home Medications multivitamin with folic acid 400 mcg tablet (Thera) 1 tab PO DAILY SUPPLEMENT 09/17/14 allopurinol 300 mg tablet 300 mg PO DAILY 07/27/15 cholecalciferol (vitamin D3) 1,250 mcg (50,000 unit) capsule 1,250 mcg PO SWEET SUPPLEMENT 09/24/21 levothyroxine 137 mcg tablet 137 mcg PO DAILY THYROID 09/24/21 trospium 20 mg tablet 20 mg PO QHS BLADDER 09/24/21 potassium chloride 20 mEq tablet,extended release(part/cryst) (Klor-Con M) 20 meq PO BIDCM #0 tabs 09/27/21 apixaban 5 mg tablet (Eliquis) 5 mg PO BID #180 tabs 11/08/21 metoprolol tartrate 50 mg tablet 50 mg PO BID #180 tabs 11/08/21 acetaminophen 500 mg tablet 1,000 mg PO TID 11/10/21 albuterol sulfate 90 mcg/actuation aerosol inhaler 2 puff inhalation Q6H PRN Wheezing 11/10/21 spironolactone 25 mg-hydrochlorothiazide 25 mg tablet 1 tab PO DAILY 02/15/22 atorvastatin 40 mg tablet 40 mg PO QHS #0 tabs 02/24/22 tramadol 50 mg tablet 50 mg PO Q6H PRN Pain 3 days #12 tabs 02/24/22 Hospital Course Operations None Procedures 2-D Echocardiogram Summary of Care Provided Minutes Spent on Discharge: 33 Weight / BMI Weight Weight: 146.5 kg Body Mass Index (BMI) 53.7 ABG / Lab / Microbiology Data Result Diagrams: 02/22/22 03:25 02/22/22 03:25 Meaningful Use Info Meaningful Use Diagnoses (Choose all that apply): Ischemic CVA CVA Therapy Assessed for PT,OT and/or ST?: Yes Ischemic Stroke Antithrombotic order at d/c?: No Reason antithrombotic not ordered: Medical Contraindication Dx of Atrial fib/flutter?: Yes Anticoagulant at discharge?: Yes Statins at discharge?: Yes Primary Dx Acute Ischemic CVA?: Yes IV tPA ordered during stay?: No Reason IV t-PA not ordered: Medical Contraindication Discharge Plan Admission Admit Date/Time: 02/22/22 04:50 Primary Reason for Your Visit: CVA Attending Provider: Hector Traylor Primary Care Provider: Gregg Plasencia AUTOMOTIVE HARDWARE ENGINEER Consulting Providers: Damián Harrell Discharge Orders/Prescriptions Prescriptions: New atorvastatin 40 mg Tablet 40 mg PO QHS Qty: 0 0RF Continued metoprolol tartrate 50 mg tablet 50 mg PO BID Qty: 180 3RF Eliquis 5 mg tablet 5 mg PO BID Qty: 180 3RF spironolacton-hydrochlorothiaz 25-25 mg tablet 1 tab PO DAILY multivitamin with folic acid [Thera] 1 TABLET tablet 1 tab PO DAILY allopurinol 300 MG tablet 300 mg PO DAILY levothyroxine 137 mcg tablet 137 mcg PO DAILY Label Comments: TAKE 1 TABLET DAILY trospium 20 mg tablet 20 mg PO QHS Label Comments: TAKE 1 TABLET BY MOUTH EVERY DAY cholecalciferol (vitamin D3) 1,250 mcg (50,000 unit) capsule 1,250 mcg PO SWEET Label Comments: TAKE 1 CAPSULE BY MOUTH EVERY WEEK potassium chloride [Klor-Con M20] 20 mEq Tablet,Er Particles/Crystals 20 meq PO BIDCM Qty: 0 0RF albuterol sulfate 90 mcg/actuation Hfa Aerosol Inhaler 2 puff INHALATION Q6H PRN (Reason: Wheezing) acetaminophen 500 mg Tablet 1,000 mg PO TID tramadol 50 mg Tablet 50 mg PO Q6H PRN (Reason: Pain) 3 Days Qty: 12 0RF Referrals / Follow Up: Luke Meier MD [NON-STAFF] - Within 1 Month Gregg Plasencia AUTOMOTIVE HARDWARE ENGINEER, AUTOMOTIVE HARDWARE ENGINEER-C [Primary Care Provider] - Within 2 Weeks Kervin Connolly MD [Med Staff - Active Staff] - Within 1 Month Disposition Disposition (needs filled in before D/C Order can be placed): Half-Way Facility Charges/Coding Visit Charges Inpatient E&M: 42657 Disch Hosp
--- NOTE | 2022-02-24 13:25 | NURSING ---
Report called to TCU FAUZIA Reyes. Patient ready for discharge to TCU room 5.
[2022-02-24] MEDS: 0.9% Saline Lock 10 ML Syringe IV (13:44)
== END 2022-02-24 14:27 | DRG 65 ==
LOC: ED 03:57 → PCU 05:08
PROVIDERS: Admitting Provider Family Medicine; Emergency Provider Emergency Medicine; PCP Nurse Practitioner Family
DX: I63.89 Other cerebral infarction (principal); I50.42 Chronic combined systolic (congestive) and diastolic (congestive) heart failure; I48.19 Other persistent atrial fibrillation; Z68.43 Body mass index [BMI] 50.0-59.9, adult; I11.0 Hypertensive heart disease with heart failure; E66.01 Morbid (severe) obesity due to excess calories; E03.9 Hypothyroidism, unspecified; E78.5 Hyperlipidemia, unspecified; G47.33 Obstructive sleep apnea (adult) (pediatric); Z79.01 Long term (current) use of anticoagulants; Z79.899 Other long term (current) drug therapy; R53.81 Other malaise
CPT/HCPCS: 70450; 70496; 70498; 70551; 71045; 80048; 80061; 84443; 84484; 85025; 85610; 85730; 87426; 92610; 93005; 93306; 94660; 94762; 97162; 97166; 97530; 99285; J7040; Q9967; A4216; C8929

== ENCOUNTER 2022-02-24 14:32 | Inpatient (IN) | payer MEDICARE, OTHER, SELFPAY ==
[2022-02-24 14:40] VITALS: BP 116/66; PULSE 94; RESP 18; TEMP 36.3; O2SAT 100; BMI 54.2
--- NOTE | 2022-02-24 16:19 | HP.PCM_ITS ---
[facility] - General General Date of Admission: 02/24/22 Date of Service: 02/24/22 Chief Complaint: Post stroke debility HPI Narrative CARMEN PYLE, is a 71 YO F with a past medical history of combined systolic and diastolic congestive heart failure, CPAP dependence due to obstructive sleep apnea, hypertension, hyperlipidemia, hypothyroidism persistent atrial fibrillation and chronic anticoagulation with Eliquis who presented to the emergency department at [facility] on 09/14 complaining of awakening that morning with right side facial numbness and facial droop. She has persistent atrial fibrillation and is on Eliquis for anticoagulation. A noncontrast CT brain showed chronic involutional changes only. CTA of the head and neck was normal. She was admitted to the hospitalist service for persistent numbness of the right face and facial droop. MRI of the brain showed small foci of acute ischemia involving the right operculum and the posterior portion of the left sylvian cistern and jansen radiata. There were bilateral chronic microvascular changes. An echocardiogram showed an EF of 45% with mild global left ventricular hypokinesis, mildly enlarged left atrium and mild mitral valve insufficiency. SOC teleneurology was consulted. NIH was 0. The neurologist stressed that data published over the past 2 years has shown that recurrent stroke on NOAC is less than Coumadin and there is no evidence that switching to a different NOAC leads to better outcomes. Adding an antiplatelet agent also does not improve outcome. Continuing Eliquis was recommended and follow-up with cardiology regarding possible cardioversion. She was seen by therapy while in the hospital and required assist of 2 people with a walker to ambulate just 12 feet. She was admitted to the transitional care unit on 02/24/2022 for therapy to strengthen her. All hospital notes, images and labs were reviewed. Calcium corrected for hyp oalbuminemia is high at 11.0. LDL is good at 54 and the HDL is low at 38. Triglycerides are within normal limit. The TSH was normal at 1.48. [facility] Medical History Chronic combined systolic and diastolic CHF (congestive heart failure) CPAP (continuous positive airway pressure) dependence Essential hypertension Hyperlipidemia Hypothyroid Non-smoker Persistent atrial fibrillation Pneumonia Sleep apnea Home Medications multivitamin with folic acid 400 mcg tablet (Thera) 1 tab PO DAILY SUPPLEMENT 09/17/14 [History Last Taken 09/23/21] allopurinol 300 mg tablet 300 mg PO DAILY Gout 07/27/15 [History Last Taken 09/24/21] cholecalciferol (vitamin D3) 1,250 mcg (50,000 unit) capsule 1,250 mcg PO SWEET SUPPLEMENT 09/24/21 [History Last Taken 09/19/21] levothyroxine 137 mcg tablet 137 mcg PO DAILY THYROID 09/24/21 [History Last Stuart en 09/24/21] trospium 20 mg tablet 20 mg PO QHS BLADDER 09/24/21 [History Last Taken 09/23/21] acetaminophen 500 mg tablet 1,000 mg PO TID Pain 1-10 11/10/21 [History Last Taken Unknown] albuterol sulfate 90 mcg/actuation aerosol inhaler 2 puff inhalation Q6H PRN Wheezing 11/10/21 [History Last Taken Unknown] spironolactone 25 mg-hydrochlorothiazide 25 mg tablet 1 tab PO DAILY Fluid retention 02/15/22 [History Last Taken Unknown] apixaban 5 mg tablet (Eliquis) 5 mg PO BID Blood thinner 02/24/22 [History Last Taken Unknown] atorvastatin 40 mg tablet 40 mg PO QHS Cholestrol 02/24/22 [History Last Taken Unknown] metoprolol tartrate 50 mg tablet 50 mg PO BID BP 02/24/22 [History Last Taken Unknown] potassium chloride 20 mEq tablet,extended release(part/cryst) (Klor-Con M) 20 meq PO BIDCM Supplement 02/24/22 [History Last Taken Unknown] tramadol 50 mg tablet 50 mg PO Q6H PRN Pain 3 days #12 tabs 02/24/22 [Rx Last Taken Unknown] Allergy/AdvReac Type Severity Reaction Status Date / Time No Known Allergies Allergy Verified 02/22/22 03:28 Family History Mother CHF (congestive heart failure) Other Diabetes Hypertension Surgical History Status post total right knee replacement Social History housing: halfway Smoking Status: Never smoker substance use type: does not use ROS Constitutional Constitutional: Reports fatigue and weakness; Denies anorexia, change in weight, chills, fever(s) or night sweats Eyes Eyes: Denies blurry vision, change in vision, eye pain or loss of vision ENT HEENT: Denies abnormal hearing, dysphagia, headache(s), hearing loss, nasal congestion or sore throat Cardiovascular Cardiovascular: Reports dyspnea on exertion and edema; Denies chest pain, lightheadedness, orthopnea, palpitations, paroxysmal nocturnal dyspnea or syncope Respiratory/Chest Respiratory/Chest: Reports shortness of breath with exertion; Denies cough, dyspnea, shortness of breath at rest or wheezing Gastrointestinal Gastrointestinal: Denies abdominal pain, constipation, diarrhea, dyspepsia, hematemesis, hematochezia, nausea or vomiting Genitourinary Genitourinary: Denies dysuria, hematuria, nocturia, urinary frequency, urinary hesitancy, urinary incontinence or urinary urgency Musculoskeletal Musculoskeletal: Denies back pain, joint pain, joint swelling or neck pain Integumentary Integumentary: Denies changing lesions, jaundice or wounds Neurologic Neurologic: Reports paresthesias; Denies confusion, disequilibrium, dizziness, focal weakness, headache(s), seizures or tremor(s) Psychiatric Psychiatric: Denies anxiety, depression, homicidal ideation or suicidal ideation Endocrine Endocrinology: Denies change in body appearance, polydipsia or polyuria Hematologic/Lymphatic Hematologic/Lymphatic: Reports easy bleeding; Denies easy bruising or lymphadenopathy Allergic/Immunologic Allergic/Immunologic: Denies rhinitis, eczemia or asthma Vital Signs Vital Signs Vital Signs: 02/24/22 14:40 Temperature 97.3 F L Temperature Source Temporal Pulse Rate 94 Respiratory Rate 18 Blood Pressure 116/66 Blood Pressure Mean 82 Blood Pressure Source Monitor Blood Pressure Position Supine Blood Pressure Location Left Forearm Pulse Ox 100 Oxygen Delivery Method Room Air Weight Weight: 325 lb 13.491 oz Body Mass Index (BMI) 54.2 Physical Exam Const alert, oriented x3 and no apparent distress Constitutional Narrative: Lying in bed and appears comfortable. General Appearance: cooperative HEENT moist oral mucous membranes Eyes PERRL, EOMs intact bilaterally and conjunctivae normal General Eye: normal appearance of both eyes Neck supple Chest Chest: symmetrical chest wall rise Resp normal respiratory effort, normal air movement, no retractions, no use of accessory muscles and clear to auscultation bilaterally Effort and Inspection: able to speak in complete sentences Cardio no rub and no gallops Cardio Narrative: irreg irreg with controlled VR 2/6 SE MM at the 2nd RICS GI normal to inspection, nondistended, normoactive bowel sounds, soft to palpation and non-tender GI Narrative: No guarding with palpation Extremity no calf tenderness Extremity Narrative: No pitting edema of the legs. Has varicosities of both LE's Skin Rashes: no rashes Neuro oriented x3, moves all extremities and no focal motor deficits Neuro Narrative: She has a mild facial droop on the R and decreased sensation of the R face when compared to the left. No neglect. Speech is normal. Thought process is normal. No ataxia and no visual field cuts. Psych mental status grossly normal, thought process normal, cooperative, affect normal, speech normal, activity/motor behavior normal, denies hallucinations, denies homicidal ideation and denies suicidal ideation Attitude: calm and engaged Activity / Motor Behavior: appropriate eye contact Speech: normal speech Results Lab / Micro Data Result Diagrams: 02/25/22 05:17 02/25/22 05:17 Assessment & Plan Assessment/Plan (1) CVA (cerebral vascular accident): PLAN: Since she was on 5 mg BID of Apixaban and was compliant I feel it is necessary to check a Factor XI activity level since some patients do not absorb this medication well. (2) Debility: (3) History of atrial fibrillation: (4) Chronic anticoagulation: (5) THOMAS (obstructive sleep apnea): PLAN: Plan PLAN PT for gait stability OT for ADL's ST for evaluation Analgesics as needed Bowel protocol Fall precautions Assess for Anxiety/Depression GI prophylaxis -not necessary at this time. She denies nausea, reflux, epigastric pain. She denies history of peptic ulcer disease. DVT prophylaxis-prophylaxis is not necessary because the patient is on full dose Eliquis, 5 mg twice daily, for atrial fibrillation. Follow up with neurology and PCP following DC from IP Rehab Will check a Factor XI activity level to make sure she is absorbing the medication and is in the therapeutic range. Charges/Coding Visit Charges Inpatient E&M: [address] [facility] Init L2
[2022-02-24] MEDS: Potassium Chloride Oral Tablet 20 MEQ PO (18:45)
[2022-02-24 18:46] VITALS: BP 116/66; PULSE 94
[2022-02-24] MEDS: Metoprolol Tartrate 50 MG Tablet PO (18:46)
[2022-02-24] MEDS: APIXABAN 5 MG TABLET PO (18:46)
[2022-02-24] MEDS: 0.9% Saline Lock 10 ML Syringe IV (18:50)
[2022-02-24] MEDS: Nystatin Powder 15gm Bottle 1 APPLIC TOPICAL (21:36)
[2022-02-24] MEDS: Tolterodine Tartrate 2 MG CAP.SA PO (21:37)
[2022-02-24] MEDS: Acetaminophen 500 MG Tablet 1000 MG PO (21:37)
[2022-02-24] MEDS: Atorvastatin Calcium 40 MG Tablet PO (21:37)
[2022-02-25 05:38] LABS: Absolute Lymphocyte Count 1.97 X10^3/uL (0.83-4.51); Absolute Neutrophil Count 4.5 X10^3/uL (2.0-7.7); Basophil# 0.04 X10^3/uL; Basophil% 0.5 % (0-1); Eosinophil# 0.12 X10^3/uL; Eosinophils% 1.6 % (0-5); Hematocrit 43.1 % (37-47); Hemoglobin 13.5 g/dL (12.0-15.0); Lymphocyte # 1.97 X10^3/ul (0.83-4.51); Lymphocyte % 26.5 % (19-41); Mean Corp Hgb Conc 31.3 g/dL (32-36); Mean Corpuscular Hgb 29.9 pg (27.0-32.0); Mean Corpuscular Volume 95.6 fL (81-99); Mean Platelet Vol. 9.8 fl (6.2-12.0); Monocyte% 10.8 % (0-10); NRBC Flagged by Analyzer 0 % (0-5); Neutrophil # 4.46 X10^3/uL (2.7-7.7); Neutrophil % 60.1 % (47-70); Platelet Count 209 K/mm3 (150-450); RBC Distribution Width CV 15.1 % (11.6-14.6); RBC Distribution Width SD 53.4 fl (35.1-43.9); Red Blood Count 4.51 M/mm3 (4.2-5.4); White Blood Count 7.4 K/mm3 (4.4-11.0)
[2022-02-25 06:02] LABS: Anion Gap 5 (5-15); BUN 21 mg/dL (7-18); BUN/Creat Ratio 24.2 RATIO (10-20); Calcium,Total 10.1 mg/dL (8.5-10.1); Chloride 105 mmol/L (98-107); Creatinine, Serum 0.87 mg/dL (0.55-1.02); EST Glomerular Filtration Rate 68 mL/min (>60); Est Glom Filt Rate - Afr Amer 83 mL/min (>60); Glucose 119 mg/dL (74-106); Potassium 4.2 mmol/L (3.5-5.1); Sodium Level 137 mmol/L (136-145)
[2022-02-25] MEDS: Spironolactone 25 MG Tablet PO (06:19)
[2022-02-25] MEDS: APIXABAN 5 MG TABLET PO ×2 (06:19→17:17)
[2022-02-25] MEDS: Acetaminophen 500 MG Tablet 1000 MG PO ×3 (06:19→20:11)
[2022-02-25 06:20] VITALS: PULSE 88
[2022-02-25] MEDS: Levothyroxine 137 MCG Tablet PO (06:20)
[2022-02-25] MEDS: Multivitamins,Therapeutic Tablet 1 TABLET PO (06:20)
[2022-02-25] MEDS: hydroCHLOROthiazide 25 MG Tablet PO (06:20)
[2022-02-25] MEDS: Metoprolol Tartrate 50 MG Tablet PO ×2 (06:20→17:16)
[2022-02-25] MEDS: Allopurinol 300 MG Tablet PO (06:20)
[2022-02-25] MEDS: Potassium Chloride Oral Tablet 20 MEQ PO ×2 (08:53→17:17)
[2022-02-25] MEDS: Tuberculin,Purif.prot.deriv. 50 TU/ML Vial 0.1 ML ID (09:29)
--- NOTE | 2022-02-25 09:30 | NURSING ---
patient TB test would not scan. Verified with other nurse and test was given. Pharmacy notified.
--- NOTE | 2022-02-25 13:31 | CASEMGMT ---
Social Work Met with patient to complete initial assessment. Introduced self and role. Verified contacts. Discussed code status and MOLST form. Pt confirms full code. MOLST completed, communication to , placed in chart. Explained Medicare benefits. Encouraged to contact secondary insurance to ensure copay coverage. The goal is for pt to return home alone in basement apartment of dtr/JESUS home. SW to continue to follow for DC planning. Aster Marquez, DIE CUTTER APPRENTICE CRADLE SLIDE MAKER
[2022-02-25 14:50] VITALS: BP 126/82; PULSE 84; RESP 14; TEMP 36.8; O2SAT 97
[2022-02-25 17:16] VITALS: PULSE 82
[2022-02-25] MEDS: Nystatin Powder 15gm Bottle 1 APPLIC TOPICAL (17:17)
[2022-02-25] MEDS: Tolterodine Tartrate 2 MG CAP.SA PO (20:11)
[2022-02-25] MEDS: Atorvastatin Calcium 40 MG Tablet PO (20:12)
[2022-02-25 20:29] VITALS: PULSE 88; RESP 18; O2SAT 97
[2022-02-26] MEDS: Acetaminophen 500 MG Tablet 1000 MG PO ×3 (05:32→21:05)
[2022-02-26] MEDS: Spironolactone 25 MG Tablet PO (05:32)
[2022-02-26] MEDS: Levothyroxine 137 MCG Tablet PO (05:32)
[2022-02-26] MEDS: Allopurinol 300 MG Tablet PO (05:32)
[2022-02-26] MEDS: APIXABAN 5 MG TABLET PO ×2 (05:32→17:20)
[2022-02-26 05:33] VITALS: BP 136/76; PULSE 80
[2022-02-26] MEDS: Multivitamins,Therapeutic Tablet 1 TABLET PO (05:33)
[2022-02-26] MEDS: Metoprolol Tartrate 50 MG Tablet PO ×2 (05:33→17:20)
[2022-02-26] MEDS: hydroCHLOROthiazide 25 MG Tablet PO (05:33)
[2022-02-26] MEDS: Nystatin Powder 15gm Bottle 1 APPLIC TOPICAL ×2 (05:33→17:21)
--- NOTE | 2022-02-26 06:21 | NURSING ---
SL in R hand noted to be leaking during saline flush this AM. Pt expressed she kept bumping site and it was painful. SL discontinued; no bleeding, redness, or edema noted. Catheter intact. Pt tolerated well. RN aware.
[2022-02-26] MEDS: Potassium Chloride Oral Tablet 20 MEQ PO ×2 (08:14→17:20)
[2022-02-26 13:57] VITALS: BP 139/77; PULSE 105; RESP 16; TEMP 36.9; O2SAT 96
[2022-02-26] MEDS: Albuterol Sulfate 8 gm Inhaler (60 puffs) 2 PUFF INHALATION (14:53)
[2022-02-26 17:20] VITALS: PULSE 105
[2022-02-26] MEDS: Tolterodine Tartrate 2 MG CAP.SA PO (21:04)
[2022-02-26] MEDS: traMADol 50 MG Tablet PO (21:04)
[2022-02-26] MEDS: Atorvastatin Calcium 40 MG Tablet PO (21:05)
[2022-02-27] MEDS: Acetaminophen 500 MG Tablet 1000 MG PO ×3 (05:35→21:29)
[2022-02-27] MEDS: Multivitamins,Therapeutic Tablet 1 TABLET PO (05:36)
[2022-02-27] MEDS: APIXABAN 5 MG TABLET PO ×2 (05:36→15:45)
[2022-02-27 05:37] VITALS: BP 133/86; PULSE 78
[2022-02-27] MEDS: Allopurinol 300 MG Tablet PO (05:37)
[2022-02-27] MEDS: Spironolactone 25 MG Tablet PO (05:37)
[2022-02-27] MEDS: Levothyroxine 137 MCG Tablet PO (05:37)
[2022-02-27] MEDS: Metoprolol Tartrate 50 MG Tablet PO ×2 (05:37→15:44)
[2022-02-27] MEDS: hydroCHLOROthiazide 25 MG Tablet PO (05:37)
[2022-02-27] MEDS: Nystatin Powder 15gm Bottle 1 APPLIC TOPICAL ×2 (05:38→15:45)
[2022-02-27] MEDS: Potassium Chloride Oral Tablet 20 MEQ PO ×2 (08:29→15:45)
[2022-02-27] MEDS: Ergocalciferol 1.25 MG (50, 000 UNIT) Capsule PO (08:29)
[2022-02-27] MEDS: traMADol 50 MG Tablet PO ×2 (13:30→21:41)
[2022-02-27 15:06] VITALS: BP 114/54; PULSE 89; RESP 16; TEMP 36.5; O2SAT 98
[2022-02-27 15:44] VITALS: PULSE 82
[2022-02-27] MEDS: Atorvastatin Calcium 40 MG Tablet PO (21:29)
[2022-02-27] MEDS: Tolterodine Tartrate 2 MG CAP.SA PO (21:41)
[2022-02-28] MEDS: Acetaminophen 500 MG Tablet 1000 MG PO ×3 (05:43→21:07)
[2022-02-28 05:44] VITALS: BP 123/64; PULSE 83
[2022-02-28] MEDS: hydroCHLOROthiazide 25 MG Tablet PO (05:44)
[2022-02-28] MEDS: Spironolactone 25 MG Tablet PO (05:44)
[2022-02-28] MEDS: APIXABAN 5 MG TABLET PO ×2 (05:44→17:43)
[2022-02-28] MEDS: Metoprolol Tartrate 50 MG Tablet PO ×2 (05:44→17:43)
[2022-02-28] MEDS: Multivitamins,Therapeutic Tablet 1 TABLET PO (05:44)
[2022-02-28] MEDS: Allopurinol 300 MG Tablet PO (05:44)
[2022-02-28] MEDS: Levothyroxine 137 MCG Tablet PO (05:44)
[2022-02-28] MEDS: Nystatin Powder 15gm Bottle 1 APPLIC TOPICAL ×2 (05:46→17:42)
[2022-02-28] MEDS: Potassium Chloride Oral Tablet 20 MEQ PO ×2 (08:12→17:43)
[2022-02-28] MEDS: traMADol 50 MG Tablet PO (08:15)
[2022-02-28 10:00] VITALS: RESP 16
--- NOTE | 2022-02-28 14:49 | NURSING ---
Resident educated on the COVID 19 Vaccine and does not want to receive it.
[2022-02-28 15:08] VITALS: BP 109/72; PULSE 85; RESP 16; TEMP 36.4; O2SAT 93
[2022-02-28 16:54] LABS: Factor XI Activity 124 % (60-150)
[2022-02-28 17:43] VITALS: PULSE 84
[2022-02-28] MEDS: Tolterodine Tartrate 2 MG CAP.SA PO (21:08)
[2022-02-28] MEDS: Atorvastatin Calcium 40 MG Tablet PO (21:08)
[2022-03-01 05:40] VITALS: BP 124/76; PULSE 73
[2022-03-01] MEDS: Multivitamins,Therapeutic Tablet 1 TABLET PO (05:40)
[2022-03-01] MEDS: Allopurinol 300 MG Tablet PO (05:40)
[2022-03-01] MEDS: Metoprolol Tartrate 50 MG Tablet PO ×2 (05:40→17:10)
[2022-03-01] MEDS: Acetaminophen 500 MG Tablet 1000 MG PO ×3 (05:41→21:24)
[2022-03-01] MEDS: traMADol 50 MG Tablet PO ×3 (05:41→21:27)
[2022-03-01] MEDS: Spironolactone 25 MG Tablet PO (05:42)
[2022-03-01] MEDS: APIXABAN 5 MG TABLET PO ×2 (05:42→17:10)
[2022-03-01] MEDS: hydroCHLOROthiazide 25 MG Tablet PO (05:42)
[2022-03-01] MEDS: Levothyroxine 137 MCG Tablet PO (05:42)
[2022-03-01] MEDS: Nystatin Powder 15gm Bottle 1 APPLIC TOPICAL ×2 (05:47→17:09)
[2022-03-01] MEDS: Potassium Chloride Oral Tablet 20 MEQ PO ×2 (08:02→17:10)
[2022-03-01 16:00] VITALS: BP 112/68; PULSE 85; RESP 18; TEMP 35.9; O2SAT 96
[2022-03-01 17:10] VITALS: BP 112/68; PULSE 85
[2022-03-01 21:00] VITALS: PULSE 91; RESP 16; O2SAT 99
[2022-03-01] MEDS: Tolterodine Tartrate 2 MG CAP.SA PO (21:24)
[2022-03-01] MEDS: Atorvastatin Calcium 40 MG Tablet PO (21:24)
[2022-03-02 06:31] VITALS: BP 122/66; PULSE 90
[2022-03-02] MEDS: Acetaminophen 500 MG Tablet 1000 MG PO ×3 (06:31→21:44)
[2022-03-02] MEDS: APIXABAN 5 MG TABLET PO ×2 (06:31→17:49)
[2022-03-02] MEDS: Allopurinol 300 MG Tablet PO (06:31)
[2022-03-02] MEDS: Levothyroxine 137 MCG Tablet PO (06:31)
[2022-03-02] MEDS: Multivitamins,Therapeutic Tablet 1 TABLET PO (06:31)
[2022-03-02] MEDS: Metoprolol Tartrate 50 MG Tablet PO ×2 (06:31→17:49)
[2022-03-02] MEDS: hydroCHLOROthiazide 25 MG Tablet PO (06:31)
[2022-03-02] MEDS: Spironolactone 25 MG Tablet PO (06:31)
[2022-03-02] MEDS: Potassium Chloride Oral Tablet 20 MEQ PO ×2 (07:58→17:49)
--- NOTE | 2022-03-02 09:46 | CASEMGMT ---
Social Work IDT met with patient for care plan meeting. SW to contact dtr after meeting to provide update, per dtr request. Discussed patient's progress in PT/OT/SN and dietary. Explained Medicare benefit. Encouraged to contact secondary insurance to ensure copay coverage. The goal is for pt to return home living in dtr's walk-out basement. Dtr does work time piece repairer. Pt requested resources for [employer] - SW provided. SW to continue to follow for DC planning. Aster Marquez MSW GROCERY MANAGER
[2022-03-02 10:00] VITALS: PULSE 87; RESP 18; O2SAT 98
[2022-03-02] MEDS: traMADol 50 MG Tablet PO (13:35)
--- NOTE | 2022-03-02 14:56 | PHA.CONS_ITS ---
TCU RX Drug Regimen Review Subjective: TCU Admission. Resident presented to ER with right sided facial numbness and droop. Admitted to hospital and managed for TIA. Admitted to TCU with debility for strengthening and rehabilitation. Objective: Allergies No Known Allergies Allergy (Verified 02/22/22 03:28) Current Medications Generic Name Dose Route Start Last Admin Trade Name Freq PRN Reason Stop Dose Admin Acetaminophen 1,000 mg 02/24/22 22:00 03/02/22 13:32 Acetaminophen 500 Mg Tablet PO 1,000 mg TID CHANA Administration Albuterol Sulfate 2 puff 02/24/22 14:51 02/26/22 14:53 Albuterol Sulfate 8 Gm Inhaler (60 Puffs) INHALATION 2 puff Q6H PRN Administration Wheezing Allopurinol 300 mg 02/25/22 06:00 03/02/22 06:31 Allopurinol 300 Mg Tablet PO 300 mg DAILY CHANA Administration Apixaban 5 mg 02/24/22 18:00 03/02/22 06:31 Apixaban 5 Mg Tablet PO 05/25/22 06:01 5 mg BID CHANA Administration Atorvastatin Calcium 40 mg 02/24/22 22:00 03/01/22 21:24 Atorvastatin Calcium 40 Mg Tablet PO 40 mg QHS CHAAN Administration Calamine/Phenol 1 applic 03/02/22 18:00 Menthol/Lanolin/Calamine/Znox 113 Gm Tube TOPICAL BID CHANA Protocol Ergocalciferol 1.25 mg 02/27/22 14:51 02/27/22 08:29 Ergocalciferol 1.25 Mg (50, 000 Unit) Capsule PO 1.25 mg SWEET CHANA Administration Hydrochlorothiazide 25 mg 02/25/22 06:00 03/02/22 06:31 Hydrochlorothiazide 25 Mg Tablet PO 25 mg DAILY CHANA Administration Levothyroxine Sodium 137 mcg 02/25/22 06:00 03/02/22 06:31 Levothyroxine 137 Mcg Tablet PO 137 mcg DAILY CHANA Administration Metoprolol Tartrate 50 mg 02/24/22 18:00 03/02/22 06:31 Metoprolol Tartrate 50 Mg Tablet PO 05/25/22 06:01 50 mg BID CHANA Administration Multivitamins 1 tablet 02/25/22 06:00 03/02/22 06:31 Multivitamins,Therapeutic Tablet PO 1 tablet DAILY CHANA Administration Nystatin 1 applic 02/24/22 20:05 03/02/22 09:56 Nystatin Powder 15gm Bottle TOPICAL Not Given BID [facility] Protocol Potassium Chloride 20 meq 02/24/22 17:00 03/02/22 07:58 Potassium Chloride Oral Tablet 20 Meq PO 20 meq BIDCM CHANA Administration Sodium Chloride 10 - 40 ml 02/24/22 15:05 02/24/22 18:50 0.9% Saline Lock 10 Ml Syringe IV 10 ml UD PRN Administration SALINE FLUSH Spironolactone 25 mg 02/25/22 06:00 03/02/22 06:31 Spironolactone 25 Mg Tablet PO 25 mg DAILY CHANA Administration Tolterodine Tartrate 2 mg 02/24/22 22:00 03/01/22 21:24 Tolterodine Tartrate 2 Mg Cap.Sa PO 2 mg QHS CHANA Administration Tramadol HCl 50 mg 02/24/22 14:51 03/02/22 13:35 Tramadol 50 Mg Tablet PO 50 mg Q6H PRN Administration Pain SCALE 4-10 Tuberculin PPD 0.1 ml 03/04/22 10:00 Tuberculin,Purif.Prot.Deriv. 50 Tu/Ml Vial ID 03/04/22 10:01 X1 ONE Problem List (Last Reviewed 03/01/22 @ 11:[address] Felicia Argueta, DO) Debility (Acute) CVA (cerebral vascular accident) (Acute) History of atrial fibrillation (Acute) Chronic anticoagulation (Acute) TOHMAS (obstructive sleep apnea) (Acute) Vital Signs Temp Pulse Resp BP Pulse Ox O2 Del Method 96.7 F L 87 18 122/66 H 98 Room Air 03/01/22 16:00 03/02/22 10:00 03/02/22 10:00 03/02/22 06:31 03/02/22 10:00 03/02/22 10:00 Oxygen Delivery Method Room Air Weight: 147.8 kg Body Mass Index (BMI) 54.2 Sodium 137 mmol/L (136-145) 02/25/22 05:17 Potassium 4.2 mmol/L (3.5-5.1) 02/25/22 05:17 Chloride 105 mmol/L (98-107) 02/25/22 05:17 Carbon Dioxide 27.0 mmol/L (21.0-32.0) 02/25/22 05:17 Anion Gap 5 (5-15) 02/25/22 05:17 BUN 21 mg/dL (7-18) H 02/25/22 05:17 Creatinine 0.87 mg/dL (0.55-1.02) 02/25/22 05:17 Est GFR (MDRD) Af Amer 83 mL/min (>60) 02/25/22 05:17 Est GFR (MDRD) Non-Af 68 mL/min (>60) 02/25/22 05:17 BUN/Creatinine Ratio 24.2 RATIO (10-20) H 02/25/22 05:17 Glucose 119 mg/dL (74-106) H 02/25/22 05:17 Assessment/Plan: 1. Pain: acetaminophen 1000mg PO TID and tramadol 50mg PO Q6H PRN pain 4-10. Resident has received 8 doses of tramadol for pain scales of 4-6 and 10 in the ankle/foot/legs. Please continue to monitor for increased pain, PRN usage, renal function, constipation (no documented bowel movement) and respiratory depression. 2. Atrial fibrillation/CVA/hypertension/CHF: apixaban 5mg PO BID, metoprolol tartrate 50mg PO BID, hydrochlorothiazide 25mg PO daily and spironolactone 25mg PO daily. Please continue to monitor for S/S of bleeding, hemoglobin (last 13.5g/dL), HR (last 87), BP (last 122/66), sodium (last 137mmol/L), potassium (last 4.2mmol/L) and renal function. Factor XI level was drawn to assess absorption for apixaban and was WNL. 3. Hypothyroidism: levothyroxine 137mcg PO daily. Please continue to monitor for S/S hypo/hyperthyroidism and TSH (last 02/22/22). 4. Hyperlipidemia: atorvastatin 40mg PO QHS. Please continue to monitor lipid panel (last 02/22/22), AST/ALT (last 12/25/21) and muscle pain. 5. Hypokalemia (level 3.4 12/25/21): potassium chloride 20mEq PO BIDCM. Please continue to monitor potassium levels. 6. Overall nutrition: multivitamin 1T PO daily. Please continue to monitor. Assessment/Plan for indications treated with psychotropic medications: None Medical chart and medication regimen reviewed. The following medication irregularities or issues were identified: *1. I did not see indications for the below medications, please consider adding the indications or stopping if not indicated. Thanks. -Allopurinol 300mg PO daily. Please continue to monitor renal function. - Ergocalciferol 1.25mg PO daily. Please consider ordering a vitamin D level. Last level from 04/06/20. Thanks. - Tolterodine 2mg PO QHS. Please continue to monitor for delirium (BEERs criteria medication) and dry mouth. - Albuterol inhaler 2puff Q6H PRN wheezing. Please continue to monitor for PRN usage. Resident has required 1 dose so far. Date of Note:: 03/02/22
[2022-03-02 15:19] VITALS: BP 100/67; PULSE 84; RESP 18; TEMP 35.8; O2SAT 93
--- NOTE | 2022-03-02 16:34 | CHAPLAIN ---
Type of Pastoral Visit _x__ Initial Visit ___ Follow-up Visit ___ On-call Visit ___ General Patient Visit ___ Spiritual Assessment ___ Family Conference ___ Bereavement ___ Rapid Response ___ Code Blue ___ Other (describe below) Pastoral Care Referral From _x__ Patient ___ Family ___ Nurse ___ Physician ___ Coating Machine Feeder ___ Tongue Stitcher ___ Other (describe below) Sacrament/Intervention _x__ Active listening ___ Anointing ___ Jew ___ Bereavement ___ Communion _x__ Rebecca exploration ___ _x__ Life review _x__ Prayer ___ Reconciliation ___ Sacrament of Sick _x__ Supportive presence ___ Wedding ___ Other (describe below) Pastoral Comments patient is very welcoming of spiritual care; pt talks about her health and home situation; pt has great support from daughter and her living arrangement; son-in-law is also her mill and coal transport operator; pt has sisters and friends that reach out to her as well; pt expresses hope about returning home; pt admits that 2021 has presented itself with new challenges and she hopes for improving conditions; prayer and presence is welcomed
[2022-03-02 17:49] VITALS: BP 100/67; PULSE 84
[2022-03-02] MEDS: Nystatin Powder 15gm Bottle 1 APPLIC TOPICAL (17:50)
[2022-03-02] MEDS: Atorvastatin Calcium 40 MG Tablet PO (21:44)
[2022-03-02] MEDS: Tolterodine Tartrate 2 MG CAP.SA PO (21:44)
[2022-03-02] MEDS: Menthol/Lanolin/Calamine/Znox 113 GM Tube 1 APPLIC TOPICAL (21:45)
[2022-03-03] MEDS: traMADol 50 MG Tablet PO ×2 (05:09→21:20)
[2022-03-03] MEDS: Spironolactone 25 MG Tablet PO (05:10)
[2022-03-03 05:11] VITALS: BP 128/79; PULSE 84
[2022-03-03] MEDS: Metoprolol Tartrate 50 MG Tablet PO (05:11)
[2022-03-03] MEDS: APIXABAN 5 MG TABLET PO ×2 (05:11→17:29)
[2022-03-03] MEDS: Multivitamins,Therapeutic Tablet 1 TABLET PO (05:11)
[2022-03-03] MEDS: hydroCHLOROthiazide 25 MG Tablet PO (05:11)
[2022-03-03] MEDS: Acetaminophen 500 MG Tablet 1000 MG PO ×3 (05:12→20:00)
[2022-03-03] MEDS: Levothyroxine 137 MCG Tablet PO (05:12)
[2022-03-03] MEDS: Allopurinol 300 MG Tablet PO (05:12)
[2022-03-03] MEDS: Nystatin Powder 15gm Bottle 1 APPLIC TOPICAL ×2 (05:13→17:30)
[2022-03-03] MEDS: Menthol/Lanolin/Calamine/Znox 113 GM Tube 1 APPLIC TOPICAL ×2 (05:13→17:29)
[2022-03-03] MEDS: Potassium Chloride Oral Tablet 20 MEQ PO ×2 (08:35→17:29)
[2022-03-03 14:37] VITALS: BP 108/62; PULSE 77; RESP 14; TEMP 36.4; O2SAT 99
--- NOTE | 2022-03-03 16:34 | CASEMGMT ---
Social Work BIMS () and PHQ-9 (01/17) completed for MDS assessment. Score indicates mild depression. Aster Marquez, GOVERNMENT AFFAIRS FELLOW PAPER TUBE MACHINE OPERATOR
[2022-03-03 17:32] VITALS: BP 99/69; PULSE 79
[2022-03-03] MEDS: Atorvastatin Calcium 40 MG Tablet PO (20:00)
[2022-03-03] MEDS: Tolterodine Tartrate 2 MG CAP.SA PO (20:00)
[2022-03-04 05:01] VITALS: BP 121/85; PULSE 88
[2022-03-04] MEDS: Metoprolol Tartrate 50 MG Tablet PO ×2 (05:01→17:38)
[2022-03-04] MEDS: Acetaminophen 500 MG Tablet 1000 MG PO ×3 (05:01→20:45)
[2022-03-04] MEDS: Levothyroxine 137 MCG Tablet PO (05:01)
[2022-03-04] MEDS: hydroCHLOROthiazide 25 MG Tablet PO (05:01)
[2022-03-04] MEDS: Spironolactone 25 MG Tablet PO (05:02)
[2022-03-04] MEDS: APIXABAN 5 MG TABLET PO ×2 (05:02→17:38)
[2022-03-04 05:40] LABS: Absolute Lymphocyte Count 1.72 X10^3/uL (0.83-4.51); Absolute Neutrophil Count 4.2 X10^3/uL (2.0-7.7); Basophil# 0.02 X10^3/uL; Basophil% 0.3 % (0-1); Eosinophil# 0.07 X10^3/uL; Hematocrit 42.8 % (37-47); Hemoglobin 13.1 g/dL (12.0-15.0); Lymphocyte # 1.72 X10^3/ul (0.83-4.51); Lymphocyte % 25.4 % (19-41); Mean Corp Hgb Conc 30.6 g/dL (32-36); Mean Corpuscular Hgb 28.8 pg (27.0-32.0); Mean Corpuscular Volume 94.1 fL (81-99); Mean Platelet Vol. 10.4 fl (6.2-12.0); Monocyte# 0.67 X10^3/uL; Monocyte% 9.9 % (0-10); NRBC Flagged by Analyzer 0 % (0-5); Neutrophil # 4.23 X10^3/uL (2.7-7.7); Neutrophil % 62.7 % (47-70); Platelet Count 259 K/mm3 (150-450); RBC Distribution Width CV 14.4 % (11.6-14.6); Red Blood Count 4.55 M/mm3 (4.2-5.4); White Blood Count 6.8 K/mm3 (4.4-11.0)
[2022-03-04 06:04] LABS: Anion Gap 6 (5-15); BUN 22 mg/dL (7-18); BUN/Creat Ratio 30.3 RATIO (10-20); Calcium,Total 10.1 mg/dL (8.5-10.1); Chloride 104 mmol/L (98-107); Creatinine, Serum 0.73 mg/dL (0.55-1.02); EST Glomerular Filtration Rate 84 mL/min (>60); Est Glom Filt Rate - Afr Amer 101 mL/min (>60); Estimated Creatinine Clearance 45.76 ml/min; Glucose 125 mg/dL (74-106); Potassium 4.2 mmol/L (3.5-5.1); Sodium Level 136 mmol/L (136-145)
[2022-03-04] MEDS: Multivitamins,Therapeutic Tablet 1 TABLET PO (08:34)
[2022-03-04] MEDS: Potassium Chloride Oral Tablet 20 MEQ PO ×2 (08:34→17:38)
[2022-03-04] MEDS: Allopurinol 300 MG Tablet PO (08:34)
[2022-03-04] MEDS: Tuberculin,Purif.prot.deriv. 50 TU/ML Vial 0.1 ML ID (11:44)
[2022-03-04] MEDS: Menthol/Lanolin/Calamine/Znox 113 GM Tube 1 APPLIC TOPICAL ×2 (11:52→20:42)
[2022-03-04] MEDS: Nystatin Powder 15gm Bottle 1 APPLIC TOPICAL ×2 (11:52→20:44)
[2022-03-04 14:45] VITALS: BP 104/64; PULSE 82; RESP 18; TEMP 36.3; O2SAT 93
[2022-03-04 17:38] VITALS: BP 125/75; PULSE 70
[2022-03-04] MEDS: Atorvastatin Calcium 40 MG Tablet PO (20:44)
[2022-03-04] MEDS: Tolterodine Tartrate 2 MG CAP.SA PO (20:44)
[2022-03-04 22:14] VITALS: PULSE 65; RESP 16; O2SAT 98
[2022-03-05 05:13] VITALS: BP 127/75; PULSE 85
[2022-03-05] MEDS: hydroCHLOROthiazide 25 MG Tablet PO (05:13)
[2022-03-05] MEDS: APIXABAN 5 MG TABLET PO ×2 (05:13→17:13)
[2022-03-05] MEDS: Spironolactone 25 MG Tablet PO (05:13)
[2022-03-05] MEDS: Metoprolol Tartrate 50 MG Tablet PO (05:13)
[2022-03-05] MEDS: Levothyroxine 137 MCG Tablet PO (05:15)
[2022-03-05] MEDS: Acetaminophen 500 MG Tablet 1000 MG PO ×3 (05:17→21:05)
[2022-03-05] MEDS: Potassium Chloride Oral Tablet 20 MEQ PO ×2 (08:13→17:12)
[2022-03-05] MEDS: Multivitamins,Therapeutic Tablet 1 TABLET PO (08:13)
[2022-03-05] MEDS: Allopurinol 300 MG Tablet PO (08:15)
[2022-03-05] MEDS: Nystatin Powder 15gm Bottle 1 APPLIC TOPICAL ×2 (10:07→21:03)
[2022-03-05] MEDS: Menthol/Lanolin/Calamine/Znox 113 GM Tube 1 APPLIC TOPICAL ×2 (10:07→21:04)
[2022-03-05 10:18] VITALS: PULSE 79; RESP 18; O2SAT 96
[2022-03-05 14:40] VITALS: BP 109/69; PULSE 79; RESP 20; TEMP 36.6; O2SAT 93
[2022-03-05 17:16] VITALS: BP 107/56; PULSE 78
[2022-03-05 17:18] VITALS: BP 107/56; PULSE 78
[2022-03-05] MEDS: traMADol 50 MG Tablet PO (21:04)
[2022-03-05] MEDS: Tolterodine Tartrate 2 MG CAP.SA PO (21:05)
[2022-03-05] MEDS: Atorvastatin Calcium 40 MG Tablet PO (21:06)
[2022-03-06 05:57] VITALS: BP 105/63; PULSE 85
[2022-03-06] MEDS: Metoprolol Tartrate 50 MG Tablet PO ×2 (05:57→21:33)
[2022-03-06] MEDS: Levothyroxine 137 MCG Tablet PO (05:57)
[2022-03-06] MEDS: Acetaminophen 500 MG Tablet 1000 MG PO ×3 (05:57→21:32)
[2022-03-06] MEDS: Spironolactone 25 MG Tablet PO (05:57)
[2022-03-06] MEDS: APIXABAN 5 MG TABLET PO ×2 (05:57→17:44)
[2022-03-06] MEDS: hydroCHLOROthiazide 25 MG Tablet PO (05:57)
[2022-03-06] MEDS: Potassium Chloride Oral Tablet 20 MEQ PO ×2 (08:03→17:43)
[2022-03-06] MEDS: Multivitamins,Therapeutic Tablet 1 TABLET PO (08:04)
[2022-03-06] MEDS: Allopurinol 300 MG Tablet PO (08:04)
[2022-03-06] MEDS: Menthol/Lanolin/Calamine/Znox 113 GM Tube 1 APPLIC TOPICAL ×2 (10:44→21:31)
[2022-03-06] MEDS: Nystatin Powder 15gm Bottle 1 APPLIC TOPICAL ×2 (10:44→21:32)
[2022-03-06] MEDS: Ergocalciferol 1.25 MG (50, 000 UNIT) Capsule PO (14:03)
[2022-03-06 15:32] VITALS: BP 96/65; PULSE 79; RESP 17; TEMP 36.6; O2SAT 95
[2022-03-06 17:49] VITALS: BP 101/68; PULSE 84
[2022-03-06] MEDS: Tolterodine Tartrate 2 MG CAP.SA PO (21:32)
[2022-03-06] MEDS: Atorvastatin Calcium 40 MG Tablet PO (21:32)
[2022-03-06 21:33] VITALS: BP 126/64; PULSE 93
[2022-03-07 06:15] VITALS: BP 115/66; PULSE 78
[2022-03-07] MEDS: Levothyroxine 137 MCG Tablet PO (06:15)
[2022-03-07] MEDS: Acetaminophen 500 MG Tablet 1000 MG PO ×3 (06:15→20:29)
[2022-03-07] MEDS: hydroCHLOROthiazide 25 MG Tablet PO (06:15)
[2022-03-07] MEDS: Metoprolol Tartrate 50 MG Tablet PO (06:15)
[2022-03-07] MEDS: Spironolactone 25 MG Tablet PO (06:15)
[2022-03-07] MEDS: APIXABAN 5 MG TABLET PO ×2 (06:15→17:24)
[2022-03-07] MEDS: Potassium Chloride Oral Tablet 20 MEQ PO ×2 (08:20→17:24)
[2022-03-07] MEDS: Multivitamins,Therapeutic Tablet 1 TABLET PO (08:20)
[2022-03-07] MEDS: Allopurinol 300 MG Tablet PO (08:20)
[2022-03-07] MEDS: Nystatin Powder 15gm Bottle 1 APPLIC TOPICAL ×2 (10:25→20:28)
[2022-03-07] MEDS: Menthol/Lanolin/Calamine/Znox 113 GM Tube 1 APPLIC TOPICAL ×2 (10:25→20:32)
--- NOTE | 2022-03-07 10:39 | NURSING ---
Civil Transportation Engineer Note: Interview and Section F of MDS complete and entered.
[2022-03-07 16:00] VITALS: BP 100/62; PULSE 79; RESP 18; TEMP 36.2; O2SAT 95
[2022-03-07] MEDS: Tolterodine Tartrate 2 MG CAP.SA PO (20:28)
[2022-03-07] MEDS: Atorvastatin Calcium 40 MG Tablet PO (20:29)
[2022-03-08] MEDS: Spironolactone 25 MG Tablet PO (05:45)
[2022-03-08] MEDS: Levothyroxine 137 MCG Tablet PO (05:46)
[2022-03-08 05:47] VITALS: BP 113/65; PULSE 70
[2022-03-08] MEDS: hydroCHLOROthiazide 25 MG Tablet PO (05:47)
[2022-03-08] MEDS: APIXABAN 5 MG TABLET PO ×2 (05:47→18:04)
[2022-03-08] MEDS: Acetaminophen 500 MG Tablet 1000 MG PO ×3 (05:47→20:24)
[2022-03-08] MEDS: Metoprolol Tartrate 50 MG Tablet PO ×2 (05:47→18:05)
[2022-03-08] MEDS: Multivitamins,Therapeutic Tablet 1 TABLET PO (08:04)
[2022-03-08] MEDS: Allopurinol 300 MG Tablet PO (08:04)
[2022-03-08] MEDS: Potassium Chloride Oral Tablet 20 MEQ PO ×2 (08:04→18:04)
[2022-03-08] MEDS: Nystatin Powder 15gm Bottle 1 APPLIC TOPICAL ×2 (09:32→20:26)
[2022-03-08] MEDS: Menthol/Lanolin/Calamine/Znox 113 GM Tube 1 APPLIC TOPICAL ×2 (09:33→20:25)
[2022-03-08] MEDS: Electrolyte Solution/Peg's 4000 ML PO (09:38)
--- NOTE | 2022-03-08 11:17 | NURSING ---
PT AND FAMILY UPDATED ON STAFF MEMBER TESTED POSITIVE FOR COVID.
--- NOTE | 2022-03-08 11:52 | NURSING ---
PT DRINKING NULYTELY WITH POSITIVE RESULTS.
--- NOTE | 2022-03-08 13:38 | NURSING ---
PT STATED SHE WOULD ONLY DRINK 2 PITCHERS FULL OF NULYTELY DUE TO HER HEART DOCTOR ONLY WANTED HER TO ONLY DRINK SO MUCH A DAY.
[2022-03-08 15:03] VITALS: BP 110/54; PULSE 89; RESP 18; TEMP 35.9; O2SAT 93
[2022-03-08 18:05] VITALS: BP 110/54; PULSE 89
[2022-03-08] MEDS: Atorvastatin Calcium 40 MG Tablet PO (20:23)
[2022-03-08] MEDS: Tolterodine Tartrate 2 MG CAP.SA PO (20:23)
[2022-03-08] MEDS: traMADol 50 MG Tablet PO (20:24)
[2022-03-09 05:10] VITALS: BP 112/77; PULSE 101
[2022-03-09] MEDS: hydroCHLOROthiazide 25 MG Tablet PO (05:10)
[2022-03-09] MEDS: Metoprolol Tartrate 50 MG Tablet PO ×2 (05:10→17:37)
[2022-03-09] MEDS: Levothyroxine 137 MCG Tablet PO (05:10)
[2022-03-09] MEDS: Acetaminophen 500 MG Tablet 1000 MG PO ×3 (05:10→20:33)
[2022-03-09] MEDS: APIXABAN 5 MG TABLET PO ×2 (05:11→17:37)
[2022-03-09] MEDS: Spironolactone 25 MG Tablet PO (05:11)
[2022-03-09] MEDS: Potassium Chloride Oral Tablet 20 MEQ PO ×2 (08:33→17:37)
[2022-03-09] MEDS: Allopurinol 300 MG Tablet PO (08:34)
[2022-03-09] MEDS: Multivitamins,Therapeutic Tablet 1 TABLET PO (08:34)
[2022-03-09] MEDS: Menthol/Lanolin/Calamine/Znox 113 GM Tube 1 APPLIC TOPICAL ×2 (08:34→20:32)
[2022-03-09] MEDS: Nystatin Powder 15gm Bottle 1 APPLIC TOPICAL ×2 (08:35→20:32)
--- NOTE | 2022-03-09 14:30 | MDS.RN ---
Information for the mds was obtained from review of the clinical record, interview of resident, staff, and direct observation of resident's care.
[2022-03-09 16:00] VITALS: BP 107/63; PULSE 82; RESP 16; TEMP 36.6; O2SAT 94
[2022-03-09 17:37] VITALS: PULSE 82
[2022-03-09] MEDS: Tolterodine Tartrate 2 MG CAP.SA PO (20:33)
[2022-03-09] MEDS: Atorvastatin Calcium 40 MG Tablet PO (20:33)
[2022-03-10] MEDS: Acetaminophen 500 MG Tablet 1000 MG PO ×3 (06:18→21:35)
[2022-03-10 06:19] VITALS: BP 138/73; PULSE 83
[2022-03-10] MEDS: Levothyroxine 137 MCG Tablet PO (06:19)
[2022-03-10] MEDS: Metoprolol Tartrate 50 MG Tablet PO (06:19)
[2022-03-10] MEDS: hydroCHLOROthiazide 25 MG Tablet PO (06:19)
[2022-03-10] MEDS: APIXABAN 5 MG TABLET PO ×2 (06:19→17:46)
[2022-03-10] MEDS: Spironolactone 25 MG Tablet PO (06:19)
[2022-03-10] MEDS: Potassium Chloride Oral Tablet 20 MEQ PO ×2 (08:02→17:45)
[2022-03-10] MEDS: Multivitamins,Therapeutic Tablet 1 TABLET PO (08:02)
[2022-03-10] MEDS: Allopurinol 300 MG Tablet PO (08:03)
[2022-03-10] MEDS: Nystatin Powder 15gm Bottle 1 APPLIC TOPICAL ×2 (10:02→21:38)
[2022-03-10] MEDS: Menthol/Lanolin/Calamine/Znox 113 GM Tube 1 APPLIC TOPICAL ×2 (10:03→21:39)
--- NOTE | 2022-03-10 13:30 | NURSING ---
PT AND FAMILY UPDATED ON POSITIVE COVID PT.
[2022-03-10 15:00] VITALS: BP 102/56; PULSE 65; RESP 14; TEMP 36.9; O2SAT 94
[2022-03-10 17:46] VITALS: BP 105/66; PULSE 77
[2022-03-10 17:49] VITALS: BP 105/66; PULSE 77
[2022-03-10] MEDS: Atorvastatin Calcium 40 MG Tablet PO (21:35)
[2022-03-10] MEDS: Tolterodine Tartrate 2 MG CAP.SA PO (21:35)
[2022-03-11 05:44] LABS: Basophil# 0.02 X10^3/uL; Basophil% 0.3 % (0-1); Eosinophil# 0.12 X10^3/uL; Eosinophils% 1.7 % (0-5); Hematocrit 42.2 % (37-47); Hemoglobin 12.7 g/dL (12.0-15.0); Lymphocyte % 30.7 % (19-41); Mean Corp Hgb Conc 30.1 g/dL (32-36); Mean Corpuscular Hgb 28.6 pg (27.0-32.0); Mean Platelet Vol. 10.1 fl (6.2-12.0); Monocyte# 0.75 X10^3/uL; Monocyte% 10.5 % (0-10); NRBC Flagged by Analyzer 0 % (0-5); Neutrophil # 4.04 X10^3/uL (2.7-7.7); Neutrophil % 56.4 % (47-70); Platelet Count 234 K/mm3 (150-450); RBC Distribution Width CV 14.3 % (11.6-14.6); RBC Distribution Width SD 50.1 fl (35.1-43.9); Red Blood Count 4.44 M/mm3 (4.2-5.4); White Blood Count 7.2 K/mm3 (4.4-11.0)
[2022-03-11 06:09] LABS: Anion Gap 2 (5-15); BUN 22 mg/dL (7-18); BUN/Creat Ratio 26.4 RATIO (10-20); Calcium,Total 10.5 mg/dL (8.5-10.1); Chloride 106 mmol/L (98-107); Creatinine, Serum 0.83 mg/dL (0.55-1.02); EST Glomerular Filtration Rate 71 mL/min (>60); Est Glom Filt Rate - Afr Amer 86 mL/min (>60); Estimated Creatinine Clearance 55.13 ml/min; Glucose 113 mg/dL (74-106); Potassium 4.2 mmol/L (3.5-5.1); Sodium Level 138 mmol/L (136-145)
[2022-03-11] MEDS: hydroCHLOROthiazide 25 MG Tablet PO (07:01)
[2022-03-11] MEDS: Levothyroxine 137 MCG Tablet PO (07:01)
[2022-03-11] MEDS: Acetaminophen 500 MG Tablet 1000 MG PO ×3 (07:02→21:08)
[2022-03-11] MEDS: APIXABAN 5 MG TABLET PO ×2 (07:03→18:19)
[2022-03-11] MEDS: Spironolactone 25 MG Tablet PO (07:03)
[2022-03-11 07:04] VITALS: BP 107/76; PULSE 88
[2022-03-11] MEDS: Metoprolol Tartrate 50 MG Tablet PO (07:04)
[2022-03-11] MEDS: Allopurinol 300 MG Tablet PO (10:08)
[2022-03-11] MEDS: Nystatin Powder 15gm Bottle 1 APPLIC TOPICAL ×2 (10:09→21:09)
[2022-03-11] MEDS: Multivitamins,Therapeutic Tablet 1 TABLET PO (10:09)
[2022-03-11] MEDS: Potassium Chloride Oral Tablet 20 MEQ PO ×2 (10:09→18:19)
[2022-03-11] MEDS: Menthol/Lanolin/Calamine/Znox 113 GM Tube 1 APPLIC TOPICAL ×2 (10:10→21:09)
[2022-03-11 15:55] VITALS: BP 98/70; PULSE 86; RESP 18; TEMP 36.3; O2SAT 91
[2022-03-11 18:17] VITALS: BP 96/55; PULSE 82
[2022-03-11] MEDS: Atorvastatin Calcium 40 MG Tablet PO (21:08)
[2022-03-11] MEDS: Tolterodine Tartrate 2 MG CAP.SA PO (21:08)
[2022-03-12] MEDS: Acetaminophen 500 MG Tablet 1000 MG PO ×3 (06:32→20:59)
[2022-03-12] MEDS: Spironolactone 25 MG Tablet PO (06:32)
[2022-03-12] MEDS: APIXABAN 5 MG TABLET PO ×2 (06:32→17:17)
[2022-03-12] MEDS: hydroCHLOROthiazide 25 MG Tablet PO (06:32)
[2022-03-12] MEDS: Levothyroxine 137 MCG Tablet PO (06:32)
[2022-03-12 06:33] VITALS: BP 109/68; PULSE 89
[2022-03-12] MEDS: Metoprolol Tartrate 50 MG Tablet PO ×2 (06:33→17:16)
[2022-03-12] MEDS: Multivitamins,Therapeutic Tablet 1 TABLET PO (07:48)
[2022-03-12] MEDS: Potassium Chloride Oral Tablet 20 MEQ PO ×2 (07:48→17:16)
[2022-03-12] MEDS: Allopurinol 300 MG Tablet PO (07:48)
[2022-03-12 10:00] VITALS: O2SAT 96
[2022-03-12] MEDS: Menthol/Lanolin/Calamine/Znox 113 GM Tube 1 APPLIC TOPICAL ×2 (11:59→20:58)
[2022-03-12] MEDS: Nystatin Powder 15gm Bottle 1 APPLIC TOPICAL ×2 (11:59→21:02)
[2022-03-12 16:00] VITALS: BP 111/66; PULSE 80; RESP 18; TEMP 36.5; O2SAT 94
[2022-03-12 17:16] VITALS: PULSE 84
[2022-03-12] MEDS: Tolterodine Tartrate 2 MG CAP.SA PO (20:59)
[2022-03-12] MEDS: Atorvastatin Calcium 40 MG Tablet PO (20:59)
[2022-03-13] MEDS: APIXABAN 5 MG TABLET PO ×2 (05:41→17:23)
[2022-03-13] MEDS: Levothyroxine 137 MCG Tablet PO (05:41)
[2022-03-13] MEDS: Acetaminophen 500 MG Tablet 1000 MG PO ×3 (05:41→22:08)
[2022-03-13] MEDS: hydroCHLOROthiazide 25 MG Tablet PO (05:41)
[2022-03-13 05:42] VITALS: BP 114/62; PULSE 82
[2022-03-13] MEDS: Metoprolol Tartrate 50 MG Tablet PO (05:42)
[2022-03-13] MEDS: Spironolactone 25 MG Tablet PO (05:42)
[2022-03-13] MEDS: Potassium Chloride Oral Tablet 20 MEQ PO ×2 (08:19→17:23)
[2022-03-13] MEDS: Allopurinol 300 MG Tablet PO (08:19)
[2022-03-13] MEDS: Multivitamins,Therapeutic Tablet 1 TABLET PO (08:19)
[2022-03-13] MEDS: Nystatin Powder 15gm Bottle 1 APPLIC TOPICAL ×2 (10:46→22:10)
[2022-03-13] MEDS: Menthol/Lanolin/Calamine/Znox 113 GM Tube 1 APPLIC TOPICAL ×2 (10:46→22:12)
[2022-03-13] MEDS: Ergocalciferol 1.25 MG (50, 000 UNIT) Capsule PO (14:05)
[2022-03-13 16:00] VITALS: BP 99/61; PULSE 73; RESP 24; TEMP 36.6; O2SAT 96
[2022-03-13] MEDS: Atorvastatin Calcium 40 MG Tablet PO (22:08)
[2022-03-13] MEDS: Tolterodine Tartrate 2 MG CAP.SA PO (22:08)
[2022-03-14] MEDS: Acetaminophen 500 MG Tablet 1000 MG PO ×3 (05:32→21:18)
[2022-03-14] MEDS: hydroCHLOROthiazide 25 MG Tablet PO (05:32)
[2022-03-14] MEDS: APIXABAN 5 MG TABLET PO ×2 (05:32→17:21)
[2022-03-14] MEDS: Spironolactone 25 MG Tablet PO (05:32)
[2022-03-14] MEDS: Levothyroxine 137 MCG Tablet PO (05:32)
[2022-03-14 05:33] VITALS: BP 96/51; PULSE 96
[2022-03-14] MEDS: Potassium Chloride Oral Tablet 20 MEQ PO ×2 (09:07→17:20)
[2022-03-14] MEDS: Allopurinol 300 MG Tablet PO (09:07)
[2022-03-14] MEDS: Multivitamins,Therapeutic Tablet 1 TABLET PO (09:07)
[2022-03-14] MEDS: Nystatin Powder 15gm Bottle 1 APPLIC TOPICAL ×2 (09:58→21:19)
[2022-03-14] MEDS: Menthol/Lanolin/Calamine/Znox 113 GM Tube 1 APPLIC TOPICAL ×2 (09:59→21:19)
[2022-03-14] MEDS: Albuterol Sulfate 8 gm Inhaler (60 puffs) 2 PUFF INHALATION (14:14)
[2022-03-14] MEDS: traMADol 50 MG Tablet PO ×2 (14:22→21:16)
[2022-03-14 14:24] VITALS: BP 109/68; PULSE 94; RESP 16; TEMP 36.2; O2SAT 99
--- NOTE | 2022-03-14 14:24 | NURSING ---
PT STATED SHE WAS NOT FEELING WELL KIND OF LIGHT HEADED AND ACHY AND REALLY THIRSTY TODAY. VITALS DONE,PRN INHALER AND PRN PAIN MED GIVEN,ENCOURAGED PT TO DRINK MORE WATER. WILL CONTINUE TO MONITOR. RN AWARE
[2022-03-14 14:28] VITALS: BP 106/79; PULSE 88; O2SAT 97
[2022-03-14 17:20] VITALS: BP 107/67; PULSE 98
[2022-03-14 17:21] VITALS: BP 107/67; PULSE 98
[2022-03-14] MEDS: Metoprolol Tartrate 50 MG Tablet PO (17:21)
[2022-03-14] MEDS: Atorvastatin Calcium 40 MG Tablet PO (21:18)
[2022-03-14] MEDS: Tolterodine Tartrate 2 MG CAP.SA PO (21:18)
[2022-03-14 22:00] VITALS: O2SAT 94
[2022-03-15 06:17] VITALS: BP 104/66; PULSE 79
[2022-03-15] MEDS: Metoprolol Tartrate 50 MG Tablet PO ×2 (06:17→17:42)
[2022-03-15] MEDS: hydroCHLOROthiazide 25 MG Tablet PO (06:17)
[2022-03-15] MEDS: Acetaminophen 500 MG Tablet 1000 MG PO ×3 (06:17→20:46)
[2022-03-15] MEDS: Levothyroxine 137 MCG Tablet PO (06:18)
[2022-03-15] MEDS: Spironolactone 25 MG Tablet PO (06:18)
[2022-03-15] MEDS: APIXABAN 5 MG TABLET PO ×2 (06:18→17:42)
--- NOTE | 2022-03-15 07:39 | RAD_ITS ---
STUDY: X-RAY CHEST REASON FOR EXAM: Female, 71 years old. Shortness of breath, congestion. TECHNIQUE: PA and lateral views of the chest. COMPARISON: Comparison is made with prior study dated 02/22/2022. FINDINGS: Hyperinflation. Mild increased linear markings at the lung bases suggesting mild scarring. There has been no change. There is no demonstrated pleural abnormality. Normal size heart. Normal mediastinum and kitty. Normal visualized pulmonary arteries. There is atherosclerotic calcification of the aortic arch with tortuosity. There are diffuse degenerative changes of the visualized thoracic spine. There is degenerative osteoarthritis of the bilateral shoulders. There is no demonstrated abnormality of the visualized soft tissue structures of the upper abdomen. RAD/Chest PA and Lateral IMPRESSION: Hyperinflation. Mild degree of increased markings at the lung bases suggestive of mild linear scarring. Electronically Signed: Zay Allen MD at 14:01 EDT ,
[2022-03-15] MEDS: Potassium Chloride Oral Tablet 20 MEQ PO ×2 (07:51→17:41)
[2022-03-15] MEDS: Multivitamins,Therapeutic Tablet 1 TABLET PO (07:51)
[2022-03-15] MEDS: Allopurinol 300 MG Tablet PO (07:52)
--- NOTE | 2022-03-15 08:50 | CASEMGMT ---
Social Work Spoke with dtr to discuss DC plans. IDT recommending DC this weekend. Dtr prefers 03/18 and can transport at 1700. SW to order rollator and HHC. Dtr agreeable. SW spoke with pt to inform of DC 03/18. Pt agreeable. SW to order rollator but has $60 fee OOP. Pt agreeable to pay prior to getting device. SW offered [facility] list of providers that includes quality and resource use data and consistent with the patient?s preferred geographic region, medical needs, and insurance network. Pt denied stating [facility] used [facility] prior and would prefer to use at DC. [place] [facility] referral to [facility] for PT/OT/SN/ALCALA. Plan: DC home with dtr 03/18, [facility] PT/OT/SN/ALCALA, rollator CED MontañoW
[2022-03-15] MEDS: Nystatin Powder 15gm Bottle 1 APPLIC TOPICAL ×2 (10:09→20:51)
[2022-03-15] MEDS: Menthol/Lanolin/Calamine/Znox 113 GM Tube 1 APPLIC TOPICAL ×2 (10:10→20:52)
[2022-03-15 10:40] VITALS: PULSE 81; RESP 18; O2SAT 96
--- NOTE | 2022-03-15 13:26 | NURSING ---
PT AND FAMILY UPDATED ON STAFF MEMBER TESTING POSITIVE FOR COVID.
[2022-03-15 13:41] VITALS: BP 97/66; PULSE 71; RESP 18; TEMP 36.2; O2SAT 98
[2022-03-15 17:42] VITALS: BP 109/63; PULSE 90
[2022-03-15 17:44] VITALS: BP 109/63; PULSE 90
--- NOTE | 2022-03-15 20:43 | DS.PCM_ITS ---
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 of anticoagulants (5) THOMAS (obstructive sleep apnea): Status: Inactive Code(s): G47.33 - Obstructive sleep apnea (adult) (pediatric) Medications at Discharge Home Medications multivitamin with folic acid 400 mcg tablet (Thera) 1 tab PO DAILY SUPPLEMENT 09/17/14 allopurinol 300 mg tablet 300 mg PO DAILY Gout 07/27/15 cholecalciferol (vitamin D3) 1,250 mcg (50,000 unit) capsule 1,250 mcg PO SWEET SUPPLEMENT 09/24/21 levothyroxine 137 mcg tablet 137 mcg PO DAILY THYROID 09/24/21 trospium 20 mg tablet 20 mg PO QHS BLADDER 09/24/21 acetaminophen 500 mg tablet 1,000 mg PO TID Pain 1-10 11/10/21 albuterol sulfate 90 mcg/actuation aerosol inhaler 2 puff inhalation Q6H PRN Wheezing 11/10/21 spironolactone 25 mg-hydrochlorothiazide 25 mg tablet 1 tab PO DAILY Fluid retention 02/15/22 apixaban 5 mg tablet (Eliquis) 5 mg PO BID Blood thinner 02/24/22 metoprolol tartrate 50 mg tablet 50 mg PO BID BP 02/24/22 potassium chloride 20 mEq tablet,extended release(part/cryst) (Klor-Con M) 20 meq PO BIDCM Supplement 02/24/22 atorvastatin 40 mg tablet 40 mg PO QHS Cholestrol 30 days #30 tabs 03/15/22 Hospital Course Operations None Procedures None Summary of Care Provided Minutes Spent on Discharge: 35 Hospital Course: 71 year old female with below past medical history hospitalized for stroke, admitted to TCU with debility, here for rehabilitation, strengthening, prior to discharge home. Discharge home with daughter 03/18/2022, [facility] Care PT/OT/SN/ALCALA, Rollator. Physical Exam Const alert General Appearance: cooperative HEENT normocephalic Eyes PERRL and EOMs intact bilaterally Neck supple, no JVD and no carotid bruits Resp normal respiratory effort, normal air movement and clear to auscultation bilaterally Cardio regular rate and regular rhythm GI normal to inspection, nondistended, normoactive bowel sounds, non-tender and non-distended Extremity normal capillary refill General Extremity: Negative for edema Skin no rashes or lesions noted General Skin Exam: no breakdown Psych affect normal Appearance: appropriate Weight / BMI Weight Weight: 142.541 kg Body Mass Index (BMI) 54.2 ABG / Lab / Microbiology Data Result Diagrams: 03/11/22 05:14 03/11/22 05:14 Microbiology: Microbiology 03/15/22 07:45 Nasal Secretion SARS-CoV-2 Antigen (Rapid) - Final 03/10/22 Unknown Nasal Secretion SARS-CoV-2 Antigen (Rapid) - Final 03/01/22 07:00 Nasal Secretion SARS-CoV-2 Antigen (Rapid) - Final Radiography Diagnostic Testing: Radiology Impression Chest X-Ray 03/15/22 07:39 IMPRESSION: Hyperinflation. Mild degree of increased markings at the lung bases suggestive of mild linear scarring. Electronically Signed: Zay Allen MD at 14:01 EDT Reading Location ID and State: [address] [place] [address] , Service support , D/C Instructions Discharge Diet: No restrictions Discharge Activity: Return to Normal Activity, May Shower and Use Walker Weight Bearing Status: Weight bearing as tolerated Call your doctor if you observe: Fever of 101 or Higher, Inability to urinate, Inability to have a bowel movement, Shortness of breath, Dizziness, Fainting sp ells, Swelling in the ankles, Chest pain and Uncontrolled pain Additional Instructions: Discharge home with daughter 03/18/2022, [facility] Care PT/OT/SN/ALCALA, Rollator. Please Follow Up With: Luke Meier MD When: 4 weeks. Meaningful Use Info Meaningful Use Diagnoses (Choose all that apply): None applicable Discharge Plan Admission Admit Date/Time: 02/24/22 14:32 Primary Reason for Your Visit: Debility. Attending Provider: Felicia Argueta Primary Care Provider: Gregg Plasencia NP Instructions Additional Instructions / Restrictions: Discharge home with daughter 03/18/2022, [facility] PT/OT/SN/ALCALA, Joanneamanda. Discharge Orders/Prescriptions Prescriptions: Continued spironolacton-hydrochlorothiaz 25-25 mg tablet 1 tab PO DAILY multivitamin with folic acid [Thera] 1 TABLET tablet 1 tab PO DAILY allopurinol 300 MG tablet 300 mg PO DAILY levothyroxine 137 mcg tablet 137 mcg PO DAILY Label Comments: TAKE 1 TABLET DAILY trospium 20 mg tablet 20 mg PO QHS Label Comments: TAKE 1 TABLET BY MOUTH EVERY DAY cholecalciferol (vitamin D3) 1,250 mcg (50,000 unit) capsule 1,250 mcg PO SWEET Label Comments: TAKE 1 CAPSULE BY MOUTH EVERY WEEK albuterol sulfate 90 mcg/actuation Hfa Aerosol Inhaler 2 puff INHALATION Q6H PRN (Reason: Wheezing) acetaminophen 500 mg Tablet 1,000 mg PO TID potassium chloride [Klor-Con M20] 20 mEq tablet,ER particles/crystals 20 meq PO BIDCM metoprolol tartrate 50 mg tablet 50 mg PO BID Eliquis 5 mg tablet 5 mg PO BID atorvastatin 40 mg tablet 40 mg PO QHS 30 Days Qty: 30 0RF Discontinued tramadol 50 mg Tablet 50 mg PO Q6H PRN (Reason: Pain) 3 Days Qty: 12 0RF Referrals / Follow Up: Gregg Plasencia NP, VACUUM EXTRACTOR OPERATOR-C [Primary Care Provider] - 03/25/22 11:00 am (will call if they have anything sooner than this) Disposition Disposition (needs filled in before D/C Order can be placed): Home Health Service
[2022-03-15] MEDS: traMADol 50 MG Tablet PO (20:44)
[2022-03-15] MEDS: Tolterodine Tartrate 2 MG CAP.SA PO (20:45)
[2022-03-15] MEDS: Atorvastatin Calcium 40 MG Tablet PO (20:46)
[2022-03-16] MEDS: Spironolactone 25 MG Tablet PO (05:39)
[2022-03-16] MEDS: APIXABAN 5 MG TABLET PO ×2 (05:39→18:09)
[2022-03-16 05:40] VITALS: BP 92/60; PULSE 77
[2022-03-16] MEDS: Metoprolol Tartrate 50 MG Tablet PO ×2 (05:40→18:11)
[2022-03-16] MEDS: Acetaminophen 500 MG Tablet 1000 MG PO ×3 (05:40→21:04)
[2022-03-16] MEDS: Levothyroxine 137 MCG Tablet PO (05:40)
[2022-03-16] MEDS: hydroCHLOROthiazide 25 MG Tablet PO (05:40)
[2022-03-16] MEDS: Allopurinol 300 MG Tablet PO (07:54)
[2022-03-16] MEDS: Multivitamins,Therapeutic Tablet 1 TABLET PO (07:54)
[2022-03-16] MEDS: Potassium Chloride Oral Tablet 20 MEQ PO ×2 (07:54→18:09)
[2022-03-16] MEDS: Menthol/Lanolin/Calamine/Znox 113 GM Tube 1 APPLIC TOPICAL ×2 (09:01→21:04)
[2022-03-16] MEDS: Nystatin Powder 15gm Bottle 1 APPLIC TOPICAL ×2 (09:02→21:04)
--- NOTE | 2022-03-16 11:23 | CASEMGMT ---
Social Work BIMS () and PHQ-9 (11/17) completed for MDS assessment. Aster Marquez MSW MEASUREMENT SUPERVISOR
[2022-03-16] MEDS: Albuterol Sulfate 8 gm Inhaler (60 puffs) 2 PUFF INHALATION (14:12)
[2022-03-16 14:45] VITALS: BP 111/75; PULSE 85; RESP 20; TEMP 36.2; O2SAT 100
[2022-03-16 18:11] VITALS: PULSE 84
--- NOTE | 2022-03-16 19:52 | NURSING ---
left voicemail for daughter and stated to call back for a non emergent update.
--- NOTE | 2022-03-16 19:53 | NURSING ---
edda called back and notified of patient on unit testing positive for Covid
[2022-03-16] MEDS: Atorvastatin Calcium 40 MG Tablet PO (21:04)
[2022-03-16] MEDS: Tolterodine Tartrate 2 MG CAP.SA PO (21:04)
[2022-03-17 06:53] VITALS: BP 103/58; PULSE 83
[2022-03-17 06:57] VITALS: PULSE 83
[2022-03-17] MEDS: Spironolactone 25 MG Tablet PO (06:57)
[2022-03-17] MEDS: Acetaminophen 500 MG Tablet 1000 MG PO ×3 (06:57→21:05)
[2022-03-17] MEDS: Levothyroxine 137 MCG Tablet PO (06:57)
[2022-03-17] MEDS: APIXABAN 5 MG TABLET PO ×2 (06:57→17:56)
[2022-03-17] MEDS: Metoprolol Tartrate 50 MG Tablet PO ×2 (06:57→17:57)
[2022-03-17] MEDS: hydroCHLOROthiazide 25 MG Tablet PO (06:57)
[2022-03-17] MEDS: Potassium Chloride Oral Tablet 20 MEQ PO ×2 (08:16→17:56)
[2022-03-17] MEDS: Multivitamins,Therapeutic Tablet 1 TABLET PO (08:16)
[2022-03-17] MEDS: Allopurinol 300 MG Tablet PO (08:17)
[2022-03-17] MEDS: Menthol/Lanolin/Calamine/Znox 113 GM Tube 1 APPLIC TOPICAL ×2 (08:17→21:03)
[2022-03-17] MEDS: Nystatin Powder 15gm Bottle 1 APPLIC TOPICAL ×2 (08:17→21:03)
[2022-03-17 15:41] VITALS: BP 107/63; PULSE 85; RESP 20; TEMP 36.4; O2SAT 96
[2022-03-17 17:57] VITALS: BP 107/63; PULSE 85
[2022-03-17] MEDS: Atorvastatin Calcium 40 MG Tablet PO (21:05)
[2022-03-17] MEDS: Tolterodine Tartrate 2 MG CAP.SA PO (21:05)
[2022-03-18 05:46] LABS: Absolute Lymphocyte Count 2.13 X10^3/uL (0.83-4.51); Absolute Neutrophil Count 4.2 X10^3/uL (2.0-7.7); Basophil# 0.01 X10^3/uL; Basophil% 0.1 % (0-1); Eosinophils% 1.4 % (0-5); Hematocrit 42.2 % (37-47); Hemoglobin 12.9 g/dL (12.0-15.0); Lymphocyte # 2.13 X10^3/ul (0.83-4.51); Lymphocyte % 29.1 % (19-41); Mean Corp Hgb Conc 30.6 g/dL (32-36); Mean Corpuscular Hgb 28.9 pg (27.0-32.0); Mean Corpuscular Volume 94.4 fL (81-99); Mean Platelet Vol. 10.1 fl (6.2-12.0); Monocyte# 0.89 X10^3/uL; Monocyte% 12.2 % (0-10); NRBC Flagged by Analyzer 0 % (0-5); Neutrophil # 4.15 X10^3/uL (2.7-7.7); Neutrophil % 56.7 % (47-70); Platelet Count 223 K/mm3 (150-450); RBC Distribution Width SD 48.5 fl (35.1-43.9); Red Blood Count 4.47 M/mm3 (4.2-5.4); White Blood Count 7.3 K/mm3 (4.4-11.0)
[2022-03-18 05:58] VITALS: BP 107/72; PULSE 83
[2022-03-18 05:59] VITALS: PULSE 83
[2022-03-18] MEDS: Metoprolol Tartrate 50 MG Tablet PO (05:59)
[2022-03-18] MEDS: APIXABAN 5 MG TABLET PO (05:59)
[2022-03-18] MEDS: hydroCHLOROthiazide 25 MG Tablet PO (05:59)
[2022-03-18] MEDS: Spironolactone 25 MG Tablet PO (05:59)
[2022-03-18] MEDS: Acetaminophen 500 MG Tablet 1000 MG PO ×2 (05:59→13:31)
[2022-03-18] MEDS: Levothyroxine 137 MCG Tablet PO (05:59)
[2022-03-18 06:16] LABS: Anion Gap 4 (5-15); BUN 20 mg/dL (7-18); Calcium,Total 10.4 mg/dL (8.5-10.1); Chloride 104 mmol/L (98-107); Creatinine, Serum 0.87 mg/dL (0.55-1.02); EST Glomerular Filtration Rate 68 mL/min (>60); Est Glom Filt Rate - Afr Amer 82 mL/min (>60); Glucose 113 mg/dL (74-106); Potassium 3.9 mmol/L (3.5-5.1); Sodium Level 136 mmol/L (136-145)
[2022-03-18] MEDS: Potassium Chloride Oral Tablet 20 MEQ PO (07:55)
[2022-03-18] MEDS: Multivitamins,Therapeutic Tablet 1 TABLET PO (07:55)
[2022-03-18] MEDS: Allopurinol 300 MG Tablet PO (07:55)
[2022-03-18] MEDS: Nystatin Powder 15gm Bottle 1 APPLIC TOPICAL (11:06)
[2022-03-18] MEDS: Menthol/Lanolin/Calamine/Znox 113 GM Tube 1 APPLIC TOPICAL (11:06)
[2022-03-18 14:56] VITALS: BP 108/62; PULSE 87; RESP 19; TEMP 35.8; O2SAT 98
== END 2022-03-18 16:54 | disposition home health service (06) | DRG 292 ==
PROVIDERS: Admitting Provider Internal Medicine; PCP Nurse Practitioner Family; Visit Provider Internal Medicine
DX: I11.0 Hypertensive heart disease with heart failure (principal); I48.19 Other persistent atrial fibrillation; Z79.01 Long term (current) use of anticoagulants; I50.42 Chronic combined systolic (congestive) and diastolic (congestive) heart failure; E03.9 Hypothyroidism, unspecified; E78.5 Hyperlipidemia, unspecified; G47.33 Obstructive sleep apnea (adult) (pediatric); E87.6 Hypokalemia; Z79.899 Other long term (current) drug therapy; Z79.890 Hormone replacement therapy
CPT/HCPCS: 36415; 71046; 80048; 85025; 85270; 87426; 87811; 92523; 92610; 97110; 97116; 97162; 97166; 97530; 97535; 97802; A4216

== ENCOUNTER 2022-03-30 15:13 | Outpatient (RCR) | payer MEDICARE, OTHER, SELFPAY ==
[2022-03-30 15:55] LABS: Hematocrit 42.2 % (37-47); Hemoglobin 12.8 g/dL (12.0-15.0); Mean Corp Hgb Conc 30.3 g/dL (32-36); Mean Corpuscular Volume 95.5 fL (81-99); Mean Platelet Vol. 11.1 fl (6.2-12.0); Platelet Count 209 K/mm3 (150-450); RBC Distribution Width CV 14.5 % (11.6-14.6); RBC Distribution Width SD 50.6 fl (35.1-43.9); Red Blood Count 4.42 M/mm3 (4.2-5.4)
[2022-03-30 16:05] LABS: BNP,B-Type NATRIURETIC PEPTIDE 195.3 pg/mL (0-100)
[2022-03-30 17:34] LABS: Vitamin D,25 Hydroxy 77.5 ng/mL
[2022-03-30 17:41] LABS: ALB/GLOB Ratio 0.7 RATIO (0.9-2.4); AST(SGOT) 24 U/L (15-37); Alanine Aminotransfer ALT/SGPT 44 U/L (13-56); Albumin, Serum 3.1 g/dL (3.2-5.0); Alkaline Phosphatase 127 U/L (45-117); Anion Gap 8 (5-15); BUN 22 mg/dL (7-18); BUN/Creat Ratio 24.3 RATIO (10-20); Calcium,Total 10.7 mg/dL (8.5-10.1); Chloride 106 mmol/L (98-107); Creatinine, Serum 0.91 mg/dL (0.55-1.02); EST Glomerular Filtration Rate 65 mL/min (>60); Est Glom Filt Rate - Afr Amer 78 mL/min (>60); Globulin 4.3 g/dL (2.2-4.2); Glucose 109 mg/dL (74-106); Potassium 4.4 mmol/L (3.5-5.1); Protein, Total 7.4 g/dL (6.4-8.2); Sodium Level 139 mmol/L (136-145); Thyroid Stim Hormone (TSH) 1.42 uIU/mL (0.358-3.74)
== END 2022-03-30 18:00 | disposition home or self-care (01) ==
LOC: HHLAB 15:13
PROVIDERS: PCP Nurse Practitioner Family; Visit Provider Nurse Practitioner Family
DX: I48.91 Unspecified atrial fibrillation (principal); Z86.73 Personal history of transient ischemic attack (TIA), and cerebral infarction without residual deficits; I50.9 Heart failure, unspecified; N18.30 Chronic kidney disease, stage 3 unspecified
CPT/HCPCS: 80053; 82306; 83880; 84443; 85027

== ENCOUNTER → 2022-04-20 | Outpatient (CLI) | payer MEDICARE, OTHER, SELFPAY ==
--- NOTE | 2022-04-20 18:04 | STRESSREP ---
Stress Test Report Pharmacologic myocardial perfusion stress test. 71-year-old lady with a history of atrial fibrillation. Stress protocol: Resting KG demonstrates atrial fibrillation with a rate of 84 bpm normal intervals are noted resting blood pressure is 106/68 mmHg. 0.4 mg of regadenoson was infused per usual protocol followed by wrap intravenous saline flush injection continuous EKG monitoring was performed. The maximum heart rate attained was 104 bpm which was 70% of max impacted heart rate the maximum workload was 1 metabolic equivalent. At rest there were no ST or T wave changes noted to suggest abnormal flow reserve and at peak infusion nonspecific ST changes were noted we did not meet the criteria for ischemia. No clinical angina was noted the final blood pressure was 94/62 mmHg. Myocardial perfusion protocol. Left 14.6 mCi of technetium 99m sestamibi was injected at rest. 0.4 mg of regadenoson was infused per usual protocol. At peak infusion 44.9 mCi of technetium 99m sestamibi was injected stress images were obtained stress and rest images were reconstructed in comparing the short axis vertical and horizontal long axis. Gated images were also obtained Perfusion SPECT analysis: Review of the stress images demonstrate mildly reduced perfusion noted in the mid anterior wall the resting images similar demonstrate mild reduction in the mid anterior wall. The above is likely suggestive of anterior breast wall attenuation. Previous mild infarct cannot be excluded. No significant reversibility is noted suggest ischemia. Gated SPECT analysis: The gated ejection fraction is 49%. Conclusion: Pharmacologic myocardial perfusion stress test with no obvious ischemia noted. Mild anterior breast attenuation or previous infarct is noted. Mild cardiomyopathy present.
== END | disposition home or self-care (01) ==
LOC: CVS 06:07
PROVIDERS: PCP Nurse Practitioner Family; Visit Provider Physician Assistant Medical
DX: R07.9 Chest pain, unspecified (principal)
CPT/HCPCS: 78452; 93017; A9500; A4216; J2785

== ENCOUNTER → 2022-09-15 | Outpatient (CLI) | payer MEDICARE, OTHER, SELFPAY ==
--- NOTE | 2022-09-15 12:50 | ECHOD_ITS ---
Reason For Study: SOB Procedure This was a 2D Doppler, Color Flow transthoracic echocardiogram. Exam performed in department. Left Ventricle Normal size and thickness. The left ventricular ejection fraction is 40 %. Diastolic function is indeterminate. Right Ventricle Normal right ventricle. Atria The left atrium is severely enlarged. The right atrium is moderately enlarged. Mitral Valve Mild focal mitral valve calcification of the posterior leaflet. Mild (1+) mitral valve insufficiency. Tricuspid Valve Moderate (2+) tricuspid valve insufficiency. Right ventricular systolic pressure estimated to be 38 mmHg. Mild pulmonary hypertension. Aortic Valve Aortic sclerosis, no stenosis. Pulmonic Valve The pulmonic valve is not well visualized. Great Vessels Normal sized aortic root. Pericardium/Pleural No pericardial effusion. MMode/2D Measurements & Calculations LVIDd: 5.4 cm IVSd: 1.1 cm Ao root diam: 3.2 cm LVIDs: 3.9 cm LVPWd: 0.88 cm FS: 28.0 % LAV(MOD-bp): 88.9 ml LVAd ap4: 28.0 cm2 LVAd ap2: 28.5 cm2 LAV(MOD-bp) Indexed: 37.1 ml/m2 LVLd ap4: 8.1 cm LVLd ap2: 7.7 cm LAV(MOD-sp2): 75.7 ml EDV(MOD-sp4): 81.9 ml EDV(MOD-sp2): 88.4 ml LAV(MOD-sp4): 92.8 ml EDV(sp4-el): 82.3 ml EDV(sp2-el): 89.5 ml LVAs ap4: 20.1 cm2 LVAs ap2: 20.2 cm2 LVLs ap4: 7.3 cm LVLs ap2: 6.6 cm ESV(MOD-sp4): 50.4 ml ESV(MOD-sp2): 50.9 ml ESV(sp4-el): 47.4 ml ESV(sp2-el): 52.4 ml EF(MOD-sp4): 38.4 % EF(MOD-sp2): 42.5 % EF(sp4-el): 42.5 % SV(MOD-sp4): 31.4 ml SV(MOD-sp2): 37.5 ml SV(sp4-el): 35.0 ml LA dimension(2D): 4.8 cm LA A4 area: 29.5 cm2 RA A4 area: 24.9 cm2 Doppler Measurements & Calculations MV E max stefan: 86.1 cm/sec MV V2 max: 91.2 cm/sec Ao V2 max: 128.1 cm/sec MV max P.3 mmHg Ao max P.6 mmHg MV V2 mean: 50.4 cm/sec Ao V2 mean: 99.2 cm/sec MV mean P.3 mmHg Ao mean P.3 mmHg MV V2 VTI: 22.5 cm Ao V2 VTI: 25.8 cm AV (velocity ratio): 0.67 LV V1 max: 90.5 cm/sec TR max stefan: 286.2 cm/sec LV V1 max P.3 mmHg TR max P.8 mmHg LV V1 mean P.1 mmHg LV V1 mean: 68.2 cm/sec LV V1 VTI: 17.3 cm ECHO/Echo Complete Interpretation Summary The left ventricular ejection fraction is 40 %. Diastolic function is indeterminate. The left atrium is severely enlarged. Mild (1+) mitral valve insufficiency. Moderate (2+) tricuspid valve insufficiency. Mild pulmonary hypertension. Aortic sclerosis, no stenosis. The right atrium is moderately enlarged. Ordering Physician: David Gomez V Referring Physician: BRIGIDO LATIF Performed By: Magy Dunn RCS
== END | disposition home or self-care (01) ==
PROVIDERS: PCP Nurse Practitioner Family; Visit Provider Internal Medicine Pulmonary Disease
DX: R06.02 Shortness of breath (principal)
CPT/HCPCS: 93306

== ENCOUNTER → 2023-08-28 | Outpatient (CLI) | payer MEDICARE, OTHER, SELFPAY ==
--- NOTE | 2023-08-28 12:20 | US_ITS ---
STUDY: RENAL ULTRASOUND - COMPLETE REASON FOR EXAM: Female, 73 years old. CHRONIC KIDNEY DISEASE TECHNIQUE: Ultrasound evaluation of the kidneys was performed with real-time and static raymond-scale imaging. COMPARISON: None. FINDINGS: RIGHT KIDNEY: Normal location of the right kidney, which is normal in size. The right kidney measures 11.8 cm x 4.4 cm x 4.6 cm. There is diffuse thinning of the renal cortex. The renal cortex measures 2.6 cm. There is no right renal mass or cyst. There are no right renal calculi. There is moderate hydronephrosis of the right kidney. DISTAL RIGHT URETER: There is non-visualization of the distal right ureter. There is no demonstrated right ureterovesical junction calculus. There is a visualized right ureteral jet. LEFT KIDNEY: Normal location of the left kidney, which is normal in size. The left kidney measures 12.7 cm x 4.87 x 5.4 cm. There is a normal cortex of the left kidney. The renal cortex measures 0.9 cm. There is no left renal mass or cyst. There are no left renal calculi. There is no left hydronephrosis. DISTAL LEFT URETER: There is non-visualization of the distal left ureter. There is no demonstrated left ureterovesical junction calculus. There is a visualized left ureteral jet. BLADDER: The distended urinary bladder has a volume of 172 ml. There is a normal wall thickness of the distended urinary bladder. There is no demonstrated mass within the urinary bladder. There are no demonstrated bladder calculi. US/Kidney and Bladder IMPRESSION: Right renal cortical thinning. Moderate degree of right hydronephrosis. Electronically Signed: Zay Allen MD at 15:06 EST ,
--- OUTSIDE RECORDS SUMMARY | 2023-08-28 12:50 | XMS RPT_ITS | CCD ---
Author Name Unknown Address [address] [facility], [address] [place] [address] Organization [facility] Care Team Providers Care Venetian Blind Tape Cutter Name Role Phone Emile Jensen MD Unavailable BHAVYA CONING MACHINE OPERATOR - GREGG WILLIAMSON [facility] Gre[facility] Plasencia CNP Primary Care Provider SHYANN, SIDDHARTH Admitting Unavailable BHAVYA, GREGG Primary Care Unavailable SHYANN, SIDDHARTH Attending Unavailable BHAVYA, GREGG Primary Care Unavailable SHYANN, SIDDHARTH Admitting Unavailable SHYANN, SIDDHARTH Attending Unavailable SHYANN, SIDDHARTH Referring Unavailable BHAVYA, GREGG Primary Care Unavailable SHYANN, SIDDHARTH Admitting Unavailable SHYANN, SIDDHARTH Attending Unavailable SHYANN, SIDDHARTH Attending Unavailable YAYA FREITAS Referring Unavailable BHAVYA, GREGG Primary Care Unavailable BHAVYA CONING MACHINE OPERATOR - TERI, GREGG Boyle Primary Care U navailable BHAVYA CONING MACHINE OPERATOR - TERI, GREGG Boyle Attending U navailable BHAVYA CONING MACHINE OPERATOR - [place] HCM DEVELOPER, GRGEG Boyle Primary Care U navailable BHAVYA CONING MACHINE OPERATOR - [place] HCM DEVELOPER, GREGG Boyle Attending U navailable BHAVYA CONING MACHINE OPERATOR - [place] HCM DEVELOPER, GREGG Boyle Primary Care U navailable BHAVYA CONING MACHINE OPERATOR - [place] HCM DEVELOPER, GREGG Boyle Attending U navailable BHAVYA CONING MACHINE OPERATOR - [place] HCM DEVELOPER, GREGG Boyle Primary Care U navailable BHAVYA CONING MACHINE OPERATOR - [place] HCM DEVELOPER, GREGG Boyle Attending U navailable Allergies Allergy Classification Reported Allergen(s) Allergy Type Date of Onset Reaction(s) Facility (1 source) Penicillin Drug Allergy 09-02-2019 [facility] Work Phone: Medications Current Medications Medication Drug Class(es) Dates Sig (Normalized) Sig (Original) allopurinol 100 mg oral tablet (9 sources) Xanthine Oxidase Inhibitor Start: 06-09-2023 allopurinol 100 mg oral tablet Dose : 100 mg = 1 tab(s), Oral, qDay, # 90 tab(s), 1 Refill(s), Pharmacy: [facility], Gout, 162, cm, 06/09/23 10:46:00 EST, Height, kg, 06/09/23 10:46:00 EST, Dosing Weight Start Date: 06/09/23 Status: Ordered Completed/Discontinued Medications Medication Drug Class(es) Dates Sig (Normalized) Sig (Original) acetaminophen 500 mg oral tablet (3 sources) Start: 05-15-2023 End: 05-15-2023 take 500-1000 mg by mouth every six hours as needed 500-1,000 mg, Oral, EVERY 6 HOURS NEEDED, Starting on Mon05/15/23 at 1030, Until Mon05/15/23 at 1340, Pain, Post-op/Post-Proc Problems Active Problems Problem Classification Problem Date Documented Da te Episodic/Chronic Acute cerebrovascular disease (8 sources) Cerebral infarction; Translations: [Cerebrovascular accident] 03-25-2022 Chronic Administrative/social admission (5 sources) Impaired mobility 10-05-2021 Episodic Allergic reactions (6 sources) Eczema 04-01-2019 Episodic Cardiac dysrhythmias (6 sources) Atrial fibrillation 09-20-2021 Chronic Past or Other Problems Problem Classification Problem Date Documented Da te Episodic/Chronic Unclassified (1 source) Problem Results Test Name Value Interpretation Reference Range Facil ity Vital Signs Date Time Vital Sign Value Performing Clinician Facility 05-15-2023 11:05-0400 Diastolic blood pressure 76 mm[Hg] Siddharth Rizvi MD Work Phone: [facility] 05-15-2023 11:05-0400 Heart rate 80 /min Siddharth Rizvi MD Work Phone: [facility] 05-15-2023 11:05-0400 Respiratory rate 17 /min Siddharth Rizvi MD Work Phone: [facility] 05-15-2023 11:05-0400 SaO2% (BldA) [Mass fraction] 98 % Siddharth Rizvi MD Work Phone: [facility] 05-15-2023 11:05-0400 Systolic blood pressure 104 mm[Hg] Siddharth Rizvi MD Work Phone: [facility] 05-15-2023 10:42-0400 Body temperature 97.11 [degF] Siddharth Rizvi MD Work Phone: [facility] 05-15-2023 09:24-0400 Body height 162.6 cm Siddharth Rizvi MD Work Phone: [facility] NEGATED: Highlighted [id number] 13:50-0500 BMI (Body Mass Index) 62.8 kg/m2 Radha Rios WAGE ANALYST [facility] Work Phone: NEGATED: Highlighted [id number] 13:50-0500 Body weight 170.55 kg Radha Rios WAGE ANALYST [facility] Work Phone: NEGATED: Highlighted [id number] 13:50-0500 Body weight 171 kg Radha Rios WAGE ANALYST [facility] Work Phone: NEGATED: Highlighted [id number] 13:50-0500 BP Diastolic 70 mm[Hg] Radha Rios WAGE ANALYST [facility] Work Phone: NEGATED: Highlighted [id number] 13:50-0500 BP Systolic 113 mm[Hg] Radha Rios WAGE ANALYST [facility] Work Phone: NEGATED: Highlighted [id number] 13:50-0500 Heart rate 2+ Radha Rios WAGE ANALYST [facility] Work Phone: NEGATED: Highlighted [id number] 13:50-0500 Height 165.1 cm Radha Rios WAGE ANALYST [facility] Work Phone: NEGATED: Highlighted [id number] 13:50-0500 Height 165 cm Radha Rios HUMBERTO [facility] Work Phone: NEGATED: Highlighted [id number] 13:50-0500 Pulse (Heart Rate) 86 /min Radha [facility] Work Phone: Encounters Encounter Date Encounter Type Care Provider Facility Start: 08-10-2023 End: 2023 ambulatory GREGG PLASENCIA CONING MACHINE OPERATOR - [place] HCM DEVELOPER Facility:B Start: 08-10-2023 End: 08-14-2023 Outreach Lab GREGG TORRESPKINS CONING MACHINE OPERATOR - [place] HCM DEVELOPER [facility] Start: 06-05-2023 End: 06-05-2023 [facility] Start: 06-01-2023 End: 06-06-2023 ambulatory GREGG PLASENCIA CONING MACHINE OPERATOR - [place] HCM DEVELOPER Facility:B Start: 06-01-2023 End: 06-05-2023 Outreach Lab GREGG TORRESPKINS CONING MACHINE OPERATOR - [place] HCM DEVELOPER [facility] Start: 05-15-2023 End: 05-15-2023 [facility] Start: 05-15-2023 End: 05-15-2023 Subsequent hospital visit by physician Siddharth Rizvi MD Work Phone: [facility] Periop Procedures Date Procedure Procedure Detail Performing Clinician Start: 04-28-2023 ORDERS (SCAN) Siddharth marcelo MD Work Phone: Start: 09-11-2019 End: 09-11-2019 Blood pressure within normal parameters - no follow-up required Emile Jensen MD Work Phone: Start: 09-11-2019 End: 09-11-2019 BMI outside of normal parameters - no follow-up plan/reason not given Emile Jensen MD Work Phone: Start: 09-11-2019 End: 09-11-2019 Documentation of current medications Emile Jensen MD Work Phone: Start: 09-11-2019 End: 09-11-2019 Osteoarthritis assess Emile rich MD Work Phone: Start: 09-11-2019 End: 09-11-2019 Pain assessment not documented - reason not given Emile Jensen MD Work Phone: Start: 09-11-2019 End: 09-11-2019 Radiologic examination knee 3 views Emile Jensen MD Work Phone: Start: 09-11-2019 End: 09-11-2019 Tobacco non-user Emile Shepard i, MD Work Phone: Start: 12-15-2016 Specimen from breast obtained by biopsy (specimen) GREGG PLASENCIA CONING MACHINE OPERATOR - [place] HCM DEVELOPER Plan of Treatment Date Care Activity Detail Author Start: 06-05-2023 End: 06-05-2023 Admission to same day surgery center 06/05/2023 11:50 AM EST - 06/05/2023 12:00 PM EST Surgery [facility] [address] [place] [address] Siddharth Rizvi MD [address] [facility] [address] [place] [address] EXTRACTION EXTRACAPSULAR CATARACT W/ IMPLANT (ECCE IOL)-RIGHT EYE [facility] Immunizations Immunization Date Immunization Notes Care Provider Fa cility 06-09-2023 influenza, high dose seasonal, preservative-free; Translations: [Fluad Quadrivalent PF ] GREGG PLASENCIA CONING MACHINE OPERATOR - [place] HCM DEVELOPER [facility] 08-12-2022 influenza, injectabl e, quadrivalent, contains preservative; Translations: [Fluarix PF Quadrivalent ] GREGG PLASENCIA CONING MACHINE OPERATOR - [place] HCM DEVELOPER [facility] 08-12-2022 influenza virus vacc ine, unspecified formulation Siddharth Rizvi MD Work Phone: [facility] 04-13-2020 influenza, injectabl e, quadrivalent, preservative free; Translations: [Fluarix PF Quadrivalent ] GREGG TORRESPKINS CONING MACHINE OPERATOR - [place] HCM DEVELOPER [facility] 04-02-2019 influenza, injectabl e, quadrivalent, preservative free; Translations: [Fluarix PF Quadrivalent ] GREGG TORRESPKINS CONING MACHINE OPERATOR - [place] HCM DEVELOPER [facility] 05-10-2018 influenza virus vacc ine, unspecified formulation GREGG TORRESPKINS CONING MACHINE OPERATOR - [place] HCM DEVELOPER [facility] 09-21-2017 influenza virus vacc ine, unspecified formulation GREGG TORRESPKINS CONING MACHINE OPERATOR - [place] HCM DEVELOPER [facility] 09-20-2016 influenza virus vacc ine, unspecified formulation GREGG TORRESPKINS CONING MACHINE OPERATOR - [place] HCM DEVELOPER [facility] 09-20-2016 pneumococcal conjuga te vaccine, 13 valent GREGG BHAVYA CONING MACHINE OPERATOR - [place] HCM DEVELOPER [facility] 05-18-2015 influenza virus vacc ine, unspecified formulation GREGG BANEGASKINS CONING MACHINE OPERATOR - [place] HCM DEVELOPER [facility] 11-07-2014 pneumococcal polysaccharide vaccine, 23 valent GREGG PLASENCIA CONING MACHINE OPERATOR - [place] HCM DEVELOPER [facility] 06-26-2012 influenza virus vacc ine, unspecified formulation GREGG TORRESPKINS CONING MACHINE OPERATOR - [place] HCM DEVELOPER [facility] Payers Date Payer Category Payer Medicare MEDICARE MEDICAR E A AND B [id number] 2023-Present [address] [place] [address] [id number] 2023 Unknown GENERIC PAYOR ME DICARE SUPPLEMENT [id number] 2023-Present [phone] [address] [address] [place] [address] [id number] 2023 Medicare [id number] 2023 Medicare [id number] 1950 Unknown [id number] 1950 Unknown [id number] 1949 Unknown [id number] 1949 Unknown [id number] 1949 Unknown [id number] 1949 Unknown [id number] 1949 Unknown [id number] 1949 Unknown [id number] Social History Date Type Detail Facility Start: 09-11-2019 End: 09-11-2019 Assertion Unknown if ever smoked [facility] Work Phone: Start: 04-13-2020 End: 05-15-2023 Never smoked tobacco (finding) [facility] Medical Equipment Procedure Code Equipment Code Equipment Origin al Text Equipment Identifier Dates Lens [id number] Start: 05-15-2023 Clinical Notes 02-27-2023 to 05-15-2023 Nursing Notes - Nathalie Rodríguez RN - 05/15/2023 11:33 AM EDTNursing Notes - Nathalie Rodríguez RN - 05/15/2023 11:22 AM EDTBrief Op Note - Siddharth Rizvi MD - 05/15/2023 10:42 AM EDTLaboratoryRadiologyLaboratory Note Date & Type Note Facility 05-15-2023 Miscellaneous Notes Pt released per w/c, for daughter to drive home, sunglasses on, no pain, moves slowly with assist. Home instruction reviewed with pt and daughter, pt doing first set of eye drops now since lives far away. Pt verbalizes understanding. No nausea POST OPERATIVE/PROCEDURE NOTE Carmen Olsen ([id number]) SURGEON Surgeon(s) and Role: * Siddharth Rizvi MD - Primary RUBBER STAMP MAKER None ANESTHESIOLOGIST CHIEF ADMINISTRATIVE OFFICER: Rip Valente APRN-CHIEF ADMINISTRATIVE OFFICER SURGICAL STAFF Body Repairer: Ashley Ackerman RN PROCEDURE PERFORMED Procedure(s) (LRB): EXTRACTION EXTRACAPSULAR CATARACT W/ IMPLANT (ECCE IOL)-LEFT EYE (Left) PRIMARY CLOSURE N/A ANESTHESIA (type of) Topical/MAC ESTIMATED BLOOD LOSS None DRAINS None BLOOD PRODUCTS None FLUIDS No intake or output data in the 24 hours ending 05/15/23 1042 PRE OPERATIVE DIAGNOSIS Age-related nuclear cataract of left eye [H25.12] POST OPERATIVE DIAGNOSIS Post-Op Diagnosis Codes: * Age-related nuclear cataract of left eye [H25.12] FINDINGS No significant abnormalities CONDITION OF PATIENT good COMPLICATIONS None GRAFTS AND/OR IMPLANTS See OR Nursing Documentation SPECIMENS No specimen sent * No specimens in log * Siddharth Rizvi MD May 15, 2023 10:42 AM PREOPERATIVE DIAGNOSIS: Cataract left eye. POSTOPERATIVE DIAGNOSIS: Cataract left eye. PROCEDURE PERFORMED: Phacoemulsification with intraocular lens implant left eye. SURGEON: Siddharth Rizvi MD. RUBBER STAMP MAKER: None. ANESTHESIA: Topical. DISPOSITION: To recovery room in stable condition. INDICATIONS The Patient has a visually significant cataract. After the discussion of all risks, indications, benefits and alternatives, informed consent was obtained. PROCEDURE The patient was taken to the operating room. After an appropriate time-out, the left eye was marked with a pen. The patient was then prepped and draped in the usual sterile fashion for ocular surgery. A Q-tip and 75 x 15 blade was used to create an inferotemporal clear corneal paracentesis. Approximately 0.5 mL of 1% preservative-free lidocaine was applied topically. Viscoat was then used to deepen the anterior chamber. A keratome was used to create a clear corneal incision temporally. A cystotome and Utrata forceps were used to create a continuous curvilinear capsulorrhexis. BSS on a Turner cannula was used to hydrodissect and hydrodelineate the cataractous lens. Phacoemulsification for 1.75 CDE was used to remove the cataractous lens. Residual cortex was removed with the irrigation-aspiration handpiece. The anterior chamber and the capsular bag were deepened with Provisc. An [id number] 18.5 diopter lens was ejected into the capsular bag and centered appropriately. Viscoelastic was removed with the irrigation-aspiration handpiece. 0.1 cc of preservative free ancef was injected into the anterior chamber. The wounds were hydrated with BSS, tested and found to be watertight. The patient's face was cleaned and dried and a drop of Vigamox and Iopidine were given. An eye shield was placed. The patient tolerated the procedure well and will follow up tomorrow morning in the eye clinic. documented in this encounter [facility] 05-15-2023 Nurse Note Pt released per w/c, for daughter to drive home, sunglasses on, no pain, moves slowly with assist. [facility] 05-15-2023 Nurse Note Home instruction reviewed with pt and daughter, pt doing first set of eye drops now since lives far away. Pt verbalizes understanding. No nausea T [facility] 05-15-2023 Surgery Postoperative evaluation and management note POST OPERATIVE/PROCEDURE NOTE Carmen Olsen ([id number]) SURGEON Surgeon(s) and Role: * Siddharth Rizvi MD - Primary RUBBER STAMP MAKER None ANESTHESIOLOGIST CHIEF ADMINISTRATIVE OFFICER: Rip Valente APRN-CHIEF ADMINISTRATIVE OFFICER SURGICAL STAFF Body Repairer: Ashley Ackerman RN PROCEDURE PERFORMED Procedure(s) (LRB): EXTRACTION EXTRACAPSULAR CATARACT W/ IMPLANT (ECCE IOL)-LEFT EYE (Left) PRIMARY CLOSURE N/A ANESTHESIA (type of) Topical/MAC ESTIMATED BLOOD LOSS None DRAINS None BLOOD PRODUCTS None FLUIDS No intake or output data in the 24 hours ending 05/15/23 1042 PRE OPERATIVE DIAGNOSIS Age-related nuclear cataract of left eye [H25.12] POST OPERATIVE DIAGNOSIS Post-Op Diagnosis Codes: * Age-related nuclear cataract of left eye [H25.12] FINDINGS No significant abnormalities CONDITION OF PATIENT good COMPLICATIONS None GRAFTS AND/OR IMPLANTS See OR Nursing Documentation SPECIMENS No specimen sent * No specimens in log * Siddharth Rizvi MD May 15, 2023 10:42 AM T [facility] 05-15-2023 Surgery Postoperative evaluation and management note PREOPERATIVE DIAGNOSIS: Cataract left eye. POSTOPERATIVE DIAGNOSIS: Cataract left eye. PROCEDURE PERFORMED: Phacoemulsification with intraocular lens implant left eye. SURGEON: Siddharth Rizvi MD. RUBBER STAMP MAKER: None. ANESTHESIA: Topical. DISPOSITION: To recovery room in stable condition. INDICATIONS The Patient has a visually significant cataract. After the discussion of all risks, indications, benefits and alternatives, informed consent was obtained. PROCEDURE The patient was taken to the operating room. After an appropriate time-out, the left eye was marked with a pen. The patient was then prepped and draped in the usual sterile fashion for ocular surgery. A Q-tip and 75 x 15 blade was used to create an inferotemporal clear corneal paracentesis. Approximately 0.5 mL of 1% preservative-free lidocaine was applied topically. Viscoat was then used to deepen the anterior chamber. A keratome was used to create a clear corneal incision temporally. A cystotome and Utrata forceps were used to create a continuous curvilinear capsulorrhexis. BSS on a Turner cannula was used to hydrodissect and hydrodelineate the cataractous lens. Phacoemulsification for 1.75 CDE was used to remove the cataractous lens. Residual cortex was removed with the irrigation-aspiration handpiece. The anterior chamber and the capsular bag were deepened with Provisc. An [id number] 18.5 diopter lens was ejected into the capsular bag and centered appropriately. Viscoelastic was removed with the irrigation-aspiration handpiece. 0.1 cc of preservative free ancef was injected into the anterior chamber. The wounds were hydrated with BSS, tested and found to be watertight. The patient's face was cleaned and dried and a drop of Vigamox and Iopidine were given. An eye shield was placed. The patient tolerated the procedure well and will follow up tomorrow morning in the eye clinic. [facility] 05-15-2023 History and physical note CHIEF COMPLAINT: Presenting for clearance for eye surgery. Patient complains of blurred vision from visually significant cataract. HISTORY OF PRESENT ILLNESS: Pre op clearance for eye surgery REVIEW OF SYSTEMS: No change from outpatient eval day. PHYSICAL EXAM: Physical Exam Constitutional: Patient is oriented to person, place, and time and in no distress. HENT: Head: Normocephalic and atraumatic. Eyes: Conjunctivae and extraocular motions are normal. Pupils are reactive to light. Cataract is present Pulmonary/Chest: Effort normal Neurological: alert and oriented to person, place, and time. Mental Status Oriented to person, place, and time. Cranial Nerves CN III, IV, Pupils are reactive to light. Extraocular motions are normal. Relevant pre-operative testing and/or labwork has been completed and reviewed. Results are normal, stable. Medical history and medications unchanged from consultation day: 04/18/23 ASSESSMENT/IMPRESSION: Cleared for surgery PLAN[facility] Work Phone: 05-15-2023 History and physical note CHIEF COMPLAINT: Presenting for clearance for eye surgery. Patient complains of blurred vision from visually significant cataract. HISTORY OF PRESENT ILLNESS: Pre op clearance for eye surgery REVIEW OF SYSTEMS: No change from outpatient ev day. PHYSICAL EXAM: Physical Exam Constitutional: Patient is oriented to person, place, and time and in no distress. HENT: Head: Normocephalic and atraumatic. Eyes: Conjunctivae and extraocular motions are normal. Pupils are reactive to light. Cataract is present Pulmonary/Chest: Effort normal Neurological: alert and oriented to person, place, and time. Mental Status Oriented to person, place, and time. Cranial Nerves CN III, IV, Pupils are reactive to light. Extraocular motions are normal. Relevant pre-operative testing and/or labwork has been completed and reviewed. Results are normal, stable. Medical history and medications unchanged from consultation day: 04/18/23 ASSESSMENT/IMPRESSION: Cleared for surgery PLAN: eye surgery documented in this encounter [facility] 04-18-2023 History of Present illness Narrative REASON FOR VISIT Chief Complaint Blurred Vision HISTORY OF PRESENT ILLNESS HPI Blurred Vision In both eyes. Onset was gradual. Vision is blurred. Severity is moderate. Occurring constantly. Context: distance vision. Since onset it is gradually worsening. Comments Referred by Jonnie for cataract eval OU. Pt used to wear SCL's (hasn't worn since the beginning of Mar). [place]-vision with OS as distance, OD as near. Lasik- neg Diabetes- neg Last edited by Maryann Gomez on 04/18/2023 10:44 AM. Allergies, medications & history reviewed & updated by Maryann Gomez REVIEW OF SYSTEMS See attached hard copy of ROS REASON FOR VISIT Chief Complaint Blurred Vision HISTORY OF PRESENT ILLNESS HPI Blurred Vision In both eyes. Onset was gradual. Vision is blurred. Severity is moderate. Occurring constantly. Context: distance vision. Since onset it is gradually worsening. Comments Referred by Jonnie for cataract eval OU. Pt used to wear SCL's (hasn't worn since the beginning of Mar). [place]-vision with OS as distance, OD as near. Lasik- neg Diabetes- neg Last edited by Maryann Gomez on 04/18/2023 10:44 AM. Allergies, medications & history reviewed & updated by Maryann Gomez REVIEW OF SYSTEMS See attached hard copy of ROS I personally saw and examined the patient, confirmed the findings of his/her exam, discussed the above with the patient, and formulated the plan of care. Age-related nuclear cataract, bilateral Assessment and Plan: Cataract bilateral eye -- Pt interested in cataract surgery. Risks, indications, benefits, and alternatives have been discussed, and informed consent has been obtained. Plan to aim for [place] with the following anesthesia: topical Patient declines use of premium lenses. Reason for surgery: Carmen Olsen complains of the inability to drive, read. IOL Master (and/or A scan) Interpretation/Results: OD: NEAR 20.0 OS: FAR 18.5 Notes: OS then OD. Dr Janette Freitas referral as patient needs surgery in a hospital. Plan monovision with OS FAR and OD NEAR. Dr Freitas will help with the postop care out of courtesy to the patient. Manifest (MR): Comments: Jonnie OD OS Sphere -3.00 -2.25 Cylinder +0.75 +0.75 [place] 150 035 Dist VA 20/25+ 20/25- Add Near VA Visual Acuity Visual Acuity (Snellen - Linear) Right Left Dist cc 20/50 -1 20/50 +2 Correction: Glasses Brightness Acuity Testing (BAT): Off Low Med High OD: OS: Comments: There may be other eye diseases that are a cause of the decreased visual function but in the context of the cataract, visual function is expected to improve once the cataract is removed. If vision is not expected to improve, the indication for surgery is to improve visualization of the posterior segment. For patients with a best corrected VA of 20/40 or better, BAT testing shows a 2 line decrease in VA If cataract is complex, documented findings support miosis, weak or absent lens support structures, or cataract characteristics that prevent appropriate assessment of the lens capsule. Patient is aware of COVID risks and precautions and agrees to go forward with surgery. COVID-19 SURGICAL RECOVERY WORKSHEET Elective Procedure Stoplight Flag [] RED [] YELLOW [x] GREEN Disease Factors 5 4 3 2 1 Impact of 2wk delay in DISEASE outcome []Significantly worse []Moderately worse []Slightly worse [x]Unchanged []Improved Impact of 2wk delay in SURGICAL difficulty/risk []Significantly worse []Moderately worse [x]Slightly worse []Unchanged []Improved Impact of 6wk delay in DISEASE outcome []Significantly worse []Moderately worse [x]Slightly worse []Unchanged []Improved Impact of 6wk delay in SURGICAL difficulty/risk []Significantly worse [x]Moderately worse []Slightly worse []Unchanged []Improved Progression of symptoms since cancellation (if applicable) []Significantly worse [x]Moderately worse []Slightly worse []Unchanged []Improved documented in this [facility] 02-27-2023 Note . MICRO - Microbiology PROCEDURE: Urine Culture [*1] SOURCE: Urine, Clean Catch BODY SITE: COLLECTED DATE/TIME: 02/24/2023 16:46 EDT RECEIVED DATE/TIME: 02/24/2023 19:13 EDT START DATE/TIME: 02/24/2023 19:14 EDT FREE TEXT SOURCE: FINAL REPORTS Final Report [] Verified Date/Time/Personnel: 02/27/2023 09:44 EDT >100,000 cfu/ml Klebsiella pneumoniae >100,000 cfu/ml Proteus mirabilis PRELIMINARY REPORTS Preliminary Report [] Verified Date/Time/Personnel: 02/26/2023 13:28 EDT >100,000 cfu/ml Klebsiella pneumoniae >100,000 cfu/ml Proteus mirabilis RAFAEL to follow Preliminary Report [] Verified Date/Time/Personnel: 02/25/2023 14:54 EDT Culture results pending. SUSCEPTIBILITY RESULTS Klebsiella pneumoniae Antibiotic RAFAEL Dilut RAFAEL Inter Ampicillin >16 Resistant Ampicillin/ >16/8 Resistant Sulbactam Aztreonam <=4 Susceptible Cefazolin 4 Susceptible Ciprofloxacin <=0.25 Susceptible Ertapenem <=0.5 Susceptible Gentamicin <=2 Susceptible Imipenem <=1 Susceptible Levofloxacin <=0.5 Susceptible Meropenem <=1 Susceptible Minocycline <=4 Susceptible Nitrofurantoin <=32 Susceptible Piperacillin/ <=8 Susceptible Tazobactam Trimethoprim/ <=0.5/9.5 Susceptible Sulfa Proteus mirabilis Antibiotic RAFAEL Dilut RAFAEL Inter Ampicillin <=8 Susceptible Ampicillin/ <=4/2 Susceptible Sulbactam Aztreonam <=4 Susceptible Cefazolin <=2 Susceptible Ciprofloxacin <=0.25 Susceptible Ertapenem <=0.5 Susceptible Gentamicin <=2 Susceptible Levofloxacin <=0.5 Susceptible Meropenem <=1 Susceptible Minocycline >8 Resistant Nitrofurantoin >64 Resistant Trimethoprim/ <=0.5/9.5 Susceptible Sulfa Performing Locations *1: This test was performed at: [facility], [address] [place] [address], [facility] , [facility] ([place]) Evaluation + Plan note Future Appointments Appointment Date:09/29/2021 01:00:00 PM Scheduled Provider: Location:[facility] Appointment Type:CV Procedure - AOH Echo Appointment Date:10/07/2021 03:30:00 PM Scheduled Provider: Location:[facility] [place] Appointment Type:CV RAIL CAR MECHANIC Appointment Date:10/08/2021 09:30:00 AM Scheduled Provider: Location:[facility] Appointment Type:PC Nurse Lab Appointment Date:10/15/2021 11:00:00 AM Scheduled Provider:GREGG PLASENCIA CONING MACHINE OPERATOR - [place] HCM DEVELOPER Location:[facility] Appointment Type:PC OV Follow Up Future Scheduled TestsThyroid Stimulating Hormone 10/14/21Free T4 10/14/21Complete Blood Count 10/14/21Lipid Profile 10/14/21Vitamin D Level 10/14/21Complete Metabolic Panel 10/14/21XR Chest 2 Views (PA & Lateral) 09/20/21 [facility] Evaluation + Plan note Future Appointments Appointment Date:01/27/2022 11:00:00 AM Scheduled Provider:GREGG PLASENCIA APRN - [place] HCM DEVELOPER Location:[facility] Appointment Type:PC OV Follow Up Future Scheduled TestsC-Reactive Protein 12/14/21Thyroid Stimulating Hormone 10/05/21Thyroid Stimulating Hormone 10/14/21Thyroid Stimulating Hormone 12/14/21Free T4 10/05/21Free T4 10/14/21Uric Acid 10/05/21Complete Blood Count 10/05/21Complete Blood Count 10/14/21Lipid Profile 10/05/21Lipid Profile 10/14/21Microalbumin Level Urine 6Microalbumin Level Urine 10/05/21Vitamin D Level 10/05/21Vitamin D Level 10/14/21Complete Metabolic Panel 10/05/21Complete Metabolic Panel 10/14/21Complete Metabolic Panel 12/14/21N-Terminal proBNP 10/05/21N-Terminal proBNP 12/14/21CT Angiography Chest w/ Contrast 11/12/21XR Chest 2 Views (PA & Lateral) 09/20/21 [facility] Evaluation + Plan note Future Appointments Appointment Date:08/12/2022 10:40:00 AM Scheduled Provider:GREGG PLASENCIA APRN - [place] HCM DEVELOPER Location:[facility] Appointment Type:PC OV Follow Up Future Scheduled TestsC-Reactive Protein 12/14/21Thyroid Stimulating Hormone 10/05/21Thyroid Stimulating Hormone 10/14/21Thyroid Stimulating Hormone 12/14/21Free T4 10/05/21Free T4 10/14/21Uric Acid 10/05/21Complete Blood Count 10/05/21Complete Blood Count 10/14/21Lipid Profile 10/05/21Lipid Profile 10/14/21Microalbumin Level Urine 6Microalbumin Level Urine 1Microalbumin Level Urine 10/05/21Vitamin D Level 10/05/21Vitamin D Level 10/14/21Complete Metabolic Panel 10/05/21Complete Metabolic Panel 10/14/21Complete Metabolic Panel 12/14/21N-Terminal proBNP 10/05/21N-Terminal proBNP 12/14/21CT Angiography Chest w/ Contrast 11/12/21XR Chest 2 Views (PA & Lateral) 09/20/21 [facility] Evaluation + Plan note Future Appointments Appointment Date:02/24/2023 01:40:00 PM Scheduled Provider:GREGG PLASENCIA APRN, CNP Location:[facility] Appointment Type:PC OV Follow Up Future Scheduled TestsMicroalbumin Level Urine 02/09/23 [facility] Evaluation + Plan note Future Appointments Appointment Date:06/09/2023 10:40:00 AM Scheduled Provider:GREGG PLASENCIA APRN, CNP Location:[facility] Appointment Type:PC OV Appointment Date:08/24/2023 10:00:00 AM Scheduled Provider: Location:[facility] Appointment Type:PC Nurse Appointment Date:09/01/2023 10:00:00 AM Scheduled Provider:GREGG PLASENCIA APRN, CNP Location:[facility] Appointment Type:PC OV Future Scheduled TestsRenin, Plasma 08/27/23Thyroid Stimulating Hormone 08/27/23Free T4 08/27/23A1C Hemoglobin 08/27/23Complete Blood Count 08/27/23Lipid Profile 08/27/23Albumin/Creatinine Ratio, Random Urine 08/27/23PTH, Intact 08/27/23Vitamin D Level 08/27/23Complete Metabolic Panel 08/27/23 [facility] Evaluation + Plan note Future Appointments Appointment Date:09/01/2023 10:00:00 AM Scheduled Provider:GREGG PLASENCIA APRN - TERI Location:[facility] Appointment Type:PC OV Diagnostic Tests PendingRenin Activity, Plasma 08/10/23 [facility] N[facility] No data available for this section [facility] Hospital Discharge instructions No data available for this section [facility] Progress note No data available for this section [facility] Chief Complaint Chief Complaint Description Start Date right knee pain Preliminary chief co mplaint data, not yet signed by the author as of Instructions Instruction Description Start Date Completed Advance Directives No Advanced Directives Records FoundDocuments on File Type Date Recorded 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 Review of System There may be information available, but it has not been provided by the sender. Family History There may be information available, but it has not been provided by the sender. No data available for this section No data available for this section No Family History Records Found No data available for this section No Family History Records Found History of Present Illness There may be information available, but it has not been provided by the sender. Summary Purpose Additional Source Comments Reason for Visit (unrecogniz ed section and content) Reason Comments Blurred Vision Specialty Diagnoses / Procedures Referred By Contac t Referred To Contact Diagnoses Age-related nuclear cataract, left eye Age-related nuclear cataract, left eye [H25.12] Procedures CT XCAPSL CTRC RMVL INSJ IO LENS PROSTH W/O ECP EXTRACTION EXTRACAPSULAR CATARACT W/ IMPLANT (ECCE IOL) Siddharth Rizvi MD [address] [facility] [address] [place] [address] Referral ID Status Reason Start Date Expiration Date Visits Re quested Visits Authorized [id number] 04/18/2023 1 1 Specialty Diagnoses / Procedures Referred By Norman t Referred To Contact Diagnoses Age-related nuclear cataract of left eye [H25.12] Siddharth Rizvi MD [address] [place] [address] Referral ID Status Reason Start Date Expiration Date Visits Re quested Visits Authorized [id number] 05/08/2023 1 1 Care Team (unrecognized sect ion and content) Care Team Personnel Name: GREGG PLASENCIA APRN - [place] HCM DEVELOPER Position: P4 Advanced Practice Nurse Med Service: Employed Provider Member Role: Primary Care Physician Address: Address: [address] [place] [address] Care Team Related Persons Name: GAYE JANE Care Team Personnel Name: RGEGG PLASENCIA CONING MACHINE OPERATOR - [employer] HCM DEVELOPER Position: P4 Advanced Practice Nurse Member Role: Primary Care Physician Address: Address: [address] [place] [address] Care Team Related Persons Name: GAYE JANE Patient Care team informatio n (unrecognized section and content) Venetian Blind Tape Cutter Relationship Specialty Start Date End Date Gregg Plasencia CNP [address] [place] [address] PCP - General Certified Nurse Practitioner 04/11/23 [employer] Blind Tape Cutter Relationship Specialty Start Date End Date Gregg Plasencia CNP [address] [place] [address] PCP - General Certified Nurse Practitioner 04/11/23 Scheduled Active and Recently Administ ered Medications (unrecognized section and content) Continuous Medication Order 05/13/2023 05/14/2023 05/15/2023 Sodium chloride 0.9% IV solution Intravenous, at 20 mL/hr, CONTINUOUS, Starting on Mon05/15/23 at 0930, Until Mon05/15/23 at 1340, To KVO, Pre-op/Pre-Proc [id number] ($$New Bag$$ - Provider: Ruth Frederick, RN)[id number] (Stopped - Provider: Nathalie Rodríguez RN) PRN Medication Order 05/13/2023 05/14/2023 05/15/2023 acetaminophen (TYLENOL) tablet 500-1,000 mg 500-1,000 mg, Oral, EVERY 6 HOURS NEEDED, Starting on Mon05/15/23 at 1030, Until Mon05/15/23 at 1340, Pain, Post-op/Post-Proc Promethazine HCl (PHENERGAN) tablet 12.5 mg 12.5 mg, Oral, EVERY 6 HOURS NEEDED, Starting on Mon05/15/23 at 1030, Until Mon05/15/23 at 1340, Other, mild nausea, moderate nausea., Post-op/Post-Proc Promethazine HCl (PHENERGAN) tablet 25 mg 25 mg, Oral, EVERY 6 HOURS NEEDED, Starting on Mon05/15/23 at 1030, Until Mon05/15/23 at 1340, severe nausea, Post-op/Post-Proc INFORMATION SOURCE (unrecogn ized section and content) DATE CREATED AUTHOR AUTHOR'S ORGANIZ ATION 08/16/2023 [facility] ([place]) FOR RECORDS PERTAINING TO PATIENTS WHO ARE OR HAVE BEEN ENROLLED IN A CHEMICAL DEPENDENCY/SUBSTANCEABUSE PROGRAM, SOME INFORMATION MAY BE OMITTED. This clinical summary was aggregated from multiple sources. Caution should be exercised in using it in the provision of clinical care. This summary normalizes information from multiple sources, and as a consequence, information in this document may materially change the coding, format and clinical context of patient data. In addition, data may be omitted in some cases. CLINICAL DECISIONS SHOULD BE BASED ON THE PRIMARY CLINICAL RECORDS. [facility]. provides no warranty or guarantee of the accuracy or completeness of information in this document.
== END | disposition home or self-care (01) ==
PROVIDERS: PCP Nurse Practitioner Family; Referring Provider Internal Medicine Nephrology; Visit Provider Internal Medicine Nephrology
DX: N18.32 Chronic kidney disease, stage 3b (principal)
CPT/HCPCS: 76770

== ENCOUNTER → 2023-11-10 | Outpatient (CLI) | payer MEDICARE, OTHER, SELFPAY ==
[2023-11-10 17:34] LABS: Albumin, Serum 3.3 g/dL (3.2-5.0); BUN 27 mg/dL (7-18); BUN/Creat Ratio 21.6 RATIO (10-20); Calcium,Total 10.1 mg/dL (8.5-10.1); Chloride 109 mmol/L (98-107); Creatinine, Serum 1.25 mg/dL (0.55-1.02); EST Glomerular Filtration Rate 45 mL/min (>60); Est Glom Filt Rate - Afr Amer 54 mL/min (>60); Glucose 107 mg/dL (74-106); Potassium 4.3 mmol/L (3.5-5.1); Sodium Level 139 mmol/L (136-145)
[2023-11-10 17:34] LABS: Rheumatoid Factor < 10.0 IU/mL (<15)
[2023-11-13 17:07] LABS: Immunoglobulin A 176 mg/dL (64-422); Immunoglobulin G 1123 mg/dL (586-1602); Immunoglobulin M 55 mg/dL (26-217); PROEL- Albumin 3.2 g/dL (2.9-4.4); PROEL- Alpha-1 Globulin 0.3 g/dL (0.0-0.4); PROEL- Alpha-2 Globulin 0.9 g/dL (0.4-1.0); PROEL- Globulin, Total 3.1 g/dL (2.2-3.9); PROEL- TOTAL PROTEIN 6.3 g/dL (6.0-8.5); PROEL-M-Spike Not Observed g/dL (Not Observed)
== END | disposition home or self-care (01) ==
LOC: LAB 16:39
PROVIDERS: PCP Nurse Practitioner Family; Referring Provider Internal Medicine Nephrology; Visit Provider Internal Medicine Nephrology
DX: N18.32 Chronic kidney disease, stage 3b (principal)
CPT/HCPCS: 36415; 80069; 82784; 84165; 86334; 86431

== ENCOUNTER → 2024-01-15 | Outpatient (CLI) | payer MEDICARE, OTHER, SELFPAY ==
--- NOTE | 2024-01-15 14:57 | CT_ITS ---
STUDY: CT ABDOMEN AND PELVIS WITHOUT CONTRAST REASON FOR EXAM: Female, 73 years old. Unspecified hydronephrosis RADIATION DOSAGE (If Supplied By Facility): CTDIvol = ( 34.43 ) mGy, DLP = ( 1634.25 ) mGycm TECHNIQUE: Transaxial images were obtained from the dome of the diaphragm to the symphysis pubis without oral contrast, and without intravenous contrast. Sagittal and coronal images were reconstructed. Individualized dose optimization techniques were used for this CT. COMPARISON: None. FINDINGS: Minimal linear atelectasis and/or scarring at the lung bases. The visualized portions of the heart are within normal limits. Normal liver. Mildly distended gallbladder. Questionable sludge within the gallbladder. Normal spleen. Normal pancreas. Normal bilateral adrenal glands. Moderate atrophy of the right kidney. Moderate to marked degree of right hydronephrosis and right hydroureter due to a 1 cm calculus in the proximal portion of the right ureter. There is evidence of right perinephric and periureteric stranding. Mild degree of left perinephric stranding. There is a small hiatal hernia. Normal small intestine. Normal colon. The appendix is visualized and appears normal. Normal abdominal aorta. Normal inferior vena cava. Normal retroperitoneum. Normal urinary bladder. There is a small umbilical hernia containing fat. There are degenerative changes of the visualized lumbar spine. 50% loss of height of the superior endplate of the L1 vertebra. CT/Abdomen/Pelvis without Cont IMPRESSION: Moderate atrophy of the right kidney. Moderate to marked degree of right hydronephrosis and proximal right hydroureter due to a 1 cm calculus in the proximal right ureter. Hiatal hernia. Electronically Signed: Zay Allen MD at 15:30 EDT ,
== END | disposition home or self-care (01) ==
LOC: CT 14:52
PROVIDERS: PCP Nurse Practitioner Family; Referring Provider Urology; Visit Provider Urology
DX: N13.30 Unspecified hydronephrosis (principal)
CPT/HCPCS: 74176

== ENCOUNTER 2024-02-29 08:14 | Day surgery (SDC) | payer MEDICARE, OTHER, SELFPAY ==
--- NOTE | 2024-02-22 10:38 | EKG12_ITS ---
Test Reason : PREOP Blood Pressure : / mmHG Vent. Rate : 088 BPM Atrial Rate : 241 BPM P-R Int : 000 ms QRS Dur : 092 ms QT Int : 356 ms P-R-T Axes : 000 -13 005 degrees QTc Int : 430 ms Atrial fibrillation Low voltage QRS Abnormal ECG Confirmed by PORFIRIO LONG, ALLI ([id number]), irrigation manager GEORGE YODER ([id number]) on 02/23/2024 10:27:51 AM Referred By: Jennie Ng Confirmed By:OMAR MONROY MD
[2024-02-22 12:16] LABS: Hematocrit 37.4 % (37-47); Hemoglobin 11.7 g/dL (12.0-15.0); Mean Corp Hgb Conc 31.3 g/dL (32-36); Mean Corpuscular Hgb 30.9 pg (27.0-32.0); Mean Corpuscular Volume 98.7 fL (81-99); Mean Platelet Vol. 10.9 fl (6.2-12.0); Platelet Count 155 K/mm3 (150-450); RBC Distribution Width CV 12.5 % (11.6-14.6); RBC Distribution Width SD 44.7 fl (35.1-43.9); Red Blood Count 3.79 M/mm3 (4.2-5.4); White Blood Count 5.1 K/mm3 (4.4-11.0)
[2024-02-22 12:36] LABS: Anion Gap 4 (5-15); BUN 37 mg/dL (7-18); BUN/Creat Ratio 25.7 RATIO (10-20); Calcium,Total 10.2 mg/dL (8.5-10.1); Chloride 107 mmol/L (98-107); Creatinine, Serum 1.44 mg/dL (0.55-1.02); EST Glomerular Filtration Rate 38 mL/min (>60); Est Glom Filt Rate - Afr Amer 46 mL/min (>60); Glucose 122 mg/dL (74-106); Potassium 4.6 mmol/L (3.5-5.1); Sodium Level 138 mmol/L (136-145)
[2024-02-29] VITALS (9 sets, daily range): BP systolic 78–123; BP diastolic 53–82; PULSE 63–91; RESP 18–20; TEMP 36.4–37; O2SAT 91–98; BMI 56.5
[2024-02-29 08:32] LABS: Bacteria 0 SEEN /hpf (None Seen); Mucous, Urine 0 SEEN /hpf (<or=2+); Red Blood Cells-Urine 0 SEEN /hpf (0-5); Squamous Epithelial Cells - UA 0 SEEN /hpf (5-10)
[2024-02-29 08:51] LABS: Color, Urine Yellow (Yellow); Glucose, Dipstick Normal (Normal); Ketone-Dipstick Negative (Negative); Leukocyte Esterase-Dipstick 500 /ul (Negative); Nitrite-Dipstick Positive (Negative); Occult Blood-Urine 250 /ul (Negative); Protein-Dipstick 500 mg/dl (Negative); Urine Bilirubin Dipstick Negative (Negative); Urine Clarity Clear (Clear); Urine Urobilinogen Normal (Normal)
[2024-02-29 08:56] LABS: White Blood Cells >100 SEEN /hpf (0-5)
[2024-02-29] MEDS: Lactated Ringers 1,000 ML 15 ML IV (09:03)
--- NOTE | 2024-02-29 09:24 | PCM.PRE.AN2 ---
ASA Classification* ASA Classification ASA Classification: 3 Assessment & Plan Anesthesia* Anesthesia Assessment Anesthesia Assessment: Discussed sedation and/or anesthesia options, risks, benefits, and alternatives with patient/parents/legal guardian/POA. Questions invited. The patient/parents/legal guardian/POA seems to understand and agrees to proceed with anesthesia plan. Reviewed the physical assessment, medical history, allergy history and patient home medications list prior to surgery/procedure/anesthetic and documented any changes. Performed airway and anesthesia risk assessments. Anesthesia Type Anesthesia Type: General (*see written pre anesthesia record for full assessment) Anesthesia Focused Assessment* Temperature: 97.5 F Pulse Rate: 91 Blood Pressure: 123/82 Respiratory Rate: 20 Pulse Ox: 98 Airway Assessment Mouth opens: >3 cm Mallampati Score: III Focused Labs Anesthesia Preop lab: CBC WBC 5.1 K/mm3 (4.4-11.0) 02/22/24 11:07 RBC 3.79 M/mm3 (4.2-5.4) L 02/22/24 11:07 Hgb 11.7 g/dL (12.0-15.0) L 02/22/24 11:07 Hct 37.4 % (37-47) 02/22/24 11:07 Plt Count 155 K/mm3 (150-450) 02/22/24 11:07 CHEMISTRY Potassium 4.6 mmol/L (3.5-5.1) 02/22/24 11:07 Sodium 138 mmol/L (136-145) 02/22/24 11:07 Magnesium 2.0 mg/dL (1.6-2.6) 09/27/21 05:34 Phosphorus 3.0 mg/dL (2.5-4.9) 11/10/23 16:47 BUN 37 mg/dL (7-18) H 02/22/24 11:07 Creatinine 1.44 mg/dL (0.55-1.02) H 02/22/24 11:07 Glucose 122 mg/dL (74-106) H 02/22/24 11:07 TSH 1.42 uIU/mL (0.358-3.74) 03/30/22 11:10 COAG PT 16.2 SECONDS (11.7-14.9) H 02/22/22 03:40 Pre-Assessment Diagnosis/Proposed Procedure Planned Operative Procedure(s): CYSTO RIGHT URETEROSCOPY LASER LITHOTRIPSY RIGHT STENT INSERTION Anesthesia History 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 When Was Last Pacemaker Check QUESTION #4 FULL TEXT: You/Your Family Experience fever (hyperthermia) with Anesthesia Last Oral Intake Last Oral intake: Last Oral Intake NPO since 22:00 02/29/24 08:49 Meds taken in AM with sips of Yes 02/29/24 08:49 water? Meds patient instructed to take am of surgery PONV PONV - flight attendant/inflight supervisor: PONV - flight attendant/inflight supervisor Female Yes 02/19/24 11:39 HX of Motion Sickness No 02/19/24 11:39 HX of N/V After Surgery No 02/19/24 11:39 Non-Smoker Yes 02/19/24 11:39 Duration of Surgery greater No 02/19/24 11:39 than 60 minutes Number of Risk Factors 2 02/19/24 11:39 PONV Score Moderate Risk 02/19/24 11:39 Height & Weight Height & Weight: Anesthesia: Height & Weight Height 5 ft 5 in 02/29/24 08:49 Weight: 154 kg 02/29/24 08:49 Body Mass Index (BMI) 56.5 02/29/24 08:49 Respiratory Assessment Respiratory Assessment - flight attendant/inflight supervisor: Respiratory Tract Infection Hx - flight attendant/inflight supervisor Hx Respiratory Tract Infection No 02/19/24 11:39 STOP Sleep Apnea STOP Sleep Apnea - flight attendant/inflight supervisor: STOP Sleep Apnea - flight attendant/inflight supervisor Hx Hypertension Yes: CONTROLLED WITH MEDS 02/19/24 11:39 Hx Sleep Apnea Yes 02/19/24 11:39 CPAP Yes 02/19/24 11:39 BIPAP No 02/19/24 11:39 Do you snore loudly (louder than talking or can be heard Do you often feel tired/ fatigued/ sleepy during daytime? Has anyone observed you stop breathing during sleep? STOP Results Positive 02/19/24 11:39 QUESTION #5 FULL TEXT : Do you snore loudly (louder than talking or can be heard through closed doors)? Tobacco Use History Tobacco Use History - flight attendant/inflight supervisor: Tobacco Use History - flight attendant/inflight supervisor Tobacco Use Non-smoker 02/24/22 10:00 Smoking Status Never smoker 02/19/24 11:39 Hx Tobacco Use No 02/19/24 11:39 Years Smoking Packs Smoked per Day Smoking Cessation Date was within the last 15 years Hx Smoking Cessation Date Hx Smoking Cessation No 02/19/24 11:39 Counseling Hematologic Medial History Hematologic Hx - flight attendant/inflight supervisor: Hematologic Medical Hx - personal care attendant Hx of Blood Transfusion No 02/19/24 11:39 Hx of Transfusion in last 3 No 02/19/24 11:39 Months Date of Last Transfusion (if within last 3 months) Ever experience any problems No 02/19/24 11:39 with transfusion(s)? Specify any problems Hx of Preganancy in last 3 No 02/19/24 11:39 Months Nurse Filling Out Transfusion DSCHRIBER 02/19/24 11:39 & Questions: Date: 02/19/24 02/19/24 11:39 Time: 11:41 02/19/24 11:39 Patient unable to answer at this time (ie. confused, unrespo /Reproduction History /Reproductive History - flight attendant/inflight supervisor: /Reproductive Hx- flight attendant/inflight supervisor Hx Now No 02/19/24 11:39 Gestational Age (in weeks): EDC: Hx Hx Para Hx Section SAB No 02/19/24 11:39 Active Medications Active Medications: Current Medications Generic Name Dose Route Start Last Admin Trade Name Freq PRN Reason Stop Dose Admin Lactated Ringer's 1,000 mls @ 15 mls/hr 02/29/24 08:30 02/29/24 09:03 IV 15 mls/hr .Q48H CHANA Administration Cefazolin Sodium 3 gm/ Sodium 115 mls @ 150 mls/hr 02/29/24 09:45 Chloride IV 02/29/24 10:30 PREOP ONE PFSH Medical History Loss of hearing Wears dentures Post-menopausal Thyroid disease Arthritis Bladder disease Walker as ambulation aid Dietary restriction History of pain when walking History of edema History of stress test History of echocardiogram TIA (transient ischemic attack) Cardiology follow-up encounter Hx of fracture of patella CVA (cerebral vascular accident) Chronic anticoagulation History of atrial fibrillation THOMAS (obstructive sleep apnea) Persistent atrial fibrillation Chronic combined systolic and diastolic CHF (congestive heart failure) Hyperlipidemia Essential hypertension Pulmonary emboli (09/24/21) Non-smoker CPAP (continuous positive airway pressure) dependence Hypothyroid Home Medications ?Medication ?Instructions ?Recorded ?Last Taken ?Type multivitamin with folic acid 400 1 tab PO DAILY SUPPLEMENT 09/17/14 02/28/24 History mcg tablet (Thera) cholecalciferol (vitamin D3) 1,250 1,250 mcg PO SWEET SUPPLEMENT 09/24/21 02/25/24 History mcg (50,000 unit) capsule levothyroxine 137 mcg tablet 137 mcg PO DAILY THYROID 09/24/21 02/29/24 History acetaminophen 500 mg tablet 1,000 mg PO TID Pain 1-10 11/10/21 02/29/24 History albuterol sulfate 90 mcg/actuation 2 puff inhalation Q6H PRN Wheezing 11/10/21 Unknown History aerosol inhaler apixaban 5 mg tablet (Eliquis) 5 mg PO BID Blood thinner 02/24/22 02/26/24 History atorvastatin 40 mg tablet 40 mg PO QHS Cholestrol 30 days 03/15/22 02/28/24 Rx #30 tabs lisinopril 2.5 mg tablet 2.5 mg PO DAILY #90 tabs 04/03/23 02/29/24 Rx metoprolol tartrate 25 mg tablet 25 mg PO BID BP #180 tabs 04/24/23 02/29/24 Rx allopurinol 300 mg tablet 100 mg PO DAILY Gout 08/08/23 02/28/24 History spironolactone 25 mg tablet 25 mg PO DAILY #90 tabs 11/28/23 02/28/24 Rx vibegron 75 mg tablet (Gemtesa) 75 mg PO DAILY 02/19/24 02/28/24 History ciprofloxacin HCl 500 mg tablet 500 mg PO Q12.TCU 02/29/24 02/29/24 History Allergy/AdvReac Type Severity Reaction Status Date / Time No Known Allergies Allergy Verified 02/29/24 08:44 Family History Mother CHF (congestive heart failure) Other Diabetes Hypertension Surgical History Hx of colonoscopy Hx of left cataract extraction Hx of right cataract extraction Social History housing: [facility] Smoking Status: Never smoker substance use type: does not use Review of Systems (Anesthesia) ROS Narrative System reviewed and no additional complaints, except as documented.
[2024-02-29] MEDS: Cefazolin 3 GM in 0.9% Normal Saline (100mL Bag) 100 ML IV (09:31)
--- NOTE | 2024-02-29 09:34 | OP.PCM_ITS ---
Problems Associated Problem List Diagnoses (1) Kidney stone: Report of Operation Date of Procedure: 02/29/24 Pre-Operative Diagnosis: right ureteral stone with hydronephrosis and urinary tract infection Post-Operative Diagnosis: same Surgery/Procedure Performed:: cystoscopy and right ureteral stent insertion Surgeon: Jennie Ng Type of Anesthesia: MAC Specimen's removed: urine for culture Description of Procedure: The patient is a 73-year-old female with an obstructing right proximal calculus with purulent urine. She presents for insertion of a right ureteral stent and cystoscopy. Informed consent was obtained. The patient was taken to the operating room and placed in the operating room table. Anesthesia monitored the head, neck, airway, IV access and vital signs throughout the case. Once anesthesia was appropriately administered, she was placed into dorsolithotomy position and was prepped and draped in usual sterile fashion. The cystoscope was inserted through the urethra under direct visualization into the urinary bladder. The urine was purulent and the bladder was emptied. There is no obv ious mass identified. The right ureteral orifice was intubated with a 0.035 Glidewire that advanced into the renal pelvis. A 6 Bahraini 26 cm JJ stent was placed over the wire with good positioning in the renal pelvis as well as the urinary bladder. Very thick purulent drainage was seen coming from the distal aspect of the stent. A urine specimen was sent from the cystoscope for repeat urine culture. The bladder was then emptied. She was awakened and taken to the recovery room in good condition. There were no complications during this procedure. Grafts/Implants Used: 6 Bahraini x 26 JJ stent Complications none Admit VTE Documentation VTE Present on Admission: Yes VTE Mechan Device Prophylaxis: SCD's VTE Pharm Prophylaxis ordered?: Yes
--- NOTE | 2024-02-29 09:36 | EX.PCM.DISCH ---
Discharge Instructions Diet Discharge Diet: No restrictions Activity Discharge Activity: Return to Normal Activity Dressing / Incision Call your doctor if you observe: Fever of 101 or Higher, Inability to urinate and Inability to have a bowel movement Follow Up Care Please Follow Up With: Jennie Ng MD When: the office will call her to make arrangements for stone management Test Results: Test results from this visit will be discussed in further detail at your follow-up appointment, if applicable. Discharge Plan Admission Attending Provider: Jennie Ng Primary Care Provider: Gregg Plasencia NP Instructions Print Language: Chinese Discharge Orders/Prescriptions Prescriptions: New oxycodone-acetaminophen [Percocet] 5-325 mg tablet 1 tab PO Q8H PRN (Reason: pain) 3 Days Qty: 10 0RF phenazopyridine 100 mg tablet 100 mg PO TID Qty: 30 0RF Continued spironolactone 25 mg tablet 25 mg PO DAILY Qty: 90 3RF multivitamin with folic acid [Thera] 1 TABLET tablet 1 tab PO DAILY allopurinol 300 mg tablet 100 mg PO DAILY levothyroxine 137 mcg tablet 137 mcg PO DAILY Patient Comments: TAKE 1 TABLET DAILY cholecalciferol (vitamin D3) 1,250 mcg (50,000 unit) capsule 1,250 mcg PO SWEET Patient Comments: TAKE 1 CAPSULE BY MOUTH EVERY WEEK albuterol sulfate 90 mcg/actuation Hfa Aerosol Inhaler 2 puff INHALATION Q6H PRN (Reason: Wheezing) acetaminophen 500 mg Tablet 1,000 mg PO TID Eliquis 5 mg tablet 5 mg PO BID atorvastatin 40 mg tablet 40 mg PO QHS 30 Days Qty: 30 0RF Gemtesa 75 mg tablet 75 mg PO DAILY ciprofloxacin HCl 500 mg tablet 500 mg PO Q12.TCU lisinopril 2.5 mg tablet 2.5 mg PO DAILY Qty: 90 3RF metoprolol tartrate 25 mg tablet 25 mg PO BID Qty: 180 3RF Referrals / Follow Up: Gregg Plasencia NP, [employer] PROGRAM REPRESENTATIVE-C [Primary Care Provider] - Disposition Disposition (needs filled in before D/C Order can be placed): Home, Self Care
--- NOTE | 2024-02-29 09:57 | PCM.POST.ANE ---
Anesthesia: Postop Eval I Current Vital Signs Temperature: 98.6 F Pulse Rate: 63 Blood Pressure: 78/53 Respiratory Rate: 18 Pulse Ox: 93 Assessment Airway patent: Yes Spontaneous unlabored respirations: Yes nausea: No Vomiting: No Anesthesia Complication: No Fluid Hydration Crystalloid volume administer (ml): 300 Total IV fluid infused: 300 Progress Note Anesthesia document: Postop Eval 1 completed: Yes
--- NOTE | 2024-02-29 10:16 | POSTOPAN2_ITS ---
Anesthesia Postop Eval I Sum Postop Eval Completion status Anesthesia document: Postop Eval 1 completed: Yes Anesthesia Postop Eval I Summary Anesthesia Postop Eval I Summary: Anesthesia Postop Eval I: Assessment Summary Airway patent Yes 02/29/24 09:59 VP ACCOUNT DIRECTOR.CSIR Spontaneous unlabored Yes 02/29/24 09:59 VP ACCOUNT DIRECTOR.CSIR respirations Mental status nausea No 02/29/24 09:59 VP ACCOUNT DIRECTOR.CSIR Vomiting No 02/29/24 09:59 VP ACCOUNT DIRECTOR.CSIR Anesthesia Postop Eval I: Fluid Summary Crystalloid volume administer 300 02/29/24 09:59 VP ACCOUNT DIRECTOR.CSIR (ml) Colloids volume administered ( ml) Blood Product volume administered (ml) Total IV fluid infused 300 02/29/24 09:59 VP ACCOUNT DIRECTOR.CSIR Anesthesia Postop Eval I: Summary Notes Anesthesia Complication No 02/29/24 09:59 VP ACCOUNT DIRECTOR.CSIR Anesthesia Complication Comment: Post-operative progress note Anesthesia: Postop Eval II Evaluation Mental status: Awake Pain Level: 0 nausea: No Vomiting: No
--- NOTE | 2024-02-29 10:16 | PCM.POSTANE2 ---
Anesthesia Postop Eval I Sum Postop Eval Completion status Anesthesia document: Postop Eval 1 completed: Yes Anesthesia Postop Eval I Summary Anesthesia Postop Eval I Summary: Anesthesia Postop Eval I: Assessment Summary Airway patent Yes 02/29/24 09:59 PIT BOSS.CSIR Spontaneous unlabored Yes 02/29/24 09:59 PIT BOSS.CSIR respirations Mental status nausea No 02/29/24 09:59 PIT BOSS.CSIR Vomiting No 02/29/24 09:59 PIT BOSS.CSIR Anesthesia Postop Eval I: Fluid Summary Crystalloid volume administer 300 02/29/24 09:59 PIT BOSS.CSIR (ml) Colloids volume administered ( ml) Blood Product volume administered (ml) Total IV fluid infused 300 02/29/24 09:59 PIT BOSS.CSIR Anesthesia Postop Eval I: Summary Notes Anesthesia Complication No 02/29/24 09:59 PIT BOSS.CSIR Anesthesia Complication Comment: Post-operative progress note Anesthesia: Postop Eval II Evaluation Mental status: Awake Pain Level: 0 nausea: No Vomiting: No
== END 2024-02-29 10:55 | disposition home or self-care (01) ==
LOC: SDC 08:16 → AC 08:16
PROVIDERS: PCP Nurse Practitioner Family; Referring Provider Urology; Visit Provider Urology
PROC: 0TJ98ZZ Inspection of Ureter, Via Natural or Artificial Opening Endoscopic (ICD-10-PCS; CPT 52352; principal; 2024-02-29 09:35)
DX: N13.2 Hydronephrosis with renal and ureteral calculous obstruction (principal); I48.20 Chronic atrial fibrillation, unspecified; I10 Essential (primary) hypertension; Z86.73 Personal history of transient ischemic attack (TIA), and cerebral infarction without residual deficits; E03.9 Hypothyroidism, unspecified; R82.71 Bacteriuria; N39.46 Mixed incontinence; R35.1 Nocturia; N32.81 Overactive bladder; G47.33 Obstructive sleep apnea (adult) (pediatric); E78.5 Hyperlipidemia, unspecified; Z86.711 Personal history of pulmonary embolism
CPT/HCPCS: 52332; 00910; 36415; 76000; 80048; 81001; 85027; 87086; 93005; J7120; C2617; J2405

== ENCOUNTER 2024-03-21 07:12 | Day surgery (SDC) | payer MEDICARE, OTHER, SELFPAY ==
[2024-03-21] VITALS (8 sets, daily range): BP systolic 75–116; BP diastolic 45–71; PULSE 63–80; RESP 14–18; TEMP 36.1–36.6; O2SAT 93–100; BMI 57.5
--- NOTE | 2024-03-21 07:35 | PRE.ANES_ITS ---
ASA Classification* ASA Classification ASA Classification: 3 Assessment & Plan Anesthesia* Anesthesia Assessment Anesthesia Assessment: Discussed sedation and/or anesthesia options, risks, benefits, and alternatives with patient/parents/legal guardian/POA. Questions invited. The patient/parents/legal guardian/POA seems to understand and agrees to proceed with anesthesia plan. Reviewed the physical assessment, medical history, allergy history and patient home medications list prior to surgery/procedure/anesthetic and documented any changes. Performed airway and anesthesia risk assessments. Anesthesia Type Anesthesia Type: General Anesthesia Focused Assessment* Airway Assessment Mouth opens: >3 cm Mallampati Score: II Focused Labs Anesthesia Preop lab: CBC WBC 5.1 K/mm3 (4.4-11.0) 02/22/24 11:07 RBC 3.79 M/mm3 (4.2-5.4) L 02/22/24 11:07 Hgb 11.7 g/dL (12.0-15.0) L 02/22/24 11:07 Hct 37.4 % (37-47) 02/22/24 11:07 Plt Count 155 K/mm3 (150-450) 02/22/24 11:07 CHEMISTRY Potassium 4.6 mmol/L (3.5-5.1) 02/22/24 11:07 Sodium 138 mmol/L (136-145) 02/22/24 11:07 Magnesium 2.0 mg/dL (1.6-2.6) 09/27/21 05:34 Phosphorus 3.0 mg/dL (2.5-4.9) 11/10/23 16:47 BUN 37 mg/dL (7-18) H 02/22/24 11:07 Creatinine 1.44 mg/dL (0.55-1.02) H 02/22/24 11:07 Glucose 122 mg/dL (74-106) H 02/22/24 11:07 TSH 1.42 uIU/mL (0.358-3.74) 03/30/22 11:10 COAG PT 16.2 SECONDS (11.7-14.9) H 02/22/22 03:40 Pre-Assessment Diagnosis/Proposed Procedure Planned Operative Procedure(s): CYSTO URETEROSCOPY LASER,BASKET EXTRACTION STENT CHANGE RIGHT Anesthesia History 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 When Was Last Pacemaker Check QUESTION #4 FULL TEXT: You/Your Family Experience fever (hyperthermia) with Anesthesia Last Oral Intake Last Oral intake: Last Oral Intake NPO since Meds taken in AM with sips of water? Meds patient instructed to take am of surgery PONV PONV - textiles and clothing teacher: PONV - textiles and clothing teacher Female Yes 03/12/24 14:35 HX of Motion Sickness No 03/12/24 14:35 HX of N/V After Surgery No 03/12/24 14:35 Non-Smoker Yes 03/12/24 14:35 Duration of Surgery greater Yes 03/12/24 14:35 than 60 minutes Number of Risk Factors 3 03/12/24 14:35 PONV Score Moderate Risk 03/12/24 14:35 Height & Weight Height & Weight: Anesthesia: Height & Weight Height 5 ft 5 in 02/29/24 08:49 Respiratory Assessment Respiratory Assessment - textiles and clothing teacher: Respiratory Tract Infection Hx - textiles and clothing teacher Hx Respiratory Tract Infection No 03/12/24 14:35 STOP Sleep Apnea STOP Sleep Apnea - textiles and clothing teacher: STOP Sleep Apnea - textiles and clothing teacher Hx Hypertension Yes: CONTROLLED WITH MEDS 03/12/24 14:35 Hx Sleep Apnea Yes 03/12/24 14:35 CPAP Yes 03/12/24 14:35 BIPAP No 03/12/24 14:35 Do you snore loudly (louder than talking or can be heard Do you often feel tired/ fatigued/ sleepy during daytime? Has anyone observed you stop breathing during sleep? STOP Results Positive 03/12/24 14:35 QUESTION #5 FULL TEXT : Do you snore loudly (louder than talking or can be heard through closed doors)? 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 Specify any problems Hx of Preganancy in last 3 No 03/12/24 14:35 Months Nurse Filling Out Transfusion DSCHRIBER 03/12/24 14:35 & Questions: Date: 03/12/24 03/12/24 14:35 Time: 14:36 03/12/24 14:35 Patient unable to answer at this time (ie. confused, unrespo /Reproduction History /Reproductive History - textiles and clothing teacher: /Reproductive Hx- textiles and clothing teacher Hx Now Gestational Age (in weeks): EDC: Hx Hx Para Hx Section SAB No 03/12/24 14:35 Active Medications Active Medications: Current Medications Generic Name Dose Route Start Last Admin Trade Name Freq PRN Reason Stop Dose Admin Cefazolin Sodium 2 gm/ Sodium 110 mls @ 150 mls/hr 03/21/24 08:45 Chloride IV 03/21/24 09:28 PREOP ONE Lactated Ringer's 1,000 mls @ 15 mls/hr 03/21/24 07:30 IV .Q48H CHANA PFSH Medical History Kidney stone Loss of hearing Wears dentures Post-menopausal Thyroid disease Arthritis Bladder disease Walker as ambulation aid Dietary restriction History of pain when walking History of edema History of stress test History of echocardiogram TIA (transient ischemic attack) Cardiology follow-up encounter Hx of fracture of patella CVA (cerebral vascular accident) Chronic anticoagulation History of atrial fibrillation THOMAS (obstructive sleep apnea) Persistent atrial fibrillation Chronic combined systolic and diastolic CHF (congestive heart failure) Hyperlipidemia Essential hypertension Pulmonary emboli (09/24/21) Non-smoker CPAP (continuous positive airway pressure) dependence Hypothyroid Home Medications ?Medication ?Instructions ?Recorded ?Last Taken ?Type multivitamin with folic acid 400 1 tab PO DAILY SUPPLEMENT 09/17/14 02/28/24 History mcg tablet (Thera) cholecalciferol (vitamin D3) 1,250 1,250 mcg PO .EVERY OTHER WEEK 09/24/21 02/25/24 History mcg (50,000 unit) capsule SUPPLEMENT levothyroxine 137 mcg tablet 137 mcg PO DAILY THYROID 09/24/21 02/29/24 History acetaminophen 500 mg tablet 1,000 mg PO BID Pain 1-10 11/10/21 02/29/24 History apixaban 5 mg tablet (Eliquis) 5 mg PO BID Blood thinner 02/24/22 02/26/24 History atorvastatin 40 mg tablet 40 mg PO QHS Cholestrol 30 days 03/15/22 02/28/24 Rx #30 tabs metoprolol tartrate 25 mg tablet 25 mg PO BID BP #180 tabs 04/24/23 02/29/24 Rx allopurinol 300 mg tablet 100 mg PO DAILY Gout 08/08/23 02/28/24 History spironolactone 25 mg tablet 25 mg PO DAILY #90 tabs 11/28/23 02/28/24 Rx vibegron 75 mg tablet (Gemtesa) 75 mg PO DAILY 02/19/24 02/28/24 History oxycodone-acetaminophen 5 mg-325 1 tab PO Q8H PRN pain 3 days #10 02/29/24 Unknown Rx mg tablet (Percocet) tabs lisinopril 2.5 mg tablet 2.5 mg PO DAILY #90 tabs 03/18/24 Unknown Rx Allergy/AdvReac Type Severity Reaction Status Date / Time No Known Allergies Allergy Verified 03/12/24 14:16 Family History Mother CHF (congestive heart failure) Other Diabetes Hypertension Surgical History History of cystoscopy Hx of colonoscopy Hx of left cataract extraction Hx of right cataract extraction Social History housing: halfway Smoking Status: Never smoker substance use type: does not use Review of Systems (Anesthesia) ROS Narrative System reviewed and no additional complaints, except as documented.
[2024-03-21] MEDS: Lactated Ringers 1,000 ML 15 ML IV (07:46)
[2024-03-21] MEDS: Cefazolin 2 GM in 0.9% Normal Saline (100mL Bag) 100 ML IV (09:10)
--- NOTE | 2024-03-21 09:22 | PCM.OPRPT ---
Report of Operation Date of Procedure: 03/21/24 Pre-Operative Diagnosis: Right ureteral calculus Post-Operative Diagnosis: Same Surgery/Procedure Performed:: Cystoscopy, right ureteroscopy, thulium laser lithotripsy, attempted stone basket extraction, retrograde pyelogram, Right ureteral stent change Surgeon: Jennie Ng Type of Anesthesia: General Description of Procedure: The patient is a 73-year-old female with an indwelling right ureteral stent secondary to obstruction from a stone and infection. She was appropriately managed and now presents for stone treatment. Informed consent was obtained. She was taken to the operating room and placed on the operating room table. Anesthesia monitored the head, neck, airway, IV access and vital signs throughout the case. This was difficult secondary to her size and anatomy. At this time she was repositioned on the table in dorsolithotomy and her pannus was retracted. She was prepped and draped in usual sterile fashion. The cystoscope was then inserted through the urethra under direct visualization into the urinary bladder. The indwelling stent was observed. 2 separate 0.035 Glidewire's were passed alongside the stent which was then removed with grasping forceps. The flexible ureteroscope was inserted over one of the Glidewire's and advanced easily into the proximal ureter where 1 large stone was identified. This is broken into smaller pieces using a thulium laser and 200 ?m fiber. A few small pieces were attempted to be basket retrieved, and this was not successful. An attempt was made at ureteroscopy with the semirigid ureteroscope. The close the right got to the stone, the more torque was felt on the scope and the decision was made to return to using the flexible ureteroscope. The ureter was significantly edematous. After a short time. Working with the laser fiber, there was a small area of concern for ureteral injury or perforation. Contrast was then injected in retrograde fashion revealing no evidence of extravasation. The decision was made to replace the right ureteral stent and abort the ureteroscopy at this time. The stent was inserted with good positioning in the renal pelvis as well as the urinary bladder. The bladder was then emptied. She was awakened and taken to the recovery room in good condition. Grafts/Implants Used: 6 Filipino by 26 cm JJ stent Complications None Admit VTE Documentation VTE Present on Admission: Yes VTE Mechan Device Prophylaxis: SCD's VTE Pharm Prophylaxis ordered?: Yes
--- NOTE | 2024-03-21 10:27 | EX.PCM.DISCH ---
Discharge Instructions Diet Discharge Diet: No restrictions Activity Discharge Activity: Return to Normal Activity Dressing / Incision Call your doctor if you observe: Fever of 101 or Higher, Inability to urinate and Inability to have a bowel movement Follow Up Care Please Follow Up With: Jennie Ng MD When: The office will call to make plans for the next surgery. Test Results: Test results from this visit will be discussed in further detail at your follow-up appointment, if applicable. Discharge Plan Admission Attending Provider: Jennie Ng Primary Care Provider: Gregg Plasencia NP Instructions Print Language: Armenian Discharge Orders/Prescriptions Prescriptions: New cephalexin 500 mg capsule 500 mg PO Q12 3 Days Qty: 6 0RF Continued spironolactone 25 mg tablet 25 mg PO DAILY Qty: 90 3RF multivitamin with folic acid [Thera] 1 TABLET tablet 1 tab PO DAILY allopurinol 300 mg tablet 100 mg PO DAILY levothyroxine 137 mcg tablet 137 mcg PO DAILY Patient Comments: TAKE 1 TABLET DAILY cholecalciferol (vitamin D3) 1,250 mcg (50,000 unit) capsule 1,250 mcg PO .EVERY OTHER WEEK Patient Comments: TAKE 1 CAPSULE BY MOUTH EVERY WEEK acetaminophen 500 mg Tablet 1,000 mg PO BID Eliquis 5 mg tablet 5 mg PO BID atorvastatin 40 mg tablet 40 mg PO QHS 30 Days Qty: 30 0RF Gemtesa 75 mg tablet 75 mg PO DAILY oxycodone-acetaminophen [Percocet] 5-325 mg tablet 1 tab PO Q8H PRN (Reason: pain) 3 Days Qty: 10 0RF metoprolol tartrate 25 mg tablet 25 mg PO BID Qty: 180 3RF lisinopril 2.5 mg tablet 2.5 mg PO DAILY Qty: 90 3RF Referrals / Follow Up: Gregg Plasencia NP, OPERATIONS SYSTEMS SPECIALIST-C [Primary Care Provider] - Disposition Disposition (needs filled in before D/C Order can be placed): Home, Self Care
--- NOTE | 2024-03-21 10:31 | PCM.POST.ANE ---
Anesthesia: Postop Eval I Current Vital Signs Temperature: 97.3 F Pulse Rate: 70 Blood Pressure: 86/52 (placed in tberg and fluids wide open) Respiratory Rate: 16 Pulse Ox: 98 Oxygen Delivery Method: Simple Mask Oxygen Flow Rate (L/min): 6 Assessment Airway patent: Yes Spontaneous unlabored respirations: Yes Mental status: Awake and Calm nausea: No Vomiting: No Anesthesia Complication: No Fluid Hydration Crystalloid volume administer (ml): 700 Total IV fluid infused: 700 Progress Note Anesthesia document: Postop Eval 1 completed: Yes
--- NOTE | 2024-03-21 14:19 | POSTOPAN2_ITS ---
Anesthesia Postop Eval I Sum Postop Eval Completion status Anesthesia document: Postop Eval 1 completed: Yes Anesthesia Postop Eval I Summary Anesthesia Postop Eval I Summary: Anesthesia Postop Eval I: Assessment Summary Airway patent Yes 03/21/24 10:32 LIVESTOCK NUTRITIONIST.[email or web address] Spontaneous unlabored Yes 03/21/24 10:32 LIVESTOCK NUTRITIONIST.IRMA respirations Mental status Awake,Calm 03/21/24 10:32 LIVESTOCK NUTRITIONIST.IRMA nausea No 03/21/24 10:32 LIVESTOCK NUTRITIONIST.IRMA Vomiting No 03/21/24 10:32 LIVESTOCK NUTRITIONISTFAUSTINO Anesthesia Postop Eval I: Fluid Summary Crystalloid volume administer 700 03/21/24 10:32 LIVESTOCK NUTRITIONIST.IRMA (ml) Colloids volume administered ( ml) Blood Product volume administered (ml) Total IV fluid infused 700 03/21/24 10:32 LIVESTOCK NUTRITIONIST.IRMA Anesthesia Postop Eval I: Summary Notes Anesthesia Complication No 03/21/24 10:32 LIVESTOCK NUTRITIONISTFAUSTINO Anesthesia Complication Comment: Post-operative progress note Anesthesia: Postop Eval II Evaluation Mental status: Awake and Calm Pain Level: 1 nausea: No Vomiting: No Complications Anesthesia Complication: No
--- NOTE | 2024-03-21 14:19 | PCM.POSTANE2 ---
Anesthesia Postop Eval I Sum Postop Eval Completion status Anesthesia document: Postop Eval 1 completed: Yes Anesthesia Postop Eval I Summary Anesthesia Postop Eval I Summary: Anesthesia Postop Eval I: Assessment Summary Airway patent Yes 03/21/24 10:32 HEEL SEAT TRIMMER.[email or web address] Spontaneous unlabored Yes 03/21/24 10:32 HEEL SEAT TRIMMER.IRMA respirations Mental status Awake,Calm 03/21/24 10:32 HEEL SEAT TRIMMER.IRMA nausea No 03/21/24 10:32 HEEL SEAT TRIMMER.IRMA Vomiting No 03/21/24 10:32 HEEL SEAT TRIMMERFAUSTINO Anesthesia Postop Eval I: Fluid Summary Crystalloid volume administer 700 03/21/24 10:32 HEEL SEAT TRIMMER.IRMA (ml) Colloids volume administered ( ml) Blood Product volume administered (ml) Total IV fluid infused 700 03/21/24 10:32 HEEL SEAT TRIMMER.IRMA Anesthesia Postop Eval I: Summary Notes Anesthesia Complication No 03/21/24 10:32 HEEL SEAT TRIMMERFAUSTINO Anesthesia Complication Comment: Post-operative progress note Anesthesia: Postop Eval II Evaluation Mental status: Awake and Calm Pain Level: 1 nausea: No Vomiting: No Complications Anesthesia Complication: No
== END 2024-03-21 12:18 | disposition home or self-care (01) ==
LOC: SDC 07:13 → AC 07:15
PROVIDERS: PCP Nurse Practitioner Family; Referring Provider Urology; Visit Provider Urology
PROC: 0TJ98ZZ Inspection of Ureter, Via Natural or Artificial Opening Endoscopic (ICD-10-PCS; CPT 52352; principal; 2024-03-21 08:35)
DX: N20.1 Calculus of ureter (principal); I10 Essential (primary) hypertension; Z86.73 Personal history of transient ischemic attack (TIA), and cerebral infarction without residual deficits; E03.9 Hypothyroidism, unspecified; G47.33 Obstructive sleep apnea (adult) (pediatric); Z99.89 Dependence on other enabling machines and devices; Z86.711 Personal history of pulmonary embolism; E78.5 Hyperlipidemia, unspecified; N13.30 Unspecified hydronephrosis; R82.71 Bacteriuria; N39.46 Mixed incontinence; R35.1 Nocturia; N32.81 Overactive bladder
CPT/HCPCS: 52352; 52332; 00918; 76000; J7120; C2617; J2405

== ENCOUNTER 2024-04-25 06:55 | Day surgery (SDC) | payer MEDICARE, OTHER, SELFPAY ==
[2024-04-11 11:22] LABS: Mucous, Urine 0 SEEN /hpf (<or=2+)
[2024-04-11 11:32] VITALS: BP 100/68; PULSE 57; RESP 16; TEMP 36.1; O2SAT 98; BMI 57.5
--- NOTE | 2024-04-11 11:34 | PRE.ANES_ITS ---
ASA Classification* ASA Classification ASA Classification: 3 Assessment & Plan Anesthesia* Anesthesia Assessment Anesthesia Assessment: Discussed sedation and/or anesthesia options, risks, benefits, and alternatives with patient/parents/legal guardian/POA. Questions invited. The patient/parents/legal guardian/POA seems to understand and agrees to proceed with anesthesia plan. Reviewed the physical assessment, medical history, allergy history and patient home medications list prior to surgery/procedure/anesthetic and documented any changes. Performed airway and anesthesia risk assessments. Anesthesia Type Anesthesia Type: General (see written pre anesthesia record for full assessment) Anesthesia Focused Assessment* Airway Assessment Mouth opens: >3 cm Mallampati Score: II Focused Labs Anesthesia Preop lab: CBC WBC 5.1 K/mm3 (4.4-11.0) 02/22/24 11:07 RBC 3.79 M/mm3 (4.2-5.4) L 02/22/24 11:07 Hgb 11.7 g/dL (12.0-15.0) L 02/22/24 11:07 Hct 37.4 % (37-47) 02/22/24 11:07 Plt Count 155 K/mm3 (150-450) 02/22/24 11:07 CHEMISTRY Potassium 4.6 mmol/L (3.5-5.1) 02/22/24 11:07 Sodium 138 mmol/L (136-145) 02/22/24 11:07 Magnesium 2.0 mg/dL (1.6-2.6) 09/27/21 05:34 Phosphorus 3.0 mg/dL (2.5-4.9) 11/10/23 16:47 BUN 37 mg/dL (7-18) H 02/22/24 11:07 Creatinine 1.44 mg/dL (0.55-1.02) H 02/22/24 11:07 Glucose 122 mg/dL (74-106) H 02/22/24 11:07 TSH 1.42 uIU/mL (0.358-3.74) 03/30/22 11:10 COAG PT 16.2 SECONDS (11.7-14.9) H 02/22/22 03:40 Pre-Assessment Diagnosis/Proposed Procedure Planned Operative Procedure(s): RIGHT ESWL Anesthesia History 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 When Was Last Pacemaker Check QUESTION #4 FULL TEXT: You/Your Family Experience fever (hyperthermia) with Anesthesia Last Oral Intake Last Oral intake: Last Oral Intake NPO since Meds taken in AM with sips of water? Meds patient instructed to take am of surgery PONV PONV - conference center coordinator: PONV - conference center coordinator Female Yes 04/08/24 14:12 HX of Motion Sickness No 04/08/24 14:12 HX of N/V After Surgery No 04/08/24 14:12 Non-Smoker Yes 04/08/24 14:12 Duration of Surgery greater Yes 04/08/24 14:12 than 60 minutes Number of Risk Factors 3 04/08/24 14:12 PONV Score Moderate Risk 04/08/24 14:12 Height & Weight Height & Weight: Anesthesia: Height & Weight Height 5 ft 5 in 03/21/24 07:49 Respiratory Assessment Respiratory Assessment - conference center coordinator: Respiratory Tract Infection Hx - conference center coordinator Hx Respiratory Tract Infection No 04/08/24 14:12 STOP Sleep Apnea STOP Sleep Apnea - conference center coordinator: STOP Sleep Apnea - conference center coordinator Hx Hypertension Yes: CONTROLLED WITH MEDS 04/08/24 14:12 Hx Sleep Apnea Yes 04/08/24 14:12 CPAP Yes 04/08/24 14:12 BIPAP No 04/08/24 14:12 Do you snore loudly (louder than talking or can be heard Do you often feel tired/ fatigued/ sleepy during daytime? Has anyone observed you stop breathing during sleep? STOP Results Positive 04/08/24 14:12 QUESTION #5 FULL TEXT : Do you snore loudly (louder than talking or can be heard through closed doors)? Tobacco Use History Tobacco Use History - conference center coordinator: Tobacco Use History - conference center coordinator Tobacco Use Non-smoker 02/24/22 10:00 Smoking Status Never smoker 04/08/24 14:12 Hx Tobacco Use No 04/08/24 14:12 Years Smoking Packs Smoked per Day Smoking Cessation Date was within the last 15 years Hx Smoking Cessation Date Hx Smoking Cessation No 04/08/24 14:12 Counseling Hematologic Medial History Hematologic Hx - conference center coordinator: Hematologic Medical Hx - documentation lead Hx of Blood Transfusion No 04/08/24 14:12 Hx of Transfusion in last 3 No 04/08/24 14:12 Months Date of Last Transfusion (if within last 3 months) Ever experience any problems No 04/08/24 14:12 with transfusion(s)? Specify any problems Hx of Preganancy in last 3 No 04/08/24 14:12 Months Nurse Filling Out Transfusion DSCHRIBER 04/08/24 14:12 & Questions: Date: 04/08/24 04/08/24 14:12 Time: 14:14 04/08/24 14:12 Patient unable to answer at this time (ie. confused, unrespo /Reproduction History /Reproductive History - conference center coordinator: /Reproductive Hx- conference center coordinator Hx Now No 04/08/24 14:12 Gestational Age (in weeks): EDC: Hx Hx Para Hx Section SAB No 04/08/24 14:12 Active Medications Active Medications: Current Medications Generic Name Dose Route Start Last Admin Trade Name Freq PRN Reason Stop Dose Admin Cefazolin Sodium 3 gm/ Sodium 115 mls @ 150 mls/hr 04/11/24 14:55 Chloride IV 04/11/24 15:40 PREOP ONE Lactated Ringer's 1,000 mls @ 15 mls/hr 04/11/24 11:30 IV .Q48H CHANA PFSH Medical History Kidney stone Loss of hearing Wears dentures Post-menopausal Thyroid disease Arthritis Bladder disease Walker as ambulation aid Dietary restriction History of pain when walking History of edema History of stress test History of echocardiogram TIA (transient ischemic attack) Cardiology follow-up encounter Hx of fracture of patella CVA (cerebral vascular accident) Chronic anticoagulation History of atrial fibrillation THOMAS (obstructive sleep apnea) Persistent atrial fibrillation Chronic combined systolic and diastolic CHF (congestive heart failure) Hyperlipidemia Essential hypertension Pulmonary emboli (09/24/21) Non-smoker CPAP (continuous positive airway pressure) dependence Hypothyroid Home Medications ?Medication ?Instructions ?Recorded ?Last Taken ?Type multivitamin with folic acid 400 1 tab PO DAILY SUPPLEMENT 09/17/14 02/28/24 History mcg tablet (Thera) cholecalciferol (vitamin D3) 1,250 1,250 mcg PO .EVERY OTHER WEEK 09/24/21 02/25/24 History mcg (50,000 unit) capsule SUPPLEMENT acetaminophen 500 mg tablet 1,000 mg PO BID Pain 1-10 11/10/21 04/11/24 08:45 History atorvastatin 40 mg tablet 40 mg PO QHS Cholestrol 30 days 03/15/22 02/28/24 Rx #30 tabs allopurinol 300 mg tablet 100 mg PO DAILY Gout 08/08/23 02/28/24 History spironolactone 25 mg tablet 25 mg PO DAILY #90 tabs 11/28/23 02/28/24 Rx vibegron 75 mg tablet (Gemtesa) 75 mg PO DAILY 02/19/24 02/28/24 History oxycodone-acetaminophen 5 mg-325 1 tab PO Q8H PRN pain 3 days #10 02/29/24 Unknown Rx mg tablet (Percocet) tabs lisinopril 2.5 mg tablet 2.5 mg PO DAILY #90 tabs 03/18/24 04/11/24 Rx metoprolol tartrate 25 mg tablet 25 mg PO BID BP #180 tabs 04/05/24 04/11/24 09:00 Rx apixaban 2.5 mg tablet (Eliquis) 2.5 mg PO BID 04/08/24 04/07/24 History levothyroxine 150 mcg tablet 150 mcg PO DAILY 04/08/24 04/11/24 History cephalexin 500 mg capsule 500 mg PO Q8H 04/11/24 04/11/24 History Allergy/AdvReac Type Severity Reaction Status Date / Time No Known Allergies Allergy Verified 04/11/24 11:30 Family History Mother CHF (congestive heart failure) Other Diabetes Hypertension Surgical History History of cystoscopy History of cystoscopy Hx of colonoscopy Hx of left cataract extraction Hx of right cataract extraction Social History housing: [facility] Smoking Status: Never smoker substance use type: does not use Review of Systems (Anesthesia) ROS Narrative System reviewed and no additional complaints, except as documented.
[2024-04-11] MEDS: Lactated Ringers 1,000 ML 15 ML IV (11:40)
[2024-04-11 11:44] LABS: Color, Urine Yellow (Yellow); Glucose, Dipstick Normal (Normal); Ketone-Dipstick Negative (Negative); Leukocyte Esterase-Dipstick 500 /ul (Negative); Nitrite-Dipstick Positive (Negative); Occult Blood-Urine 50 /ul (Negative); Protein-Dipstick 30 mg/dl (Negative); Specific Gravity, Urine 1.015 (1.002-1.030); Urine Bilirubin Dipstick Negative (Negative); Urine Clarity Cloudy (Clear); Urine Urobilinogen Normal (Normal)
[2024-04-11 12:13] LABS: Squamous Epithelial Cells - UA 5-10 SEEN /hpf (5-10); Transitional Epithelial - Ur 0-5 SEEN /hpf (0-5)
[2024-04-11 12:14] LABS: Renal Epithelial Cells 10-25 SEEN /hpf (0-5); White Blood Cells >100 SEEN /hpf (0-5)
[2024-04-11 12:15] LABS: Bacteria 2+ /hpf (None Seen); Red Blood Cells-Urine 10-25 SEEN /hpf (0-5)
[2024-04-25] VITALS (8 sets, daily range): BP systolic 91–117; BP diastolic 44–88; PULSE 57–98; RESP 16–18; TEMP 36.1–36.7; O2SAT 95–100; BMI 57.2
--- NOTE | 2024-04-25 07:25 | PCM.PRE.AN2 ---
ASA Classification* ASA Classification ASA Classification: 3 Assessment & Plan Anesthesia* Anesthesia Assessment Anesthesia Assessment: Discussed sedation and/or anesthesia options, risks, benefits, and alternatives with patient/parents/legal guardian/POA. Questions invited. The patient/parents/legal guardian/POA seems to understand and agrees to proceed with anesthesia plan. Reviewed the physical assessment, medical history, allergy history and patient home medications list prior to surgery/procedure/anesthetic and documented any changes. Performed airway and anesthesia risk assessments. Anesthesia Type Anesthesia Type: General Anesthesia Focused Assessment* Temperature: 96.9 F Pulse Rate: 57 Blood Pressure: 100/68 Respiratory Rate: 16 Pulse Ox: 98 Airway Assessment Mouth opens: >3 cm Mallampati Score: II Focused Labs Anesthesia Preop lab: CBC WBC 5.1 K/mm3 (4.4-11.0) 02/22/24 11:07 RBC 3.79 M/mm3 (4.2-5.4) L 02/22/24 11:07 Hgb 11.7 g/dL (12.0-15.0) L 02/22/24 11:07 Hct 37.4 % (37-47) 02/22/24 11:07 Plt Count 155 K/mm3 (150-450) 02/22/24 11:07 CHEMISTRY Potassium 4.6 mmol/L (3.5-5.1) 02/22/24 11:07 Sodium 138 mmol/L (136-145) 02/22/24 11:07 Magnesium 2.0 mg/dL (1.6-2.6) 09/27/21 05:34 Phosphorus 3.0 mg/dL (2.5-4.9) 11/10/23 16:47 BUN 37 mg/dL (7-18) H 02/22/24 11:07 Creatinine 1.44 mg/dL (0.55-1.02) H 02/22/24 11:07 Glucose 122 mg/dL (74-106) H 02/22/24 11:07 TSH 1.42 uIU/mL (0.358-3.74) 03/30/22 11:10 COAG PT 16.2 SECONDS (11.7-14.9) H 02/22/22 03:40 Pre-Assessment Diagnosis/Proposed Procedure Planned Operative Procedure(s): RIGHT ESWL Anesthesia History 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 When Was Last Pacemaker Check QUESTION #4 FULL TEXT: You/Your Family Experience fever (hyperthermia) with Anesthesia Last Oral Intake Last Oral intake: Last Oral Intake NPO since 09:00 04/11/24 11:32 Meds taken in AM with sips of Yes 04/11/24 11:32 water? Meds patient instructed to SEE MAR 04/11/24 11:32 take am of surgery PONV PONV - package delivery room service runner: PONV - package delivery room service runner Female Yes 04/08/24 14:12 HX of Motion Sickness No 04/08/24 14:12 HX of N/V After Surgery No 04/08/24 14:12 Non-Smoker Yes 04/08/24 14:12 Duration of Surgery greater Yes 04/08/24 14:12 than 60 minutes Number of Risk Factors 3 04/08/24 14:12 PONV Score Moderate Risk 04/08/24 14:12 Height & Weight Height & Weight: Anesthesia: Height & Weight Height 5 ft 5 in 04/11/24 11:32 Weight: 156.943 kg 04/11/24 11:32 Body Mass Index (BMI) 57.5 04/11/24 11:32 Respiratory Assessment Respiratory Assessment - package delivery room service runner: Respiratory Tract Infection Hx - package delivery room service runner Hx Respiratory Tract Infection No 04/08/24 14:12 STOP Sleep Apnea STOP Sleep Apnea - package delivery room service runner: STOP Sleep Apnea - package delivery room service runner Hx Hypertension Yes: CONTROLLED WITH MEDS 04/08/24 14:12 Hx Sleep Apnea Yes 04/08/24 14:12 CPAP Yes 04/08/24 14:12 BIPAP No 04/08/24 14:12 Do you snore loudly (louder than talking or can be heard Do you often feel tired/ fatigued/ sleepy during daytime? Has anyone observed you stop breathing during sleep? STOP Results Positive 04/08/24 14:12 QUESTION #5 FULL TEXT : Do you snore loudly (louder than talking or can be heard through closed doors)? 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 Specify any problems Hx of Preganancy in last 3 No 04/08/24 14:12 Months Nurse Filling Out Transfusion DSCHRIBER 04/08/24 14:12 & Questions: Date: 04/08/24 04/08/24 14:12 Time: 14:14 04/08/24 14:12 Patient unable to answer at this time (ie. confused, unrespo /Reproduction History /Reproductive History - package delivery room service runner: /Reproductive Hx- package delivery room service runner Hx Now No 04/08/24 14:12 Gestational Age (in weeks): EDC: Hx Hx Para Hx Section SAB No 04/08/24 14:12 Active Medications Active Medications: Current Medications Generic Name Dose Route Start Last Admin Trade Name Freq PRN Reason Stop Dose Admin Cefazolin Sodium 3 gm/ Sodium 115 mls @ 150 mls/hr 04/25/24 08:20 Chloride IV 04/25/24 09:05 PREOP ONE Lactated Ringer's 1,000 mls @ 15 mls/hr 04/25/24 07:15 IV .Q48H CHANA PFSH Medical History Kidney stone Loss of hearing Wears dentures Post-menopausal Thyroid disease Arthritis Bladder disease Walker as ambulation aid Dietary restriction History of pain when walking History of edema History of stress test History of echocardiogram TIA (transient ischemic attack) Cardiology follow-up encounter Hx of fracture of patella CVA (cerebral vascular accident) Chronic anticoagulation History of atrial fibrillation THOMAS (obstructive sleep apnea) Persistent atrial fibrillation Chronic combined systolic and diastolic CHF (congestive heart failure) Hyperlipidemia Essential hypertension Pulmonary emboli (09/24/21) Non-smoker CPAP (continuous positive airway pressure) dependence Hypothyroid Home Medications ?Medication ?Instructions ?Recorded ?Last Taken ?Type multivitamin with folic acid 400 1 tab PO DAILY SUPPLEMENT 09/17/14 02/28/24 History mcg tablet (Thera) cholecalciferol (vitamin D3) 1,250 1,250 mcg PO .EVERY OTHER WEEK 09/24/21 02/25/24 History mcg (50,000 unit) capsule SUPPLEMENT acetaminophen 500 mg tablet 1,000 mg PO BID Pain 1-10 11/10/21 04/11/24 08:45 History atorvastatin 40 mg tablet 40 mg PO QHS Cholestrol 30 days 03/15/22 02/28/24 Rx #30 tabs allopurinol 300 mg tablet 100 mg PO DAILY Gout 08/08/23 02/28/24 History spironolactone 25 mg tablet 25 mg PO DAILY #90 tabs 11/28/23 02/28/24 Rx vibegron 75 mg tablet (Gemtesa) 75 mg PO DAILY 02/19/24 02/28/24 History oxycodone-acetaminophen 5 mg-325 1 tab PO Q8H PRN pain 3 days #10 02/29/24 Unknown Rx mg tablet (Percocet) tabs lisinopril 2.5 mg tablet 2.5 mg PO DAILY #90 tabs 03/18/24 04/11/24 Rx metoprolol tartrate 25 mg tablet 25 mg PO BID BP #180 tabs 04/05/24 04/11/24 09:00 Rx apixaban 2.5 mg tablet (Eliquis) 2.5 mg PO BID 04/08/24 04/07/24 History levothyroxine 150 mcg tablet 150 mcg PO DAILY 04/08/24 04/11/24 History Allergy/AdvReac Type Severity Reaction Status Date / Time No Known Allergies Allergy Verified 04/25/24 07:19 Family History Mother CHF (congestive heart failure) Other Diabetes Hypertension Surgical History History of cystoscopy History of cystoscopy Hx of colonoscopy Hx of left cataract extraction Hx of right cataract extraction Social History housing: intermediate Smoking Status: Never smoker substance use type: does not use Review of Systems (Anesthesia) ROS Narrative System reviewed and no additional complaints, except as documented.
[2024-04-25] MEDS: Lactated Ringers 1,000 ML 15 ML IV (07:26)
[2024-04-25] MEDS: Cefazolin 3 GM in 0.9% Normal Saline (100mL Bag) 100 ML IV (08:38)
--- NOTE | 2024-04-25 09:08 | DCINST_ITS ---
Discharge Instructions Diet Discharge Diet: No restrictions Activity Discharge Activity: Return to Normal Activity Dressing / Incision Call your doctor if you observe: Fever of 101 or Higher, Inability to urinate and Inability to have a bowel movement Follow Up Care Please Follow Up With: Jennie Ng MD When: 2 to 3 weeks in the office with a KUB. The office will call to make arrangements. Test Results: Test results from this visit will be discussed in further detail at your follow- up appointment, if applicable. Discharge Plan Admission Attending Provider: Jennie Ng Primary Care Provider: Gregg Plasencia NP Instructions Print Language: Greek Discharge Orders/Prescriptions Prescriptions: New oxycodone-acetaminophen [Percocet] 5-325 mg tablet 1 tab PO Q8H PRN (Reason: pain) 3 Days Qty: 10 0RF cephalexin 250 mg capsule 250 mg PO QHS 30 Days Qty: 30 3RF Continued spironolactone 25 mg tablet 25 mg PO DAILY Qty: 90 3RF multivitamin with folic acid [Thera] 1 TABLET tablet 1 tab PO DAILY allopurinol 300 mg tablet 100 mg PO DAILY cholecalciferol (vitamin D3) 1,250 mcg (50,000 unit) capsule 1,250 mcg PO .EVERY OTHER WEEK Patient Comments: TAKE 1 CAPSULE BY MOUTH EVERY WEEK acetaminophen 500 mg Tablet 1,000 mg PO BID atorvastatin 40 mg tablet 40 mg PO QHS 30 Days Qty: 30 0RF Gemtesa 75 mg tablet 75 mg PO DAILY oxycodone-acetaminophen [Percocet] 5-325 mg tablet 1 tab PO Q8H PRN (Reason: pain) 3 Days Qty: 10 0RF Eliquis 2.5 mg tablet 2.5 mg PO BID levothyroxine 150 mcg tablet 150 mcg PO DAILY lisinopril 2.5 mg tablet 2.5 mg PO DAILY Qty: 90 3RF metoprolol tartrate 25 mg tablet 25 mg PO BID Qty: 180 3RF Referrals / Follow Up: Gregg Plasencia NP, OBSTETRICAL ANESTHESIOLOGIST-C [Primary Care Provider] - Disposition Disposition (needs filled in before D/C Order can be placed): Home, Self Care
--- NOTE | 2024-04-25 09:12 | PCM.OPRPT ---
Report of Operation Date of Procedure: 04/25/24 Pre-Operative Diagnosis: Right ureteral calculus Post-Operative Diagnosis: Same Surgery/Procedure Performed:: Right ureteral extracorporal shockwave lithotripsy Surgeon: Jennie Ng Type of Anesthesia: General Specimen's removed: None Description of Procedure: The patient is a 73-year-old female with a large right ureteral calculus who presents for extracorporal shockwave lithotripsy. Informed consent was obtained. The patient was taken to the operating room placed on the ESWL table. Anesthesia monitored the head, neck, airway, IV access and vital signs throughout the case. Once anesthesia was appropriately ministered, she was positioned so that the stone could be optimally visualized. 4000 shocks were then applied to the stone which was no longer seen at the conclusion of the case. She was then awakened and taken to the recovery room in good condition. There were no complications during this procedure. Grafts/Implants Used: None Complications None Admit VTE Documentation VTE Present on Admission: Yes VTE Mechan Device Prophylaxis: SCD's VTE Pharm Prophylaxis ordered?: Yes
--- NOTE | 2024-04-25 09:41 | PCM.POST.ANE ---
Anesthesia: Postop Eval I Current Vital Signs Temperature: 97.3 F Pulse Rate: 98 Blood Pressure: 117/83 Respiratory Rate: 18 Pulse Ox: 100 Oxygen Delivery Method: Simple Mask Oxygen Flow Rate (L/min): 6 Assessment Airway patent: Yes Spontaneous unlabored respirations: Yes Mental status: Awake and Calm nausea: No Vomiting: No Anesthesia Complication: No Fluid Hydration Crystalloid volume administer (ml): 800 Total IV fluid infused: 800 Progress Note Anesthesia document: Postop Eval 1 completed: Yes
--- NOTE | 2024-04-25 10:12 | POSTOPAN2_ITS ---
Anesthesia Postop Eval I Sum Postop Eval Completion status Anesthesia document: Postop Eval 1 completed: Yes Anesthesia Postop Eval I Summary Anesthesia Postop Eval I Summary: Anesthesia Postop Eval I: Assessment Summary Airway patent Yes 04/25/24 10:05 WEED SCIENCE RESEARCH [email or web address] Spontaneous unlabored Yes 04/25/24 10:05 WEED SCIENCE RESEARCH [email or web address] respirations Mental status Awake,Calm 04/25/24 10:05 WEED SCIENCE RESEARCH [email or web address] nausea No 04/25/24 10:05 WEED SCIENCE RESEARCH TECHNICIAN.[email or web address] Vomiting No 04/25/24 10:05 WEED SCIENCE RESEARCH TECHNICIAN.[email or web address] Anesthesia Postop Eval I: Fluid Summary Crystalloid volume administer 800 04/25/24 10:05 WEED SCIENCE RESEARCH TECHNICIAN.SCHR (ml) Colloids volume administered ( ml) Blood Product volume administered (ml) Total IV fluid infused 800 04/25/24 10:05 WEED SCIENCE RESEARCH TECHNICIAN.[email or web address] Anesthesia Postop Eval I: Summary Notes Anesthesia Complication No 04/25/24 10:05 WEED SCIENCE RESEARCH TECHNICIAN.[email or web address] Anesthesia Complication Comment: Post-operative progress note Anesthesia: Postop Eval II Evaluation Mental status: Awake Pain Level: 0 nausea: No Vomiting: No
--- NOTE | 2024-04-25 10:12 | PCM.POSTANE2 ---
Anesthesia Postop Eval I Sum Postop Eval Completion status Anesthesia document: Postop Eval 1 completed: Yes Anesthesia Postop Eval I Summary Anesthesia Postop Eval I Summary: Anesthesia Postop Eval I: Assessment Summary Airway patent Yes 04/25/24 10:05 ASSEMBLER CATERPILLAR [email or web address] Spontaneous unlabored Yes 04/25/24 10:05 ASSEMBLER CATERPILLAR [email or web address].SCHR respirations Mental status Awake,Calm 04/25/24 10:05 ASSEMBLER CATERPILLAR [email or web address].SCHR nausea No 04/25/24 10:05 ASSEMBLER CATERPILLAR [email or web address].SCHR Vomiting No 04/25/24 10:05 ASSEMBLER CATERPILLAR [email or web address].SCHR Anesthesia Postop Eval I: Fluid Summary Crystalloid volume administer 800 04/25/24 10:05 ASSEMBLER CATERPILLAR [email or web address].SCHR (ml) Colloids volume administered ( ml) Blood Product volume administered (ml) Total IV fluid infused 800 04/25/24 10:05 ASSEMBLER CATERPILLAR [email or web address].SCHR Anesthesia Postop Eval I: Summary Notes Anesthesia Complication No 04/25/24 10:05 ASSEMBLER CATERPILLAR [email or web address].SCHR Anesthesia Complication Comment: Post-operative progress note Anesthesia: Postop Eval II Evaluation Mental status: Awake Pain Level: 0 nausea: No Vomiting: No
== END 2024-04-25 11:48 | disposition home or self-care (01) ==
LOC: SDC 06:55 → AC 06:56
PROVIDERS: PCP Nurse Practitioner Family; Referring Provider Urology; Visit Provider Urology
PROC: (CPT 50590; principal; 2024-04-25 08:10)
DX: N13.2 Hydronephrosis with renal and ureteral calculous obstruction (principal); I50.9 Heart failure, unspecified; I13.0 Hypertensive heart and chronic kidney disease with heart failure and stage 1 through stage 4 chronic kidney disease, or unspecified chronic kidney disease; I48.91 Unspecified atrial fibrillation; E03.9 Hypothyroidism, unspecified; E78.5 Hyperlipidemia, unspecified; Z79.899 Other long term (current) drug therapy; Z79.890 Hormone replacement therapy; Z79.01 Long term (current) use of anticoagulants; N18.9 Chronic kidney disease, unspecified
CPT/HCPCS: 50590; 00873; 81001; 87077; 87086; 87088; 87186; J7120; J2405

== ENCOUNTER → 2024-05-16 | Outpatient (CLI) | payer MEDICARE, OTHER, SELFPAY ==
--- NOTE | 2024-05-16 16:32 | CT_ITS ---
EXAM: CT ABDOMEN AND PELVIS WITHOUT INTRAVENOUS CONTRAST CLINICAL INDICATION: URETERAL STONE TECHNIQUE: Helically acquired images were obtained of the abdomen and pelvis without intravenous contrast. This CT exam was performed using one or more of the following dose reduction techniques: automated exposure control, adjustment of the mA and/or kV according to patient size, and/or use of iterative reconstruction technique. RADIATION DOSE: CTDIvol = 24.18 mGy, DLP = 1250.39 mGy-cm. COMPARISON: January 15, 2024, there was moderate atrophy and moderate right hydronephrosis and large 1.1 cm AP stone in the proximal right ureter. Also small hiatal hernia and degenerative spine changes. FINDINGS: LOWER THORAX: Small hiatal hernia, now partially collapsed. Lung bases are clear. No cardiomegaly. No significant pericardial effusion. ABDOMEN: LIVER: Unremarkable. Homogeneous. GALLBLADDER AND BILE DUCTS: Unremarkable. No calcified gallstones. No gallbladder distention or wall edema. No intra- or extrahepatic biliary ductal dilation. PANCREAS: Atrophic fatty-appearing pancreas is again noted. No focal cystic mass. SPLEEN: Unremarkable. Normal size without focal cystic or solid mass. ADRENALS: Unremarkable. No nodules. KIDNEYS AND URETERS: Adequately positioned right ureteral stent. Previously seen ureter stone is no longer apparent but newly seen multiple small calcifications are noted in the mid and lower pole right kidney. Mild perinephric soft tissue stranding around both kidneys. No hydronephrosis. STOMACH AND BOWEL: Moderate stool in much of the proximal half of the colon, mild stool in the distal colon. Minimal sigmoid diverticulosis. No stomach or bowel distention. No focal inflammatory change. PELVIS: APPENDIX: No evidence of acute appendicitis. BLADDER: Unremarkable. No visible stone in the bladder or urethra. REPRODUCTIVE: Unremarkable as visualized. No mass. ABDOMEN and PELVIS: INTRAPERITONEAL SPACE: Unremarkable. No ascites or other fluid collection. No free air. BONES/JOINTS: Unremarkable. No suspicious lytic or blastic abnormality. SOFT TISSUES: Unremarkable. No discrete abdominal or pelvic wall hernia. VASCULATURE: Unremarkable. Abdominal aorta is non-dilated. LYMPH NODES: Unremarkable. No enlarged lymph nodes. OTHER FINDINGS: Similar mild compression deformity of L1 and T12 vacuum discs. CT/Abdomen/Pelvis without Cont IMPRESSION: 1. Well-positioned right ureteral stent. Resolution of prior hydronephrosis. No visible residual stone in the right ureter, bladder or urethra. Multiple new small intrarenal stones in the right kidney, the largest 6 mm. 2. Slight hiatal hernia. Minimal diverticulosis. Degenerative spine changes. Electronically Signed: Faustina Aguilar MD at 1:31 EDT ,
== END | disposition home or self-care (01) ==
LOC: CT 16:21
PROVIDERS: PCP Nurse Practitioner Family; Referring Provider Urology; Visit Provider Urology
DX: N20.1 Calculus of ureter (principal)
CPT/HCPCS: 74176

== ENCOUNTER → 2024-06-28 | Outpatient (CLI) | payer MEDICARE, OTHER, SELFPAY ==
--- NOTE | 2024-06-28 14:36 | CT_ITS ---
STUDY: CT ABDOMEN AND PELVIS WITHOUT CONTRAST REASON FOR EXAM: Female, 73 years old. URETERAL STONE. Right ureteral stent and lithotripsy. RADIATION DOSAGE (If Supplied By Facility): CTDIvol = ( 22.71 ) mGy, DLP = ( 1096.05 ) mGycm TECHNIQUE: Transaxial images were obtained from the dome of the diaphragm to the symphysis pubis without oral contrast, and without intravenous contrast. Sagittal and coronal images were reconstructed. Individualized dose optimization techniques were used for this CT. COMPARISON: Comparison is made with prior study dated May 16, 2024. FINDINGS: Minimal linear atelectasis and/or scarring at the lung bases. Coronary calcification. Normal liver. Normal gallbladder and extrahepatic biliary system. Normal spleen. There is diffuse atrophy of the pancreas. Normal bilateral adrenal glands. Moderate atrophy of the right kidney. A right-sided double-J stent catheter is seen with the proximal tip in the region of the right renal pelvis. The distal tip is in the right ureter. Stable 5 mm nonobstructive calculus in the lower pole calyx of the right kidney. Normal left kidney. There is a small hiatal hernia. Normal small intestine. There are scattered colonic diverticula consistent with diverticulosis. The appendix is visualized and appears normal. There is scattered atherosclerotic calcification of the abdominal aorta, without a demonstrated aneurysm. Normal inferior vena cava. There is a small retroperitoneal lymphadenopathy with enlarged nodes no greater than 10mm in the short axis diameter. Normal urinary bladder. There is a small umbilical hernia containing fat. There are degenerative changes of the visualized lumbar spine. 50% loss of height of the superior endplate of the L1 vertebrae. CT/Abdomen/Pelvis without Cont IMPRESSION: Atrophy of the right kidney. Small calculus in the lower pole OF the right kidney. A right-sided double-J stent catheter is seen with the proximal tip in the right renal pelvis and distal tip in the right side of the bladder. Electronically Signed: Zay Allen MD at 10:57 EST ,
== END | disposition home or self-care (01) ==
LOC: CT 14:28
PROVIDERS: PCP Nurse Practitioner Family; Referring Provider Urology; Visit Provider Urology
DX: N20.1 Calculus of ureter (principal)
CPT/HCPCS: 74176

== ENCOUNTER → 2024-08-16 | Outpatient (CLI) | payer MEDICARE, OTHER, SELFPAY ==
--- NOTE | 2024-08-16 12:04 | US_ITS ---
EXAM: US RETROPERITONEAL LIMITED, RENAL CLINICAL INDICATION: R STONE/ HYDRONEPHROSIS TECHNIQUE: Limited grayscale and color Doppler sonographic evaluation of the retroperitoneum was performed. COMPARISON: No relevant prior studies available. FINDINGS: RIGHT KIDNEY: No hydronephrosis. 2 calculi are identified, measuring 8 and 7 mm, at the interpolar level and at the lower pole level respectively. No focal lesion. No perinephric collection is demonstrated. LEFT KIDNEY: No hydronephrosis. 6 mm renal calculus identified in the renal sinus region. No focal lesion. No perinephric collection is demonstrated. Unremarkable bladder. US/Kidney and Bladder IMPRESSION: Nonobstructing bilateral small renal calyceal calculi. Electronically Signed: Sam Marie MD at 13:34 EST ,
== END | disposition home or self-care (01) ==
LOC: US 12:04
PROVIDERS: PCP Nurse Practitioner Family; Referring Provider Urology; Visit Provider Urology
DX: N13.2 Hydronephrosis with renal and ureteral calculous obstruction (principal)
CPT/HCPCS: 76770

== ENCOUNTER → 2025-02-20 | Outpatient (CLI) | payer MEDICARE, OTHER, SELFPAY ==
--- NOTE | 2025-02-20 14:08 | ECHOD_ITS ---
Reason For Study Reason For Study: Dyspnea/SOB Procedure This was a 2D Doppler, Color Flow transthoracic echocardiogram. Exam performed in department. Left Ventricle Normal LV size. Mild concentric left ventricular hypertrophy. Left ventricular systolic function is normal. The left ventricular ejection fraction is 55 %. Right Ventricle Normal RV size. Normal systolic function. Atria The left atrium is moderately enlarged. The right atrium is mildly enlarged. Mitral Valve There is mild to moderate mitral annular calcification. Tricuspid Valve Normal tricuspid valve. Mild to moderate (1-2+) tricuspid valve insufficiency. Pulmonary artery systolic pressure is 45 mmHg. Aortic Valve Trisinus/trileaflet aortic valve. Pulmonic Valve Normal pulmonic valve. Great Vessels Normal aortic root. The pulmonary artery is normal size. Inferior vena cava collapse with respiration. Pericardium/Pleural No pericardial effusion. MMode/2D Measurements & Calculations LVIDd: 4.3 cm IVSd: 1.4 cm LAV(MOD- bp): 99.0 ml LVIDs: 3.3 cm LVPWd: 1.3 cm LAV(MOD- bp) Indexed: 38.9 ml/m2 RVDd: 4.5 cm FS: 21.6 % LAV(MOD- sp2): 96.3 ml LAV(MOD- sp4): 95.1 ml SV(MOD-sp4): 36.9 ml SV(sp4- el): 37.2 ml LVAd ap4: 25.7 cm2 LVLd ap4: 7.8 cm SI(MOD-sp4): 14.5 ml/m2 EDV(MOD-sp4): 72.3 ml EDV(sp4-el): 72.2 ml LVAs ap4: 16.8 cm2 LVLs ap4: 6.8 cm ESV(MOD-sp4): 35.4 ml ESV(sp4-el): 35.1 ml EF(MOD-sp4): 51.0 % EF(sp4-el): 51.5 % LA A4 area: 29.8 cm2 LA dimension(2D): 4.6 cm RA A4 area: 22.3 cm2 TAPSE: 1.6 cm Doppler Measurements & Calculations MV E max stefan: 113.4 cm/sec MV V2 max: 115.2 cm/sec Ao V2 max: 124.7 cm/sec MV max P.3 mmHg Ao max P.3 mmHg MV V2 mean: 64.0 cm/sec Ao V2 mean: 94.5 cm/sec MV mean P.0 mmHg Ao mean P.0 mmHg MV V2 VTI: 23.9 cm Ao V2 VTI: 23.4 cm AV (velocity ratio): 0.75 LV V1 max: 98.2 cm/sec TR max stefan: 319.8 cm/sec LV V1 max P.9 mmHg TR max P.9 mmHg LV V1 mean P.4 mmHg LV V1 mean: 72.3 cm/sec LV V1 VTI: 17.5 cm ECHO/Echo Complete Interpretation Summary Normal LV size. Mild concentric left ventricular hypertrophy. Left ventricular systolic function is normal. The left atrium is moderately enlarged. Pulmonary artery systolic pressure is 45 mmHg. The left ventricular ejection fraction is 55 %. Ordering Physician: Kervin Connolly Referring Physician: Kervin Connolly Performed By: Lee Maradiaga RCS
== END | disposition home or self-care (01) ==
LOC: CVS 14:07
PROVIDERS: PCP Nurse Practitioner Family; Referring Provider Internal Medicine Cardiovascular Disease; Visit Provider Internal Medicine Cardiovascular Disease
DX: I42.9 Cardiomyopathy, unspecified (principal); R06.02 Shortness of breath
CPT/HCPCS: 93306